=== PATIENT | female | born 1955 | race Caucasian/White ===

== ENCOUNTER → 2022-04-13 15:49 | Outpatient (CLI) | payer MEDICARE, OTHER, SELFPAY ==
--- NOTE | 2022-04-13 15:52 | DI.RAD.S_ITS ---
PROCEDURE: XR CERVICAL SPINE 2V OR 3V INDICATIONS: neck pain TECHNIQUE: 3 view(s) of the cervical spine were acquired. COMPARISON: None. FINDINGS: Bones: No fractures or dislocations to the T1 level. The lateral masses of C1 appear intact on the odontoid view. No suspicious bony lesions. Loss of lordosis which could be related to muscle spasm, rigidity or simply positional. Multilevel disc height loss with endplate sclerosis and spurring, most notably and moderate to severe at the C5-C6 level. Mild multilevel mid and lower cervical spine facet joint arthropathy and uncovertebral hypertrophy. Soft tissues: No prevertebral soft tissue swelling. IMPRESSION: Loss of lordosis and multilevel spondylosis, most notably with moderate to severe disc degeneration at the C5-C6 level. Dictated by: Dimitri PADILLA Interpreted: Fareed Montero MD on 04/13/2022 at 16:19 Transcribed by: BEAR on 04/13/2022 at 16:20 Approved by: Fareed Montero M.D. on 04/20/2022 at 16:16
== END ==
PROVIDERS: PCP Family Medicine; Referring Provider Family Medicine; Visit Provider Family Medicine
DX: M47.812 Spondylosis without myelopathy or radiculopathy, cervical region (principal); M50.322 Other cervical disc degeneration at C5-C6 level; G89.29 Other chronic pain
CPT/HCPCS: 72040

== ENCOUNTER → 2022-06-04 07:14 | Outpatient (CLI) | payer MEDICARE, OTHER, SELFPAY ==
[2022-06-04 08:26] LABS: Add Manual Diff / Slide Review NO; Basophils Absolute Auto 0 /uL (0-100); Basophils Percent Auto 0.6 % (0-2); Eosinophils Absolute Auto 200 /uL (0-450); Eosinophils Percent Auto 4.4 % (2-4); Hematocrit 42.7 % (36-46); Hemoglobin 14.5 g/dL (12.0-16.0); Lymphocytes Absolute Auto 2200 /uL (1100-4500); Mean Corpuscular Hemoglobin 30.2 PG (26-34); Mean Corpuscular Volume 88.6 fL (80-100); Monocytes Absolute Auto 400 /uL (0-900); Monocytes Percent Auto 6.7 % (3-14); Neutrophils Absolute Auto 2600 /uL (1500-7000); Neutrophils Percent Auto 48.3 % (50-75); Platelet Count 183 X10^3/uL (150-400); Red Blood Cell Count 4.82 X10^6/uL (4.0-5.2); Red Cell Distribution Width 13.3 % (11.6-14.8); White Blood Cell Count 5.4 X10^3/uL (4.5-11.0)
[2022-06-04 08:57] LABS: Alanine Aminotransferase 28 IU/L (<35); Albumin 4.2 g/dL (3.5-5.0); Albumin Globulin Ratio 1.9 (1.0-2.8); Alkaline Phosphatase 89 U/L (38-126); Aspartate Aminotransferase 30 IU/L (14-36); BUN Creatinine Ratio 16.7 (6-22); Bilirubin Total 0.6 mg/dL (0.2-1.3); Blood Urea Nitrogen 14 mg/dL (7-17); Calcium 9.8 mg/dL (8.4-10.2); Carbon Dioxide 30 mmol/L (22-32); Chloride 106 mmol/L (98-107); Cholesterol 226 mg/dL (140-199); Estimated Glomerular Filt Rate > 60 mL/min (>60); Globulin 2.2 g/dL (1.7-4.1); Glucose 85 mg/dL (80-110); HDL Cholesterol 69 mg/dL (40-60); HEMOLYSIS < 15 (0-50); LDL Cholesterol Calculated 134 mg/dL (<100); Potassium 4.6 mmol/L (3.4-5.1); Sodium 141 mmol/L (137-145); Total Protein 6.4 g/dL (6.3-8.2); Triglycerides 113 mg/dL (35-150)
[2022-06-04 09:05] LABS: Vitamin D 25 Hydroxy (D3) 66.5 ng/mL (30.0-100.0)
[2022-06-04 09:52] LABS: Hep C Virus Ab w/Reflex Quant NEGATIVE s/c (NEGATIVE)
[2022-06-04 10:10] LABS: Hemoglobin A1C% w Est Avg Glu 5.3 % (4.0-6.0)
== END ==
PROVIDERS: Family Provider Family Medicine; PCP Family Medicine; Referring Provider Family Medicine; Visit Provider Family Medicine
DX: Z11.59 Encounter for screening for other viral diseases (principal); Z00.00 Encounter for general adult medical examination without abnormal findings
CPT/HCPCS: 36415; 80053; 80061; 82306; 83036; 85025; 86803

== ENCOUNTER → 2022-07-07 11:06 | Outpatient (CLI) | payer MEDICARE, OTHER, SELFPAY | PROVIDERS: Family Provider Family Medicine; PCP Family Medicine; Referring Provider Family Medicine; Visit Provider Family Medicine | DX: Z13.820 Encounter for screening for osteoporosis (principal); M85.88 Other specified disorders of bone density and structure, other site; Z78.0 Asymptomatic menopausal state | CPT/HCPCS: 77080 ==

== ENCOUNTER → 2022-07-15 14:08 | Outpatient (CLI) | payer MEDICARE, OTHER, SELFPAY ==
--- NOTE | 2022-07-15 14:09 | DI.MG.S_ITS ---
BILATERAL DIGITAL SCREENING MAMMOGRAM 3D/2D WITH CAD: 07/15/2022 CLINICAL: Routine screening. Family history of breast cancer. Comparison is made to exam dated: 07/09/2020 mammogram - outside location. Both breasts are heterogeneously dense, which may obscure small masses (category c / 51-75% glandular tissue). Current study was also evaluated with a Computer Aided Detection (CAD) system. No significant masses, calcifications, or other findings are seen in either breast. There has been no significant interval change. IMPRESSION: NEGATIVE There is no mammographic evidence of malignancy. A 1 year screening mammogram is recommended. Based on the Tyrer Cuzick model (a risk assessment model) the patient's lifetime risk is 8.6% and her 10 year risk is 4.5%. According to the ACR, ACS, and NCCN guidelines, an annual breast MRI exam along with mammogram is recommended if the patient's lifetime risk is 20% or greater. This exam was interpreted at Station ID: [id number]. NOTE: For mammograms, a report in lay terms will be sent to the patient. Approximately 15% of breast malignancies will not be visualized mammographically. In the management of a palpable breast mass, a negative mammogram must not discourage biopsy of a clinically suspicious lesion. Electronically Signed By: Fareed Montero M.D., jr/flynn:07/15/2022 14:48:49 letter sent: Normal Exam ACR BI-RADS Category 1: Negative [id number]
== END ==
PROVIDERS: Family Provider Family Medicine; PCP Family Medicine; Referring Provider Family Medicine; Visit Provider Family Medicine
DX: Z12.31 Encounter for screening mammogram for malignant neoplasm of breast (principal); Z80.3 Family history of malignant neoplasm of breast
CPT/HCPCS: 77063; 77067

== ENCOUNTER 2022-08-27 15:15 | Outpatient (RCR) | payer MEDICARE, OTHER, SELFPAY ==
--- NOTE | 2022-04-23 16:24 | PT.OIE ---
Current Diagnoses Other chronic pain (04/23/22) Cervicalgia (04/23/22) Muscle weakness (generalized) (04/23/22) Past Medical History (Last Updated 04/13/22 @ 15:36 by Carloz Kelley DO) Allergic rhinitis Chronic neck pain Visit Care Team Role Provider Type Carloz Kelley DO Attending Provider Physician Family Provider Primary Care Provider Referring Provider Specialty: Family Practice Address: [address] [place] [address], [id number] Phone: Fax: Email: [email or web address] Physical Therapy Initial Evaluation PT-OP-A Visit Information Start: 04/22/22 18:26 Freq: Status: Active Protocol: Document 04/23/22 12:46 LRN (Rec: 04/23/22 16:21 LRN [id number]) Out-Patient Physical Therapy Visit Information Visit Information Visit Type Initial Evaluation Visit Start Time 13:00 Visit Stop Time 13:55 Total Visit Minutes 55 Visit Number 1 Evaluation Information Evaluation Date 04/23/22 Precautions Precautions Pt reports chronic neck, back, jaw apin and headaches. PT-OP-B Current Condition Start: 04/22/22 18:26 Freq: Status: Active Protocol: Document 04/23/22 12:46 LRN (Rec: 04/23/22 16:21 LRN [id number]) Current Condition History of Current Condition Onset Date 20 yrs ago, worsened in the past few months. Current Complaints L neck/arm discomfort & numbness including L LE, can't sleep on L side History of Current Condition Pt reports she has had neck pain for the past 20 years of insidious onset. States sometimes driving she can't turn her head to the left due to pain. Once in a while worsening of L arm and leg numbness, and can't sleep on L side. Pt states she moved to [place] a year ago and the referring physician thought PT might help. She states that previous doctors told her she had to live with it. Driving is uncomfortable for really long distances, even as passenger. Headaches on L side. Prior Treatments and Tests Physical therapy previously ~ 2015 in [place]. X-ray report indicates: Loss of lordosis and multilevel spondylosis, most notably with moderate to severe disc degeneration at the C5-C6 level. Next MD visit 05/24/22. Pt given pills (meloxicam), but she doesn't like because they make her sleepy and then she doesn't function well the next day. Future Testing and Treatments Planned None Developmental History Developmental History Moved to [place] a year ago with spouse and dog. PMH: Back pain, was told due to disc problem. Jaw pain - wears mouthguard (pt feels not helpful). Treatment Goals Patient/Caregiver Goals Pt goal is to be able to sleep on L side for 1-2 hours without pain, buckle bra reaching behind back without pain, turning to look to the left for driving. Prior Functional Status Baseline Function- ADL's Independent Baseline Function- Mobility Independent Baseline Function- Other 6 months ago could don bra from behind without pain. Current Functional Impairments (Reported) Functional Limitations- ADL's Sleeps on the L side for 1-2 hrs. Functional Limitations- Work/School Retired from various jobs and being a homemaker. Functional Limitations- Recreation/ Sews and walks her dog daily. Hobbies Has 60 lbs lab. Personal Factors Other Personal Factors That May Effect Chronic L neck/shoulder pain Therapy/Recovery with headaches. PT-OP-C Subjective Start: 04/22/22 18:26 Freq: Status: Active Protocol: Document 04/23/22 12:46 LRN (Rec: 04/23/22 16:21 LRN [id number]) Patient Questionnaires Neck Disability Index NDI Score 12 Neck Disability Index Impairment 20 to 39% Impaired (Score 10- 19) Quick Dash- Upper Extremity Quick Dash UE Score 31.81 Quick Dash UE Impairment 20 to 39% Impaired (Score 20- 39) OP-PT Pain Assessment Pain Assessment Grid Paper Pain Assessment Grid Completed Yes Location Neck Pain Location Details L lateral neck Intensity 4 Scale Used Numeric (0 - 10) Description Aching,Dull Frequency Constant Other Pain Aggravating Factors turning head, lying on it, reading in bed. Pain Alleviating Factors Heat Other Pain Alleviating Factors Meloxicam, PT-OP-E Functional Tests Start: 04/22/22 18:26 Freq: Status: Active Protocol: Document 04/23/22 12:46 LRN (Rec: 04/23/22 16:21 LRN [id number]) Functional Tests Apley's Scratch Test Action 1- Left Posterior Acromion Action 1- Right Posterior scapular region to spine Action 2- Left C7 Action 2- Right T3 Action 3- Left L5 Action 3- Right T7 PT-OP-H Neuro Start: 04/22/22 18:26 Freq: Status: Active Protocol: Document 04/23/22 12:46 LRN (Rec: 04/23/22 16:21 LRN [id number]) Sensation Evaluation Gross Sensation Gross Sensation Left UE Impaired,Head Impaired Sensation Description Tingling Deep Tendon Reflex & Clonus Assessment Deep Tendon Reflex Right Brachioradialis Deep Tendon Reflex 2+ Normal Left Brachioradialis Deep Tendon Reflex 3+ Normal But Brisk Bilateral Tricep Deep Tendon Reflex 3+ Normal But Brisk Bilateral Bicep Deep Tendon Reflex 3+ Normal But Brisk PT-OP-J Posture/Palpation/Skin Start: 04/22/22 18:26 Freq: Status: Active Protocol: Document 04/23/22 12:46 LRN (Rec: 04/23/22 16:21 LRN [id number]) Posture Evaluation Position Standing Head/C-Spine Posture Excess Extension,Forward Head T-Spine Posture Increased Kyphosis L-Spine Posture Increased Lordosis Shoulder Posture (R) Elevated Scapula Posture (L) Elevated Arm Posture (L) Internally Rotated,(R) Internally Rotated Weight Distribution Balanced Palpation Assessment Location Upper back Palpation Location L Upper back Palpation Findings Tenderness Posterior neck Palpation Location L Posterior and lateral neck Palpation Findings Tenderness PT-OP-K Range of Motion Start: 04/22/22 18:26 Freq: Status: Active Protocol: Document 04/23/22 12:46 LRN (Rec: 04/23/22 16:21 LRN [id number]) Cervical Spine Range of Motion Cervical Spine Active Degrees Testing Position Sitting Flexion 40 Extension 32 Rotation Left 25 Rotation Right 50 Lateral Flexion Left 18 Lateral Flexion Right 15 ROM Limitations Pain Shoulder Goniometric Range of Motion Shoulder Right Passive Shoulder ROM WFL Yes Testing Position Supine Flexion 170 Abduction 180 External Rotation at 90 degrees 90 Abduction Internal Rotation 85 Internal Rotation Behind Back (text) T7 Left Passive Shoulder ROM WFL No Testing Position Supine Flexion 140 Abduction 90 External Rotation at 90 degrees 55 Abduction Internal Rotation 72 Internal Rotation Behind Back (text) L5 PT-OP-L Special Tests Start: 04/22/22 18:26 Freq: Status: Active Protocol: Document 04/23/22 12:46 LRN (Rec: 04/23/22 16:21 LRN [id number]) Special Tests Cervical Spine Special Tests Upper Limb Tension Test Test Results + for ulnar, median, and radial nerve of L UE. Vertebral Artery Test Results -, but L rot very limited mobility Spurling's Test Test Results - bilaterally Traction Test Results - Foraminal Compression Test Results - PT-OP-M Strength Start: 04/22/22 18:26 Freq: Status: Active Protocol: Document 04/23/22 12:46 LRN (Rec: 04/23/22 16:21 LR [id number]) Cervical Spine Strength Cervical Spine Manual Muscle Testing Testing Position Supine Flexion (C1-2) 5 Normal Extension 5 Normal Rotation Left 3+ Fair+ Rotation Right 4 Good Lateral Flexion Left (C3) 5 Normal Lateral Flexion Right (C3) 5 Normal Shoulder Strength Shoulder Manual Muscle Testing Right Flexion 5 Normal Abduction (C5) 5 Normal External Rotation 5 Normal Internal Rotation 5 Normal Left Flexion 3- Fair- Abduction (C5) 3- Fair- External Rotation 3- Fair- Internal Rotation 4 Good Hand Filler Block Inserter Remover/Pinch Strength Hand Dominance Hand Dominance Right PT-OP-Q Treatments Start: 04/22/22 18:26 Freq: Status: Active Protocol: Document 04/23/22 12:46 LRN (Rec: 04/23/22 16:21 [facility] [id number]) Therapeutic Exercises Sitting Exercises C. Rot stretch Sitting Exercise Name Active C. Rot stretch Reps/Minutes 5 SH x 3 L UT stretch Sitting Exercise Name L UT stretch, sitting on L hand Side left Reps/Minutes 5-10 SH x 3 Comments cuing for proper postioning for stretch Self-Care/Home Management Treatment Education Other Education Discussed results of evaluation, goals, and plan of care (POC). Pt agreeable to goals and POC. Activities Self-Care/Home Management Activities I/S pt HEP: L UT stretch and active C. L rot stretch. PT-OP-T Assessment and Plan Start: 04/22/22 18:26 Freq: Status: Active Protocol: Document 04/23/22 12:46 LRN (Rec: 04/23/22 16:21 [facility] [id number]) Physical Therapy Assessment Rehab Potential Rehabilitation Potential Good Evaluation Complexity Number of Personal Factors/Comorbidities 1-2 Number of Body Systems Impaired 4 or More Clinical Presentation at Evaluation Evolving Impairments Impairments Activity Tolerance,Functional Activities,Pain,Posture,ROM, Strength Goals Four Impairment L shoulder weakness Impairment L shoulder strength: Flex, AB , ER is 3-/5 (R is 5/5) UE QuickDASH score is 31.81 ( 20-39% impaired) Short Term Goal (STG) Improve L shoulder flex, AB, ER strength to no less than 3+ /5. STG Duration 06/07/22 Intermediate Goal (LTG) Improve L shoulder strength to improve function per UE QuickDASH score 1-19 (1-19% impaired). LTG Duration 07/22/22 Three Impairment Decreased L shoulder mobility Impairment Shoulder AROM (in deg's): Flex 140 L, 180 R; AB 90 L, 180 R; ER 55 L, 90 R; IR 72 L, 85 R. Behind back: L5 left, T7 right. Short Term Goal (STG) Pt will be educated in sleep positions and will improve sleep quality on the L side for 1-2 hours without pain. STG Duration 06/07/22 Intermediate Goal (LTG) Improve L shoulder AROM with pt able to buckle bra reaching behind back without pain. LTG Duration 07/22/22 Two Impairment Decreased neck mobility. Impairment Cervical AROM (in deg's): Rot is 25 L, 50 R; SB is 18 L, 15 R. Short Term Goal (STG) Pt educated in proper head/ neck posturing in standing, sitting and with reading. STG Duration 05/14/22 Intermediate Goal (LTG) Improve L Cervical rotation AROM with pt able to turn to look left comfortably for driving. LTG Duration 07/22/22 One Impairment Pt is not currently on a self care HEP. Short Term Goal (STG) Pt will be educated in sleep positions and use of modalities for pain management . STG Duration 04/30/22 Intermediate Goal (LTG) Pt will be independent with a self care HEP of left neck/ shoulder/UE exercises. LTG Duration 07/22/22 Assessment Summary Assessment Pt presents with soft tissue dysfunction of the left neck and shoulder muscles limiting mobility due to pain; therefore assessment of cervical mechanical dysfunction was deferred until greater soft tissue mobility can be achieved. The pt shows much soft tissue tightness that may be a cause of her tingling sensation in the head and L UE. The pt is not currently participating in a self care HEP; therefore education in home ex's and self care of proper posturing, positional posturing and correct body mechanics to minimize L shoulder/neck pain. It is expected that the pt's rehabilitation may be extended due to the chronic nature of her pain. The pt will benefit from skilled physical therapy to work towards achieving the above stated goals. Physical Therapy Plan Frequency and Duration Frequency of Treatment 2x/Week Plan of Care Start Date 04/23/22 Plan of Care End Date 07/22/22 Therapeutic Interventions Therapeutic Interventions Home Exercise Program,Joint Mobilizations,Manual Therapy, Neuromuscular Re-education, Patient/Caregiver Education, Self-Care/Home Management,Soft Tissue Mobilization,Taping, Therapeutic Activities, Therapeutic Exercises Modalities Cold Pack/Ice Massage,Electric Stimulation,Hot Packs, Ultrasound Next Visit Focus/Plan Next Note Type Treatment Note Next Visit Plan Assess cervical joint mechanics when soft tissue mobility improved. End modalities to decrease soft tissue dysfunction (MH/ IFES). Education: best sleep position in L sidelie to minimize pain , proper head/neck posturing in standing, sitting and with reading STM/MFR to head, L neck, shoulder. Stretch: neck, L shoulder, scapula, UE neural. Stabilization/ther ex: neck, L shoulder, scapula.
--- NOTE | 2022-04-29 16:12 | PT.OTN ---
Current Diagnoses Other chronic pain (04/29/22) Cervicalgia (04/29/22) Muscle weakness (generalized) (04/29/22) Physical Therapy Treatment Note PT-OP-A Visit Information Start: 04/22/22 18:26 Freq: Status: Active Protocol: Document 04/29/22 13:03 LRN (Rec: 04/29/22 13:47 LRN [id number]) Out-Patient Physical Therapy Visit Information Visit Information Visit Type Treatment Note Visit Start Time 13:03 Visit Stop Time 13:45 Total Visit Minutes 42 Visit Number 2 Evaluation Information Evaluation Date 04/23/22 Precautions Precautions Pt reports chronic neck, back, jaw apin and headaches. PT-OP-B Current Condition Start: 04/22/22 18:26 Freq: Status: Active Protocol: Document 04/23/22 12:46 LRN (Rec: 04/23/22 16:21 LRN [id number]) Current Condition History of Current Condition Onset Date 20 yrs ago, worsened in the past few months. Current Complaints L neck/arm discomfort & numbness including L LE, can't sleep on L side History of Current Condition Pt reports she has had neck pain for the past 20 years of insidious onset. States sometimes driving she can't turn her head to the left due to pain. Once in a while worsening of L arm and leg numbness, and can't sleep on L side. Pt states she moved to [place] a year ago and the referring physician thought PT might help. She states that previous doctors told her she had to live with it. Driving is uncomfortable for really long distances, even as passenger. Headaches on L side. Prior Treatments and Tests Physical therapy previously ~ 2015 in [place]. X-ray report indicates: Loss of lordosis and multilevel spondylosis, most notably with moderate to severe disc degeneration at the C5-C6 level. Next MD visit 05/24/22. Pt given pills (meloxicam), but she doesn't like because they make her sleepy and then she doesn't function well the next day. Future Testing and Treatments Planned None Developmental History Developmental History Moved to [place] a year ago with spouse and dog. PMH: Back pain, was told due to disc problem. Jaw pain - wears mouthguard (pt feels not helpful). Treatment Goals Patient/Caregiver Goals Pt goal is to be able to sleep on L side for 1-2 hours without pain, buckle bra reaching behind back without pain, turning to look to the left for driving. Prior Functional Status Baseline Function- ADL's Independent Baseline Function- Mobility Independent Baseline Function- Other 6 months ago could don bra from behind without pain. Current Functional Impairments (Reported) Functional Limitations- ADL's Sleeps on the L side for 1-2 hrs. Functional Limitations- Work/School Retired from various jobs and being a homemaker. Functional Limitations- Recreation/ Sews and walks her dog daily. Hobbies Has 60 lbs lab. Personal Factors Other Personal Factors That May Effect Chronic L neck/shoulder pain Therapy/Recovery with headaches. PT-OP-C Subjective Start: 04/22/22 18:26 Freq: Status: Active Protocol: Document 04/29/22 13:03 LRN (Rec: 04/29/22 13:47 LRN [id number]) OP-PT Subjective Patient Comments Patient Comments No changes. States this week has been horrible due to dealing with spouse home and doing a lot of driving and stress from unknown and dad. PT-OP-E Functional Tests Start: 04/22/22 18:26 Freq: Status: Active Protocol: Document 04/23/22 12:46 LRN (Rec: 04/23/22 16:21 LRN [id number]) Functional Tests Apley's Scratch Test Action 1- Left Posterior Acromion Action 1- Right Posterior scapular region to spine Action 2- Left C7 Action 2- Right T3 Action 3- Left L5 Action 3- Right T7 PT-OP-H Neuro Start: 04/22/22 18:26 Freq: Status: Active Protocol: Document 04/23/22 12:46 LRN (Rec: 04/23/22 16:21 LRN [id number]) Sensation Evaluation Gross Sensation Gross Sensation Left UE Impaired,Head Impaired Sensation Description Tingling Deep Tendon Reflex & Clonus Assessment Deep Tendon Reflex Right Brachioradialis Deep Tendon Reflex 2+ Normal Left Brachioradialis Deep Tendon Reflex 3+ Normal But Brisk Bilateral Tricep Deep Tendon Reflex 3+ Normal But Brisk Bilateral Bicep Deep Tendon Reflex 3+ Normal But Brisk PT-OP-J Posture/Palpation/Skin Start: 04/22/22 18:26 Freq: Status: Active Protocol: Document 04/23/22 12:46 LRN (Rec: 04/23/22 16:21 LRN [id number]) Posture Evaluation Position Standing Head/C-Spine Posture Excess Extension,Forward Head T-Spine Posture Increased Kyphosis L-Spine Posture Increased Lordosis Shoulder Posture (R) Elevated Scapula Posture (L) Elevated Arm Posture (L) Internally Rotated,(R) Internally Rotated Weight Distribution Balanced Palpation Assessment Location Upper back Palpation Location L Upper back Palpation Findings Tenderness Posterior neck Palpation Location L Posterior and lateral neck Palpation Findings Tenderness PT-OP-K Range of Motion Start: 04/22/22 18:26 Freq: Status: Active Protocol: Document 04/23/22 12:46 LRN (Rec: 04/23/22 16:21 LRN [id number]) Cervical Spine Range of Motion Cervical Spine Active Degrees Testing Position Sitting Flexion 40 Extension 32 Rotation Left 25 Rotation Right 50 Lateral Flexion Left 18 Lateral Flexion Right 15 ROM Limitations Pain Shoulder Goniometric Range of Motion Shoulder Right Passive Shoulder ROM WFL Yes Testing Position Supine Flexion 170 Abduction 180 External Rotation at 90 degrees 90 Abduction Internal Rotation 85 Internal Rotation Behind Back (text) T7 Left Passive Shoulder ROM WFL No Testing Position Supine Flexion 140 Abduction 90 External Rotation at 90 degrees 55 Abduction Internal Rotation 72 Internal Rotation Behind Back (text) L5 PT-OP-L Special Tests Start: 04/22/22 18:26 Freq: Status: Active Protocol: Document 04/23/22 12:46 LRN (Rec: 04/23/22 16:21 LRN [id number]) Special Tests Cervical Spine Special Tests Upper Limb Tension Test Test Results + for ulnar, median, and radial nerve of L UE. Vertebral Artery Test Results -, but L rot very limited mobility Spurling's Test Test Results - bilaterally Traction Test Results - Foraminal Compression Test Results - PT-OP-M Strength Start: 04/22/22 18:26 Freq: Status: Active Protocol: Document 04/23/22 12:46 LRN (Rec: 04/23/22 16:21 LRN [id number]) Cervical Spine Strength Cervical Spine Manual Muscle Testing Testing Position Supine Flexion (C1-2) 5 Normal Extension 5 Normal Rotation Left 3+ Fair+ Rotation Right 4 Good Lateral Flexion Left (C3) 5 Normal Lateral Flexion Right (C3) 5 Normal Shoulder Strength Shoulder Manual Muscle Testing Right Flexion 5 Normal Abduction (C5) 5 Normal External Rotation 5 Normal Internal Rotation 5 Normal Left Flexion 3- Fair- Abduction (C5) 3- Fair- External Rotation 3- Fair- Internal Rotation 4 Good Hand Planning Aide/Pinch Strength Hand Dominance Hand Dominance Right PT-OP-Q Treatments Start: 04/22/22 18:26 Freq: Status: Active Protocol: Document 04/29/22 13:03 LRN (Rec: 04/29/22 13:47 [facility] [id number]) Therapeutic Exercises Supine Exercises Ulnar n stretch Supine Exercise Name L>R Ulnar n stretch with arm 90 deg's AB f/b forearm sup/ pron Side bilateral Reps/Minutes 10x each Comments Extra time to determine max tolerated stretch Sitting Exercises C. Rot stretch Sitting Exercise Name Active C. L Rot stretch Side left Reps/Minutes 10 SH x 10 L UT stretch Sitting Exercise Name L UT stretch, sitting on L hand Side bilateral Reps/Minutes 5-10 SH x 3 Comments cuing for proper postioning for stretch Standing Exercises L Median n stretch Standing Exercise Name L>R Median n stretch: Sitting with arm supported in front, lift hand/wrist Side bilateral Reps/Minutes 10-20 SH x 10 Comments Much extra time to determine best position and for trng of proper ex. L Radial stretch Standing Exercise Name L>R Radial n stretch: shoulder depression Side bilateral Reps/Minutes 10x Comments Extra time to determine max tolerated stretch Self-Care/Home Management Treatment Activities Self-Care/Home Management Activities Issued & reviewed HEP: Neck C . rot and UT stretch and UE neual glides: Standing Radial , Supine Medial and sitting/ standing Medial n stretches. PT-OP-T Assessment and Plan Start: 04/22/22 18:26 Freq: Status: Active Protocol: Document 04/29/22 13:03 LRN (Rec: 04/29/22 13:47 [facility] [id number]) Physical Therapy Assessment Goals Four Impairment L shoulder weakness Impairment L shoulder strength: Flex, AB , ER is 3-/5 (R is 5/5) UE QuickDASH score is 31.81 ( 20-39% impaired) Short Term Goal (STG) Improve L shoulder flex, AB, ER strength to no less than 3+ /5. STG Duration 06/07/22 Acquisition Cost Estimator Goal (LTG) Improve L shoulder strength to improve function per UE QuickDASH score 1-19 (1-19% impaired). LTG Duration 07/22/22 Three Impairment Decreased L shoulder mobility Impairment Shoulder AROM (in deg's): Flex 140 L, 180 R; AB 90 L, 180 R; ER 55 L, 90 R; IR 72 L, 85 R. Behind back: L5 left, T7 right. Short Term Goal (STG) Pt will be educated in sleep positions and will improve sleep quality on the L side for 1-2 hours without pain. STG Duration 06/07/22 Acquisition Cost Estimator Goal (LTG) Improve L shoulder AROM with pt able to buckle bra reaching behind back without pain. LTG Duration 07/22/22 Two Impairment Decreased neck mobility. Impairment Cervical AROM (in deg's): Rot is 25 L, 50 R; SB is 18 L, 15 R. Short Term Goal (STG) Pt educated in proper head/ neck posturing in standing, sitting and with reading. STG Duration 05/14/22 Acquisition Cost Estimator Goal (LTG) Improve L Cervical rotation AROM with pt able to turn to look left comfortably for driving. 04/29/22: HEP: C. rot stretch . LTG Duration 07/22/22 progressed 04/29/22 One Impairment Pt is not currently on a self care HEP. Short Term Goal (STG) Pt will be educated in sleep positions and use of modalities for pain management . STG Duration 04/30/22 Snf Goal (LTG) Pt will be independent with a self care HEP of left neck/ shoulder/UE exercises. 04/29/22: HEP: C. rot & UT stretch, UE neural stretches ( radial, ulnar & median nerves) LTG Duration 07/22/22 progressed 04/29/22 Progress Towards Goals Progress Comments Progressed HEP for C. rot and UE neural mobility. Assessment Summary Assessment Pt is very restricted in L UE neural mobility and neck mobility. She is only able to tolerate start position for ulnar (arm 90 deg's AB/neutral palm, with extra stretch through forearm sup/pron), and radial n (scapular depression ). Median n stretch not tolerated in standing start position with h and on wall, tolerated better with arm resting on surface for passive wrist ext stretch using opp hand. Physical Therapy Plan Frequency and Duration Frequency of Treatment 2x/Week Plan of Care Start Date 04/23/22 Plan of Care End Date 07/22/22 Next Visit Focus/Plan Next Note Type Treatment Note Next Visit Plan Assess cervical joint mechanics when soft tissue mobility improved. Try modalities to decrease soft tissue dysfunction (MH/ IFES). POC: Education: best sleep position in L sidelie to minimize pain , proper head/neck posturing in standing, sitting and with reading STM/MFR to head, L neck, shoulder. Stretch: L shoulder, scapula (monitor cervical & UE neural stretch). Stabilization/ther ex: neck, L shoulder, scapula.
--- NOTE | 2022-05-03 15:42 | PT.OTN ---
Current Diagnoses Other chronic pain (05/03/22) Cervicalgia (05/03/22) Muscle weakness (generalized) (05/03/22) Physical Therapy Treatment Note PT-OP-A Visit Information Start: 04/22/22 18:26 Freq: Status: Active Protocol: Document 05/03/22 09:48 LRN (Rec: 05/03/22 10:34 LRN [id number]) Out-Patient Physical Therapy Visit Information Visit Information Visit Type Treatment Note Visit Start Time 09:48 Visit Stop Time 10:35 Total Visit Minutes 47 Visit Number 3 Evaluation Information Evaluation Date 04/23/22 Precautions Precautions Pt reports chronic neck, back, jaw apin and headaches. PT-OP-B Current Condition Start: 04/22/22 18:26 Freq: Status: Active Protocol: Document 04/23/22 12:46 LRN (Rec: 04/23/22 16:21 LRN [id number]) Current Condition History of Current Condition Onset Date 20 yrs ago, worsened in the past few months. Current Complaints L neck/arm discomfort & numbness including L LE, can't sleep on L side History of Current Condition Pt reports she has had neck pain for the past 20 years of insidious onset. States sometimes driving she can't turn her head to the left due to pain. Once in a while worsening of L arm and leg numbness, and can't sleep on L side. Pt states she moved to [place] a year ago and the referring physician thought PT might help. She states that previous doctors told her she had to live with it. Driving is uncomfortable for really long distances, even as passenger. Headaches on L side. Prior Treatments and Tests Physical therapy previously ~ 2015 in [place]. X-ray report indicates: Loss of lordosis and multilevel spondylosis, most notably with moderate to severe disc degeneration at the C5-C6 level. Next MD visit 05/24/22. Pt given pills (meloxicam), but she doesn't like because they make her sleepy and then she doesn't function well the next day. Future Testing and Treatments Planned None Developmental History Developmental History Moved to [place] a year ago with spouse and dog. PMH: Back pain, was told due to disc problem. Jaw pain - wears mouthguard (pt feels not helpful). Treatment Goals Patient/Caregiver Goals Pt goal is to be able to sleep on L side for 1-2 hours without pain, buckle bra reaching behind back without pain, turning to look to the left for driving. Prior Functional Status Baseline Function- ADL's Independent Baseline Function- Mobility Independent Baseline Function- Other 6 months ago could don bra from behind without pain. Current Functional Impairments (Reported) Functional Limitations- ADL's Sleeps on the L side for 1-2 hrs. Functional Limitations- Work/School Retired from various jobs and being a homemaker. Functional Limitations- Recreation/ Sews and walks her dog daily. Hobbies Has 60 lbs lab. Personal Factors Other Personal Factors That May Effect Chronic L neck/shoulder pain Therapy/Recovery with headaches. PT-OP-C Subjective Start: 04/22/22 18:26 Freq: Status: Active Protocol: Document 05/03/22 09:48 LRN (Rec: 05/03/22 10:34 LRN [id number]) OP-PT Subjective Patient Comments Patient Comments Pt states her prior PT was in Mar 2018 at [facility] Therapy service for 1 month. States she hasn't done the new ex's, only the sit UT stretch. PT-OP-E Functional Tests Start: 04/22/22 18:26 Freq: Status: Active Protocol: Document 04/23/22 12:46 LRN (Rec: 04/23/22 16:21 LRN [id number]) Functional Tests Apley's Scratch Test Action 1- Left Posterior Acromion Action 1- Right Posterior scapular region to spine Action 2- Left C7 Action 2- Right T3 Action 3- Left L5 Action 3- Right T7 PT-OP-H Neuro Start: 04/22/22 18:26 Freq: Status: Active Protocol: Document 04/23/22 12:46 LRN (Rec: 04/23/22 16:21 LRN [id number]) Sensation Evaluation Gross Sensation Gross Sensation Left UE Impaired,Head Impaired Sensation Description Tingling Deep Tendon Reflex & Clonus Assessment Deep Tendon Reflex Right Brachioradialis Deep Tendon Reflex 2+ Normal Left Brachioradialis Deep Tendon Reflex 3+ Normal But Brisk Bilateral Tricep Deep Tendon Reflex 3+ Normal But Brisk Bilateral Bicep Deep Tendon Reflex 3+ Normal But Brisk PT-OP-J Posture/Palpation/Skin Start: 04/22/22 18:26 Freq: Status: Active Protocol: Document 04/23/22 12:46 LRN (Rec: 04/23/22 16:21 LRN [id number]) Posture Evaluation Position Standing Head/C-Spine Posture Excess Extension,Forward Head T-Spine Posture Increased Kyphosis L-Spine Posture Increased Lordosis Shoulder Posture (R) Elevated Scapula Posture (L) Elevated Arm Posture (L) Internally Rotated,(R) Internally Rotated Weight Distribution Balanced Palpation Assessment Location Upper back Palpation Location L Upper back Palpation Findings Tenderness Posterior neck Palpation Location L Posterior and lateral neck Palpation Findings Tenderness PT-OP-K Range of Motion Start: 04/22/22 18:26 Freq: Status: Active Protocol: Document 04/23/22 12:46 LRN (Rec: 04/23/22 16:21 LRN [id number]) Cervical Spine Range of Motion Cervical Spine Active Degrees Testing Position Sitting Flexion 40 Extension 32 Rotation Left 25 Rotation Right 50 Lateral Flexion Left 18 Lateral Flexion Right 15 ROM Limitations Pain Shoulder Goniometric Range of Motion Shoulder Right Passive Shoulder ROM WFL Yes Testing Position Supine Flexion 170 Abduction 180 External Rotation at 90 degrees 90 Abduction Internal Rotation 85 Internal Rotation Behind Back (text) T7 Left Passive Shoulder ROM WFL No Testing Position Supine Flexion 140 Abduction 90 External Rotation at 90 degrees 55 Abduction Internal Rotation 72 Internal Rotation Behind Back (text) L5 PT-OP-L Special Tests Start: 04/22/22 18:26 Freq: Status: Active Protocol: Document 04/23/22 12:46 LRN (Rec: 04/23/22 16:21 LRN [id number]) Special Tests Cervical Spine Special Tests Upper Limb Tension Test Test Results + for ulnar, median, and radial nerve of L UE. Vertebral Artery Test Results -, but L rot very limited mobility Spurling's Test Test Results - bilaterally Traction Test Results - Foraminal Compression Test Results - PT-OP-M Strength Start: 04/22/22 18:26 Freq: Status: Active Protocol: Document 04/23/22 12:46 LRN (Rec: 04/23/22 16:21 LRN [id number]) Cervical Spine Strength Cervical Spine Manual Muscle Testing Testing Position Supine Flexion (C1-2) 5 Normal Extension 5 Normal Rotation Left 3+ Fair+ Rotation Right 4 Good Lateral Flexion Left (C3) 5 Normal Lateral Flexion Right (C3) 5 Normal Shoulder Strength Shoulder Manual Muscle Testing Right Flexion 5 Normal Abduction (C5) 5 Normal External Rotation 5 Normal Internal Rotation 5 Normal Left Flexion 3- Fair- Abduction (C5) 3- Fair- External Rotation 3- Fair- Internal Rotation 4 Good Hand 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 Ulnar n stretch Supine Exercise Name L>R Ulnar n stretch with arm 90 deg's AB f/b forearm sup/ pron Side bilateral Reps/Minutes 10x each Comments Extra time to determine max tolerated stretch Sitting Exercises C. Rot stretch Sitting Exercise Name Active C. L Rot stretch Side left Reps/Minutes 10 SH x 10 L UT stretch Sitting Exercise Name L UT stretch, sitting on L hand Side bilateral Reps/Minutes 5-10 SH x 5-8 Comments cuing for proper postioning for stretch Standing Exercises L Radial stretch Standing Exercise Name Reviewed w/handouts Side left Self-Care/Home Management Treatment Education Patient Education Posture Other Education Pt wanted PT to be aware of prior PT establishment that she attended in 2018, therefore discussed her prior PT. Discussed and educated pt regarding pillows and posturing for sleep (on side). Pt educated in proper head/ neck posturing in standing, sitting and with reading. PT-OP-R Modalities Start: 04/22/22 18:26 Freq: Status: Active Protocol: Document 05/03/22 09:48 LRN (Rec: 05/03/22 10:34 [facility] [id number]) Electric Stimulation Electric Stimulation Interferential Current (IFC) Body Location Neck (neck/UT) Duration (Minutes) 10 Intensity 15>14 Target/Sweep Sweep Patient Position Hooklying Combined With Heat/Cold Hot Pack Comments Legs on bolster. PT-OP-T Assessment and Plan Start: 04/22/22 18:26 Freq: Status: Active Protocol: Document 05/03/22 09:48 LRN (Rec: 05/03/22 10:34 [facility] [id number]) Physical Therapy Assessment Goals Four Impairment L shoulder weakness Impairment L shoulder strength: Flex, AB , ER is 3-/5 (R is 5/5) UE QuickDASH score is 31.81 ( 20-39% impaired) Short Term Goal (STG) Improve L shoulder flex, AB, ER strength to no less than 3+ /5. STG Duration 06/07/22 Radio Assembler Goal (LTG) Improve L shoulder strength to improve function per UE QuickDASH score 1-19 (1-19% impaired). LTG Duration 07/22/22 Three Impairment Decreased L shoulder mobility Impairment Shoulder AROM (in deg's): Flex 140 L, 180 R; AB 90 L, 180 R; ER 55 L, 90 R; IR 72 L, 85 R. Behind back: L5 left, T7 right. Short Term Goal (STG) Pt will be educated in sleep positions and will improve sleep quality on the L side for 1-2 hours without pain. STG Duration 06/07/22 Radio Assembler Goal (LTG) Improve L shoulder AROM with pt able to buckle bra reaching behind back without pain. LTG Duration 07/22/22 Two Impairment Decreased neck mobility. Impairment Cervical AROM (in deg's): Rot is 25 L, 50 R; SB is 18 L, 15 R. Short Term Goal (STG) Pt educated in proper head/ neck posturing in standing, sitting and with reading. STG Duration 05/14/22 (04/02/22: met goal) Radio Assembler Goal (LTG) Improve L Cervical rotation AROM with pt able to turn to look left comfortably for driving. 04/29/22: HEP: C. rot stretch . LTG Duration 07/22/22 progressed 04/29/22 One Impairment Pt is not currently on a self care HEP. Short Term Goal (STG) Pt will be educated in sleep positions and use of modalities for pain management . STG Duration 04/30/22 Radio Assembler Goal (LTG) Pt will be independent with a self care HEP of left neck/ shoulder/UE exercises. 04/29/22: HEP: C. rot & UT stretch, UE neural stretches ( radial, ulnar & median nerves) LTG Duration 07/22/22 progressed 04/29/22 Assessment Summary Assessment + response to EStim with reduction of L neck pain from 11/03 to 09/03. Pt not familiar with UE neural stretches; therefore further review needed. Pt was very receptive to recommendations to nighttime positioning and posture education. Physical Therapy Plan Frequency and Duration Frequency of Treatment 2x/Week Plan of Care Start Date 04/23/22 Plan of Care End Date 07/22/22 Next Visit Focus/Plan Next Note Type Treatment Note Next Visit Plan Assess cervical joint mechanics when soft tissue mobility improved. Assess long-term response to MH/IFES. Discuss/educate for positioning while reading POC: STM/MFR to head, L neck, shoulder. Stretch: L shoulder, scapula (monitor cervical & UE neural stretch). Stabilization/ther ex: neck, L shoulder, scapula.
--- NOTE | 2022-05-06 16:29 | PT.OTN ---
Current Diagnoses Other chronic pain (05/06/22) Cervicalgia (05/06/22) Muscle weakness (generalized) (05/06/22) Physical Therapy Treatment Note PT-OP-A Visit Information Start: 04/22/22 18:26 Freq: Status: Active Protocol: Document 05/06/22 12:34 LRN (Rec: 05/06/22 13:50 LRN [id number]) Out-Patient Physical Therapy Visit Information Visit Information Visit Type Treatment Note Visit Start Time 13:06 Visit Stop Time 13:51 Total Visit Minutes 45 Visit Number 4 Evaluation Information Evaluation Date 04/23/22 Precautions Precautions Pt reports chronic neck, back, jaw apin and headaches. PT-OP-B Current Condition Start: 04/22/22 18:26 Freq: Status: Active Protocol: Document 04/23/22 12:46 LRN (Rec: 04/23/22 16:21 LRN [id number]) Current Condition History of Current Condition Onset Date 20 yrs ago, worsened in the past few months. Current Complaints L neck/arm discomfort & numbness including L LE, can't sleep on L side History of Current Condition Pt reports she has had neck pain for the past 20 years of insidious onset. States sometimes driving she can't turn her head to the left due to pain. Once in a while worsening of L arm and leg numbness, and can't sleep on L side. Pt states she moved to [place] a year ago and the referring physician thought PT might help. She states that previous doctors told her she had to live with it. Driving is uncomfortable for really long distances, even as passenger. Headaches on L side. Prior Treatments and Tests Physical therapy previously ~ 2015 in [place]. X-ray report indicates: Loss of lordosis and multilevel spondylosis, most notably with moderate to severe disc degeneration at the C5-C6 level. Next MD visit 05/24/22. Pt given pills (meloxicam), but she doesn't like because they make her sleepy and then she doesn't function well the next day. Future Testing and Treatments Planned None Developmental History Developmental History Moved to [place] a year ago with spouse and dog. PMH: Back pain, was told due to disc problem. Jaw pain - wears mouthguard (pt feels not helpful). Treatment Goals Patient/Caregiver Goals Pt goal is to be able to sleep on L side for 1-2 hours without pain, buckle bra reaching behind back without pain, turning to look to the left for driving. Prior Functional Status Baseline Function- ADL's Independent Baseline Function- Mobility Independent Baseline Function- Other 6 months ago could don bra from behind without pain. Current Functional Impairments (Reported) Functional Limitations- ADL's Sleeps on the L side for 1-2 hrs. Functional Limitations- Work/School Retired from various jobs and being a homemaker. Functional Limitations- Recreation/ Sews and walks her dog daily. Hobbies Has 60 lbs lab. Personal Factors Other Personal Factors That May Effect Chronic L neck/shoulder pain Therapy/Recovery with headaches. PT-OP-C Subjective Start: 04/22/22 18:26 Freq: Status: Active Protocol: Document 05/06/22 12:34 LRN (Rec: 05/06/22 13:50 LRN [id number]) OP-PT Subjective Patient Comments Patient Comments States she was better after last treatment and was able to put coat on from R to L ( usually does it L to R). Pain rated as 5/10. Tried to support head properly in sidelie and has been working on her posture in sitting. PT-OP-E Functional Tests Start: 04/22/22 18:26 Freq: Status: Active Protocol: Document 04/23/22 12:46 LRN (Rec: 04/23/22 16:21 LRN [id number]) Functional Tests Apley's Scratch Test Action 1- Left Posterior Acromion Action 1- Right Posterior scapular region to spine Action 2- Left C7 Action 2- Right T3 Action 3- Left L5 Action 3- Right T7 PT-OP-H Neuro Start: 04/22/22 18:26 Freq: Status: Active Protocol: Document 04/23/22 12:46 LRN (Rec: 04/23/22 16:21 LRN [id number]) Sensation Evaluation Gross Sensation Gross Sensation Left UE Impaired,Head Impaired Sensation Description Tingling Deep Tendon Reflex & Clonus Assessment Deep Tendon Reflex Right Brachioradialis Deep Tendon Reflex 2+ Normal Left Brachioradialis Deep Tendon Reflex 3+ Normal But Brisk Bilateral Tricep Deep Tendon Reflex 3+ Normal But Brisk Bilateral Bicep Deep Tendon Reflex 3+ Normal But Brisk PT-OP-J Posture/Palpation/Skin Start: 04/22/22 18:26 Freq: Status: Active Protocol: Document 04/23/22 12:46 LRN (Rec: 04/23/22 16:21 LRN [id number]) Posture Evaluation Position Standing Head/C-Spine Posture Excess Extension,Forward Head T-Spine Posture Increased Kyphosis L-Spine Posture Increased Lordosis Shoulder Posture (R) Elevated Scapula Posture (L) Elevated Arm Posture (L) Internally Rotated,(R) Internally Rotated Weight Distribution Balanced Palpation Assessment Location Upper back Palpation Location L Upper back Palpation Findings Tenderness Posterior neck Palpation Location L Posterior and lateral neck Palpation Findings Tenderness PT-OP-K Range of Motion Start: 04/22/22 18:26 Freq: Status: Active Protocol: Document 04/23/22 12:46 LRN (Rec: 04/23/22 16:21 LRN [id number]) Cervical Spine Range of Motion Cervical Spine Active Degrees Testing Position Sitting Flexion 40 Extension 32 Rotation Left 25 Rotation Right 50 Lateral Flexion Left 18 Lateral Flexion Right 15 ROM Limitations Pain Shoulder Goniometric Range of Motion Shoulder Right Passive Shoulder ROM WFL Yes Testing Position Supine Flexion 170 Abduction 180 External Rotation at 90 degrees 90 Abduction Internal Rotation 85 Internal Rotation Behind Back (text) T7 Left Passive Shoulder ROM WFL No Testing Position Supine Flexion 140 Abduction 90 External Rotation at 90 degrees 55 Abduction Internal Rotation 72 Internal Rotation Behind Back (text) L5 PT-OP-L Special Tests Start: 04/22/22 18:26 Freq: Status: Active Protocol: Document 04/23/22 12:46 LRN (Rec: 04/23/22 16:21 LRN [id number]) Special Tests Cervical Spine Special Tests Upper Limb Tension Test Test Results + for ulnar, median, and radial nerve of L UE. Vertebral Artery Test Results -, but L rot very limited mobility Spurling's Test Test Results - bilaterally Traction Test Results - Foraminal Compression Test Results - PT-OP-M Strength Start: 04/22/22 18:26 Freq: Status: Active Protocol: Document 04/23/22 12:46 LRN (Rec: 04/23/22 16:21 LRN [id number]) Cervical Spine Strength Cervical Spine Manual Muscle Testing Testing Position Supine Flexion (C1-2) 5 Normal Extension 5 Normal Rotation Left 3+ Fair+ Rotation Right 4 Good Lateral Flexion Left (C3) 5 Normal Lateral Flexion Right (C3) 5 Normal Shoulder Strength Shoulder Manual Muscle Testing Right Flexion 5 Normal Abduction (C5) 5 Normal External Rotation 5 Normal Internal Rotation 5 Normal Left Flexion 3- Fair- Abduction (C5) 3- Fair- External Rotation 3- Fair- Internal Rotation 4 Good Hand Proof Load Mechanic/Pinch Strength Hand Dominance Hand Dominance Right PT-OP-Q Treatments Start: 04/22/22 18:26 Freq: Status: Active Protocol: Document 05/06/22 12:34 LRN (Rec: 05/06/22 13:50 LRN [id number]) Therapeutic Exercises Supine Exercises Ulnar n stretch Supine Exercise Name L>R Ulnar n stretch with arm 70 deg's AB f/b wrist ext arm in neutral Side bilateral Reps/Minutes 10 SH x 10 wrist ext Comments Extra time to determine max tolerated stretch Sitting Exercises C. Rot stretch Sitting Exercise Name Active C. L Rot stretch Side left Reps/Minutes 10 SH x 10 L UT stretch Sitting Exercise Name L UT stretch, sitting on L hand Side bilateral Reps/Minutes 5-10 SH x 5-8 Comments cuing for proper postioning for stretch Standing Exercises L Median n stretch Standing Exercise Name L>R Median n stretch Side bilateral Reps/Minutes 10 SH x 10 of elbow flexion Comments Much extra time to determine best position and for trng of proper ex. L Radial stretch Standing Exercise Name L>R Radial n stretch: shdr depression, fingers only able to point bkwds. Side bilateral Reps/Minutes 10 SH x 10 of wrist flexion Comments Extra time to determine max tolerated stretch Manual Therapy Treatment Joint Mobilizations C3-C6 Joint C3-C4, C4-C5, C5-C6. Direction Gapping of Facet joints Grade II Body Position Supine Reps/Duration 8 Self-Care/Home Management Treatment Education Patient Education Posture Other Education Reviewed postioning for nighttime sleep for proper head on neck position. Reviewed pillows with hole in the middle and showed pt online what to look for. PT-OP-R Modalities Start: 04/22/22 18:26 Freq: Status: Active Protocol: Document 05/06/22 12:34 LRN (Rec: 05/06/22 13:50 LRN [id number]) Electric Stimulation Electric Stimulation Interferential Current (IFC) Body Location Neck (L UT>lat shoulder, Infras>Pec) Duration (Minutes) 10 Intensity 14 Target/Sweep Sweep Patient Position Hooklying Combined With Heat/Cold Hot Pack Comments Legs on bolster. PT-OP-T Assessment and Plan Start: 04/22/22 18:26 Freq: Status: Active Protocol: Document 05/06/22 12:34 LRN (Rec: 05/06/22 13:50 LRN [id number]) Physical Therapy Assessment Goals Four Impairment L shoulder weakness Impairment L shoulder strength: Flex, AB , ER is 3-/5 (R is 5/5) UE QuickDASH score is 31.81 ( 20-39% impaired) Short Term Goal (STG) Improve L shoulder flex, AB, ER strength to no less than 3+ /5. STG Duration 06/07/22 Retirement Goal (LTG) Improve L shoulder strength to improve function per UE QuickDASH score 1-19 (1-19% impaired). LTG Duration 07/22/22 Three Impairment Decreased L shoulder mobility Impairment Shoulder AROM (in deg's): Flex 140 L, 180 R; AB 90 L, 180 R; ER 55 L, 90 R; IR 72 L, 85 R. Behind back: L5 left, T7 right. Short Term Goal (STG) Pt will be educated in sleep positions and will improve sleep quality on the L side for 1-2 hours without pain. 05/03: I/S pt in best practice for side sleeping and head/neck posturing. STG Duration 06/07/22 (partially met 05/06) Retirement Goal (LTG) Improve L shoulder AROM with pt able to buckle bra reaching behind back without pain. LTG Duration 07/22/22 Two Impairment Decreased neck mobility. Impairment Cervical AROM (in deg's): Rot is 25 L, 50 R; SB is 18 L, 15 R. Short Term Goal (STG) Pt educated in proper head/ neck posturing in standing, sitting and with reading. 05/06/22 STG Duration 05/14/22 (05/03/22: MET GOAL) Licensed Pesticide Applicator Goal (LTG) Improve L Cervical rotation AROM with pt able to turn to look left comfortably for driving. 04/29/22: HEP: C. rot stretch . LTG Duration 07/22/22 progressed 04/29/22 One Impairment Pt is not currently on a self care HEP. Short Term Goal (STG) Pt will be educated in sleep positions and use of modalities for pain management . 05/03 & 04/17: Educated pt in best Sleep positioning. STG Duration 04/30/22 (05/06/22: Partially met goal) Licensed Pesticide Applicator Goal (LTG) Pt will be independent with a self care HEP of left neck/ shoulder/UE exercises. 04/29/22: HEP: C. rot & UT stretch, UE neural stretches ( radial, ulnar & median nerves) LTG Duration 07/22/22 progressed 04/29/22 Progress Towards Goals Progress Comments Partially met STG #1 & #3. Assessment Summary Assessment Pt now able to tolerate median n stretch in standing position. Pt able don coat from R to L arm for first time . Pt has improved understanding of best positioning at nighttime after education. With JMT, pt has stiffness on L side as expected. Physical Therapy Plan Frequency and Duration Frequency of Treatment 2x/Week Plan of Care Start Date 04/23/22 Plan of Care End Date 07/22/22 Next Visit Focus/Plan Next Note Type Treatment Note Next Visit Plan Discuss use of modalities for pain control at nighttime for sleep. Assess long-term response to MH/IFES. Discuss/educate for positioning while reading POC: STM/MFR to head, L neck, shoulder. Stretch: L shoulder, scapula (monitor cervical & UE neural stretch). Stabilization/ther ex: neck, L shoulder, scapula.
--- NOTE | 2022-05-11 13:43 | PT.OTN ---
Current Diagnoses Other chronic pain (05/11/22) Cervicalgia (05/11/22) Muscle weakness (generalized) (05/11/22) Physical Therapy Treatment Note PT-OP-A Visit Information Start: 04/22/22 18:26 Freq: Status: Active Protocol: Document 05/11/22 12:52 TS (Rec: 05/11/22 14:07 TS [id number]) Out-Patient Physical Therapy Visit Information Visit Information Visit Type Treatment Note Visit Note SPTA Humberto lead treatment under the super vision and direction of SHAG TRUCK DRIVER Angelica. Visit Start Time 13:03 Visit Stop Time 13:43 Total Visit Minutes 40 Visit Number 5 Number of SHAG TRUCK DRIVER Visits 1 PT-OP-B Current Condition Start: 04/22/22 18:26 Freq: Status: Active Protocol: Document 04/23/22 12:46 LRN (Rec: 04/23/22 16:21 LRN [id number]) Current Condition History of Current Condition Onset Date 20 yrs ago, worsened in the past few months. Current Complaints L neck/arm discomfort & numbness including L LE, can't sleep on L side History of Current Condition Pt reports she has had neck pain for the past 20 years of insidious onset. States sometimes driving she can't turn her head to the left due to pain. Once in a while worsening of L arm and leg numbness, and can't sleep on L side. Pt states she moved to [place] a year ago and the referring physician thought PT might help. She states that previous doctors told her she had to live with it. Driving is uncomfortable for really long distances, even as passenger. Headaches on L side. Prior Treatments and Tests Physical therapy previously ~ 2015 in [place]. X-ray report indicates: Loss of lordosis and multilevel spondylosis, most notably with moderate to severe disc degeneration at the C5-C6 level. Next MD visit 05/24/22. Pt given pills (meloxicam), but she doesn't like because they make her sleepy and then she doesn't function well the next day. Future Testing and Treatments Planned None Developmental History Developmental History Moved to [place] a year ago with spouse and dog. PMH: Back pain, was told due to disc problem. Jaw pain - wears mouthguard (pt feels not helpful). Treatment Goals Patient/Caregiver Goals Pt goal is to be able to sleep on L side for 1-2 hours without pain, buckle bra reaching behind back without pain, turning to look to the left for driving. Prior Functional Status Baseline Function- ADL's Independent Baseline Function- Mobility Independent Baseline Function- Other 6 months ago could don bra from behind without pain. Current Functional Impairments (Reported) Functional Limitations- ADL's Sleeps on the L side for 1-2 hrs. Functional Limitations- Work/School Retired from various jobs and being a homemaker. Functional Limitations- Recreation/ Sews and walks her dog daily. Hobbies Has 60 lbs lab. Personal Factors Other Personal Factors That May Effect Chronic L neck/shoulder pain Therapy/Recovery with headaches. PT-OP-C Subjective Start: 04/22/22 18:26 Freq: Status: Active Protocol: Document 05/11/22 12:52 TS (Rec: 05/11/22 14:07 TS [id number]) OP-PT Subjective Patient Comments Patient Comments Pt states yesterday she was having a lot of pain and a headache, rates 10/10. She has been compliant with her HEP and feels better today. PT-OP-E Functional Tests Start: 04/22/22 18:26 Freq: Status: Active Protocol: Document 04/23/22 12:46 LRN (Rec: 04/23/22 16:21 LRN [id number]) Functional Tests Apley's Scratch Test Action 1- Left Posterior Acromion Action 1- Right Posterior scapular region to spine Action 2- Left C7 Action 2- Right T3 Action 3- Left L5 Action 3- Right T7 PT-OP-H Neuro Start: 04/22/22 18:26 Freq: Status: Active Protocol: Document 04/23/22 12:46 LRN (Rec: 04/23/22 16:21 LRN [id number]) Sensation Evaluation Gross Sensation Gross Sensation Left UE Impaired,Head Impaired Sensation Description Tingling Deep Tendon Reflex & Clonus Assessment Deep Tendon Reflex Right Brachioradialis Deep Tendon Reflex 2+ Normal Left Brachioradialis Deep Tendon Reflex 3+ Normal But Brisk Bilateral Tricep Deep Tendon Reflex 3+ Normal But Brisk Bilateral Bicep Deep Tendon Reflex 3+ Normal But Brisk PT-OP-J Posture/Palpation/Skin Start: 04/22/22 18:26 Freq: Status: Active Protocol: Document 04/23/22 12:46 LRN (Rec: 04/23/22 16:21 LRN [id number]) Posture Evaluation Position Standing Head/C-Spine Posture Excess Extension,Forward Head T-Spine Posture Increased Kyphosis L-Spine Posture Increased Lordosis Shoulder Posture (R) Elevated Scapula Posture (L) Elevated Arm Posture (L) Internally Rotated,(R) Internally Rotated Weight Distribution Balanced Palpation Assessment Location Upper back Palpation Location L Upper back Palpation Findings Tenderness Posterior neck Palpation Location L Posterior and lateral neck Palpation Findings Tenderness PT-OP-K Range of Motion Start: 04/22/22 18:26 Freq: Status: Active Protocol: Document 04/23/22 12:46 LRN (Rec: 04/23/22 16:21 LRN [id number]) Cervical Spine Range of Motion Cervical Spine Active Degrees Testing Position Sitting Flexion 40 Extension 32 Rotation Left 25 Rotation Right 50 Lateral Flexion Left 18 Lateral Flexion Right 15 ROM Limitations Pain Shoulder Goniometric Range of Motion Shoulder Right Passive Shoulder ROM WFL Yes Testing Position Supine Flexion 170 Abduction 180 External Rotation at 90 degrees 90 Abduction Internal Rotation 85 Internal Rotation Behind Back (text) T7 Left Passive Shoulder ROM WFL No Testing Position Supine Flexion 140 Abduction 90 External Rotation at 90 degrees 55 Abduction Internal Rotation 72 Internal Rotation Behind Back (text) L5 PT-OP-L Special Tests Start: 04/22/22 18:26 Freq: Status: Active Protocol: Document 04/23/22 12:46 LRN (Rec: 04/23/22 16:21 LRN [id number]) Special Tests Cervical Spine Special Tests Upper Limb Tension Test Test Results + for ulnar, median, and radial nerve of L UE. Vertebral Artery Test Results -, but L rot very limited mobility Spurling's Test Test Results - bilaterally Traction Test Results - Foraminal Compression Test Results - PT-OP-M Strength Start: 04/22/22 18:26 Freq: Status: Active Protocol: Document 04/23/22 12:46 LRN (Rec: 04/23/22 16:21 LRN [id number]) Cervical Spine Strength Cervical Spine Manual Muscle Testing Testing Position Supine Flexion (C1-2) 5 Normal Extension 5 Normal Rotation Left 3+ Fair+ Rotation Right 4 Good Lateral Flexion Left (C3) 5 Normal Lateral Flexion Right (C3) 5 Normal Shoulder Strength Shoulder Manual Muscle Testing Right Flexion 5 Normal Abduction (C5) 5 Normal External Rotation 5 Normal Internal Rotation 5 Normal Left Flexion 3- Fair- Abduction (C5) 3- Fair- External Rotation 3- Fair- Internal Rotation 4 Good Hand Client Relationship Consultant/Pinch Strength Hand Dominance Hand Dominance Right PT-OP-Q Treatments Start: 04/22/22 18:26 Freq: Status: Active Protocol: Document 05/11/22 12:52 TS (Rec: 05/11/22 14:07 TS [id number]) Therapeutic Exercises Supine Exercises C. Rot Side bilateral Reps/Minutes 1x10 Comments Cues for chin tuck Sitting Exercises Chin Tuck with Scap retraction Sitting Exercise Name Added to HEP Reps/Minutes 1x10 Comments Tactile cues for scap squeeze Standing Exercises L Median n stretch Standing Exercise Name L>R Median n stretch Side bilateral Reps/Minutes 10 SH x 8 of elbow flexion Manual Therapy Treatment Soft Tissue Mobilization Neck Body Location SCM, Occipitals, Levator, UT Mobilization Type Myofascial Release, Oscillations,Sustained Pressure Intensity/Depth Moderate Body Position Supine Comments Pt responded well to manual therapy. Edcuated on self-stm for SCM. TMJ Body Location [place], medial Pterygoid, temporalis, SCM, Suboccipital Mobilization Type Oscillations Intensity/Depth Deep Body Position Hooklying Comments manual and instruction on self appliaction sustained pressure and pincer kneading Self-Care/Home Management Treatment Education Patient Education Posture Other Education Reviewed posture while reading in bed and in chair. Educated her on keeping book eye level , propping up with pillows, etc...and performing chin tucks with scap retraction. PT-OP-R Modalities Start: 04/22/22 18:26 Freq: Status: Active Protocol: Document 05/06/22 12:34 LRN (Rec: 05/06/22 13:50 LRN [id number]) Electric Stimulation Electric Stimulation Interferential Current (IFC) Body Location Neck (L UT>lat shoulder, Infras>Pec) Duration (Minutes) 10 Intensity 14 Target/Sweep Sweep Patient Position Hooklying Combined With Heat/Cold Hot Pack Comments Legs on bolster. PT-OP-T Assessment and Plan Start: 04/22/22 18:26 Freq: Status: Active Protocol: Document 05/11/22 12:52 TS (Rec: 05/11/22 14:07 TS [id number]) Physical Therapy Assessment Goals Four Impairment L shoulder weakness Impairment L shoulder strength: Flex, AB , ER is 3-/5 (R is 5/5) UE QuickDASH score is 31.81 ( 20-39% impaired) Short Term Goal (STG) Improve L shoulder flex, AB, ER strength to no less than 3+ /5. STG Duration 06/07/22 Retirement Goal (LTG) Improve L shoulder strength to improve function per UE QuickDASH score 1-19 (1-19% impaired). LTG Duration 07/22/22 Three Impairment Decreased L shoulder mobility Impairment Shoulder AROM (in deg's): Flex 140 L, 180 R; AB 90 L, 180 R; ER 55 L, 90 R; IR 72 L, 85 R. Behind back: L5 left, T7 right. Short Term Goal (STG) Pt will be educated in sleep positions and will improve sleep quality on the L side for 1-2 hours without pain. 05/03 & 04/17: I/S pt in best practice for side sleeping and head/neck posturing. STG Duration 06/07/22 (partially met 05/06) Retirement Goal (LTG) Improve L shoulder AROM with pt able to buckle bra reaching behind back without pain. LTG Duration 07/22/22 Two Impairment Decreased neck mobility. Impairment Cervical AROM (in deg's): Rot is 25 L, 50 R; SB is 18 L, 15 R. Short Term Goal (STG) Pt educated in proper head/ neck posturing in standing, sitting and with reading. 05/06/22 STG Duration 05/14/22 (05/03/22: MET GOAL) Marketing Project Manager Goal (LTG) Improve L Cervical rotation AROM with pt able to turn to look left comfortably for driving. 04/29/22: HEP: C. rot stretch . LTG Duration 07/22/22 progressed 04/29/22 One Impairment Pt is not currently on a self care HEP. Short Term Goal (STG) Pt will be educated in sleep positions and use of modalities for pain management . 05/03 & 04/17: Educated pt in best Sleep positioning. STG Duration 04/30/22 (05/06/22: Partially met goal) Marketing Project Manager Goal (LTG) Pt will be independent with a self care HEP of left neck/ shoulder/UE exercises. 04/29/22: HEP: C. rot & UT stretch, UE neural stretches ( radial, ulnar & median nerves) LTG Duration 07/22/22 progressed 04/29/22 Assessment Summary Assessment Pt progressed cervical rotation into supine against gravity. She responded well to manual therapy and educated her on self-STM of SCM. Educated pt on proper posture while reading in chair and in bed using pillows, etc. to prop up book to eye height, with chin tucks and scap retraction ex. Pt reported feeling discomfort with E-stim last time and did not perform this treatment. Pt will benefit from continued intervention to improve cervical ROM and posturing. Physical Therapy Plan Frequency and Duration Frequency of Treatment 2x/Week Plan of Care Start Date 04/23/22 Plan of Care End Date 07/22/22 Therapeutic Interventions Therapeutic Interventions Home Exercise Program,Joint Mobilizations,Manual Therapy, Neuromuscular Re-education, Patient/Caregiver Education, Self-Care/Home Management,Soft Tissue Mobilization,Taping, Therapeutic Activities, Therapeutic Exercises Modalities Cold Pack/Ice Massage,Electric Stimulation,Hot Packs, Ultrasound Next Visit Focus/Plan Next Visit Plan Assess carryover of posture with chin tucks and scap retraction, self-stm to SCM. Continue manual therapy for TMJ and neck. Discuss use of modalities for pain control at nighttime for sleep.
--- NOTE | 2022-05-18 13:48 | PT.OTN ---
Current Diagnoses Other chronic pain (05/18/22) Cervicalgia (05/18/22) Muscle weakness (generalized) (05/18/22) Physical Therapy Treatment Note PT-OP-A Visit Information Start: 04/22/22 18:26 Freq: Status: Active Protocol: Document 05/18/22 13:05 TS (Rec: 05/18/22 16:21 TS [id number]) Out-Patient Physical Therapy Visit Information Visit Information Visit Type Treatment Note Visit Note SPTA Humberto lead treatment under the super vision and direction of FOREST RESOURCES PROFESSOR Angelica. Visit Start Time 13:05 Visit Stop Time 13:48 Total Visit Minutes 43 Visit Number 6 Number of FOREST RESOURCES PROFESSOR Visits 2 PT-OP-B Current Condition Start: 04/22/22 18:26 Freq: Status: Active Protocol: Document 04/23/22 12:46 LRN (Rec: 04/23/22 16:21 LRN [id number]) Current Condition History of Current Condition Onset Date 20 yrs ago, worsened in the past few months. Current Complaints L neck/arm discomfort & numbness including L LE, can't sleep on L side History of Current Condition Pt reports she has had neck pain for the past 20 years of insidious onset. States sometimes driving she can't turn her head to the left due to pain. Once in a while worsening of L arm and leg numbness, and can't sleep on L side. Pt states she moved to [place] a year ago and the referring physician thought PT might help. She states that previous doctors told her she had to live with it. Driving is uncomfortable for really long distances, even as passenger. Headaches on L side. Prior Treatments and Tests Physical therapy previously ~ 2015 in [place]. X-ray report indicates: Loss of lordosis and multilevel spondylosis, most notably with moderate to severe disc degeneration at the C5-C6 level. Next MD visit 05/24/22. Pt given pills (meloxicam), but she doesn't like because they make her sleepy and then she doesn't function well the next day. Future Testing and Treatments Planned None Developmental History Developmental History Moved to [place] a year ago with spouse and dog. PMH: Back pain, was told due to disc problem. Jaw pain - wears mouthguard (pt feels not helpful). Treatment Goals Patient/Caregiver Goals Pt goal is to be able to sleep on L side for 1-2 hours without pain, buckle bra reaching behind back without pain, turning to look to the left for driving. Prior Functional Status Baseline Function- ADL's Independent Baseline Function- Mobility Independent Baseline Function- Other 6 months ago could don bra from behind without pain. Current Functional Impairments (Reported) Functional Limitations- ADL's Sleeps on the L side for 1-2 hrs. Functional Limitations- Work/School Retired from various jobs and being a homemaker. Functional Limitations- Recreation/ Sews and walks her dog daily. Hobbies Has 60 lbs lab. Personal Factors Other Personal Factors That May Effect Chronic L neck/shoulder pain Therapy/Recovery with headaches. PT-OP-C Subjective Start: 04/22/22 18:26 Freq: Status: Active Protocol: Document 05/18/22 13:05 TS (Rec: 05/18/22 16:21 TS [id number]) OP-PT Subjective Patient Comments Patient Comments Pt reports as she does her HEP she is seeing improvement in her pain but hasn't been able to much lately due to being not at home. Patient Questionnaires Neck Disability Index NDI Score 10 Neck Disability Index Impairment 20 to 39% Impaired (Score 10- 19) Quick Dash- Upper Extremity Quick Dash UE Score 25 Quick Dash UE Impairment 20 to 39% Impaired (Score 20- 39) PT-OP-E Functional Tests Start: 04/22/22 18:26 Freq: Status: Active Protocol: Document 04/23/22 12:46 LRN (Rec: 04/23/22 16:21 LRN [id number]) Functional Tests Apley's Scratch Test Action 1- Left Posterior Acromion Action 1- Right Posterior scapular region to spine Action 2- Left C7 Action 2- Right T3 Action 3- Left L5 Action 3- Right T7 PT-OP-H Neuro Start: 04/22/22 18:26 Freq: Status: Active Protocol: Document 04/23/22 12:46 LRN (Rec: 04/23/22 16:21 LRN [id number]) Sensation Evaluation Gross Sensation Gross Sensation Left UE Impaired,Head Impaired Sensation Description Tingling Deep Tendon Reflex & Clonus Assessment Deep Tendon Reflex Right Brachioradialis Deep Tendon Reflex 2+ Normal Left Brachioradialis Deep Tendon Reflex 3+ Normal But Brisk Bilateral Tricep Deep Tendon Reflex 3+ Normal But Brisk Bilateral Bicep Deep Tendon Reflex 3+ Normal But Brisk PT-OP-J Posture/Palpation/Skin Start: 04/22/22 18:26 Freq: Status: Active Protocol: Document 04/23/22 12:46 LRN (Rec: 04/23/22 16:21 LRN [id number]) Posture Evaluation Position Standing Head/C-Spine Posture Excess Extension,Forward Head T-Spine Posture Increased Kyphosis L-Spine Posture Increased Lordosis Shoulder Posture (R) Elevated Scapula Posture (L) Elevated Arm Posture (L) Internally Rotated,(R) Internally Rotated Weight Distribution Balanced Palpation Assessment Location Upper back Palpation Location L Upper back Palpation Findings Tenderness Posterior neck Palpation Location L Posterior and lateral neck Palpation Findings Tenderness PT-OP-K Range of Motion Start: 04/22/22 18:26 Freq: Status: Active Protocol: Document 05/18/22 13:05 TS (Rec: 05/18/22 16:21 TS [id number]) Cervical Spine Range of Motion Cervical Spine Active Degrees Testing Position Sitting Rotation Left 25 Rotation Right 45 Lateral Flexion Left 16 Lateral Flexion Right 15 Shoulder Goniometric Range of Motion Shoulder AROM L Testing Position Supine Flexion 139 Abduction 55 External Rotation at 0 degrees Abduction 60 AROM R Testing Position Supine Flexion 180 Abduction 135 External Rotation at 0 degrees Abduction 61 Right Passive Shoulder ROM WFL Yes Testing Position Supine Flexion 170 Abduction 180 External Rotation at 90 degrees 90 Abduction Internal Rotation 85 Internal Rotation Behind Back (text) T7 PT-OP-L Special Tests Start: 04/22/22 18:26 Freq: Status: Active Protocol: Document 04/23/22 12:46 LRN (Rec: 04/23/22 16:21 LRN [id number]) Special Tests Cervical Spine Special Tests Upper Limb Tension Test Test Results + for ulnar, median, and radial nerve of L UE. Vertebral Artery Test Results -, but L rot very limited mobility Spurling's Test Test Results - bilaterally Traction Test Results - Foraminal Compression Test Results - PT-OP-M Strength Start: 04/22/22 18:26 Freq: Status: Active Protocol: Document 04/23/22 12:46 LRN (Rec: 04/23/22 16:21 LRN [id number]) Cervical Spine Strength Cervical Spine Manual Muscle Testing Testing Position Supine Flexion (C1-2) 5 Normal Extension 5 Normal Rotation Left 3+ Fair+ Rotation Right 4 Good Lateral Flexion Left (C3) 5 Normal Lateral Flexion Right (C3) 5 Normal Shoulder Strength Shoulder Manual Muscle Testing Right Flexion 5 Normal Abduction (C5) 5 Normal External Rotation 5 Normal Internal Rotation 5 Normal Left Flexion 3- Fair- Abduction (C5) 3- Fair- External Rotation 3- Fair- Internal Rotation 4 Good Hand Truck Driver Instructor/Pinch Strength Hand Dominance Hand Dominance Right PT-OP-Q Treatments Start: 04/22/22 18:26 Freq: Status: Active Protocol: Document 05/18/22 13:05 TS (Rec: 05/18/22 16:21 TS [id number]) Therapeutic Exercises Supine Exercises C. Rot Side bilateral Reps/Minutes 1x10 Comments Cues for chin tuck Standing Exercises L Median n stretch Standing Exercise Name L Median n stretch Side left Reps/Minutes 10 SH x 10 of elbow flexion Comments Good carryover from previous treatments L Radial stretch Standing Exercise Name L Radial n stretch: shdr depression, fingers only able to point bkwds. Side left Reps/Minutes 10 SH x 10 of wrist flexion Comments Cues for 10SH, flexion fo wrist if comfortable Self-Care/Home Management Treatment Education Other Education Reassesed clinical questionnaires. PT-OP-R Modalities Start: 04/22/22 18:26 Freq: Status: Active Protocol: Document 05/06/22 12:34 LRN (Rec: 05/06/22 13:50 LRN [id number]) Electric Stimulation Electric Stimulation Interferential Current (IFC) Body Location Neck (L UT>lat shoulder, Infras>Pec) Duration (Minutes) 10 Intensity 14 Target/Sweep Sweep Patient Position Hooklying Combined With Heat/Cold Hot Pack Comments Legs on bolster. PT-OP-T Assessment and Plan Start: 04/22/22 18:26 Freq: Status: Active Protocol: Document 05/18/22 13:05 TS (Rec: 05/18/22 16:21 TS [id number]) Physical Therapy Assessment Goals Four Impairment L shoulder weakness Impairment L shoulder strength: Flex, AB , ER is 3-/5 (R is 5/5) UE QuickDASH score is 31.81 ( 20-39% impaired) Short Term Goal (STG) Improve L shoulder flex, AB, ER strength to no less than 3+ /5. STG Duration 06/07/22 Fpc Goal (LTG) Improve L shoulder strength to improve function per UE QuickDASH score 1-19 (1-19% impaired). 05/18/22: Quickdash score: 25% (20-39% impaired), improved from 31.81%. Neck diasbility index: score 10, improved from 12 (20-39% impaired) LTG Duration 07/22/22 Progressin05/18/22 Three Impairment Decreased L shoulder mobility Impairment Shoulder AROM (in deg's): Flex 140 L, 180 R; AB 90 L, 180 R; ER 55 L, 90 R; IR 72 L, 85 R. Behind back: L5 left, T7 right. Short Term Goal (STG) Pt will be educated in sleep positions and will improve sleep quality on the L side for 1-2 hours without pain. 05/03 & 04/17: I/S pt in best practice for side sleeping and head/neck posturing. STG Duration 06/07/22 (partially met 05/06) Rotoprinter Goal (LTG) Improve L shoulder AROM with pt able to buckle bra reaching behind back without pain. 05/18/22: supine: Flex 139 L, 180 R; AB 55 L, 135 R, seated ER L 60 deg R 61 deg. LTG Duration 07/22/22 Two Impairment Decreased neck mobility. Impairment Cervical AROM (in deg's): Rot is 25 L, 50 R; SB is 18 L, 15 R. Short Term Goal (STG) Pt educated in proper head/ neck posturing in standing, sitting and with reading. 05/06/22 05/11/22:Educated pt on proper posture while reading in chair and in bed using pillows , etc. to prop up book to eye height, with chin tucks and scap retraction ex. STG Duration 05/14/22 (05/03/22: MET GOAL) Fpc Goal (LTG) Improve L Cervical rotation AROM with pt able to turn to look left comfortably for driving. 04/29/22: HEP: C. rot stretch . 05/18/22: Rot L 25, R 45; SB is 15 R, 16 L. LTG Duration 07/22/22 progressed 04/29/22 One Impairment Pt is not currently on a self care HEP. Short Term Goal (STG) Pt will be educated in sleep positions and use of modalities for pain management . 05/03 & 04/17: Educated pt in best Sleep positioning. STG Duration 04/30/22 (05/06/22: Partially met goal) Fpc Goal (LTG) Pt will be independent with a self care HEP of left neck/ shoulder/UE exercises. 04/29/22: HEP: C. rot & UT stretch, UE neural stretches ( radial, ulnar & median nerves) LTG Duration 07/22/22 progressed 04/29/22 Assessment Summary Assessment Pt improved quickdash score from 31.31% to 25% but still 20-39% impaired, NDI improved from 12 to 10 (20-39% impaired). Shoulder abd AROM decreased from 90 on L to 55 L and 180 R to 135 R this session. Pt reported tingling and numbness in L hand during ROM measurements, reported some relief with median and radial stretch. Pt will continue to benefit from intervention to improve posture, shoulder and cervical ROM for ADL's. Physical Therapy Plan Frequency and Duration Frequency of Treatment 2x/Week Plan of Care Start Date 04/23/22 Plan of Care End Date 07/22/22 Therapeutic Interventions Therapeutic Interventions Home Exercise Program,Joint Mobilizations,Manual Therapy, Neuromuscular Re-education, Patient/Caregiver Education, Self-Care/Home Management,Soft Tissue Mobilization,Taping, Therapeutic Activities, Therapeutic Exercises Modalities Cold Pack/Ice Massage,Electric Stimulation,Hot Packs, Ultrasound Next Visit Focus/Plan Next Note Type Treatment Note Next Visit Plan Assess carryover of posture with chin tucks and scap retraction, self-stm to SCM. Continue manual therapy for TMJ and neck. Discuss use of modalities for pain control at nighttime for sleep.
--- NOTE | 2022-05-25 18:14 | PT.OTN ---
Current Diagnoses Other chronic pain (05/25/22) Cervicalgia (05/25/22) Muscle weakness (generalized) (05/25/22) Physical Therapy Treatment Note PT-OP-A Visit Information Start: 04/22/22 18:26 Freq: Status: Active Protocol: Document 05/25/22 13:02 LRN (Rec: 05/25/22 13:45 LRN [id number]) Out-Patient Physical Therapy Visit Information Visit Information Visit Type Treatment Note Visit Start Time 13:02 Visit Stop Time 13:44 Total Visit Minutes 42 Visit Number 7 Evaluation Information Evaluation Date 04/23/22 Precautions Precautions Pt reports chronic neck, back, jaw apin and headaches. PT-OP-B Current Condition Start: 04/22/22 18:26 Freq: Status: Active Protocol: Document 04/23/22 12:46 LRN (Rec: 04/23/22 16:21 LRN [id number]) Current Condition History of Current Condition Onset Date 20 yrs ago, worsened in the past few months. Current Complaints L neck/arm discomfort & numbness including L LE, can't sleep on L side History of Current Condition Pt reports she has had neck pain for the past 20 years of insidious onset. States sometimes driving she can't turn her head to the left due to pain. Once in a while worsening of L arm and leg numbness, and can't sleep on L side. Pt states she moved to [place] a year ago and the referring physician thought PT might help. She states that previous doctors told her she had to live with it. Driving is uncomfortable for really long distances, even as passenger. Headaches on L side. Prior Treatments and Tests Physical therapy previously ~ 2015 in [place]. X-ray report indicates: Loss of lordosis and multilevel spondylosis, most notably with moderate to severe disc degeneration at the C5-C6 level. Next MD visit 05/24/22. Pt given pills (meloxicam), but she doesn't like because they make her sleepy and then she doesn't function well the next day. Future Testing and Treatments Planned None Developmental History Developmental History Moved to [place] a year ago with spouse and dog. PMH: Back pain, was told due to disc problem. Jaw pain - wears mouthguard (pt feels not helpful). Treatment Goals Patient/Caregiver Goals Pt goal is to be able to sleep on L side for 1-2 hours without pain, buckle bra reaching behind back without pain, turning to look to the left for driving. Prior Functional Status Baseline Function- ADL's Independent Baseline Function- Mobility Independent Baseline Function- Other 6 months ago could don bra from behind without pain. Current Functional Impairments (Reported) Functional Limitations- ADL's Sleeps on the L side for 1-2 hrs. Functional Limitations- Work/School Retired from various jobs and being a homemaker. Functional Limitations- Recreation/ Sews and walks her dog daily. Hobbies Has 60 lbs lab. Personal Factors Other Personal Factors That May Effect Chronic L neck/shoulder pain Therapy/Recovery with headaches. PT-OP-C Subjective Start: 04/22/22 18:26 Freq: Status: Active Protocol: Document 05/25/22 13:02 LRN (Rec: 05/25/22 13:45 LRN [id number]) OP-PT Subjective Patient Comments Patient Comments No changes, dad last night, so was cleaning out dad 's condo. Went to referring MD yesterday for follow up, and asked her if she needed an MRI. PT-OP-E Functional Tests Start: 04/22/22 18:26 Freq: Status: Active Protocol: Document 04/23/22 12:46 LRN (Rec: 04/23/22 16:21 LRN [id number]) Functional Tests Apley's Scratch Test Action 1- Left Posterior Acromion Action 1- Right Posterior scapular region to spine Action 2- Left C7 Action 2- Right T3 Action 3- Left L5 Action 3- Right T7 PT-OP-H Neuro Start: 04/22/22 18:26 Freq: Status: Active Protocol: Document 04/23/22 12:46 LRN (Rec: 04/23/22 16:21 LRN [id number]) Sensation Evaluation Gross Sensation Gross Sensation Left UE Impaired,Head Impaired Sensation Description Tingling Deep Tendon Reflex & Clonus Assessment Deep Tendon Reflex Right Brachioradialis Deep Tendon Reflex 2+ Normal Left Brachioradialis Deep Tendon Reflex 3+ Normal But Brisk Bilateral Tricep Deep Tendon Reflex 3+ Normal But Brisk Bilateral Bicep Deep Tendon Reflex 3+ Normal But Brisk PT-OP-J Posture/Palpation/Skin Start: 04/22/22 18:26 Freq: Status: Active Protocol: Document 04/23/22 12:46 LRN (Rec: 04/23/22 16:21 LRN [id number]) Posture Evaluation Position Standing Head/C-Spine Posture Excess Extension,Forward Head T-Spine Posture Increased Kyphosis L-Spine Posture Increased Lordosis Shoulder Posture (R) Elevated Scapula Posture (L) Elevated Arm Posture (L) Internally Rotated,(R) Internally Rotated Weight Distribution Balanced Palpation Assessment Location Upper back Palpation Location L Upper back Palpation Findings Tenderness Posterior neck Palpation Location L Posterior and lateral neck Palpation Findings Tenderness PT-OP-K Range of Motion Start: 04/22/22 18:26 Freq: Status: Active Protocol: Document 05/25/22 13:02 LRN (Rec: 05/25/22 13:45 LRN [id number]) Cervical Spine Range of Motion Cervical Spine Active Degrees Testing Position Sitting Rotation Left 32 Rotation Right 49 Lateral Flexion Left 25 Lateral Flexion Right 22 PT-OP-L Special Tests Start: 04/22/22 18:26 Freq: Status: Active Protocol: Document 04/23/22 12:46 LRN (Rec: 04/23/22 16:21 LRN [id number]) Special Tests Cervical Spine Special Tests Upper Limb Tension Test Test Results + for ulnar, median, and radial nerve of L UE. Vertebral Artery Test Results -, but L rot very limited mobility Spurling's Test Test Results - bilaterally Traction Test Results - Foraminal Compression Test Results - PT-OP-M Strength Start: 04/22/22 18:26 Freq: Status: Active Protocol: Document 04/23/22 12:46 LRN (Rec: 04/23/22 16:21 LRN [id number]) Cervical Spine Strength Cervical Spine Manual Muscle Testing Testing Position Supine Flexion (C1-2) 5 Normal Extension 5 Normal Rotation Left 3+ Fair+ Rotation Right 4 Good Lateral Flexion Left (C3) 5 Normal Lateral Flexion Right (C3) 5 Normal Shoulder Strength Shoulder Manual Muscle Testing Right Flexion 5 Normal Abduction (C5) 5 Normal External Rotation 5 Normal Internal Rotation 5 Normal Left Flexion 3- Fair- Abduction (C5) 3- Fair- External Rotation 3- Fair- Internal Rotation 4 Good Hand Radio Message Router/Pinch Strength Hand Dominance Hand Dominance Right PT-OP-Q Treatments Start: 04/22/22 18:26 Freq: Status: Active Protocol: Document 05/25/22 13:02 LRN (Rec: 05/25/22 13:45 [facility] [id number]) Therapeutic Exercises Supine Exercises L Radial n stretch Supine Exercise Name L Radial N. stretch Side left Reps/Minutes 10 SH x 10 of wrist flexion Comments Cues for 10SH, flexion fo wrist if comfortable L Median n stretch Supine Exercise Name L Median n stretch ( R side is normal) Side left Reps/Minutes 10-20 SH x 10 Comments Extra time to determine best position and for trng of proper ex. Ulnar n stretch Supine Exercise Name L>R Ulnar n stretch with arm 70 deg's AB f/b wrist ext arm in neutral Side left Reps/Minutes 10 SH x 10 wrist ext Comments Extra time to determine max tolerated stretch Sidelying Exercises Shoulder ER Sidelying Exercise Name Shoulder ER Side left Reps/Minutes 10x Sitting Exercises Scap retract Sitting Exercise Name Scap retract with chin retract Reps/Minutes 5 SH x 10 C. Rot stretch Sitting Exercise Name C. Rot stretch Side left Reps/Minutes 10SH x 10 L UT stretch Sitting Exercise Name L UT stretch, sitting on L hand Side bilateral Reps/Minutes 5-10 SH x 5-8 Comments cuing for proper postioning for stretch Self-Care/Home Management Treatment Education Patient Education Home Exercise Program Activities Self-Care/Home Management Activities Issued & reviewed HEP: C. SB stretch and C. isometrics for flex/ext/SB. PT-OP-R Modalities Start: 04/22/22 18:26 Freq: Status: Active Protocol: Document 05/06/22 12:34 LRN (Rec: 05/06/22 13:50 [facility] [id number]) Electric Stimulation Electric Stimulation Interferential Current (IFC) Body Location Neck (L UT>lat shoulder, Infras>Pec) Duration (Minutes) 10 Intensity 14 Target/Sweep Sweep Patient Position Hooklying Combined With Heat/Cold Hot Pack Comments Legs on bolster. PT-OP-T Assessment and Plan Start: 04/22/22 18:26 Freq: Status: Active Protocol: Document 05/25/22 13:02 LRN (Rec: 05/25/22 13:45 [facility] [id number]) Physical Therapy Assessment Goals Four Impairment L shoulder weakness Impairment L shoulder strength: Flex, AB , ER is 3-/5 (R is 5/5) UE QuickDASH score is 31.81 ( 20-39% impaired) Short Term Goal (STG) Improve L shoulder flex, AB, ER strength to no less than 3+ /5. STG Duration 06/07/22 Nursing Home Goal (LTG) Improve L shoulder strength to improve function per UE QuickDASH score 1-19 (1-19% impaired). 05/18/22: Quickdash score: 25% (20-39% impaired), improved from 31.81%. Neck diasbility index: score 10, improved from 12 (20-39% impaired) LTG Duration 07/22/22 Progressin05/18/22 Three Impairment Decreased L shoulder mobility Impairment Shoulder AROM (in deg's): Flex 140 L, 180 R; AB 90 L, 180 R; ER 55 L, 90 R; IR 72 L, 85 R. Behind back: L5 left, T7 right. Short Term Goal (STG) Pt will be educated in sleep positions and will improve sleep quality on the L side for 1-2 hours without pain. 05/03 & 04/17: I/S pt in best practice for side sleeping and head/neck posturing. STG Duration 06/07/22 (partially met 05/06) Nursing Home Goal (LTG) Improve L shoulder AROM with pt able to buckle bra reaching behind back without pain. 05/18/22: supine: Flex 139 L, 180 R; AB 55 L, 135 R, seated ER L 60 deg R 61 deg. LTG Duration 07/22/22 Two Impairment Decreased neck mobility. Impairment Cervical AROM (in deg's): Rot is 25 L, 50 R; SB is 18 L, 15 R. Short Term Goal (STG) Pt educated in proper head/ neck posturing in standing, sitting and with reading. 05/06/22 05/11/22:Educated pt on proper posture while reading in chair and in bed using pillows , etc. to prop up book to eye height, with chin tucks and scap retraction ex. STG Duration 05/14/22 (05/03/22 & 05/11/22: MET GOAL) Police Worker Goal (LTG) Improve L Cervical rotation AROM with pt able to turn to look left comfortably for driving. 04/29/22: HEP: C. rot stretch . 05/18/22: Rot L 25, R 45; SB is 15 R, 16 L. LTG Duration 07/22/22 progressed 04/29/22 One Impairment Pt is not currently on a self care HEP. Short Term Goal (STG) Pt will be educated in sleep positions and use of modalities for pain management . 05/03 & 04/17: Educated pt in best Sleep positioning. STG Duration 04/30/22 (05/06/22: Partially met goal) Nursing Home Goal (LTG) Pt will be independent with a self care HEP of left neck/ shoulder/UE exercises. 04/29/22: HEP: C. rot & UT stretch, UE neural stretches ( radial, ulnar & median nerves) LTG Duration 07/22/22 progressed 04/29/22 Assessment Summary Assessment Good carryover of posture with chin tucks and scap retraction ex. UE neural glides appear to be increasing pain in sitting; therefore pt educated to do in supine. Pt needs to cont therapy to improve posture, shoulder and cervical ROM for ADL's. Physical Therapy Plan Frequency and Duration Frequency of Treatment 2x/Week Plan of Care Start Date 04/23/22 Plan of Care End Date 07/22/22 Next Visit Focus/Plan Next Note Type Treatment Note Next Visit Plan Assess self-stm to SCM. Continue manual therapy for TMJ and neck, ?L shoulder. Discuss use of modalities for pain control at nighttime for sleep (STG #1). POC: Monitor for improved sleep quality at nighttime (1- 2 hrs). Stretch: L shoulder, scapula (monitor cervical & UE neural stretch). Stabilization/ther ex: neck, L shoulder, scapula.
--- NOTE | 2022-05-28 09:05 | PT.OTN ---
Current Diagnoses Other chronic pain (05/28/22) Cervicalgia (05/28/22) Muscle weakness (generalized) (05/28/22) Physical Therapy Treatment Note PT-OP-A Visit Information Start: 04/22/22 18:26 Freq: Status: Active Protocol: Document 05/28/22 08:27 TS (Rec: 05/28/22 09:52 TS [id number]) Out-Patient Physical Therapy Visit Information Visit Information Visit Type Treatment Note Visit Note LILY Paul lead treatment, supervised and directed by TEOFILO Dominguez. Visit Start Time 08:25 Visit Stop Time 09:05 Total Visit Minutes 40 Visit Number 8 Number of OXYACETYLENE TORCH OPERATOR Visits 1 PT-OP-B Current Condition Start: 04/22/22 18:26 Freq: Status: Active Protocol: Document 04/23/22 12:46 LRN (Rec: 04/23/22 16:21 LRN [id number]) Current Condition History of Current Condition Onset Date 20 yrs ago, worsened in the past few months. Current Complaints L neck/arm discomfort & numbness including L LE, can't sleep on L side History of Current Condition Pt reports she has had neck pain for the past 20 years of insidious onset. States sometimes driving she can't turn her head to the left due to pain. Once in a while worsening of L arm and leg numbness, and can't sleep on L side. Pt states she moved to [place] a year ago and the referring physician thought PT might help. She states that previous doctors told her she had to live with it. Driving is uncomfortable for really long distances, even as passenger. Headaches on L side. Prior Treatments and Tests Physical therapy previously ~ 2015 in [place]. X-ray report indicates: Loss of lordosis and multilevel spondylosis, most notably with moderate to severe disc degeneration at the C5-C6 level. Next MD visit 05/24/22. Pt given pills (meloxicam), but she doesn't like because they make her sleepy and then she doesn't function well the next day. Future Testing and Treatments Planned None Developmental History Developmental History Moved to [place] a year ago with spouse and dog. PMH: Back pain, was told due to disc problem. Jaw pain - wears mouthguard (pt feels not helpful). Treatment Goals Patient/Caregiver Goals Pt goal is to be able to sleep on L side for 1-2 hours without pain, buckle bra reaching behind back without pain, turning to look to the left for driving. Prior Functional Status Baseline Function- ADL's Independent Baseline Function- Mobility Independent Baseline Function- Other 6 months ago could don bra from behind without pain. Current Functional Impairments (Reported) Functional Limitations- ADL's Sleeps on the L side for 1-2 hrs. Functional Limitations- Work/School Retired from various jobs and being a homemaker. Functional Limitations- Recreation/ Sews and walks her dog daily. Hobbies Has 60 lbs lab. Personal Factors Other Personal Factors That May Effect Chronic L neck/shoulder pain Therapy/Recovery with headaches. PT-OP-C Subjective Start: 04/22/22 18:26 Freq: Status: Active Protocol: Document 05/28/22 08:27 TS (Rec: 05/28/22 09:52 TS [id number]) OP-PT Subjective Patient Comments Patient Comments Pt reports L posterior neck is feeling stiff today, felt sore after least treatment espeicllay the next day. Pt in car a lot lately due to father passing away and having to help clean his apt. Nerve stretches are helping relieve symptoms in L arm. PT-OP-E Functional Tests Start: 04/22/22 18:26 Freq: Status: Active Protocol: Document 04/23/22 12:46 LRN (Rec: 04/23/22 16:21 LRN [id number]) Functional Tests Apley's Scratch Test Action 1- Left Posterior Acromion Action 1- Right Posterior scapular region to spine Action 2- Left C7 Action 2- Right T3 Action 3- Left L5 Action 3- Right T7 PT-OP-H Neuro Start: 04/22/22 18:26 Freq: Status: Active Protocol: Document 04/23/22 12:46 LRN (Rec: 04/23/22 16:21 LRN [id number]) Sensation Evaluation Gross Sensation Gross Sensation Left UE Impaired,Head Impaired Sensation Description Tingling Deep Tendon Reflex & Clonus Assessment Deep Tendon Reflex Right Brachioradialis Deep Tendon Reflex 2+ Normal Left Brachioradialis Deep Tendon Reflex 3+ Normal But Brisk Bilateral Tricep Deep Tendon Reflex 3+ Normal But Brisk Bilateral Bicep Deep Tendon Reflex 3+ Normal But Brisk PT-OP-J Posture/Palpation/Skin Start: 04/22/22 18:26 Freq: Status: Active Protocol: Document 04/23/22 12:46 LRN (Rec: 04/23/22 16:21 LRN [id number]) Posture Evaluation Position Standing Head/C-Spine Posture Excess Extension,Forward Head T-Spine Posture Increased Kyphosis L-Spine Posture Increased Lordosis Shoulder Posture (R) Elevated Scapula Posture (L) Elevated Arm Posture (L) Internally Rotated,(R) Internally Rotated Weight Distribution Balanced Palpation Assessment Location Upper back Palpation Location L Upper back Palpation Findings Tenderness Posterior neck Palpation Location L Posterior and lateral neck Palpation Findings Tenderness PT-OP-K Range of Motion Start: 04/22/22 18:26 Freq: Status: Active Protocol: Document 05/25/22 13:02 LRN (Rec: 05/25/22 13:45 LRN [id number]) Cervical Spine Range of Motion Cervical Spine Active Degrees Testing Position Sitting Rotation Left 32 Rotation Right 49 Lateral Flexion Left 25 Lateral Flexion Right 22 PT-OP-L Special Tests Start: 04/22/22 18:26 Freq: Status: Active Protocol: Document 04/23/22 12:46 LRN (Rec: 04/23/22 16:21 LRN [id number]) Special Tests Cervical Spine Special Tests Upper Limb Tension Test Test Results + for ulnar, median, and radial nerve of L UE. Vertebral Artery Test Results -, but L rot very limited mobility Spurling's Test Test Results - bilaterally Traction Test Results - Foraminal Compression Test Results - PT-OP-M Strength Start: 04/22/22 18:26 Freq: Status: Active Protocol: Document 04/23/22 12:46 LRN (Rec: 04/23/22 16:21 LRN [id number]) Cervical Spine Strength Cervical Spine Manual Muscle Testing Testing Position Supine Flexion (C1-2) 5 Normal Extension 5 Normal Rotation Left 3+ Fair+ Rotation Right 4 Good Lateral Flexion Left (C3) 5 Normal Lateral Flexion Right (C3) 5 Normal Shoulder Strength Shoulder Manual Muscle Testing Right Flexion 5 Normal Abduction (C5) 5 Normal External Rotation 5 Normal Internal Rotation 5 Normal Left Flexion 3- Fair- Abduction (C5) 3- Fair- External Rotation 3- Fair- Internal Rotation 4 Good Hand Youth Minister/Pinch Strength Hand Dominance Hand Dominance Right PT-OP-Q Treatments Start: 04/22/22 18:26 Freq: Status: Active Protocol: Document 05/28/22 08:27 TS (Rec: 05/28/22 09:52 TS [id number]) Therapeutic Exercises Supine Exercises Deep neck flexors Supine Exercise Name Added to HEP Equipment Used Mat table Reps/Minutes 2x10 Comments Cues for chin tuck C. Rot Side bilateral Reps/Minutes 1x10 Comments Cues for chin tuck Sitting Exercises Chin Tuck with Scap retraction Reps/Minutes 2x10 Comments Tactile cues for scap squeeze Manual Therapy Treatment Soft Tissue Mobilization Neck Body Location SCM, Occipitals, Levator, UT Mobilization Type Oscillations,Sustained Pressure Intensity/Depth Moderate Body Position Supine Comments Pt responded well to manual therapy, reports decreased tightness on L posterior neck. Educated on self-stm for SCM. Tight in L UT & L SCM. Self-Care/Home Management Treatment Education Other Education Provided education on self-stm technique on SCM/TMJ for at home. Handout provided for information on book wedge to improve posture during reading /on phone. PT-OP-R Modalities Start: 04/22/22 18:26 Freq: Status: Active Protocol: Document 05/06/22 12:34 LRN (Rec: 05/06/22 13:50 LRN [id number]) Electric Stimulation Electric Stimulation Interferential Current (IFC) Body Location Neck (L UT>lat shoulder, Infras>Pec) Duration (Minutes) 10 Intensity 14 Target/Sweep Sweep Patient Position Hooklying Combined With Heat/Cold Hot Pack Comments Legs on bolster. PT-OP-T Assessment and Plan Start: 04/22/22 18:26 Freq: Status: Active Protocol: Document 05/28/22 08:27 TS (Rec: 05/28/22 09:52 TS [id number]) Physical Therapy Assessment Goals Four Impairment L shoulder weakness Impairment L shoulder strength: Flex, AB , ER is 3-/5 (R is 5/5) UE QuickDASH score is 31.81 ( 20-39% impaired) Short Term Goal (STG) Improve L shoulder flex, AB, ER strength to no less than 3+ /5. STG Duration 06/07/22 Hospice Director Goal (LTG) Improve L shoulder strength to improve function per UE QuickDASH score 1-19 (1-19% impaired). 05/18/22: Quickdash score: 25% (20-39% impaired), improved from 31.81%. Neck diasbility index: score 10, improved from 12 (20-39% impaired) LTG Duration 07/22/22 Progressin05/18/22 Three Impairment Decreased L shoulder mobility Impairment Shoulder AROM (in deg's): Flex 140 L, 180 R; AB 90 L, 180 R; ER 55 L, 90 R; IR 72 L, 85 R. Behind back: L5 left, T7 right. Short Term Goal (STG) Pt will be educated in sleep positions and will improve sleep quality on the L side for 1-2 hours without pain. 05/03 & 04/17: I/S pt in best practice for side sleeping and head/neck posturing. STG Duration 06/07/22 (partially met 05/06) Hospice Director Goal (LTG) Improve L shoulder AROM with pt able to buckle bra reaching behind back without pain. 05/18/22: supine: Flex 139 L, 180 R; AB 55 L, 135 R, seated ER L 60 deg R 61 deg. LTG Duration 07/22/22 Two Impairment Decreased neck mobility. Impairment Cervical AROM (in deg's): Rot is 25 L, 50 R; SB is 18 L, 15 R. Short Term Goal (STG) Pt educated in proper head/ neck posturing in standing, sitting and with reading. 05/06/22 05/11/22:Educated pt on proper posture while reading in chair and in bed using pillows , etc. to prop up book to eye height, with chin tucks and scap retraction ex. STG Duration 05/14/22 (05/03/22 & 05/11/22: MET GOAL) Hospice Director Goal (LTG) Improve L Cervical rotation AROM with pt able to turn to look left comfortably for driving. 04/29/22: HEP: C. rot stretch . 05/18/22: Rot L 25, R 45; SB is 15 R, 16 L. LTG Duration 07/22/22 progressed 04/29/22 One Impairment Pt is not currently on a self care HEP. Short Term Goal (STG) Pt will be educated in sleep positions and use of modalities for pain management . 05/03 & 04/17: Educated pt in best Sleep positioning. STG Duration 04/30/22 (05/06/22: Partially met goal) Alf Goal (LTG) Pt will be independent with a self care HEP of left neck/ shoulder/UE exercises. 04/29/22: HEP: C. rot & UT stretch, UE neural stretches ( radial, ulnar & median nerves) 05/28/22:Deep neck flexors lift LTG Duration 07/22/22 progressed 05/28/22 Assessment Summary Assessment Educated pt on self-stm for SCM and TMJ for home and provided handout for book wedge to prop up books while at home. Pt responded well to STM of posterior neck and L SCM, reporting decreased tightness. Pt will benefit from continued intervention to reduce pain symptoms in neck and improve posture during ADLs. Physical Therapy Plan Frequency and Duration Frequency of Treatment 2x/Week Plan of Care Start Date 04/23/22 Plan of Care End Date 07/22/22 Therapeutic Interventions Therapeutic Interventions Home Exercise Program,Joint Mobilizations,Manual Therapy, Neuromuscular Re-education, Patient/Caregiver Education, Self-Care/Home Management,Soft Tissue Mobilization,Taping, Therapeutic Activities, Therapeutic Exercises Modalities Cold Pack/Ice Massage,Electric Stimulation,Hot Packs, Ultrasound Next Visit Focus/Plan Next Note Type Treatment Note Next Visit Plan Continue to assess self-stm for TMJ and SCM, pt has not been peforming. Continue manual therapy fo relief of pain symptoms, discuss nighttime modalities for pain control. POC: Monitor for improved sleep quality at nighttime (1- 2 hrs). Stretch: L shoulder, scapula (monitor cervical & UE neural stretch). Stabilization/ther ex: neck, L shoulder, scapula. [ End ]
--- NOTE | 2022-05-28 09:05 | PT.OTN ---
Current Diagnoses Other chronic pain (05/28/22) Cervicalgia (05/28/22) Muscle weakness (generalized) (05/28/22) Physical Therapy Treatment Note PT-OP-A Visit Information Start: 04/22/22 18:26 Freq: Status: Active Protocol: Document 05/28/22 08:27 TS (Rec: 05/28/22 09:52 TS [id number]) Out-Patient Physical Therapy Visit Information Visit Information Visit Type Treatment Note Visit Note LILY Paul lead treatment, supervised and directed by TEOFILO Dominguez. Visit Start Time 08:25 Visit Stop Time 09:05 Total Visit Minutes 40 Visit Number 8 Number of OFFICE ASSISTANT Visits 1 PT-OP-B Current Condition Start: 04/22/22 18:26 Freq: Status: Active Protocol: Document 04/23/22 12:46 LRN (Rec: 04/23/22 16:21 LRN [id number]) Current Condition History of Current Condition Onset Date 20 yrs ago, worsened in the past few months. Current Complaints L neck/arm discomfort & numbness including L LE, can't sleep on L side History of Current Condition Pt reports she has had neck pain for the past 20 years of insidious onset. States sometimes driving she can't turn her head to the left due to pain. Once in a while worsening of L arm and leg numbness, and can't sleep on L side. Pt states she moved to [place] a year ago and the referring physician thought PT might help. She states that previous doctors told her she had to live with it. Driving is uncomfortable for really long distances, even as passenger. Headaches on L side. Prior Treatments and Tests Physical therapy previously ~ 2015 in [place]. X-ray report indicates: Loss of lordosis and multilevel spondylosis, most notably with moderate to severe disc degeneration at the C5-C6 level. Next MD visit 05/24/22. Pt given pills (meloxicam), but she doesn't like because they make her sleepy and then she doesn't function well the next day. Future Testing and Treatments Planned None Developmental History Developmental History Moved to [place] a year ago with spouse and dog. PMH: Back pain, was told due to disc problem. Jaw pain - wears mouthguard (pt feels not helpful). Treatment Goals Patient/Caregiver Goals Pt goal is to be able to sleep on L side for 1-2 hours without pain, buckle bra reaching behind back without pain, turning to look to the left for driving. Prior Functional Status Baseline Function- ADL's Independent Baseline Function- Mobility Independent Baseline Function- Other 6 months ago could don bra from behind without pain. Current Functional Impairments (Reported) Functional Limitations- ADL's Sleeps on the L side for 1-2 hrs. Functional Limitations- Work/School Retired from various jobs and being a homemaker. Functional Limitations- Recreation/ Sews and walks her dog daily. Hobbies Has 60 lbs lab. Personal Factors Other Personal Factors That May Effect Chronic L neck/shoulder pain Therapy/Recovery with headaches. PT-OP-C Subjective Start: 04/22/22 18:26 Freq: Status: Active Protocol: Document 05/28/22 08:27 TS (Rec: 05/28/22 09:52 TS [id number]) OP-PT Subjective Patient Comments Patient Comments Pt reports L posterior neck is feeling stiff today, felt sore after least treatment espeicllay the next day. Pt in car a lot lately due to father passing away and having to help clean his apt. Nerve stretches are helping relieve symptoms in L arm. PT-OP-E Functional Tests Start: 04/22/22 18:26 Freq: Status: Active Protocol: Document 04/23/22 12:46 LRN (Rec: 04/23/22 16:21 LRN [id number]) Functional Tests Apley's Scratch Test Action 1- Left Posterior Acromion Action 1- Right Posterior scapular region to spine Action 2- Left C7 Action 2- Right T3 Action 3- Left L5 Action 3- Right T7 PT-OP-H Neuro Start: 04/22/22 18:26 Freq: Status: Active Protocol: Document 04/23/22 12:46 LRN (Rec: 04/23/22 16:21 LRN [id number]) Sensation Evaluation Gross Sensation Gross Sensation Left UE Impaired,Head Impaired Sensation Description Tingling Deep Tendon Reflex & Clonus Assessment Deep Tendon Reflex Right Brachioradialis Deep Tendon Reflex 2+ Normal Left Brachioradialis Deep Tendon Reflex 3+ Normal But Brisk Bilateral Tricep Deep Tendon Reflex 3+ Normal But Brisk Bilateral Bicep Deep Tendon Reflex 3+ Normal But Brisk PT-OP-J Posture/Palpation/Skin Start: 04/22/22 18:26 Freq: Status: Active Protocol: Document 04/23/22 12:46 LRN (Rec: 04/23/22 16:21 LRN [id number]) Posture Evaluation Position Standing Head/C-Spine Posture Excess Extension,Forward Head T-Spine Posture Increased Kyphosis L-Spine Posture Increased Lordosis Shoulder Posture (R) Elevated Scapula Posture (L) Elevated Arm Posture (L) Internally Rotated,(R) Internally Rotated Weight Distribution Balanced Palpation Assessment Location Upper back Palpation Location L Upper back Palpation Findings Tenderness Posterior neck Palpation Location L Posterior and lateral neck Palpation Findings Tenderness PT-OP-K Range of Motion Start: 04/22/22 18:26 Freq: Status: Active Protocol: Document 05/25/22 13:02 LRN (Rec: 05/25/22 13:45 LRN [id number]) Cervical Spine Range of Motion Cervical Spine Active Degrees Testing Position Sitting Rotation Left 32 Rotation Right 49 Lateral Flexion Left 25 Lateral Flexion Right 22 PT-OP-L Special Tests Start: 04/22/22 18:26 Freq: Status: Active Protocol: Document 04/23/22 12:46 LRN (Rec: 04/23/22 16:21 LRN [id number]) Special Tests Cervical Spine Special Tests Upper Limb Tension Test Test Results + for ulnar, median, and radial nerve of L UE. Vertebral Artery Test Results -, but L rot very limited mobility Spurling's Test Test Results - bilaterally Traction Test Results - Foraminal Compression Test Results - PT-OP-M Strength Start: 04/22/22 18:26 Freq: Status: Active Protocol: Document 04/23/22 12:46 LRN (Rec: 04/23/22 16:21 LRN [id number]) Cervical Spine Strength Cervical Spine Manual Muscle Testing Testing Position Supine Flexion (C1-2) 5 Normal Extension 5 Normal Rotation Left 3+ Fair+ Rotation Right 4 Good Lateral Flexion Left (C3) 5 Normal Lateral Flexion Right (C3) 5 Normal Shoulder Strength Shoulder Manual Muscle Testing Right Flexion 5 Normal Abduction (C5) 5 Normal External Rotation 5 Normal Internal Rotation 5 Normal Left Flexion 3- Fair- Abduction (C5) 3- Fair- External Rotation 3- Fair- Internal Rotation 4 Good Hand Canvas Cutter/Pinch Strength Hand Dominance Hand Dominance Right PT-OP-Q Treatments Start: 04/22/22 18:26 Freq: Status: Active Protocol: Document 05/28/22 08:27 TS (Rec: 05/28/22 09:52 TS [id number]) Therapeutic Exercises Supine Exercises Deep neck flexors Supine Exercise Name Added to HEP Equipment Used Mat table Reps/Minutes 2x10 Comments Cues for chin tuck C. Rot Side bilateral Reps/Minutes 1x10 Comments Cues for chin tuck Sitting Exercises Chin Tuck with Scap retraction Reps/Minutes 2x10 Comments Tactile cues for scap squeeze Manual Therapy Treatment Soft Tissue Mobilization Neck Body Location SCM, Occipitals, Levator, UT Mobilization Type Oscillations,Sustained Pressure Intensity/Depth Moderate Body Position Supine Comments Pt responded well to manual therapy, reports decreased tightness on L posterior neck. Educated on self-stm for SCM. Tight in L UT & L SCM. Self-Care/Home Management Treatment Education Other Education Provided education on self-stm technique on SCM/TMJ for at home. Handout provided for information on book wedge to improve posture during reading /on phone. PT-OP-R Modalities Start: 04/22/22 18:26 Freq: Status: Active Protocol: Document 05/06/22 12:34 LRN (Rec: 05/06/22 13:50 LRN [id number]) Electric Stimulation Electric Stimulation Interferential Current (IFC) Body Location Neck (L UT>lat shoulder, Infras>Pec) Duration (Minutes) 10 Intensity 14 Target/Sweep Sweep Patient Position Hooklying Combined With Heat/Cold Hot Pack Comments Legs on bolster. PT-OP-T Assessment and Plan Start: 04/22/22 18:26 Freq: Status: Active Protocol: Document 05/28/22 08:27 TS (Rec: 05/28/22 09:52 TS [id number]) Physical Therapy Assessment Goals Four Impairment L shoulder weakness Impairment L shoulder strength: Flex, AB , ER is 3-/5 (R is 5/5) UE QuickDASH score is 31.81 ( 20-39% impaired) Short Term Goal (STG) Improve L shoulder flex, AB, ER strength to no less than 3+ /5. STG Duration 06/07/22 Auto Damage Adjuster Goal (LTG) Improve L shoulder strength to improve function per UE QuickDASH score 1-19 (1-19% impaired). 05/18/22: Quickdash score: 25% (20-39% impaired), improved from 31.81%. Neck diasbility index: score 10, improved from 12 (20-39% impaired) LTG Duration 07/22/22 Progressin05/18/22 Three Impairment Decreased L shoulder mobility Impairment Shoulder AROM (in deg's): Flex 140 L, 180 R; AB 90 L, 180 R; ER 55 L, 90 R; IR 72 L, 85 R. Behind back: L5 left, T7 right. Short Term Goal (STG) Pt will be educated in sleep positions and will improve sleep quality on the L side for 1-2 hours without pain. 05/03 & 04/17: I/S pt in best practice for side sleeping and head/neck posturing. STG Duration 06/07/22 (partially met 05/06) Auto Damage Adjuster Goal (LTG) Improve L shoulder AROM with pt able to buckle bra reaching behind back without pain. 05/18/22: supine: Flex 139 L, 180 R; AB 55 L, 135 R, seated ER L 60 deg R 61 deg. LTG Duration 07/22/22 Two Impairment Decreased neck mobility. Impairment Cervical AROM (in deg's): Rot is 25 L, 50 R; SB is 18 L, 15 R. Short Term Goal (STG) Pt educated in proper head/ neck posturing in standing, sitting and with reading. 05/06/22 05/11/22:Educated pt on proper posture while reading in chair and in bed using pillows , etc. to prop up book to eye height, with chin tucks and scap retraction ex. STG Duration 05/14/22 (05/03/22 & 05/11/22: MET GOAL) Auto Damage Adjuster Goal (LTG) Improve L Cervical rotation AROM with pt able to turn to look left comfortably for driving. 04/29/22: HEP: C. rot stretch . 05/18/22: Rot L 25, R 45; SB is 15 R, 16 L. LTG Duration 07/22/22 progressed 04/29/22 One Impairment Pt is not currently on a self care HEP. Short Term Goal (STG) Pt will be educated in sleep positions and use of modalities for pain management . 05/03 & 04/17: Educated pt in best Sleep positioning. STG Duration 04/30/22 (05/06/22: Partially met goal) Intermediate Goal (LTG) Pt will be independent with a self care HEP of left neck/ shoulder/UE exercises. 04/29/22: HEP: C. rot & UT stretch, UE neural stretches ( radial, ulnar & median nerves) LTG Duration 07/22/22 progressed 04/29/22 Assessment Summary Assessment Educated pt on self-stm for SCM and TMJ for home and provided handout for book wedge to prop up books while at home. Pt responded well to STM of posterior neck and L SCM, reporting decreased tightness. Pt will benefit from continued intervention to reduce pain symptoms in neck and improve posture during ADLs. Physical Therapy Plan Frequency and Duration Frequency of Treatment 2x/Week Plan of Care Start Date 04/23/22 Plan of Care End Date 07/22/22 Therapeutic Interventions Therapeutic Interventions Home Exercise Program,Joint Mobilizations,Manual Therapy, Neuromuscular Re-education, Patient/Caregiver Education, Self-Care/Home Management,Soft Tissue Mobilization,Taping, Therapeutic Activities, Therapeutic Exercises Modalities Cold Pack/Ice Massage,Electric Stimulation,Hot Packs, Ultrasound Next Visit Focus/Plan Next Note Type Treatment Note Next Visit Plan Continue to assess self-stm for TMJ and SCM, pt has not been peforming. Continue manual therapy fo relief of pain symptoms, discuss nighttime modalities for pain control. POC: Monitor for improved sleep quality at nighttime (1- 2 hrs). Stretch: L shoulder, scapula (monitor cervical & UE neural stretch). Stabilization/ther ex: neck, L shoulder, scapula. [ End ]
--- NOTE | 2022-05-31 09:05 | PT.OTN ---
Current Diagnoses Other chronic pain (05/31/22) Cervicalgia (05/31/22) Muscle weakness (generalized) (05/31/22) Physical Therapy Treatment Note PT-OP-A Visit Information Start: 04/22/22 18:26 Freq: Status: Active Protocol: Document 05/31/22 08:18 LRN (Rec: 05/31/22 09:03 LRN [id number]) Out-Patient Physical Therapy Visit Information Visit Information Visit Type Treatment Note Visit Start Time 08:18 Visit Stop Time 08:57 Total Visit Minutes 42 Visit Number 9 Evaluation Information Evaluation Date 04/23/22 Precautions Precautions Pt reports chronic neck, back, jaw pain and headaches. PT-OP-B Current Condition Start: 04/22/22 18:26 Freq: Status: Active Protocol: Document 04/23/22 12:46 LRN (Rec: 04/23/22 16:21 LRN [id number]) Current Condition History of Current Condition Onset Date 20 yrs ago, worsened in the past few months. Current Complaints L neck/arm discomfort & numbness including L LE, can't sleep on L side History of Current Condition Pt reports she has had neck pain for the past 20 years of insidious onset. States sometimes driving she can't turn her head to the left due to pain. Once in a while worsening of L arm and leg numbness, and can't sleep on L side. Pt states she moved to [place] a year ago and the referring physician thought PT might help. She states that previous doctors told her she had to live with it. Driving is uncomfortable for really long distances, even as passenger. Headaches on L side. Prior Treatments and Tests Physical therapy previously ~ 2015 in [place]. X-ray report indicates: Loss of lordosis and multilevel spondylosis, most notably with moderate to severe disc degeneration at the C5-C6 level. Next MD visit 05/24/22. Pt given pills (meloxicam), but she doesn't like because they make her sleepy and then she doesn't function well the next day. Future Testing and Treatments Planned None Developmental History Developmental History Moved to [place] a year ago with spouse and dog. PMH: Back pain, was told due to disc problem. Jaw pain - wears mouthguard (pt feels not helpful). Treatment Goals Patient/Caregiver Goals Pt goal is to be able to sleep on L side for 1-2 hours without pain, buckle bra reaching behind back without pain, turning to look to the left for driving. Prior Functional Status Baseline Function- ADL's Independent Baseline Function- Mobility Independent Baseline Function- Other 6 months ago could don bra from behind without pain. Current Functional Impairments (Reported) Functional Limitations- ADL's Sleeps on the L side for 1-2 hrs. Functional Limitations- Work/School Retired from various jobs and being a homemaker. Functional Limitations- Recreation/ Sews and walks her dog daily. Hobbies Has 60 lbs lab. Personal Factors Other Personal Factors That May Effect Chronic L neck/shoulder pain Therapy/Recovery with headaches. PT-OP-C Subjective Start: 04/22/22 18:26 Freq: Status: Active Protocol: Document 05/31/22 08:18 LRN (Rec: 05/31/22 09:03 LRN [id number]) OP-PT Subjective Patient Comments Patient Comments States her neck hurts more than her back. Neck pain rated 1-2/10, R LBP is 6-7/10 (usually on L side), but has been on/off for a couple weeks . States she did use heat to her neck and it did help. PT-OP-E Functional Tests Start: 04/22/22 18:26 Freq: Status: Active Protocol: Document 04/23/22 12:46 LRN (Rec: 04/23/22 16:21 LRN [id number]) Functional Tests Apley's Scratch Test Action 1- Left Posterior Acromion Action 1- Right Posterior scapular region to spine Action 2- Left C7 Action 2- Right T3 Action 3- Left L5 Action 3- Right T7 PT-OP-H Neuro Start: 04/22/22 18:26 Freq: Status: Active Protocol: Document 04/23/22 12:46 LRN (Rec: 04/23/22 16:21 LRN [id number]) Sensation Evaluation Gross Sensation Gross Sensation Left UE Impaired,Head Impaired Sensation Description Tingling Deep Tendon Reflex & Clonus Assessment Deep Tendon Reflex Right Brachioradialis Deep Tendon Reflex 2+ Normal Left Brachioradialis Deep Tendon Reflex 3+ Normal But Brisk Bilateral Tricep Deep Tendon Reflex 3+ Normal But Brisk Bilateral Bicep Deep Tendon Reflex 3+ Normal But Brisk PT-OP-J Posture/Palpation/Skin Start: 04/22/22 18:26 Freq: Status: Active Protocol: Document 04/23/22 12:46 LRN (Rec: 04/23/22 16:21 LRN [id number]) Posture Evaluation Position Standing Head/C-Spine Posture Excess Extension,Forward Head T-Spine Posture Increased Kyphosis L-Spine Posture Increased Lordosis Shoulder Posture (R) Elevated Scapula Posture (L) Elevated Arm Posture (L) Internally Rotated,(R) Internally Rotated Weight Distribution Balanced Palpation Assessment Location Upper back Palpation Location L Upper back Palpation Findings Tenderness Posterior neck Palpation Location L Posterior and lateral neck Palpation Findings Tenderness PT-OP-K Range of Motion Start: 04/22/22 18:26 Freq: Status: Active Protocol: Document 05/25/22 13:02 LRN (Rec: 05/25/22 13:45 LRN [id number]) Cervical Spine Range of Motion Cervical Spine Active Degrees Testing Position Sitting Rotation Left 32 Rotation Right 49 Lateral Flexion Left 25 Lateral Flexion Right 22 PT-OP-L Special Tests Start: 04/22/22 18:26 Freq: Status: Active Protocol: Document 04/23/22 12:46 LRN (Rec: 04/23/22 16:21 LRN [id number]) Special Tests Cervical Spine Special Tests Upper Limb Tension Test Test Results + for ulnar, median, and radial nerve of L UE. Vertebral Artery Test Results -, but L rot very limited mobility Spurling's Test Test Results - bilaterally Traction Test Results - Foraminal Compression Test Results - PT-OP-M Strength Start: 04/22/22 18:26 Freq: Status: Active Protocol: Document 04/23/22 12:46 LRN (Rec: 04/23/22 16:21 LRN [id number]) Cervical Spine Strength Cervical Spine Manual Muscle Testing Testing Position Supine Flexion (C1-2) 5 Normal Extension 5 Normal Rotation Left 3+ Fair+ Rotation Right 4 Good Lateral Flexion Left (C3) 5 Normal Lateral Flexion Right (C3) 5 Normal Shoulder Strength Shoulder Manual Muscle Testing Right Flexion 5 Normal Abduction (C5) 5 Normal External Rotation 5 Normal Internal Rotation 5 Normal Left Flexion 3- Fair- Abduction (C5) 3- Fair- External Rotation 3- Fair- Internal Rotation 4 Good Hand Medical Case Manager/Pinch Strength Hand Dominance Hand Dominance Right PT-OP-Q Treatments Start: 04/22/22 18:26 Freq: Status: Active Protocol: Document 05/31/22 08:18 LRN (Rec: 05/31/22 09:03 LRN [id number]) Therapeutic Exercises Supine Exercises ER @ 80 deg's AB Supine Exercise Name Flore[employer] wipe @ 80 deg's AB Side left Reps/Minutes 10 x 2 ER @ 45 deg's AB Supine Exercise Name [facility] Wipe Side left Reps/Minutes 10 x 2 Deep neck flexors Supine Exercise Name Deep Neck Flexors (HEP) - Juan & gravity resisted juan Equipment Used Mat table Reps/Minutes 10x and 5SH x 5, respectively. Comments Cues for elongation with chin tuck L Radial n stretch Supine Exercise Name L Radial N. stretch - done in standing Side left Reps/Minutes 10 SH x 10 of wrist flexion Comments Cues for 10SH, flexion fo wrist if comfortable C. Rot Side bilateral Reps/Minutes 10 SH x 10 Comments Cues for chin tuck L Median n stretch Supine Exercise Name L Median n stretch arm 85 deg' s AB, elbow flex/ext wrist slight ext Side left Reps/Minutes 10-20 SH x 10 Comments Extra time to determine best position and for trng of proper ex. Ulnar n stretch Supine Exercise Name L>R Ulnar n stretch with arm 70 deg's AB f/b wrist ext arm moving sup Side left Reps/Minutes 10 SH x 10 wrist ext Comments Extra time to determine max tolerated stretch Sidelying Exercises Shoulder ER Sidelying Exercise Name Shoulder ER Side left Reps/Minutes 10x 1 Comments c/o increased pain in arm. Sitting Exercises Self massage Sitting Exercise Name Self massage to SCM & TMJ bilaterally Side bilateral Reps/Minutes 8' L UT stretch Sitting Exercise Name Done in STANDING Side bilateral Reps/Minutes 5-10 SH x 5-8 Comments cuing for proper postioning for stretch Self-Care/Home Management Treatment Education Patient Education Home Exercise Program,Pain Management Other Education Reviewed education on self-stm technique on SCM/TMJ for at home. Educated and discussed proper nighttime modalities for pain control. Activities Self-Care/Home Management Activities Issued & reviewed HEP: Shoulder ER/IR in sidelie, supine (arm in 45 & 80 deg's AB). PT-OP-R Modalities Start: 04/22/22 18:26 Freq: Status: Active Protocol: Document 05/06/22 12:34 LRN (Rec: 05/06/22 13:50 LRN [id number]) Electric Stimulation Electric Stimulation Interferential Current (IFC) Body Location Neck (L UT>lat shoulder, Infras>Pec) Duration (Minutes) 10 Intensity 14 Target/Sweep Sweep Patient Position Hooklying Combined With Heat/Cold Hot Pack Comments Legs on bolster. PT-OP-T Assessment and Plan Start: 04/22/22 18:26 Freq: Status: Active Protocol: Document 05/31/22 08:18 LRN (Rec: 05/31/22 09:03 LRN [id number]) Physical Therapy Assessment Goals Four Impairment L shoulder weakness Impairment L shoulder strength: Flex, AB , ER is 3-/5 (R is 5/5) UE QuickDASH score is 31.81 ( 20-39% impaired) Short Term Goal (STG) Improve L shoulder flex, AB, ER strength to no less than 3+ /5. STG Duration 06/07/22 Fashion Buyer Goal (LTG) Improve L shoulder strength to improve function per UE QuickDASH score 1-19 (1-19% impaired). 05/18/22: Quickdash score: 25% (20-39% impaired), improved from 31.81%. Neck diasbility index: score 10, improved from 12 (20-39% impaired) LTG Duration 07/22/22 Progressin05/18/22 Three Impairment Decreased L shoulder mobility Impairment Shoulder AROM (in deg's): Flex 140 L, 180 R; AB 90 L, 180 R; ER 55 L, 90 R; IR 72 L, 85 R. Behind back: L5 left, T7 right. Short Term Goal (STG) Pt will be educated in sleep positions and will improve sleep quality on the L side for 1-2 hours without pain. 05/03 & 04/17: I/S pt in best practice for side sleeping and head/neck posturing. STG Duration 06/07/22 (partially met 05/06) Fashion Buyer Goal (LTG) Improve L shoulder AROM with pt able to buckle bra reaching behind back without pain. 05/18/22: supine: Flex 139 L, 180 R; AB 55 L, 135 R, seated ER L 60 deg R 61 deg. LTG Duration 07/22/22 Two Impairment Decreased neck mobility. Impairment Cervical AROM (in deg's): Rot is 25 L, 50 R; SB is 18 L, 15 R. Short Term Goal (STG) Pt educated in proper head/ neck posturing in standing, sitting and with reading. 05/06/22 05/11/22:Educated pt on proper posture while reading in chair and in bed using pillows , etc. to prop up book to eye height, with chin tucks and scap retraction ex. STG Duration 05/14/22 (05/03/22 & 05/11/22: MET GOAL) Fashion Buyer Goal (LTG) Improve L Cervical rotation AROM with pt able to turn to look left comfortably for driving. 04/29/22: HEP: C. rot stretch . 05/18/22: Rot L 25, R 45; SB is 15 R, 16 L. LTG Duration 07/22/22 progressed 04/29/22 One Impairment Pt is not currently on a self care HEP. Short Term Goal (STG) Pt will be educated in sleep positions and use of modalities for pain management . 05/03 & 04/17: Educated pt in best Sleep positioning. 05/31/22: Educated and discussed proper nighttime modalities for pain control. STG Duration 04/30/22 (05/31/22: MET GOAL) [facility]ci Goal (LTG) Pt will be independent with a self care HEP of left neck/ shoulder/UE exercises. 04/29/22: HEP: C. rot & UT stretch, UE neural stretches ( radial, ulnar & median nerves) 05/28/22:Deep neck flexors lift LTG Duration 07/22/22 progressed 05/28/22 Progress Towards Goals Progress Comments MET STG#1. Progressed HEP> Assessment Summary Assessment Pt not doing self massage of SCM, TMJ, therefore pt needs encouragement to be consistent with self care. Pt LBP appears to be acute in nature since it is off/on. Low tolerance to ex of L shoulder and pt may be overstretching on neural stretches. Physical Therapy Plan Frequency and Duration Frequency of Treatment 2x/Week Plan of Care Start Date 04/23/22 Plan of Care End Date 07/22/22 Next Visit Focus/Plan Next Note Type Progress Note Next Visit Plan Pt not consistent with self massage; therefore monitor pt doing self-stm for TMJ and SCM . POC: Increase focus on strengthening/stabilization, but continue manual therapy for relief of neck/LB pain symptoms. Monitor for improved sleep quality at nighttime (1-2 hrs). Ther ex: neck, L shoulder, scapula stabilization. Stretch as needed: L shoulder , scapula (monitor cervical & UE neural stretch). [ End ]
--- NOTE | 2022-05-31 17:38 | PT.OTN ---
Current Diagnoses Other chronic pain (05/31/22) Cervicalgia (05/31/22) Muscle weakness (generalized) (05/31/22) Physical Therapy Treatment Note PT-OP-A Visit Information Start: 04/22/22 18:26 Freq: Status: Active Protocol: Document 05/31/22 08:18 LRN (Rec: 05/31/22 09:03 LRN [id number]) Out-Patient Physical Therapy Visit Information Visit Information Visit Type Treatment Note Visit Start Time 08:18 Visit Stop Time 08:57 Total Visit Minutes 42 Visit Number 9 Evaluation Information Evaluation Date 04/23/22 Precautions Precautions Pt reports chronic neck, back, jaw pain and headaches. PT-OP-B Current Condition Start: 04/22/22 18:26 Freq: Status: Active Protocol: Document 04/23/22 12:46 LRN (Rec: 04/23/22 16:21 LRN [id number]) Current Condition History of Current Condition Onset Date 20 yrs ago, worsened in the past few months. Current Complaints L neck/arm discomfort & numbness including L LE, can't sleep on L side History of Current Condition Pt reports she has had neck pain for the past 20 years of insidious onset. States sometimes driving she can't turn her head to the left due to pain. Once in a while worsening of L arm and leg numbness, and can't sleep on L side. Pt states she moved to [place] a year ago and the referring physician thought PT might help. She states that previous doctors told her she had to live with it. Driving is uncomfortable for really long distances, even as passenger. Headaches on L side. Prior Treatments and Tests Physical therapy previously ~ 2015 in [place]. X-ray report indicates: Loss of lordosis and multilevel spondylosis, most notably with moderate to severe disc degeneration at the C5-C6 level. Next MD visit 05/24/22. Pt given pills (meloxicam), but she doesn't like because they make her sleepy and then she doesn't function well the next day. Future Testing and Treatments Planned None Developmental History Developmental History Moved to [place] a year ago with spouse and dog. PMH: Back pain, was told due to disc problem. Jaw pain - wears mouthguard (pt feels not helpful). Treatment Goals Patient/Caregiver Goals Pt goal is to be able to sleep on L side for 1-2 hours without pain, buckle bra reaching behind back without pain, turning to look to the left for driving. Prior Functional Status Baseline Function- ADL's Independent Baseline Function- Mobility Independent Baseline Function- Other 6 months ago could don bra from behind without pain. Current Functional Impairments (Reported) Functional Limitations- ADL's Sleeps on the L side for 1-2 hrs. Functional Limitations- Work/School Retired from various jobs and being a homemaker. Functional Limitations- Recreation/ Sews and walks her dog daily. Hobbies Has 60 lbs lab. Personal Factors Other Personal Factors That May Effect Chronic L neck/shoulder pain Therapy/Recovery with headaches. PT-OP-C Subjective Start: 04/22/22 18:26 Freq: Status: Active Protocol: Document 05/31/22 08:18 LRN (Rec: 05/31/22 09:03 LRN [id number]) OP-PT Subjective Patient Comments Patient Comments States her neck hurts more than her back. Neck pain rated 1-2/10, R LBP is 6-7/10 (usually on L side), but has been on/off for a couple weeks . States she did use heat to her neck and it did help. PT-OP-E Functional Tests Start: 04/22/22 18:26 Freq: Status: Active Protocol: Document 04/23/22 12:46 LRN (Rec: 04/23/22 16:21 LRN [id number]) Functional Tests Apley's Scratch Test Action 1- Left Posterior Acromion Action 1- Right Posterior scapular region to spine Action 2- Left C7 Action 2- Right T3 Action 3- Left L5 Action 3- Right T7 PT-OP-H Neuro Start: 04/22/22 18:26 Freq: Status: Active Protocol: Document 04/23/22 12:46 LRN (Rec: 04/23/22 16:21 LRN [id number]) Sensation Evaluation Gross Sensation Gross Sensation Left UE Impaired,Head Impaired Sensation Description Tingling Deep Tendon Reflex & Clonus Assessment Deep Tendon Reflex Right Brachioradialis Deep Tendon Reflex 2+ Normal Left Brachioradialis Deep Tendon Reflex 3+ Normal But Brisk Bilateral Tricep Deep Tendon Reflex 3+ Normal But Brisk Bilateral Bicep Deep Tendon Reflex 3+ Normal But Brisk PT-OP-J Posture/Palpation/Skin Start: 04/22/22 18:26 Freq: Status: Active Protocol: Document 04/23/22 12:46 LRN (Rec: 04/23/22 16:21 LRN [id number]) Posture Evaluation Position Standing Head/C-Spine Posture Excess Extension,Forward Head T-Spine Posture Increased Kyphosis L-Spine Posture Increased Lordosis Shoulder Posture (R) Elevated Scapula Posture (L) Elevated Arm Posture (L) Internally Rotated,(R) Internally Rotated Weight Distribution Balanced Palpation Assessment Location Upper back Palpation Location L Upper back Palpation Findings Tenderness Posterior neck Palpation Location L Posterior and lateral neck Palpation Findings Tenderness PT-OP-K Range of Motion Start: 04/22/22 18:26 Freq: Status: Active Protocol: Document 05/25/22 13:02 LRN (Rec: 05/25/22 13:45 LRN [id number]) Cervical Spine Range of Motion Cervical Spine Active Degrees Testing Position Sitting Rotation Left 32 Rotation Right 49 Lateral Flexion Left 25 Lateral Flexion Right 22 PT-OP-L Special Tests Start: 04/22/22 18:26 Freq: Status: Active Protocol: Document 04/23/22 12:46 LRN (Rec: 04/23/22 16:21 LRN [id number]) Special Tests Cervical Spine Special Tests Upper Limb Tension Test Test Results + for ulnar, median, and radial nerve of L UE. Vertebral Artery Test Results -, but L rot very limited mobility Spurling's Test Test Results - bilaterally Traction Test Results - Foraminal Compression Test Results - PT-OP-M Strength Start: 04/22/22 18:26 Freq: Status: Active Protocol: Document 04/23/22 12:46 LRN (Rec: 04/23/22 16:21 LRN [id number]) Cervical Spine Strength Cervical Spine Manual Muscle Testing Testing Position Supine Flexion (C1-2) 5 Normal Extension 5 Normal Rotation Left 3+ Fair+ Rotation Right 4 Good Lateral Flexion Left (C3) 5 Normal Lateral Flexion Right (C3) 5 Normal Shoulder Strength Shoulder Manual Muscle Testing Right Flexion 5 Normal Abduction (C5) 5 Normal External Rotation 5 Normal Internal Rotation 5 Normal Left Flexion 3- Fair- Abduction (C5) 3- Fair- External Rotation 3- Fair- Internal Rotation 4 Good Hand [employer]/Pinch Strength Hand Dominance Hand Dominance Right PT-OP-Q Treatments Start: 04/22/22 18:26 Freq: Status: Active Protocol: Document 05/31/22 08:18 LRN (Rec: 05/31/22 09:03 LRN [id number]) Therapeutic Exercises Supine Exercises ER @ 80 deg's AB Supine Exercise Name Florecita wipe @ 80 deg's AB Side left Reps/Minutes 10 x 2 ER @ 45 deg's AB Supine Exercise Name [facility] Wipe Side left Reps/Minutes 10 x 2 Deep neck flexors Supine Exercise Name Deep Neck Flexors (HEP) - Juan & gravity resisted juan Equipment Used Mat table Reps/Minutes 10x and 5SH x 5, respectively. Comments Cues for elongation with chin tuck L Radial n stretch Supine Exercise Name L Radial N. stretch - done in standing Side left Reps/Minutes 10 SH x 10 of wrist flexion Comments Cues for 10SH, flexion fo wrist if comfortable C. Rot Side bilateral Reps/Minutes 10 SH x 10 Comments Cues for chin tuck L Median n stretch Supine Exercise Name L Median n stretch arm 85 deg' s AB, elbow flex/ext wrist slight ext Side left Reps/Minutes 10-20 SH x 10 Comments Extra time to determine best position and for trng of proper ex. Ulnar n stretch Supine Exercise Name L>R Ulnar n stretch with arm 70 deg's AB f/b wrist ext arm moving sup Side left Reps/Minutes 10 SH x 10 wrist ext Comments Extra time to determine max tolerated stretch Sidelying Exercises Shoulder ER Sidelying Exercise Name Shoulder ER Side left Reps/Minutes 10x 1 Comments c/o increased pain in arm. Sitting Exercises Self massage Sitting Exercise Name Self massage to SCM & TMJ bilaterally Side bilateral Reps/Minutes 8' L UT stretch Sitting Exercise Name Done in STANDING Side bilateral Reps/Minutes 5-10 SH x 5-8 Comments cuing for proper postioning for stretch Self-Care/Home Management Treatment Education Patient Education Home Exercise Program,Pain Management Other Education Reviewed education on self-stm technique on SCM/TMJ for at home. Educated and discussed proper nighttime modalities for pain control. Activities Self-Care/Home Management Activities Issued & reviewed HEP: Shoulder ER/IR in sidelie, supine (arm in 45 & 80 deg's AB). PT-OP-R Modalities Start: 04/22/22 18:26 Freq: Status: Active Protocol: Document 05/06/22 12:34 LRN (Rec: 05/06/22 13:50 LRN [id number]) Electric Stimulation Electric Stimulation Interferential Current (IFC) Body Location Neck (L UT>lat shoulder, Infras>Pec) Duration (Minutes) 10 Intensity 14 Target/Sweep Sweep Patient Position Hooklying Combined With Heat/Cold Hot Pack Comments Legs on bolster. PT-OP-T Assessment and Plan Start: 04/22/22 18:26 Freq: Status: Active Protocol: Document 05/31/22 08:18 LRN (Rec: 05/31/22 09:03 [facility] [id number]) Physical Therapy Assessment Rehab Potential Rehabilitation Potential Good Evaluation Complexity Number of Personal Factors/Comorbidities 1-2 Number of Body Systems Impaired 4 or More Clinical Presentation at Evaluation Evolving Impairments Impairments Activity Tolerance,Functional Activities,Pain,Posture,ROM, Strength Goals Four Impairment L shoulder weakness Impairment L shoulder strength: Flex, AB , ER is 3-/5 (R is 5/5) UE QuickDASH score is 31.81 ( 20-39% impaired) Short Term Goal (STG) Improve L shoulder flex, AB, ER strength to no less than 3+ /5. STG Duration 06/07/22 Care Home Goal (LTG) Improve L shoulder strength to improve function per UE QuickDASH score 1-19 (1-19% impaired). 05/18/22: Quickdash score: 25% (20-39% impaired), improved from 31.81%. Neck diasbility index: score 10, improved from 12 (20-39% impaired) LTG Duration 07/22/22 Progressin05/18/22 Three Impairment Decreased L shoulder mobility Impairment Shoulder AROM (in deg's): Flex 140 L, 180 R; AB 90 L, 180 R; ER 55 L, 90 R; IR 72 L, 85 R. Behind back: L5 left, T7 right. Short Term Goal (STG) Pt will be educated in sleep positions and will improve sleep quality on the L side for 1-2 hours without pain. 05/03 & 04/17: I/S pt in best practice for side sleeping and head/neck posturing. STG Duration 06/07/22 (partially met 05/06) [place] Hand Goal (LTG) Improve L shoulder AROM with pt able to buckle bra reaching behind back without pain. 05/18/22: supine: Flex 139 L, 180 R; AB 55 L, 135 R, seated ER L 60 deg R 61 deg. LTG Duration 07/22/22 Two Impairment Decreased neck mobility. Impairment Cervical AROM (in deg's): Rot is 25 L, 50 R; SB is 18 L, 15 R. Short Term Goal (STG) Pt educated in proper head/ neck posturing in standing, sitting and with reading. 05/06/22 05/11/22:Educated pt on proper posture while reading in chair and in bed using pillows , etc. to prop up book to eye height, with chin tucks and scap retraction ex. STG Duration 05/14/22 (05/03/22 & 05/11/22: MET GOAL) [place] Hand Goal (LTG) Improve L Cervical rotation AROM with pt able to turn to look left comfortably for driving. 04/29/22: HEP: C. rot stretch . 05/18/22: Rot L 25, R 45; SB is 15 R, 16 L. LTG Duration 07/22/22 progressed 04/29/22 One Impairment Pt is not currently on a self care HEP. Short Term Goal (STG) Pt will be educated in sleep positions and use of modalities for pain management . 05/03 & 04/17: Educated pt in best Sleep positioning. 05/31/22: Educated and discussed proper nighttime modalities for pain control. STG Duration 04/30/22 (05/31/22: MET GOAL) [place] Hand Goal (LTG) Pt will be independent with a self care HEP of left neck/ shoulder/UE exercises. 04/29/22: HEP: C. rot & UT stretch, UE neural stretches ( radial, ulnar & median nerves) 05/28/22:Deep neck flexors lift LTG Duration 07/22/22 progressed 05/28/22 Progress Towards Goals Progress Comments MET STG#1. Progressed HEP> Assessment Summary Assessment Pt is very slowly improving, as expected, due to the chronic nature of her in her lessening of neck, L shoulder and back pain. She shows improved UE mobility with stretches and is tolerating slowly neck stab exercises. Pt needs review of self massages of SCM, TMJ due to inconsistency with self STM, therefore pt needs encouragement to be consistent . Pt's LBP, as of recent, appears to be acute in nature since it is off/on. Low tolerance to exer's of L shoulder at this time and pt may be overstretching on neural stretches. Physical Therapy Plan Frequency and Duration Frequency of Treatment 2x/Week Plan of Care Start Date 04/23/22 Plan of Care End Date 07/22/22 Therapeutic Interventions Therapeutic Interventions Home Exercise Program,Joint Mobilizations,Manual Therapy, Neuromuscular Re-education, Patient/Caregiver Education, Self-Care/Home Management,Soft Tissue Mobilization,Taping, Therapeutic Activities, Therapeutic Exercises Modalities Cold Pack/Ice Massage,Electric Stimulation,Hot Packs, Ultrasound Next Visit Focus/Plan Next Note Type Progress Note Next Visit Plan Pt not consistent with self massage; therefore monitor pt doing self-stm for TMJ and SCM . POC: Increase focus on strengthening/stabilization, but continue manual therapy for relief of neck/LB pain symptoms. Monitor for improved sleep quality at nighttime (1-2 hrs). Ther ex: neck, L shoulder, scapula stabilization. Stretch as needed: L shoulder , scapula (monitor cervical & UE neural stretch). [ End ]
--- NOTE | 2022-06-03 16:51 | PT.OTN ---
Current Diagnoses Other chronic pain (06/03/22) Cervicalgia (06/03/22) Muscle weakness (generalized) (06/03/22) Physical Therapy Treatment Note PT-OP-A Visit Information Start: 04/22/22 18:26 Freq: Status: Active Protocol: Document 06/03/22 09:06 LRN (Rec: 06/03/22 09:54 LRN [id number]) Out-Patient Physical Therapy Visit Information Visit Information Visit Type Progress Note Visit Start Time 09:06 Visit Stop Time 09:45 Total Visit Minutes 39 Visit Number 10 Evaluation Information Evaluation Date 04/23/22 Precautions Precautions Pt reports chronic neck, back, jaw pain and headaches. PT-OP-B Current Condition Start: 04/22/22 18:26 Freq: Status: Active Protocol: Document 04/23/22 12:46 LRN (Rec: 04/23/22 16:21 LRN [id number]) Current Condition History of Current Condition Onset Date 20 yrs ago, worsened in the past few months. Current Complaints L neck/arm discomfort & numbness including L LE, can't sleep on L side History of Current Condition Pt reports she has had neck pain for the past 20 years of insidious onset. States sometimes driving she can't turn her head to the left due to pain. Once in a while worsening of L arm and leg numbness, and can't sleep on L side. Pt states she moved to [place] a year ago and the referring physician thought PT might help. She states that previous doctors told her she had to live with it. Driving is uncomfortable for really long distances, even as passenger. Headaches on L side. Prior Treatments and Tests Physical therapy previously ~ 2015 in [place]. X-ray report indicates: Loss of lordosis and multilevel spondylosis, most notably with moderate to severe disc degeneration at the C5-C6 level. Next MD visit 05/24/22. Pt given pills (meloxicam), but she doesn't like because they make her sleepy and then she doesn't function well the next day. Future Testing and Treatments Planned None Developmental History Developmental History Moved to [place] a year ago with spouse and dog. PMH: Back pain, was told due to disc problem. Jaw pain - wears mouthguard (pt feels not helpful). Treatment Goals Patient/Caregiver Goals Pt goal is to be able to sleep on L side for 1-2 hours without pain, buckle bra reaching behind back without pain, turning to look to the left for driving. Prior Functional Status Baseline Function- ADL's Independent Baseline Function- Mobility Independent Baseline Function- Other 6 months ago could don bra from behind without pain. Current Functional Impairments (Reported) Functional Limitations- ADL's Sleeps on the L side for 1-2 hrs. Functional Limitations- Work/School Retired from various jobs and being a homemaker. Functional Limitations- Recreation/ Sews and walks her dog daily. Hobbies Has 60 lbs lab. Personal Factors Other Personal Factors That May Effect Chronic L neck/shoulder pain Therapy/Recovery with headaches. PT-OP-C Subjective Start: 04/22/22 18:26 Freq: Status: Active Protocol: Document 06/03/22 09:06 LRN (Rec: 06/03/22 09:54 LRN [id number]) OP-PT Subjective Patient Comments Patient Comments Yesterday had a bad headache and everything hurt. She tried self pressure treatments . States she sat a lot yesterday and woke with a bad LBP. Since head hurt the neck hurt. Tried heat. Pain in head/neck is 2/10. LBP is 2/ 10. Will be gone 06/17/23-07/05/22. Can't sleep on L side due to upper shoulder pain and neck discomfort the neck day. Feels improved because she now knows what she can do when she has pain and stands straighter. Patient Questionnaires Neck Disability Index NDI Score .......... Quick Dash- Upper Extremity Quick Dash UE Score 11.36 Quick Dash UE Impairment 1 to 19% Impaired (Score 1-19) PT-OP-E Functional Tests Start: 04/22/22 18:26 Freq: Status: Active Protocol: Document 06/03/22 09:06 LRN (Rec: 06/03/22 09:54 LRN [id number]) Functional Tests Apley's Scratch Test Action 2- Left T2 Action 2- Right T3 Action 3- Left T9 Action 3- Right T7 PT-OP-H Neuro Start: 04/22/22 18:26 Freq: Status: Active Protocol: Document 04/23/22 12:46 LRN (Rec: 04/23/22 16:21 LRN [id number]) Sensation Evaluation Gross Sensation Gross Sensation Left UE Impaired,Head Impaired Sensation Description Tingling Deep Tendon Reflex & Clonus Assessment Deep Tendon Reflex Right Brachioradialis Deep Tendon Reflex 2+ Normal Left Brachioradialis Deep Tendon Reflex 3+ Normal But Brisk Bilateral Tricep Deep Tendon Reflex 3+ Normal But Brisk Bilateral Bicep Deep Tendon Reflex 3+ Normal But Brisk PT-OP-J Posture/Palpation/Skin Start: 04/22/22 18:26 Freq: Status: Active Protocol: Document 04/23/22 12:46 LRN (Rec: 04/23/22 16:21 [facility] [id number]) Posture Evaluation Position Standing Head/C-Spine Posture Excess Extension,Forward Head T-Spine Posture Increased Kyphosis L-Spine Posture Increased Lordosis Shoulder Posture (R) Elevated Scapula Posture (L) Elevated Arm Posture (L) Internally Rotated,(R) Internally Rotated Weight Distribution Balanced Palpation Assessment Location Upper back Palpation Location L Upper back Palpation Findings Tenderness Posterior neck Palpation Location L Posterior and lateral neck Palpation Findings Tenderness PT-OP-K Range of Motion Start: 04/22/22 18:26 Freq: Status: Active Protocol: Document 06/03/22 09:06 LRN (Rec: 06/03/22 09:54 [facility] [id number]) Cervical Spine Range of Motion Cervical Spine Active Degrees Testing Position Sitting Flexion 45 Extension 32 Rotation Left 30 Rotation Right 64 Lateral Flexion Left 20 Lateral Flexion Right 10 ROM Limitations Soft Tissue Tightness Comments Pt starting position for SB is 5 deg's L Sidebent. Shoulder Goniometric Range of Motion Shoulder AROM L Testing Position Sitting Flexion 157 Abduction 180 External Rotation at 0 degrees Abduction 38 Internal Rotation Behind Back (text) T9 Comments Reaching behind head: T2 AROM R Testing Position Sitting Flexion 148 Abduction 180 External Rotation at 0 degrees Abduction 48 Internal Rotation Behind Back (text) T7 Comments Reaching behind head: T3 PT-OP-L Special Tests Start: 04/22/22 18:26 Freq: Status: Active Protocol: Document 04/23/22 12:46 LRN (Rec: 04/23/22 16:21 [facility] [id number]) Special Tests Cervical Spine Special Tests Upper Limb Tension Test Test Results + for ulnar, median, and radial nerve of L UE. Vertebral Artery Test Results -, but L rot very limited mobility Spurling's Test Test Results - bilaterally Traction Test Results - Foraminal Compression Test Results - PT-OP-M Strength Start: 04/22/22 18:26 Freq: Status: Active Protocol: Document 04/23/22 12:46 LRN (Rec: 04/23/22 16:21 LRN [id number]) Cervical Spine Strength Cervical Spine Manual Muscle Testing Testing Position Supine Flexion (C1-2) 5 Normal Extension 5 Normal Rotation Left 3+ Fair+ Rotation Right 4 Good Lateral Flexion Left (C3) 5 Normal Lateral Flexion Right (C3) 5 Normal Shoulder Strength Shoulder Manual Muscle Testing Right Flexion 5 Normal Abduction (C5) 5 Normal External Rotation 5 Normal Internal Rotation 5 Normal Left Flexion 3- Fair- Abduction (C5) 3- Fair- External Rotation 3- Fair- Internal Rotation 4 Good Hand Network Security Administrator/Pinch Strength Hand Dominance Hand Dominance Right PT-OP-Q Treatments Start: 04/22/22 18:26 Freq: Status: Active Protocol: Document 06/03/22 09:06 LRN (Rec: 06/03/22 09:54 LRN [id number]) Therapeutic Exercises Supine Exercises UE Butterfly stretch (ER) Supine Exercise Name UE Butterfly stretch (ER) Side bilateral Reps/Minutes 2' ER @ 80 deg's AB Supine Exercise Name Windshield wipe @ 80 deg's AB Side left Reps/Minutes 10 x 3 ER @ 45 deg's AB Supine Exercise Name Windshield Wipe Side left Reps/Minutes 10 x 3 Sitting Exercises C. Rot stretch Sitting Exercise Name C. Rot stretch Side left Reps/Minutes 10SH x 6 L UT stretch Sitting Exercise Name Sitting C. Rot Side bilateral Reps/Minutes 5-10 SH x 6 Comments cuing for proper postioning for stretch PT-OP-R Modalities Start: 04/22/22 18:26 Freq: Status: Active Protocol: Document 05/06/22 12:34 LRN (Rec: 05/06/22 13:50 LRN [id number]) Electric Stimulation Electric Stimulation Interferential Current (IFC) Body Location Neck (L UT>lat shoulder, Infras>Pec) Duration (Minutes) 10 Intensity 14 Target/Sweep Sweep Patient Position Hooklying Combined With Heat/Cold Hot Pack Comments Legs on bolster. PT-OP-T Assessment and Plan Start: 04/22/22 18:26 Freq: Status: Active Protocol: Document 06/03/22 09:06 LRN (Rec: 12/08/22 09:54 N [id number]) Physical Therapy Assessment Rehab Potential Rehabilitation Potential Good Evaluation Complexity Number of Personal Factors/Comorbidities 1-2 Number of Body Systems Impaired 4 or More Clinical Presentation at Evaluation Evolving Impairments Impairments Activity Tolerance,Functional Activities,Pain,Posture,ROM, Strength Goals Five Impairment Decreased L shoulder stability [employer] Goal (LTG) Improve L shoulder strength/ stability with pt able to tolerate sleeping on her L side, up to 1-2 hours before waking due to pain. LTG Duration 07/30/22 Four Impairment L shoulder weakness Impairment L shoulder strength: Flex, AB , ER is 3-/5 (R is 5/5) UE QuickDASH score is 31.81 ( 20-39% impaired) Short Term Goal (STG) Improve L shoulder flex, AB, ER strength to no less than 3+ /5. 06/03/22: L shldr Flex, AB 5/ 5, ER 4/5, IR 4+/5. STG Duration 06/07/22 (06/03/22: MET GOAL ) Intermediate Goal (LTG) Improve L shoulder strength to improve function per UE QuickDASH score 1-19 (1-19% impaired). 05/18/22: Quickdash score: 25% (20-39% impaired), improved from 31.81%. Neck diasbility index: score 10, improved from 12 (20-39% impaired) 06/03/22: Quickdash score: 11 .36 (1-19% impaired, score 1- 19). LTG Duration 07/22/22 (06/03/22: MET GOAL) Three Impairment Decreased L shoulder mobility Impairment Shoulder AROM (in deg's): Flex 140 L, 180 R; AB 90 L, 180 R; ER 55 L, 90 R; IR 72 L, 85 R. Behind back: L5 left, T7 right. Short Term Goal (STG) Pt will be educated in sleep positions and will improve sleep quality on the L side for 1-2 hours without pain. 05/03 & 04/17: I/S pt in best practice for side sleeping and head/neck posturing. 06/03/22: NOT able to sleep on L side for any length of time . STG Duration 06/07/22 (partially met 05/06) Intermediate Goal (LTG) Improve L shoulder AROM with pt able to buckle bra reaching behind back without pain. 05/18/22: supine: Flex 139 L, 180 R; AB 55 L, 135 R, seated ER L 60 deg R 61 deg. 06/03/22: sitting: Flex 157 L , 148 R; AB 180 bilaterally. 0 deg's AB: ER 38 L, 48 R. Behind back: T9 L, T7 R. Pt able to buckle bra behind the back, rarely with pain. LTG Duration 07/22/22 (06/03/22: GOAL MET for flex, AB & for the functional movement) Two Impairment Decreased neck mobility. Impairment Cervical AROM (in deg's): Rot is 25 L, 50 R; SB is 18 L, 15 R. Short Term Goal (STG) Pt educated in proper head/ neck posturing in standing, sitting and with reading. 05/06/22 05/11/22:Educated pt on proper posture while reading in chair and in bed using pillows , etc. to prop up book to eye height, with chin tucks and scap retraction ex. STG Duration 05/14/22 (05/03/22 & 05/11/22: MET GOAL) [employer] Goal (LTG) Improve L Cervical rotation AROM with pt able to turn to look left comfortably for driving. 04/29/22: HEP: C. rot stretch . 05/18/22: Rot L 25, R 45; SB is 15 R, 16 L. 06/03/22: Rot L 30, R 64; SB is 20 L, 10 R. Improved C. AROM. Has discomfort in looking L while driving. LTG Duration 07/30/22 Improving 06/03/22. One Impairment Pt is not currently on a self care HEP. Short Term Goal (STG) Pt will be educated in sleep positions and use of modalities for pain management . 05/03 & 04/17: Educated pt in best Sleep positioning. 05/31/22: Educated and discussed proper nighttime modalities for pain control. STG Duration 04/30/22 (05/31/22: MET GOAL) Intermediate Goal (LTG) Pt will be independent with a self care HEP of left neck/ shoulder/UE exercises. 04/29/22: HEP: C. rot & UT stretch, UE neural stretches ( radial, ulnar & median nerves) 05/28/22:Deep neck flexors lift . 06/03/22: AROM L shoulder ER/ IR. LTG Duration 07/30/22 progressed 05/28/22 Progress Towards Goals Progress Comments Goal #4 STG & LTG MET. Assessment Summary Assessment Pt had flare up yesterday, but was able to recover with pain in the L neck/shoulder and LB , rated 2/10. Pt is slowly improving, as expected, due to the chronic nature of her condition. She has improved UE mobility with improved function in dressing ( assessment is needed for supine AROM/PROM of L shoulder ) and it appears she has meet her dressing goal. The pt is progressing on neck stab exercises, and we recently initiated L shoulder stabilizing exercises in painfree range. Although her cervical mobility is limited it has improved since initial visit (see goal #2) The pt will benefit from continued skilled physical therapy to progress L shoulder stabilization and UE strengthening to further improve function and to improve C/S mobility with rotation, and continued progression of her HEP as appropriate. Physical Therapy Plan Frequency and Duration Frequency of Treatment 2x/Week Plan of Care Start Date 06/03/22 Plan of Care End Date 07/30/22 Therapeutic Interventions Therapeutic Interventions Home Exercise Program,Joint Mobilizations,Manual Therapy, Neuromuscular Re-education, Patient/Caregiver Education, Self-Care/Home Management,Soft Tissue Mobilization,Taping, Therapeutic Activities, Therapeutic Exercises Modalities Cold Pack/Ice Massage,Electric Stimulation,Hot Packs, Ultrasound Next Visit Focus/Plan Next Note Type Treatment Note Next Visit Plan Pt not consistent with self massage; therefore monitor pt doing self-stm for TMJ and SCM . POC: Increase focus on strengthening/stabilization L shoulder, but continue manual therapy for relief of neck/LB pain symptoms. Monitor for improved sleep quality at nighttime (1-2 hrs). Ther ex: neck, L shoulder, scapula stabilization. Stretch as needed: L shoulder , scapula (monitor cervical & UE neural stretch). [ End ]
--- NOTE | 2022-06-03 16:53 | PT.OPPOC ---
Physical, Occupational & Speech Therapy At [facility] Current Diagnoses Other chronic pain (06/03/22) Cervicalgia (06/03/22) Muscle weakness (generalized) (06/03/22) Visit Care Team Role Provider Type Carloz Kelley DO Attending Provider Physician Family Provider Primary Care Provider Referring Provider Specialty: Family Practice Address: [address] [place] [address], [address], [facility] Phone: Fax: Email: [email or web address] Plan Of Care PT-OP-T Assessment and Plan Start: 04/22/22 18:26 Freq: Status: Active Protocol: Document 06/03/22 09:06 LRN (Rec: 06/03/22 09:54 LRN [id number]) Physical Therapy Assessment Rehab Potential Rehabilitation Potential Good Evaluation Complexity Number of Personal Factors/Comorbidities 1-2 Number of Body Systems Impaired 4 or More Clinical Presentation at Evaluation Evolving Impairments Impairments Activity Tolerance,Functional Activities,Pain,Posture,ROM, Strength Goals Five Impairment Decreased L shoulder stability [facility] Goal (LTG) Improve L shoulder strength/ stability with pt able to tolerate sleeping on her L side, up to 1-2 hours before waking due to pain. LTG Duration 07/30/22 Four Impairment L shoulder weakness Impairment L shoulder strength: Flex, AB , ER is 3-/5 (R is 5/5) UE QuickDASH score is 31.81 ( 20-39% impaired) Short Term Goal (STG) Improve L shoulder flex, AB, ER strength to no less than 3+ /5. 06/03/22: L shldr Flex, AB 5/ 5, ER 4/5, IR 4+/5. STG Duration 06/07/22 (06/03/22: MET GOAL ) Die Developer Goal (LTG) Improve L shoulder strength to improve function per UE QuickDASH score 1-19 (1-19% impaired). 05/18/22: Quickdash score: 25% (20-39% impaired), improved from 31.81%. Neck diasbility index: score 10, improved from 12 (20-39% impaired) 06/03/22: Quickdash score: 11 .36 (1-19% impaired, score 1- 19). LTG Duration 07/22/22 (06/03/22: MET GOAL) Three Impairment Decreased L shoulder mobility Impairment Shoulder AROM (in deg's): Flex 140 L, 180 R; AB 90 L, 180 R; ER 55 L, 90 R; IR 72 L, 85 R. Behind back: L5 left, T7 right. Short Term Goal (STG) Pt will be educated in sleep positions and will improve sleep quality on the L side for 1-2 hours without pain. 05/03 & 04/17: I/S pt in best practice for side sleeping and head/neck posturing. 06/03/22: NOT able to sleep on L side for any length of time . STG Duration 06/07/22 (partially met 05/06) Die Developer Goal (LTG) Improve L shoulder AROM with pt able to buckle bra reaching behind back without pain. 05/18/22: supine: Flex 139 L, 180 R; AB 55 L, 135 R, seated ER L 60 deg R 61 deg. 06/03/22: sitting: Flex 157 L , 148 R; AB 180 bilaterally. 0 deg's AB: ER 38 L, 48 R. Behind back: T9 L, T7 R. Pt able to buckle bra behind the back, rarely with pain. LTG Duration 07/22/22 (06/03/22: GOAL MET for flex, AB & for the functional movement) Two Impairment Decreased neck mobility. Impairment Cervical AROM (in deg's): Rot is 25 L, 50 R; SB is 18 L, 15 R. Short Term Goal (STG) Pt educated in proper head/ neck posturing in standing, sitting and with reading. 05/06/22 05/11/22:Educated pt on proper posture while reading in chair and in bed using pillows , etc. to prop up book to eye height, with chin tucks and scap retraction ex. STG Duration 05/14/22 (05/03/22 & 05/11/22: MET GOAL) Die Developer Goal (LTG) Improve L Cervical rotation AROM with pt able to turn to look left comfortably for driving. 04/29/22: HEP: C. rot stretch . 05/18/22: Rot L 25, R 45; SB is 15 R, 16 L. 06/03/22: Rot L 30, R 64; SB is 20 L, 10 R. Improved C. AROM. Has discomfort in looking L while driving. LTG Duration 07/30/22 Improving 06/03/22. One Impairment Pt is not currently on a self care HEP. Short Term Goal (STG) Pt will be educated in sleep positions and use of modalities for pain management . 05/03 & 04/17: Educated pt in best Sleep positioning. 05/31/22: Educated and discussed proper nighttime modalities for pain control. STG Duration 04/30/22 (05/31/22: MET GOAL) Die Developer Goal (LTG) Pt will be independent with a self care HEP of left neck/ shoulder/UE exercises. 04/29/22: HEP: C. rot & UT stretch, UE neural stretches ( radial, ulnar & median nerves) 05/28/22:Deep neck flexors lift . 06/03/22: AROM L shoulder ER/ IR. LTG Duration 07/30/22 progressed 05/28/22 Progress Towards Goals Progress Comments Goal #4 STG & LTG MET. Assessment Summary Assessment Pt had flare up yesterday, but was able to recover with pain in the L neck/shoulder and LB , rated 2/10. Pt is slowly improving, as expected, due to the chronic nature of her condition. She has improved UE mobility with improved function in dressing ( assessment is needed for supine AROM/PROM of L shoulder ) and it appears she has meet her dressing goal. The pt is progressing on neck stab exercises, and we recently initiated L shoulder stabilizing exercises in painfree range. Although her cervical mobility is limited it has improved since initial visit (see goal #2) The pt will benefit from continued skilled physical therapy to progress L shoulder stabilization and UE strengthening to further improve function and to improve C/S mobility with rotation, and continued progression of her HEP as appropriate. Physical Therapy Plan Frequency and Duration Frequency of Treatment 2x/Week Plan of Care Start Date 06/03/22 Plan of Care End Date 07/30/22 Therapeutic Interventions Therapeutic Interventions Home Exercise Program,Joint Mobilizations,Manual Therapy, Neuromuscular Re-education, Patient/Caregiver Education, Self-Care/Home Management,Soft Tissue Mobilization,Taping, Therapeutic Activities, Therapeutic Exercises Modalities Cold Pack/Ice Massage,Electric Stimulation,Hot Packs, Ultrasound Next Visit Focus/Plan Next Note Type Treatment Note Next Visit Plan Pt not consistent with self massage; therefore monitor pt doing self-stm for TMJ and SCM . POC: Increase focus on strengthening/stabilization L shoulder, but continue manual therapy for relief of neck/LB pain symptoms. Monitor for improved sleep quality at nighttime (1-2 hrs). Ther ex: neck, L shoulder, scapula stabilization. Stretch as needed: L shoulder , scapula (monitor cervical & UE neural stretch). [ End ] Plan of Care Dates Plan of Care Start Date 06/03/22 Plan of Care End Date 07/30/22 Electronically Signed by: Yasmeen Long, PT 06/03/22 3937 If you are in agreement with this Plan of Care, please return a signed and dated copy. I have reviewed this Plan of Care and certify that the skilled therapy services above are required to meet the patient?s needs. Physician Signature Date Printed Name and Credentials Clinical Instructor Signature Printed Name and Credentials
--- NOTE | 2022-06-03 16:58 | PT.OTN ---
Current Diagnoses Other chronic pain (06/03/22) Cervicalgia (06/03/22) Muscle weakness (generalized) (06/03/22) Physical Therapy Treatment Note PT-OP-A Visit Information Start: 04/22/22 18:26 Freq: Status: Active Protocol: Document 06/03/22 09:06 LRN (Rec: 06/03/22 09:54 LRN [id number]) Out-Patient Physical Therapy Visit Information Visit Information Visit Type Progress Note Visit Start Time 09:06 Visit Stop Time 09:45 Total Visit Minutes 39 Visit Number 10 Evaluation Information Evaluation Date 04/23/22 Precautions Precautions Pt reports chronic neck, back, jaw pain and headaches. PT-OP-B Current Condition Start: 04/22/22 18:26 Freq: Status: Active Protocol: Document 04/23/22 12:46 LRN (Rec: 04/23/22 16:21 LRN [id number]) Current Condition History of Current Condition Onset Date 20 yrs ago, worsened in the past few months. Current Complaints L neck/arm discomfort & numbness including L LE, can't sleep on L side History of Current Condition Pt reports she has had neck pain for the past 20 years of insidious onset. States sometimes driving she can't turn her head to the left due to pain. Once in a while worsening of L arm and leg numbness, and can't sleep on L side. Pt states she moved to [place] a year ago and the referring physician thought PT might help. She states that previous doctors told her she had to live with it. Driving is uncomfortable for really long distances, even as passenger. Headaches on L side. Prior Treatments and Tests Physical therapy previously ~ 2015 in [place]. X-ray report indicates: Loss of lordosis and multilevel spondylosis, most notably with moderate to severe disc degeneration at the C5-C6 level. Next MD visit 05/24/22. Pt given pills (meloxicam), but she doesn't like because they make her sleepy and then she doesn't function well the next day. Future Testing and Treatments Planned None Developmental History Developmental History Moved to [place] a year ago with spouse and dog. PMH: Back pain, was told due to disc problem. Jaw pain - wears mouthguard (pt feels not helpful). Treatment Goals Patient/Caregiver Goals Pt goal is to be able to sleep on L side for 1-2 hours without pain, buckle bra reaching behind back without pain, turning to look to the left for driving. Prior Functional Status Baseline Function- ADL's Independent Baseline Function- Mobility Independent Baseline Function- Other 6 months ago could don bra from behind without pain. Current Functional Impairments (Reported) Functional Limitations- ADL's Sleeps on the L side for 1-2 hrs. Functional Limitations- Work/School Retired from various jobs and being a homemaker. Functional Limitations- Recreation/ Sews and walks her dog daily. Hobbies Has 60 lbs lab. Personal Factors Other Personal Factors That May Effect Chronic L neck/shoulder pain Therapy/Recovery with headaches. PT-OP-C Subjective Start: 04/22/22 18:26 Freq: Status: Active Protocol: Document 06/03/22 09:06 LRN (Rec: 06/03/22 09:54 LRN [id number]) OP-PT Subjective Patient Comments Patient Comments Yesterday had a bad headache and everything hurt. She tried self pressure treatments . States she sat a lot yesterday and woke with a bad LBP. Since head hurt the neck hurt. Tried heat. Pain in head/neck is 2/10. LBP is 2/ 10. Will be gone 06/17/23-07/05/22. Can't sleep on L side due to upper shoulder pain and neck discomfort the neck day. Feels improved because she now knows what she can do when she has pain and stands straighter. Patient Questionnaires Neck Disability Index NDI Score 4 Neck Disability Index Impairment 1 to 19% Impaired (Score 1-9) Quick Dash- Upper Extremity Quick Dash UE Score 11.36 Quick Dash UE Impairment 1 to 19% Impaired (Score 1-19) OP-PT Pain Assessment Pain Assessment Grid Paper Pain Assessment Grid Completed Yes Location Neck Pain Location Details Lateral upper neck/shoulder Intensity 4 Scale Used Numeric (0 - 10) Description Aching,Dull PT-OP-E Functional Tests Start: 04/22/22 18:26 Freq: Status: Active Protocol: Document 06/03/22 09:06 LRN (Rec: 06/03/22 09:54 N [id number]) Functional Tests Maria Mey's Scratch Test Action 2- Left T2 Action 2- Right T3 Action 3- Left T9 Action 3- Right T7 PT-OP-H Neuro Start: 04/22/22 18:26 Freq: Status: Active Protocol: Document 04/23/22 12:46 LRN (Rec: 04/23/22 16:21 LRN [id number]) Sensation Evaluation Gross Sensation Gross Sensation Left UE Impaired,Head Impaired Sensation Description Tingling Deep Tendon Reflex & Clonus Assessment Deep Tendon Reflex Right Brachioradialis Deep Tendon Reflex 2+ Normal Left Brachioradialis Deep Tendon Reflex 3+ Normal But Brisk Bilateral Tricep Deep Tendon Reflex 3+ Normal But Brisk Bilateral Bicep Deep Tendon Reflex 3+ Normal But Brisk PT-OP-J Posture/Palpation/Skin Start: 04/22/22 18:26 Freq: Status: Active Protocol: Document 04/23/22 12:46 LRN (Rec: 04/23/22 16:21 LRN [id number]) Posture Evaluation Position Standing Head/C-Spine Posture Excess Extension,Forward Head T-Spine Posture Increased Kyphosis L-Spine Posture Increased Lordosis Shoulder Posture (R) Elevated Scapula Posture (L) Elevated Arm Posture (L) Internally Rotated,(R) Internally Rotated Weight Distribution Balanced Palpation Assessment Location Upper back Palpation Location L Upper back Palpation Findings Tenderness Posterior neck Palpation Location L Posterior and lateral neck Palpation Findings Tenderness PT-OP-K Range of Motion Start: 04/22/22 18:26 Freq: Status: Active Protocol: Document 06/03/22 09:06 LRN (Rec: 06/03/22 09:54 LRN [id number]) Cervical Spine Range of Motion Cervical Spine Active Degrees Testing Position Sitting Flexion 45 Extension 32 Rotation Left 30 Rotation Right 64 Lateral Flexion Left 20 Lateral Flexion Right 10 ROM Limitations Soft Tissue Tightness Comments Pt starting position for SB is 5 deg's L Sidebent. Shoulder Goniometric Range of Motion Shoulder AROM L Testing Position Sitting Flexion 157 Abduction 180 External Rotation at 0 degrees Abduction 38 Internal Rotation Behind Back (text) T9 Comments Reaching behind head: T2 AROM R Testing Position Sitting Flexion 148 Abduction 180 External Rotation at 0 degrees Abduction 48 Internal Rotation Behind Back (text) T7 Comments Reaching behind head: T3 PT-OP-L Special Tests Start: 04/22/22 18:26 Freq: Status: Active Protocol: Document 04/23/22 12:46 LRN (Rec: 04/23/22 16:21 LRN [id number]) Special Tests Cervical Spine Special Tests Upper Limb Tension Test Test Results + for ulnar, median, and radial nerve of L UE. Vertebral Artery Test Results -, but L rot very limited mobility Spurling's Test Test Results - bilaterally Traction Test Results - Foraminal Compression Test Results - PT-OP-M Strength Start: 04/22/22 18:26 Freq: Status: Active Protocol: Document 04/23/22 12:46 LRN (Rec: 04/23/22 16:21 LRN [id number]) Cervical Spine Strength Cervical Spine Manual Muscle Testing Testing Position Supine Flexion (C1-2) 5 Normal Extension 5 Normal Rotation Left 3+ Fair+ Rotation Right 4 Good Lateral Flexion Left (C3) 5 Normal Lateral Flexion Right (C3) 5 Normal Shoulder Strength Shoulder Manual Muscle Testing Right Flexion 5 Normal Abduction (C5) 5 Normal External Rotation 5 Normal Internal Rotation 5 Normal Left Flexion 3- Fair- Abduction (C5) 3- Fair- External Rotation 3- Fair- Internal Rotation 4 Good Hand Bender Machine Operator/Pinch Strength Hand Dominance Hand Dominance Right PT-OP-Q Treatments Start: 04/22/22 18:26 Freq: Status: Active Protocol: Document 06/03/22 09:06 LRN (Rec: 06/03/22 09:54 LRN [id number]) Therapeutic Exercises Supine Exercises UE Butterfly stretch (ER) Supine Exercise Name UE Butterfly stretch (ER) Side bilateral Reps/Minutes 2' ER @ 80 deg's AB Supine Exercise Name Windshield wipe @ 80 deg's AB Side left Reps/Minutes 10 x 3 ER @ 45 deg's AB Supine Exercise Name [facility] Wipe Side left Reps/Minutes 10 x 3 Sitting Exercises C. Rot stretch Sitting Exercise Name C. Rot stretch Side left Reps/Minutes 10SH x 6 L UT stretch Sitting Exercise Name Sitting C. Rot Side bilateral Reps/Minutes 5-10 SH x 6 Comments cuing for proper postioning for stretch PT-OP-R Modalities Start: 04/22/22 18:26 Freq: Status: Active Protocol: Document 05/06/22 12:34 LRN (Rec: 05/06/22 13:50 LRN [id number]) Electric Stimulation Electric Stimulation Interferential Current (IFC) Body Location Neck (L UT>lat shoulder, Infras>Pec) Duration (Minutes) 10 Intensity 14 Target/Sweep Sweep Patient Position Hooklying Combined With Heat/Cold Hot Pack Comments Legs on bolster. PT-OP-T Assessment and Plan Start: 04/22/22 18:26 Freq: Status: Active Protocol: Document 06/03/22 09:06 LRN (Rec: 06/03/22 09:54 LRN [id number]) Physical Therapy Assessment Rehab Potential Rehabilitation Potential Good Evaluation Complexity Number of Personal Factors/Comorbidities 1-2 Number of Body Systems Impaired 4 or More Clinical Presentation at Evaluation Evolving Impairments Impairments Activity Tolerance,Functional Activities,Pain,Posture,ROM, Strength Goals Five Impairment Decreased L shoulder stability Skilled Nursing Goal (LTG) Improve L shoulder strength/ stability with pt able to tolerate sleeping on her L side, up to 1-2 hours before waking due to pain. LTG Duration 07/30/22 Four Impairment L shoulder weakness Impairment L shoulder strength: Flex, AB , ER is 3-/5 (R is 5/5) UE QuickDASH score is 31.81 ( 20-39% impaired) Short Term Goal (STG) Improve L shoulder flex, AB, ER strength to no less than 3+ /5. 06/03/22: L shldr Flex, AB 5/ 5, ER 4/5, IR 4+/5. STG Duration 06/07/22 (06/03/22: MET GOAL ) Neurocritical Care Physician Goal (LTG) Improve L shoulder strength to improve function per UE QuickDASH score 1-19 (1-19% impaired). 05/18/22: Quickdash score: 25% (20-39% impaired), improved from 31.81%. Neck diasbility index: score 10, improved from 12 (20-39% impaired) 06/03/22: Quickdash score: 11 .36 (1-19% impaired, score 1- 19). LTG Duration 07/22/22 (06/03/22: MET GOAL) Three Impairment Decreased L shoulder mobility Impairment Shoulder AROM (in deg's): Flex 140 L, 180 R; AB 90 L, 180 R; ER 55 L, 90 R; IR 72 L, 85 R. Behind back: L5 left, T7 right. Short Term Goal (STG) Pt will be educated in sleep positions and will improve sleep quality on the L side for 1-2 hours without pain. 05/03 & 04/17: I/S pt in best practice for side sleeping and head/neck posturing. 06/03/22: NOT able to sleep on L side for any length of time . STG Duration 06/07/22 (partially met 05/06) Neurocritical Care Physician Goal (LTG) Improve L shoulder AROM with pt able to buckle bra reaching behind back without pain. 05/18/22: supine: Flex 139 L, 180 R; AB 55 L, 135 R, seated ER L 60 deg R 61 deg. 06/03/22: sitting: Flex 157 L , 148 R; AB 180 bilaterally. 0 deg's AB: ER 38 L, 48 R. Behind back: T9 L, T7 R. Pt able to buckle bra behind the back, rarely with pain. LTG Duration 07/22/22 (06/03/22: GOAL MET for flex, AB & for the functional movement) Two Impairment Decreased neck mobility. Impairment Cervical AROM (in deg's): Rot is 25 L, 50 R; SB is 18 L, 15 R. Short Term Goal (STG) Pt educated in proper head/ neck posturing in standing, sitting and with reading. 05/06/22 05/11/22:Educated pt on proper posture while reading in chair and in bed using pillows , etc. to prop up book to eye height, with chin tucks and scap retraction ex. STG Duration 05/14/22 (05/03/22 & 05/11/22: MET GOAL) Neurocritical Care Physician Goal (LTG) Improve L Cervical rotation AROM with pt able to turn to look left comfortably for driving. 04/29/22: HEP: C. rot stretch . 05/18/22: Rot L 25, R 45; SB is 15 R, 16 L. 06/03/22: Rot L 30, R 64; SB is 20 L, 10 R. Improved C. AROM. Has discomfort in looking L while driving. LTG Duration 07/30/22 Improving 06/03/22. One Impairment Pt is not currently on a self care HEP. Short Term Goal (STG) Pt will be educated in sleep positions and use of modalities for pain management . 05/03 & 04/17: Educated pt in best Sleep positioning. 05/31/22: Educated and discussed proper nighttime modalities for pain control. STG Duration 04/30/22 (05/31/22: MET GOAL) Neurocritical Care Physician Goal (LTG) Pt will be independent with a self care HEP of left neck/ shoulder/UE exercises. 04/29/22: HEP: C. rot & UT stretch, UE neural stretches ( radial, ulnar & median nerves) 05/28/22:Deep neck flexors lift . 06/03/22: AROM L shoulder ER/ IR. LTG Duration 07/30/22 progressed 05/28/22 Progress Towards Goals Progress Comments Goal #4 STG & LTG MET. Assessment Summary Assessment Pt had flare up yesterday, but was able to recover with pain in the L neck/shoulder and LB , rated 2/10. Pt is slowly improving, as expected, due to the chronic nature of her condition. She has improved UE mobility with improved function in dressing ( assessment is needed for supine AROM/PROM of L shoulder ) and it appears she has meet her dressing goal. The pt is progressing on neck stab exercises, and we recently initiated L shoulder stabilizing exercises in painfree range. Although her cervical mobility is limited it has improved since initial visit (see goal #2) The pt will benefit from continued skilled physical therapy to progress L shoulder stabilization and UE strengthening to further improve function and to improve C/S mobility with rotation, and continued progression of her HEP as appropriate. Physical Therapy Plan Frequency and Duration Frequency of Treatment 2x/Week Plan of Care Start Date 06/03/22 Plan of Care End Date 07/30/22 Therapeutic Interventions Therapeutic Interventions Home Exercise Program,Joint Mobilizations,Manual Therapy, Neuromuscular Re-education, Patient/Caregiver Education, Self-Care/Home Management,Soft Tissue Mobilization,Taping, Therapeutic Activities, Therapeutic Exercises Modalities Cold Pack/Ice Massage,Electric Stimulation,Hot Packs, Ultrasound Next Visit Focus/Plan Next Note Type Treatment Note Next Visit Plan Pt not consistent with self massage; therefore monitor pt doing self-stm for TMJ and SCM . POC: Increase focus on strengthening/stabilization L shoulder, but continue manual therapy for relief of neck/LB pain symptoms. Monitor for improved sleep quality at nighttime (1-2 hrs). Ther ex: neck, L shoulder, scapula stabilization. Stretch as needed: L shoulder , scapula (monitor cervical & UE neural stretch). [ End ]
--- NOTE | 2022-06-07 09:01 | PT.OTN ---
Current Diagnoses Other chronic pain (06/07/22) Cervicalgia (06/07/22) Muscle weakness (generalized) (06/07/22) Physical Therapy Treatment Note PT-OP-A Visit Information Start: 04/22/22 18:26 Freq: Status: Active Protocol: Document 06/07/22 08:15 LRN (Rec: 06/07/22 08:59 LRN [id number]) Out-Patient Physical Therapy Visit Information Visit Information Visit Type Treatment Note Visit Start Time 08:15 Visit Stop Time 08:56 Total Visit Minutes 41 Visit Number 11 Evaluation Information Evaluation Date 04/23/22 Precautions Precautions Pt reports chronic neck, back, jaw pain and headaches. PT-OP-B Current Condition Start: 04/22/22 18:26 Freq: Status: Active Protocol: Document 04/23/22 12:46 LRN (Rec: 04/23/22 16:21 LRN [id number]) Current Condition History of Current Condition Onset Date 20 yrs ago, worsened in the past few months. Current Complaints L neck/arm discomfort & numbness including L LE, can't sleep on L side History of Current Condition Pt reports she has had neck pain for the past 20 years of insidious onset. States sometimes driving she can't turn her head to the left due to pain. Once in a while worsening of L arm and leg numbness, and can't sleep on L side. Pt states she moved to [place] a year ago and the referring physician thought PT might help. She states that previous doctors told her she had to live with it. Driving is uncomfortable for really long distances, even as passenger. Headaches on L side. Prior Treatments and Tests Physical therapy previously ~ 2015 in [place]. X-ray report indicates: Loss of lordosis and multilevel spondylosis, most notably with moderate to severe disc degeneration at the C5-C6 level. Next MD visit 05/24/22. Pt given pills (meloxicam), but she doesn't like because they make her sleepy and then she doesn't function well the next day. Future Testing and Treatments Planned None Developmental History Developmental History Moved to [place] a year ago with spouse and dog. PMH: Back pain, was told due to disc problem. Jaw pain - wears mouthguard (pt feels not helpful). Treatment Goals Patient/Caregiver Goals Pt goal is to be able to sleep on L side for 1-2 hours without pain, buckle bra reaching behind back without pain, turning to look to the left for driving. Prior Functional Status Baseline Function- ADL's Independent Baseline Function- Mobility Independent Baseline Function- Other 6 months ago could don bra from behind without pain. Current Functional Impairments (Reported) Functional Limitations- ADL's Sleeps on the L side for 1-2 hrs. Functional Limitations- Work/School Retired from various jobs and being a homemaker. Functional Limitations- Recreation/ Sews and walks her dog daily. Hobbies Has 60 lbs lab. Personal Factors Other Personal Factors That May Effect Chronic L neck/shoulder pain Therapy/Recovery with headaches. PT-OP-C Subjective Start: 04/22/22 18:26 Freq: Status: Active Protocol: Document 06/07/22 08:15 LRN (Rec: 06/07/22 08:59 LRN [id number]) OP-PT Subjective Patient Comments Patient Comments L shoulder is hurting her more after she tried stretching with her hand behind her back. Getting ~5 hrs of sleep a night. L arm has been more sore. PT-OP-E Functional Tests Start: 04/22/22 18:26 Freq: Status: Active Protocol: Document 06/03/22 09:06 LRN (Rec: 06/03/22 09:54 LRN [id number]) Functional Tests Apley's Scratch Test Action 2- Left T2 Action 2- Right T3 Action 3- Left T9 Action 3- Right T7 PT-OP-H Neuro Start: 04/22/22 18:26 Freq: Status: Active Protocol: Document 04/23/22 12:46 LRN (Rec: 04/23/22 16:21 LRN [id number]) Sensation Evaluation Gross Sensation Gross Sensation Left UE Impaired,Head Impaired Sensation Description Tingling Deep Tendon Reflex & Clonus Assessment Deep Tendon Reflex Right Brachioradialis Deep Tendon Reflex 2+ Normal Left Brachioradialis Deep Tendon Reflex 3+ Normal But Brisk Bilateral Tricep Deep Tendon Reflex 3+ Normal But Brisk Bilateral Bicep Deep Tendon Reflex 3+ Normal But Brisk PT-OP-J Posture/Palpation/Skin Start: 04/22/22 18:26 Freq: Status: Active Protocol: Document 04/23/22 12:46 LRN (Rec: 04/23/22 16:21 LRN [id number]) Posture Evaluation Position Standing Head/C-Spine Posture Excess Extension,Forward Head T-Spine Posture Increased Kyphosis L-Spine Posture Increased Lordosis Shoulder Posture (R) Elevated Scapula Posture (L) Elevated Arm Posture (L) Internally Rotated,(R) Internally Rotated Weight Distribution Balanced Palpation Assessment Location Upper back Palpation Location L Upper back Palpation Findings Tenderness Posterior neck Palpation Location L Posterior and lateral neck Palpation Findings Tenderness PT-OP-K Range of Motion Start: 04/22/22 18:26 Freq: Status: Active Protocol: Document 06/03/22 09:06 LRN (Rec: 06/03/22 09:54 LRN [id number]) Cervical Spine Range of Motion Cervical Spine Active Degrees Testing Position Sitting Flexion 45 Extension 32 Rotation Left 30 Rotation Right 64 Lateral Flexion Left 20 Lateral Flexion Right 10 ROM Limitations Soft Tissue Tightness Comments Pt starting position for SB is 5 deg's L Sidebent. Shoulder Goniometric Range of Motion Shoulder AROM L Testing Position Sitting Flexion 157 Abduction 180 External Rotation at 0 degrees Abduction 38 Internal Rotation Behind Back (text) T9 Comments Reaching behind head: T2 AROM R Testing Position Sitting Flexion 148 Abduction 180 External Rotation at 0 degrees Abduction 48 Internal Rotation Behind Back (text) T7 Comments Reaching behind head: T3 PT-OP-L Special Tests Start: 04/22/22 18:26 Freq: Status: Active Protocol: Document 04/23/22 12:46 LRN (Rec: 04/23/22 16:21 LRN [id number]) Special Tests Cervical Spine Special Tests Upper Limb Tension Test Test Results + for ulnar, median, and radial nerve of L UE. Vertebral Artery Test Results -, but L rot very limited mobility Spurling's Test Test Results - bilaterally Traction Test Results - Foraminal Compression Test Results - PT-OP-M Strength Start: 04/22/22 18:26 Freq: Status: Active Protocol: Document 04/23/22 12:46 LRN (Rec: 04/23/22 16:21 LRN [id number]) Cervical Spine Strength Cervical Spine Manual Muscle Testing Testing Position Supine Flexion (C1-2) 5 Normal Extension 5 Normal Rotation Left 3+ Fair+ Rotation Right 4 Good Lateral Flexion Left (C3) 5 Normal Lateral Flexion Right (C3) 5 Normal Shoulder Strength Shoulder Manual Muscle Testing Right Flexion 5 Normal Abduction (C5) 5 Normal External Rotation 5 Normal Internal Rotation 5 Normal Left Flexion 3- Fair- Abduction (C5) 3- Fair- External Rotation 3- Fair- Internal Rotation 4 Good Hand [employer] Prevention Specialist/Pinch Strength Hand Dominance Hand Dominance Right PT-OP-Q Treatments Start: 04/22/22 18:26 Freq: Status: Active Protocol: Document 06/07/22 08:15 LRN (Rec: 06/07/22 08:59 LRN [id number]) Cardio Equipment Recumbent Elliptical (Biodex) Duration (Minutes) 5 Resistance 1 Seat Position 6 Therapeutic Exercises Supine Exercises UE Butterfly stretch (ER) Supine Exercise Name UE Butterfly stretch (ER) Side bilateral Reps/Minutes 2' ER @ 80 deg's AB Supine Exercise Name Windshield wipe @ 80 deg's AB Side left Reps/Minutes 30x ER @ 45 deg's AB Supine Exercise Name Windshield Wipe Side left Reps/Minutes 30x Deep neck flexors Supine Exercise Name Deep Neck Flexors (HEP) - gravity resisted deanna Equipment Used Mat table Reps/Minutes 5SH x 10. Comments Cues for elongation Sidelying Exercises Shoulder ER Sidelying Exercise Name Shoulder ER Side left Reps/Minutes 10x 2 Comments c/o increased pain in arm. Sitting Exercises Self L SCM stretch Sitting Exercise Name Self L SCM stretch: Stretch at attachment at Clavicle Side left Reps/Minutes 6' Comments 8' at mirror to teach location and technique of self Scapula depression Sitting Exercise Name L Scapular depression Side left Reps/Minutes 15x Self massage Sitting Exercise Name Self massage: L neck SCM at occiput, TMJ Side bilateral Equipment Used Miror Reps/Minutes 16' PT-OP-R Modalities Start: 04/22/22 18:26 Freq: Status: Active Protocol: Document 05/06/22 12:34 LRN (Rec: 05/06/22 13:50 LRN [id number]) Electric Stimulation Electric Stimulation Interferential Current (IFC) Body Location Neck (L UT>lat shoulder, Infras>Pec) Duration (Minutes) 10 Intensity 14 Target/Sweep Sweep Patient Position Hooklying Combined With Heat/Cold Hot Pack Comments Legs on bolster. PT-OP-T Assessment and Plan Start: 04/22/22 18:26 Freq: Status: Active Protocol: Document 06/07/22 08:15 LRN (Rec: 06/07/22 08:59 LRN [id number]) Physical Therapy Assessment Goals Five Impairment Decreased L shoulder stability Fdc Goal (LTG) Improve L shoulder strength/ stability with pt able to tolerate sleeping on her L side, up to 1-2 hours before waking due to pain. LTG Duration 07/30/22 Four Impairment L shoulder weakness Impairment L shoulder strength: Flex, AB , ER is 3-/5 (R is 5/5) UE QuickDASH score is 31.81 ( 20-39% impaired) Short Term Goal (STG) Improve L shoulder flex, AB, ER strength to no less than 3+ /5. 06/03/22: L shldr Flex, AB 5/ 5, ER 4/5, IR 4+/5. STG Duration 06/07/22 (06/03/22: MET GOAL ) [place] Goal (LTG) Improve L shoulder strength to improve function per UE QuickDASH score 1-19 (1-19% impaired). 05/18/22: Quickdash score: 25% (20-39% impaired), improved from 31.81%. Neck diasbility index: score 10, improved from 12 (20-39% impaired) 06/03/22: Quickdash score: 11 .36 (1-19% impaired, score 1- 19). LTG Duration 07/22/22 (06/03/22: MET GOAL) Three Impairment Decreased L shoulder mobility Impairment Shoulder AROM (in deg's): Flex 140 L, 180 R; AB 90 L, 180 R; ER 55 L, 90 R; IR 72 L, 85 R. Behind back: L5 left, T7 right. Short Term Goal (STG) Pt will be educated in sleep positions and will improve sleep quality on the L side for 1-2 hours without pain. 05/03 & 04/17: I/S pt in best practice for side sleeping and head/neck posturing. 06/03/22: NOT able to sleep on L side for any length of time . 06/07/22: Pt sleeping ~5 hrs per night. STG Duration 06/07/22 (06/07/22: MET GOAL ) Fdc Goal (LTG) Improve L shoulder AROM with pt able to buckle bra reaching behind back without pain. 05/18/22: supine: Flex 139 L, 180 R; AB 55 L, 135 R, seated ER L 60 deg R 61 deg. 06/03/22: sitting: Flex 157 L , 148 R; AB 180 bilaterally. 0 deg's AB: ER 38 L, 48 R. Behind back: T9 L, T7 R. Pt able to buckle bra behind the back, rarely with pain. LTG Duration 07/22/22 (06/03/22: GOAL MET for flex, AB & for the functional movement) Two Impairment Decreased neck mobility. Impairment Cervical AROM (in deg's): Rot is 25 L, 50 R; SB is 18 L, 15 R. Short Term Goal (STG) Pt educated in proper head/ neck posturing in standing, sitting and with reading. 05/06/22 05/11/22:Educated pt on proper posture while reading in chair and in bed using pillows , etc. to prop up book to eye height, with chin tucks and scap retraction ex. STG Duration 05/14/22 (05/03/22 & 05/11/22: MET GOAL) Fdc Goal (LTG) Improve L Cervical rotation AROM with pt able to turn to look left comfortably for driving. 04/29/22: HEP: C. rot stretch . 05/18/22: Rot L 25, R 45; SB is 15 R, 16 L. 06/03/22: Rot L 30, R 64; SB is 20 L, 10 R. Improved C. AROM. Has discomfort in looking L while driving. LTG Duration 07/30/22 Improving 06/03/22. One Impairment Pt is not currently on a self care HEP. Short Term Goal (STG) Pt will be educated in sleep positions and use of modalities for pain management . 05/03 & 04/17: Educated pt in best Sleep positioning. 05/31/22: Educated and discussed proper nighttime modalities for pain control. STG Duration 04/30/22 (05/31/22: MET GOAL) [place] Goal (LTG) Pt will be independent with a self care HEP of left neck/ shoulder/UE exercises. 04/29/22: HEP: C. rot & UT stretch, UE neural stretches ( radial, ulnar & median nerves) 05/28/22:Deep neck flexors lift . 06/03/22: AROM L shoulder ER/ IR. LTG Duration 07/30/22 progressed 05/28/22 Progress Towards Goals Progress Comments STG #3 MET. Assessment Summary Assessment Pt able to self massage the TMJ & SCM and is doing it when she has discomfort. She has onset of numbness with possible anter scalene stretch when stretching SCM; Thoracic Outlet symptoms. Good tolerance to increase in ex w/ no c/o numbness or tingling in L UE. Physical Therapy Plan Frequency and Duration Frequency of Treatment 2x/Week Plan of Care Start Date 06/03/22 Plan of Care End Date 07/30/22 Next Visit Focus/Plan Next Note Type Treatment Note Next Visit Plan POC: Increase focus on strengthening/stabilization L shoulder, but continue manual therapy for relief of neck/LB pain symptoms. Recheck for Thoracic Outlet. Monitor for improved sleep quality at nighttime (1-2 hrs). Ther ex: neck, L shoulder, scapula stabilization. Stretch as needed: L shoulder , scapula (monitor cervical & UE neural stretch). [ End ]
--- NOTE | 2022-06-11 13:00 | PT.OTN ---
Current Diagnoses Other chronic pain (06/11/22) Cervicalgia (06/11/22) Muscle weakness (generalized) (06/11/22) Physical Therapy Treatment Note PT-OP-A Visit Information Start: 04/22/22 18:26 Freq: Status: Active Protocol: Document 06/11/22 12:16 SP (Rec: 06/11/22 13:52 SP [id number]) Out-Patient Physical Therapy Visit Information Visit Information Visit Type Treatment Note Visit Start Time 12:16 Visit Stop Time 13:00 Total Visit Minutes 44 Visit Number 12 Number of [place] Visits 1 Evaluation Information Evaluation Date 04/23/22 Precautions Precautions Pt reports chronic neck, back, jaw pain and headaches. PT-OP-B Current Condition Start: 04/22/22 18:26 Freq: Status: Active Protocol: Document 04/23/22 12:46 LRN (Rec: 04/23/22 16:21 LRN [id number]) Current Condition History of Current Condition Onset Date 20 yrs ago, worsened in the past few months. Current Complaints L neck/arm discomfort & numbness including L LE, can't sleep on L side History of Current Condition Pt reports she has had neck pain for the past 20 years of insidious onset. States sometimes driving she can't turn her head to the left due to pain. Once in a while worsening of L arm and leg numbness, and can't sleep on L side. Pt states she moved to [place] a year ago and the referring physician thought PT might help. She states that previous doctors told her she had to live with it. Driving is uncomfortable for really long distances, even as passenger. Headaches on L side. Prior Treatments and Tests Physical therapy previously ~ 2015 in [place]. X-ray report indicates: Loss of lordosis and multilevel spondylosis, most notably with moderate to severe disc degeneration at the C5-C6 level. Next MD visit 05/24/22. Pt given pills (meloxicam), but she doesn't like because they make her sleepy and then she doesn't function well the next day. Future Testing and Treatments Planned None Developmental History Developmental History Moved to [place] a year ago with spouse and dog. PMH: Back pain, was told due to disc problem. Jaw pain - wears mouthguard (pt feels not helpful). Treatment Goals Patient/Caregiver Goals Pt goal is to be able to sleep on L side for 1-2 hours without pain, buckle bra reaching behind back without pain, turning to look to the left for driving. Prior Functional Status Baseline Function- ADL's Independent Baseline Function- Mobility Independent Baseline Function- Other 6 months ago could don bra from behind without pain. Current Functional Impairments (Reported) Functional Limitations- ADL's Sleeps on the L side for 1-2 hrs. Functional Limitations- Work/School Retired from various jobs and being a homemaker. Functional Limitations- Recreation/ Sews and walks her dog daily. Hobbies Has 60 lbs lab. Personal Factors Other Personal Factors That May Effect Chronic L neck/shoulder pain Therapy/Recovery with headaches. PT-OP-C Subjective Start: 04/22/22 18:26 Freq: Status: Active Protocol: Document 06/11/22 12:16 SP (Rec: 06/11/22 13:52 SP [id number]) OP-PT Subjective Patient Comments Patient Comments Pt reports stiffness riding in car, does self massage SCM. Pt didn't realize apply CS rotation/ROM seated in car vs just supine. PT-OP-E Functional Tests Start: 04/22/22 18:26 Freq: Status: Active Protocol: Document 06/03/22 09:06 LRN (Rec: 06/03/22 09:54 LRN [id number]) Functional Tests Apley's Scratch Test Action 2- Left T2 Action 2- Right T3 Action 3- Left T9 Action 3- Right T7 PT-OP-H Neuro Start: 04/22/22 18:26 Freq: Status: Active Protocol: Document 04/23/22 12:46 LRN (Rec: 04/23/22 16:21 LRN [id number]) Sensation Evaluation Gross Sensation Gross Sensation Left UE Impaired,Head Impaired Sensation Description Tingling Deep Tendon Reflex & Clonus Assessment Deep Tendon Reflex Right Brachioradialis Deep Tendon Reflex 2+ Normal Left Brachioradialis Deep Tendon Reflex 3+ Normal But Brisk Bilateral Tricep Deep Tendon Reflex 3+ Normal But Brisk Bilateral Bicep Deep Tendon Reflex 3+ Normal But Brisk PT-OP-J Posture/Palpation/Skin Start: 04/22/22 18:26 Freq: Status: Active Protocol: Document 04/23/22 12:46 LRN (Rec: 04/23/22 16:21 LRN [id number]) Posture Evaluation Position Standing Head/C-Spine Posture Excess Extension,Forward Head T-Spine Posture Increased Kyphosis L-Spine Posture Increased Lordosis Shoulder Posture (R) Elevated Scapula Posture (L) Elevated Arm Posture (L) Internally Rotated,(R) Internally Rotated Weight Distribution Balanced Palpation Assessment Location Upper back Palpation Location L Upper back Palpation Findings Tenderness Posterior neck Palpation Location L Posterior and lateral neck Palpation Findings Tenderness PT-OP-K Range of Motion Start: 04/22/22 18:26 Freq: Status: Active Protocol: Document 06/03/22 09:06 LRN (Rec: 06/03/22 09:54 LRN [id number]) Cervical Spine Range of Motion Cervical Spine Active Degrees Testing Position Sitting Flexion 45 Extension 32 Rotation Left 30 Rotation Right 64 Lateral Flexion Left 20 Lateral Flexion Right 10 ROM Limitations Soft Tissue Tightness Comments Pt starting position for SB is 5 deg's L Sidebent. Shoulder Goniometric Range of Motion Shoulder AROM L Testing Position Sitting Flexion 157 Abduction 180 External Rotation at 0 degrees Abduction 38 Internal Rotation Behind Back (text) T9 Comments Reaching behind head: T2 AROM R Testing Position Sitting Flexion 148 Abduction 180 External Rotation at 0 degrees Abduction 48 Internal Rotation Behind Back (text) T7 Comments Reaching behind head: T3 PT-OP-L Special Tests Start: 04/22/22 18:26 Freq: Status: Active Protocol: Document 04/23/22 12:46 LRN (Rec: 04/23/22 16:21 LRN [id number]) Special Tests Cervical Spine Special Tests Upper Limb Tension Test Test Results + for ulnar, median, and radial nerve of L UE. Vertebral Artery Test Results -, but L rot very limited mobility Spurling's Test Test Results - bilaterally Traction Test Results - Foraminal Compression Test Results - PT-OP-M Strength Start: 04/22/22 18:26 Freq: Status: Active Protocol: Document 04/23/22 12:46 LRN (Rec: 04/23/22 16:21 LRN [id number]) Cervical Spine Strength Cervical Spine Manual Muscle Testing Testing Position Supine Flexion (C1-2) 5 Normal Extension 5 Normal Rotation Left 3+ Fair+ Rotation Right 4 Good Lateral Flexion Left (C3) 5 Normal Lateral Flexion Right (C3) 5 Normal Shoulder Strength Shoulder Manual Muscle Testing Right Flexion 5 Normal Abduction (C5) 5 Normal External Rotation 5 Normal Internal Rotation 5 Normal Left Flexion 3- Fair- Abduction (C5) 3- Fair- External Rotation 3- Fair- Internal Rotation 4 Good Hand Hairspring Ii Inspector/Pinch Strength Hand Dominance Hand Dominance Right PT-OP-Q Treatments Start: 04/22/22 18:26 Freq: Status: Active Protocol: Document 06/11/22 12:16 SP (Rec: 06/11/22 13:52 SP [id number]) Therapeutic Exercises Supine Exercises UE Butterfly stretch (ER) Supine Exercise Name UE Butterfly stretch (ER) Side bilateral Reps/Minutes 2' Comments tight initially, improved with reps ER @ 80 deg's AB Supine Exercise Name Windshield wipe @ 80 deg's AB Side left Reps/Minutes 30x Comments tight initially, improved with reps ER @ 45 deg's AB Supine Exercise Name Windshield Wipe Side left Reps/Minutes 30x Comments tight initially, improved with reps C. Rot Supine Exercise Name AROM rotation hold initially then head nods Side bilateral Reps/Minutes 5 rot stretch, 5 reps w/5 head nods Comments Improvement gain ROM supported Sidelying Exercises open book Sidelying Exercise Name in PT post manual: scapulothoracic mobility Side bilateral Resistance AROM Reps/Minutes x8 reps Comments good feedback ROM response, stiff initially, less UT recruitment Sitting Exercises Self massage Sitting Exercise Name L neck SCM mid-occiput, posterior CS ES nods/turns Side bilateral Equipment Used manual SCM, theracane post neck Reps/Minutes 5 min Comments good feedback response L UT stretch Sitting Exercise Name 1. Sitting C. Rot: static stretch 2.head nods up/down Side bilateral Reps/Minutes 5 SH, then 5 nods x 6 Comments cuing for proper postural positioning for stretch Manual Therapy Treatment Soft Tissue Mobilization Neck Body Location B SCM, Occipitals, Levator, UT , temporalis Mobilization Type Oscillations,Sustained Pressure Intensity/Depth Moderate Body Position Supine Comments Pt responded well to manual therapy, pt reports decreased tightness on posterior neck. Educated on self-stm for SCM. PT-OP-R Modalities Start: 04/22/22 18:26 Freq: Status: Active Protocol: Document 05/06/22 12:34 LRN (Rec: 05/06/22 13:50 LRN [id number]) Electric Stimulation Electric Stimulation Interferential Current (IFC) Body Location Neck (L UT>lat shoulder, Infras>Pec) Duration (Minutes) 10 Intensity 14 Target/Sweep Sweep Patient Position Hooklying Combined With Heat/Cold Hot Pack Comments Legs on bolster. PT-OP-T Assessment and Plan Start: 04/22/22 18:26 Freq: Status: Active Protocol: Document 06/11/22 12:16 SP (Rec: 06/11/22 13:52 SP [id number]) Physical Therapy Assessment Goals Five Impairment Decreased L shoulder stability Rn Physician Office Goal (LTG) Improve L shoulder strength/ stability with pt able to tolerate sleeping on her L side, up to 1-2 hours before waking due to pain. 06/11/22: continues have pain laying on left, limits time ( 20min maybe) LTG Duration 07/30/22 progressin06/11/22 Four Impairment L shoulder weakness Impairment L shoulder strength: Flex, AB , ER is 3-/5 (R is 5/5) UE QuickDASH score is 31.81 ( 20-39% impaired) Short Term Goal (STG) Improve L shoulder flex, AB, ER strength to no less than 3+ /5. 06/03/22: L shldr Flex, AB 5/ 5, ER 4/5, IR 4+/5. STG Duration 06/07/22 (06/03/22: MET GOAL ) Jail Goal (LTG) Improve L shoulder strength to improve function per UE QuickDASH score 1-19 (1-19% impaired). 05/18/22: Quickdash score: 25% (20-39% impaired), improved from 31.81%. Neck diasbility index: score 10, improved from 12 (20-39% impaired) 06/03/22: Quickdash score: 11 .36 (1-19% impaired, score 1- 19). LTG Duration 07/22/22 (06/03/22: MET GOAL) Three Impairment Decreased L shoulder mobility Impairment Shoulder AROM (in deg's): Flex 140 L, 180 R; AB 90 L, 180 R; ER 55 L, 90 R; IR 72 L, 85 R. Behind back: L5 left, T7 right. Short Term Goal (STG) Pt will be educated in sleep positions and will improve sleep quality on the L side for 1-2 hours without pain. 05/03 & 04/17: I/S pt in best practice for side sleeping and head/neck posturing. 06/03/22: NOT able to sleep on L side for any length of time . 06/07/22: Pt sleeping ~5 hrs per night. STG Duration 06/07/22 (06/07/22: MET GOAL ) Jail Goal (LTG) Improve L shoulder AROM with pt able to buckle bra reaching behind back without pain. 05/18/22: supine: Flex 139 L, 180 R; AB 55 L, 135 R, seated ER L 60 deg R 61 deg. 06/03/22: sitting: Flex 157 L , 148 R; AB 180 bilaterally. 0 deg's AB: ER 38 L, 48 R. Behind back: T9 L, T7 R. Pt able to buckle bra behind the back, rarely with pain. LTG Duration 07/22/22 (06/03/22: GOAL MET for flex, AB & for the functional movement) Two Impairment Decreased neck mobility. Impairment Cervical AROM (in deg's): Rot is 25 L, 50 R; SB is 18 L, 15 R. Short Term Goal (STG) Pt educated in proper head/ neck posturing in standing, sitting and with reading. 05/06/22 05/11/22:Educated pt on proper posture while reading in chair and in bed using pillows , etc. to prop up book to eye height, with chin tucks and scap retraction ex. 06/11/22: pt stated purchased book support and helping in decreased neck pain. STG Duration 05/14/22 (05/03/22 & 05/11/22: MET GOAL) Rn Physician Office Goal (LTG) Improve L Cervical rotation AROM with pt able to turn to look left comfortably for driving. 04/29/22: HEP: C. rot stretch . 05/18/22: Rot L 25, R 45; SB is 15 R, 16 L. 06/03/22: Rot L 30, R 64; SB is 20 L, 10 R. Improved C. AROM. Has discomfort in looking L while driving. 06/11/22: improved ROM L post manal SCM and use theracane posterior neck. LTG Duration 07/30/22 Improving 06/11/22. One Impairment Pt is not currently on a self care HEP. Short Term Goal (STG) Pt will be educated in sleep positions and use of modalities for pain management . 05/03 & 04/17: Educated pt in best Sleep positioning. 05/31/22: Educated and discussed proper nighttime modalities for pain control. STG Duration 04/30/22 (05/31/22: MET GOAL) Rn Physician Office Goal (LTG) Pt will be independent with a self care HEP of left neck/ shoulder/UE exercises. 04/29/22: HEP: C. rot & UT stretch, UE neural stretches ( radial, ulnar & median nerves) 05/28/22:Deep neck flexors lift . 06/03/22: AROM L shoulder ER/ IR. 06/11/22: AROM L>R shld ER 45 deg windshield wipers, abd 80deg stretch/ wipers, ABD hands under head stretch/ elbow press table/ wrist press table with breath painfree. Introduced open book side. LTG Duration 07/30/22 progressed 06/11/22 Assessment Summary Assessment Pt improved response to manual and review instruction on self STMs SCM, posterior neck w/ theracane and CS ROM stretch and active nods/turns. Pt found can apply when on long car rides lately to allow look out windows. Continue strengthening next tx. Physical Therapy Plan Frequency and Duration Frequency of Treatment 2x/Week Plan of Care Start Date 06/03/22 Plan of Care End Date 07/30/22 Therapeutic Interventions Therapeutic Interventions Home Exercise Program,Joint Mobilizations,Manual Therapy, Neuromuscular Re-education, Patient/Caregiver Education, Self-Care/Home Management,Soft Tissue Mobilization,Taping, Therapeutic Activities, Therapeutic Exercises Modalities Cold Pack/Ice Massage,Electric Stimulation,Hot Packs, Ultrasound Next Visit Focus/Plan Next Note Type Treatment Note Next Visit Plan Next: continue CS rotation stretch and head nods ROM, review open book for home HEP. Add shld isometric/TB IR/ ER/ rows. POC: Increase focus on strengthening/stabilization L shoulder, but continue manual therapy for relief of neck/LB pain symptoms. Recheck for Thoracic Outlet. Monitor for improved sleep quality at nighttime (1-2 hrs). Ther ex: neck, L shoulder, scapula stabilization. Stretch as needed: L shoulder , scapula (monitor cervical & UE neural stretch). [ End ]
--- NOTE | 2022-06-14 11:06 | PT.OTN ---
Current Diagnoses Other chronic pain (06/14/22) Cervicalgia (06/14/22) Muscle weakness (generalized) (06/14/22) Physical Therapy Treatment Note PT-OP-A Visit Information Start: 04/22/22 18:26 Freq: Status: Active Protocol: Document 06/14/22 09:05 LRN (Rec: 06/14/22 09:48 LRN [id number]) Out-Patient Physical Therapy Visit Information Visit Information Visit Type Treatment Note Visit Note 3 after PN Visit Start Time 09:05 Visit Stop Time 09:45 Total Visit Minutes 40 Visit Number 13 Evaluation Information Evaluation Date 04/23/22 Precautions Precautions Pt reports chronic neck, back, jaw pain and headaches. PT-OP-B Current Condition Start: 04/22/22 18:26 Freq: Status: Active Protocol: Document 04/23/22 12:46 LRN (Rec: 04/23/22 16:21 LRN [id number]) Current Condition History of Current Condition Onset Date 20 yrs ago, worsened in the past few months. Current Complaints L neck/arm discomfort & numbness including L LE, can't sleep on L side History of Current Condition Pt reports she has had neck pain for the past 20 years of insidious onset. States sometimes driving she can't turn her head to the left due to pain. Once in a while worsening of L arm and leg numbness, and can't sleep on L side. Pt states she moved to [place] a year ago and the referring physician thought PT might help. She states that previous doctors told her she had to live with it. Driving is uncomfortable for really long distances, even as passenger. Headaches on L side. Prior Treatments and Tests Physical therapy previously ~ 2015 in [place]. X-ray report indicates: Loss of lordosis and multilevel spondylosis, most notably with moderate to severe disc degeneration at the C5-C6 level. Next MD visit 05/24/22. Pt given pills (meloxicam), but she doesn't like because they make her sleepy and then she doesn't function well the next day. Future Testing and Treatments Planned None Developmental History Developmental History Moved to [place] a year ago with spouse and dog. PMH: Back pain, was told due to disc problem. Jaw pain - wears mouthguard (pt feels not helpful). Treatment Goals Patient/Caregiver Goals Pt goal is to be able to sleep on L side for 1-2 hours without pain, buckle bra reaching behind back without pain, turning to look to the left for driving. Prior Functional Status Baseline Function- ADL's Independent Baseline Function- Mobility Independent Baseline Function- Other 6 months ago could don bra from behind without pain. Current Functional Impairments (Reported) Functional Limitations- ADL's Sleeps on the L side for 1-2 hrs. Functional Limitations- Work/School Retired from various jobs and being a homemaker. Functional Limitations- Recreation/ Sews and walks her dog daily. Hobbies Has 60 lbs lab. Personal Factors Other Personal Factors That May Effect Chronic L neck/shoulder pain Therapy/Recovery with headaches. PT-OP-C Subjective Start: 04/22/22 18:26 Freq: Status: Active Protocol: Document 06/14/22 09:05 LRN (Rec: 06/14/22 09:48 LRN [id number]) OP-PT Subjective Patient Comments Patient Comments More stiffness today. Maybe the cold weather and a really bad headache a couple days ago . PT-OP-E Functional Tests Start: 04/22/22 18:26 Freq: Status: Active Protocol: Document 06/03/22 09:06 LRN (Rec: 06/03/22 09:54 LRN [id number]) Functional Tests Apley's Scratch Test Action 2- Left T2 Action 2- Right T3 Action 3- Left T9 Action 3- Right T7 PT-OP-H Neuro Start: 04/22/22 18:26 Freq: Status: Active Protocol: Document 04/23/22 12:46 LRN (Rec: 04/23/22 16:21 LRN [id number]) Sensation Evaluation Gross Sensation Gross Sensation Left UE Impaired,Head Impaired Sensation Description Tingling Deep Tendon Reflex & Clonus Assessment Deep Tendon Reflex Right Brachioradialis Deep Tendon Reflex 2+ Normal Left Brachioradialis Deep Tendon Reflex 3+ Normal But Brisk Bilateral Tricep Deep Tendon Reflex 3+ Normal But Brisk Bilateral Bicep Deep Tendon Reflex 3+ Normal But Brisk PT-OP-J Posture/Palpation/Skin Start: 04/22/22 18:26 Freq: Status: Active Protocol: Document 04/23/22 12:46 LRN (Rec: 04/23/22 16:21 LRN [id number]) Posture Evaluation Position Standing Head/C-Spine Posture Excess Extension,Forward Head T-Spine Posture Increased Kyphosis L-Spine Posture Increased Lordosis Shoulder Posture (R) Elevated Scapula Posture (L) Elevated Arm Posture (L) Internally Rotated,(R) Internally Rotated Weight Distribution Balanced Palpation Assessment Location Upper back Palpation Location L Upper back Palpation Findings Tenderness Posterior neck Palpation Location L Posterior and lateral neck Palpation Findings Tenderness PT-OP-K Range of Motion Start: 04/22/22 18:26 Freq: Status: Active Protocol: Document 06/03/22 09:06 LRN (Rec: 06/03/22 09:54 LRN [id number]) Cervical Spine Range of Motion Cervical Spine Active Degrees Testing Position Sitting Flexion 45 Extension 32 Rotation Left 30 Rotation Right 64 Lateral Flexion Left 20 Lateral Flexion Right 10 ROM Limitations Soft Tissue Tightness Comments Pt starting position for SB is 5 deg's L Sidebent. Shoulder Goniometric Range of Motion Shoulder AROM L Testing Position Sitting Flexion 157 Abduction 180 External Rotation at 0 degrees Abduction 38 Internal Rotation Behind Back (text) T9 Comments Reaching behind head: T2 AROM R Testing Position Sitting Flexion 148 Abduction 180 External Rotation at 0 degrees Abduction 48 Internal Rotation Behind Back (text) T7 Comments Reaching behind head: T3 PT-OP-L Special Tests Start: 04/22/22 18:26 Freq: Status: Active Protocol: Document 04/23/22 12:46 LRN (Rec: 04/23/22 16:21 LRN [id number]) Special Tests Cervical Spine Special Tests Upper Limb Tension Test Test Results + for ulnar, median, and radial nerve of L UE. Vertebral Artery Test Results -, but L rot very limited mobility Spurling's Test Test Results - bilaterally Traction Test Results - Foraminal Compression Test Results - PT-OP-M Strength Start: 04/22/22 18:26 Freq: Status: Active Protocol: Document 04/23/22 12:46 LRN (Rec: 04/23/22 16:21 LRN [id number]) Cervical Spine Strength Cervical Spine Manual Muscle Testing Testing Position Supine Flexion (C1-2) 5 Normal Extension 5 Normal Rotation Left 3+ Fair+ Rotation Right 4 Good Lateral Flexion Left (C3) 5 Normal Lateral Flexion Right (C3) 5 Normal Shoulder Strength Shoulder Manual Muscle Testing Right Flexion 5 Normal Abduction (C5) 5 Normal External Rotation 5 Normal Internal Rotation 5 Normal Left Flexion 3- Fair- Abduction (C5) 3- Fair- External Rotation 3- Fair- Internal Rotation 4 Good Hand Pipe [employer]/Pinch Strength Hand Dominance Hand Dominance Right PT-OP-Q Treatments Start: 04/22/22 18:26 Freq: Status: Active Protocol: Document 06/14/22 09:05 LRN (Rec: 06/14/22 09:48 LRN [id number]) Therapeutic Exercises Supine Exercises Scap depression Supine Exercise Name Lat Pull down Side bilateral Reps/Minutes 15x Comments Cuing for scap depression. Sidelying Exercises open book Sidelying Exercise Name Review Open Book Side bilateral Resistance AROM Reps/Minutes 15x bilaterally Comments Cuing and traning needed to count reps for breathwork Manual Therapy Treatment Soft Tissue Mobilization Neck Body Location L>R SCM, Occipitals, Levator, UT, temporalis Mobilization Type Oscillations,Sustained Pressure Intensity/Depth Moderate Body Position Supine Comments Pt responded well to manual therapy, pt reports decreased tightness on posterior neck. Joint Mobilizations C3-C6 Joint Balancing C3-C4, C4-C5, C5-C6. Grade II Body Position Supine Reps/Duration 8 PT-OP-R Modalities Start: 04/22/22 18:26 Freq: Status: Active Protocol: Document 05/06/22 12:34 LRN (Rec: 05/06/22 13:50 LRN [id number]) Electric Stimulation Electric Stimulation Interferential Current (IFC) Body Location Neck (L UT>lat shoulder, Infras>Pec) Duration (Minutes) 10 Intensity 14 Target/Sweep Sweep Patient Position Hooklying Combined With Heat/Cold Hot Pack Comments Legs on bolster. PT-OP-T Assessment and Plan Start: 04/22/22 18:26 Freq: Status: Active Protocol: Document 06/14/22 09:05 LRN (Rec: 06/14/22 09:48 LRN [id number]) Physical Therapy Assessment Goals Five Impairment Decreased L shoulder stability Fertilizing Machine Operator Goal (LTG) Improve L shoulder strength/ stability with pt able to tolerate sleeping on her L side, up to 1-2 hours before waking due to pain. 06/11/22: continues have pain laying on left, limits time ( 20min maybe) LTG Duration 07/30/22 progressin06/11/22 Four Impairment L shoulder weakness Impairment L shoulder strength: Flex, AB , ER is 3-/5 (R is 5/5) UE QuickDASH score is 31.81 ( 20-39% impaired) Short Term Goal (STG) Improve L shoulder flex, AB, ER strength to no less than 3+ /5. 06/03/22: L shldr Flex, AB 5/ 5, ER 4/5, IR 4+/5. STG Duration 06/07/22 (06/03/22: MET GOAL ) Fertilizing Machine Operator Goal (LTG) Improve L shoulder strength to improve function per UE QuickDASH score 1-19 (1-19% impaired). 05/18/22: Quickdash score: 25% (20-39% impaired), improved from 31.81%. Neck diasbility index: score 10, improved from 12 (20-39% impaired) 06/03/22: Quickdash score: 11 .36 (1-19% impaired, score 1- 19). LTG Duration 07/22/22 (06/03/22: MET GOAL) Three Impairment Decreased L shoulder mobility Impairment Shoulder AROM (in deg's): Flex 140 L, 180 R; AB 90 L, 180 R; ER 55 L, 90 R; IR 72 L, 85 R. Behind back: L5 left, T7 right. Short Term Goal (STG) Pt will be educated in sleep positions and will improve sleep quality on the L side for 1-2 hours without pain. 05/03 & 04/17: I/S pt in best practice for side sleeping and head/neck posturing. 06/03/22: NOT able to sleep on L side for any length of time . 06/07/22: Pt sleeping ~5 hrs per night. STG Duration 06/07/22 (06/07/22: MET GOAL ) Fertilizing Machine Operator Goal (LTG) Improve L shoulder AROM with pt able to buckle bra reaching behind back without pain. 05/18/22: supine: Flex 139 L, 180 R; AB 55 L, 135 R, seated ER L 60 deg R 61 deg. 06/03/22: sitting: Flex 157 L , 148 R; AB 180 bilaterally. 0 deg's AB: ER 38 L, 48 R. Behind back: T9 L, T7 R. Pt able to buckle bra behind the back, rarely with pain. ROM goal not met for ER/IR. LTG Duration 07/22/22 (06/03/22: GOAL MET for flex, AB & for the functional movement) Two Impairment Decreased neck mobility. Impairment Cervical AROM (in deg's): Rot is 25 L, 50 R; SB is 18 L, 15 R. Short Term Goal (STG) Pt educated in proper head/ neck posturing in standing, sitting and with reading. 05/06/22 05/11/22:Educated pt on proper posture while reading in chair and in bed using pillows , etc. to prop up book to eye height, with chin tucks and scap retraction ex. 06/11/22: pt stated purchased book support and helping in decreased neck pain. STG Duration 05/14/22 (05/03/22 & 05/11/22: MET GOAL) Alf Goal (LTG) Improve L Cervical rotation AROM with pt able to turn to look left comfortably for driving. 04/29/22: HEP: C. rot stretch . 05/18/22: Rot L 25, R 45; SB is 15 R, 16 L. 06/03/22: Rot L 30, R 64; SB is 20 L, 10 R. Improved C. AROM. Has discomfort in looking L while driving. 06/11/22: improved ROM L post manal SCM and use theracane posterior neck. LTG Duration 07/30/22 Improving 06/11/22. One Impairment Pt is not currently on a self care HEP. Short Term Goal (STG) Pt will be educated in sleep positions and use of modalities for pain management . 05/03 & 04/17: Educated pt in best Sleep positioning. 05/31/22: Educated and discussed proper nighttime modalities for pain control. STG Duration 04/30/22 (05/31/22: MET GOAL) Fertilizing Machine Operator Goal (LTG) Pt will be independent with a self care HEP of left neck/ shoulder/UE exercises. 04/29/22: HEP: C. rot & UT stretch, UE neural stretches ( radial, ulnar & median nerves) 05/28/22:Deep neck flexors lift . 06/03/22: AROM L shoulder ER/ IR. 06/11/22: AROM L>R shld ER 45 deg windshield wipers, abd 80deg stretch/ wipers, ABD hands under head stretch/ elbow press table/ wrist press table with breath painfree. Introduced open book side. LTG Duration 07/30/22 progressed 06/11/22 Assessment Summary Assessment Pt had good reponse to therapy with sensation of improved neck mobility after treatment. Pt has stiffness on L side of neck. Pt appears to have a L arm/body disconnect/ awareness of L UE mobility doesn't feel like my L hand is doing anything during supine lat pull down exercise. Physical Therapy Plan Frequency and Duration Frequency of Treatment 2x/Week Plan of Care Start Date 06/03/22 Plan of Care End Date 07/30/22 Next Visit Focus/Plan Next Note Type Treatment Note Next Visit Plan Next: continue CS L rot stretch, head nods ROM, review open book (on HEP). Add shld isometric/TB IR/ ER/ rows. Recheck for Thoracic Outlet. Monitor for improved sleep quality at nighttime (1-2 hrs) . POC: Increase focus on strengthening/stabilization L shoulder, but continue manual therapy for relief of neck/LB pain symptoms. Ther ex: neck, L shoulder, scapula stabilization. Stretch as needed: L shoulder , scapula (monitor cervical & UE neural stretch). [ End ]
--- NOTE | 2022-06-17 13:18 | PT.OTN ---
Current Diagnoses Other chronic pain (06/17/22) Cervicalgia (06/17/22) Muscle weakness (generalized) (06/17/22) Physical Therapy Treatment Note PT-OP-A Visit Information Start: 04/22/22 18:26 Freq: Status: Active Protocol: Document 06/17/22 09:52 LRN (Rec: 06/17/22 12:41 LRN [id number]) Out-Patient Physical Therapy Visit Information Visit Information Visit Type Treatment Note Visit Start Time 09:52 Visit Stop Time 10:40 Total Visit Minutes 48 Visit Number 14 Evaluation Information Evaluation Date 04/23/22 Precautions Precautions Pt reports chronic neck, back, jaw pain and headaches. PT-OP-B Current Condition Start: 04/22/22 18:26 Freq: Status: Active Protocol: Document 04/23/22 12:46 LRN (Rec: 04/23/22 16:21 LRN [id number]) Current Condition History of Current Condition Onset Date 20 yrs ago, worsened in the past few months. Current Complaints L neck/arm discomfort & numbness including L LE, can't sleep on L side History of Current Condition Pt reports she has had neck pain for the past 20 years of insidious onset. States sometimes driving she can't turn her head to the left due to pain. Once in a while worsening of L arm and leg numbness, and can't sleep on L side. Pt states she moved to [place] a year ago and the referring physician thought PT might help. She states that previous doctors told her she had to live with it. Driving is uncomfortable for really long distances, even as passenger. Headaches on L side. Prior Treatments and Tests Physical therapy previously ~ 2015 in [place]. X-ray report indicates: Loss of lordosis and multilevel spondylosis, most notably with moderate to severe disc degeneration at the C5-C6 level. Next MD visit 05/24/22. Pt given pills (meloxicam), but she doesn't like because they make her sleepy and then she doesn't function well the next day. Future Testing and Treatments Planned None Developmental History Developmental History Moved to [place] a year ago with spouse and dog. PMH: Back pain, was told due to disc problem. Jaw pain - wears mouthguard (pt feels not helpful). Treatment Goals Patient/Caregiver Goals Pt goal is to be able to sleep on L side for 1-2 hours without pain, buckle bra reaching behind back without pain, turning to look to the left for driving. Prior Functional Status Baseline Function- ADL's Independent Baseline Function- Mobility Independent Baseline Function- Other 6 months ago could don bra from behind without pain. Current Functional Impairments (Reported) Functional Limitations- ADL's Sleeps on the L side for 1-2 hrs. Functional Limitations- Work/School Retired from various jobs and being a homemaker. Functional Limitations- Recreation/ Sews and walks her dog daily. Hobbies Has 60 lbs lab. Personal Factors Other Personal Factors That May Effect Chronic L neck/shoulder pain Therapy/Recovery with headaches. PT-OP-C Subjective Start: 04/22/22 18:26 Freq: Status: Active Protocol: Document 06/17/22 09:52 LRN (Rec: 06/17/22 12:41 LRN [id number]) OP-PT Subjective Patient Comments Patient Comments Lot better. Tuesday it her neck hurt so bad, but today she is back to her normal sore . PT-OP-E Functional Tests Start: 04/22/22 18:26 Freq: Status: Active Protocol: Document 06/03/22 09:06 LRN (Rec: 06/03/22 09:54 LRN [id number]) Functional Tests Apley's Scratch Test Action 2- Left T2 Action 2- Right T3 Action 3- Left T9 Action 3- Right T7 PT-OP-H Neuro Start: 04/22/22 18:26 Freq: Status: Active Protocol: Document 04/23/22 12:46 LRN (Rec: 04/23/22 16:21 LRN [id number]) Sensation Evaluation Gross Sensation Gross Sensation Left UE Impaired,Head Impaired Sensation Description Tingling Deep Tendon Reflex & Clonus Assessment Deep Tendon Reflex Right Brachioradialis Deep Tendon Reflex 2+ Normal Left Brachioradialis Deep Tendon Reflex 3+ Normal But Brisk Bilateral Tricep Deep Tendon Reflex 3+ Normal But Brisk Bilateral Bicep Deep Tendon Reflex 3+ Normal But Brisk PT-OP-J Posture/Palpation/Skin Start: 04/22/22 18:26 Freq: Status: Active Protocol: Document 04/23/22 12:46 LRN (Rec: 04/23/22 16:21 LRN [id number]) Posture Evaluation Position Standing Head/C-Spine Posture Excess Extension,Forward Head T-Spine Posture Increased Kyphosis L-Spine Posture Increased Lordosis Shoulder Posture (R) Elevated Scapula Posture (L) Elevated Arm Posture (L) Internally Rotated,(R) Internally Rotated Weight Distribution Balanced Palpation Assessment Location Upper back Palpation Location L Upper back Palpation Findings Tenderness Posterior neck Palpation Location L Posterior and lateral neck Palpation Findings Tenderness PT-OP-K Range of Motion Start: 04/22/22 18:26 Freq: Status: Active Protocol: Document 06/03/22 09:06 LRN (Rec: 06/03/22 09:54 LRN [id number]) Cervical Spine Range of Motion Cervical Spine Active Degrees Testing Position Sitting Flexion 45 Extension 32 Rotation Left 30 Rotation Right 64 Lateral Flexion Left 20 Lateral Flexion Right 10 ROM Limitations Soft Tissue Tightness Comments Pt starting position for SB is 5 deg's L Sidebent. Shoulder Goniometric Range of Motion Shoulder AROM L Testing Position Sitting Flexion 157 Abduction 180 External Rotation at 0 degrees Abduction 38 Internal Rotation Behind Back (text) T9 Comments Reaching behind head: T2 AROM R Testing Position Sitting Flexion 148 Abduction 180 External Rotation at 0 degrees Abduction 48 Internal Rotation Behind Back (text) T7 Comments Reaching behind head: T3 PT-OP-L Special Tests Start: 04/22/22 18:26 Freq: Status: Active Protocol: Document 04/23/22 12:46 LRN (Rec: 04/23/22 16:21 LRN [id number]) Special Tests Cervical Spine Special Tests Upper Limb Tension Test Test Results + for ulnar, median, and radial nerve of L UE. Vertebral Artery Test Results -, but L rot very limited mobility Spurling's Test Test Results - bilaterally Traction Test Results - Foraminal Compression Test Results - PT-OP-M Strength Start: 04/22/22 18:26 Freq: Status: Active Protocol: Document 04/23/22 12:46 LRN (Rec: 04/23/22 16:21 LRN [id number]) Cervical Spine Strength Cervical Spine Manual Muscle Testing Testing Position Supine Flexion (C1-2) 5 Normal Extension 5 Normal Rotation Left 3+ Fair+ Rotation Right 4 Good Lateral Flexion Left (C3) 5 Normal Lateral Flexion Right (C3) 5 Normal Shoulder Strength Shoulder Manual Muscle Testing Right Flexion 5 Normal Abduction (C5) 5 Normal External Rotation 5 Normal Internal Rotation 5 Normal Left Flexion 3- Fair- Abduction (C5) 3- Fair- External Rotation 3- Fair- Internal Rotation 4 Good Hand Portable Router Operator/Pinch Strength Hand Dominance Hand Dominance Right PT-OP-Q Treatments Start: 04/22/22 18:26 Freq: Status: Active Protocol: Document 06/17/22 09:52 LRN (Rec: 06/17/22 12:41 LRN [id number]) Therapeutic Exercises Supine Exercises Full body rot stretch Supine Exercise Name Head L rot/knees R rot Reps/Minutes 4' C. Rot Supine Exercise Name AROM rotation hold stretch and C/R stretch Side bilateral Reps/Minutes 10 rot stretch, 10 reps w/5 head nods and C/R 10x Comments Cuing to keep chin tucked Sitting Exercises Scapula depression Sitting Exercise Name L Scapular depression Side left Reps/Minutes 10 SH x 15 Self massage Sitting Exercise Name L neck SCM mid-occiput, posterior CS ES nods/turns Side bilateral Equipment Used manual SCM, theracane post neck Reps/Minutes 5 min Comments good feedback response Chin Tuck with Scap retraction Sitting Exercise Name Chin tuck w/scap retract Side bilateral Reps/Minutes 10 SH x 10 Comments Tactile cues for scap squeeze C. Rot stretch Sitting Exercise Name C. Rot stretch, L> R Side bilateral Reps/Minutes 10SH x 6 L UT stretch Sitting Exercise Name 1. Sitting C. Rot: static stretch 2.head nods up/down Side bilateral Reps/Minutes 10 SH, then 5 nods x 10 Comments cuing for proper postural positioning for stretch Manual Therapy Treatment Soft Tissue Mobilization Neck Body Location L>R SCM, Occipitals, Levator, UT, temporalis Mobilization Type Sustained Pressure Intensity/Depth Moderate Body Position Supine Comments Pt reported decreased tightness s/p STM. Joint Mobilizations C3-C6 Joint Balancing C3-C4, C4-C5. Grade II Body Position Supine Reps/Duration 8 PT-OP-R Modalities Start: 04/22/22 18:26 Freq: Status: Active Protocol: Document 05/06/22 12:34 LRN (Rec: 05/06/22 13:50 LRN [id number]) Electric Stimulation Electric Stimulation Interferential Current (IFC) Body Location Neck (L UT>lat shoulder, Infras>Pec) Duration (Minutes) 10 Intensity 14 Target/Sweep Sweep Patient Position Hooklying Combined With Heat/Cold Hot Pack Comments Legs on bolster. PT-OP-T Assessment and Plan Start: 04/22/22 18:26 Freq: Status: Active Protocol: Document 06/17/22 09:52 LRN (Rec: 06/17/22 12:41 LRN [id number]) Physical Therapy Assessment Goals Five Impairment Decreased L shoulder stability Detention Goal (LTG) Improve L shoulder strength/ stability with pt able to tolerate sleeping on her L side, up to 1-2 hours before waking due to pain. 06/11/22: continues have pain laying on left, limits time ( 20min maybe) LTG Duration 07/30/22 progressin06/11/22 Four Impairment L shoulder weakness Impairment L shoulder strength: Flex, AB , ER is 3-/5 (R is 5/5) UE QuickDASH score is 31.81 ( 20-39% impaired) Short Term Goal (STG) Improve L shoulder flex, AB, ER strength to no less than 3+ /5. 06/03/22: L shldr Flex, AB 5/ 5, ER 4/5, IR 4+/5. STG Duration 06/07/22 (06/03/22: MET GOAL ) Detention Goal (LTG) Improve L shoulder strength to improve function per UE QuickDASH score 1-19 (1-19% impaired). 05/18/22: Quickdash score: 25% (20-39% impaired), improved from 31.81%. Neck diasbility index: score 10, improved from 12 (20-39% impaired) 06/03/22: Quickdash score: 11 .36 (1-19% impaired, score 1- 19). LTG Duration 07/22/22 (06/03/22: MET GOAL) Three Impairment Decreased L shoulder mobility Impairment Shoulder AROM (in deg's): Flex 140 L, 180 R; AB 90 L, 180 R; ER 55 L, 90 R; IR 72 L, 85 R. Behind back: L5 left, T7 right. Short Term Goal (STG) Pt will be educated in sleep positions and will improve sleep quality on the L side for 1-2 hours without pain. 05/03 & 04/17: I/S pt in best practice for side sleeping and head/neck posturing. 06/03/22: NOT able to sleep on L side for any length of time . 06/07/22: Pt sleeping ~5 hrs per night. STG Duration 06/07/22 (06/07/22: MET GOAL ) Detention Goal (LTG) Improve L shoulder AROM with pt able to buckle bra reaching behind back without pain. 05/18/22: supine: Flex 139 L, 180 R; AB 55 L, 135 R, seated ER L 60 deg R 61 deg. 06/03/22: sitting: Flex 157 L , 148 R; AB 180 bilaterally. 0 deg's AB: ER 38 L, 48 R. Behind back: T9 L, T7 R. Pt able to buckle bra behind the back, rarely with pain. ROM goal not met for ER/IR. LTG Duration 07/22/22 (06/03/22: GOAL MET for flex, AB & for the functional movement) Two Impairment Decreased neck mobility. Impairment Cervical AROM (in deg's): Rot is 25 L, 50 R; SB is 18 L, 15 R. Short Term Goal (STG) Pt educated in proper head/ neck posturing in standing, sitting and with reading. 05/06/22 05/11/22:Educated pt on proper posture while reading in chair and in bed using pillows , etc. to prop up book to eye height, with chin tucks and scap retraction ex. 06/11/22: pt stated purchased book support and helping in decreased neck pain. STG Duration 05/14/22 (05/03/22 & 05/11/22: MET GOAL) Emergency Medicine Physician Assistant Goal (LTG) Improve L Cervical rotation AROM with pt able to turn to look left comfortably for driving. 04/29/22: HEP: C. rot stretch . 05/18/22: Rot L 25, R 45; SB is 15 R, 16 L. 06/03/22: Rot L 30, R 64; SB is 20 L, 10 R. Improved C. AROM. Has discomfort in looking L while driving. 06/11/22: improved ROM L post manal SCM and use theracane posterior neck. LTG Duration 07/30/22 Improving 06/11/22. One Impairment Pt is not currently on a self care HEP. Short Term Goal (STG) Pt will be educated in sleep positions and use of modalities for pain management . 05/03 & 04/17: Educated pt in best Sleep positioning. 05/31/22: Educated and discussed proper nighttime modalities for pain control. STG Duration 04/30/22 (05/31/22: MET GOAL) Detention Goal (LTG) Pt will be independent with a self care HEP of left neck/ shoulder/UE exercises. 04/29/22: HEP: C. rot & UT stretch, UE neural stretches ( radial, ulnar & median nerves) 05/28/22:Deep neck flexors lift . 06/03/22: AROM L shoulder ER/ IR. 06/11/22: AROM L>R shld ER 45 deg windshield wipers, abd 80deg stretch/ wipers, ABD hands under head stretch/ elbow press table/ wrist press table with breath painfree. Introduced open book side. LTG Duration 07/30/22 progressed 06/11/22 Assessment Summary Assessment Pt needed v cuing during review of C/S L rot stretch & head nods ROMh, further review would be appropriate. Pt responds well to manual therapy with reduction of pain . Stiffness present with Cervical L rot and R SB. Physical Therapy Plan Frequency and Duration Frequency of Treatment 2x/Week Plan of Care Start Date 06/03/22 Plan of Care End Date 07/30/22 Next Visit Focus/Plan Next Note Type Treatment Note Next Visit Plan Next: review open book (on HEP), continue CS L rot stretch, head nods ROM. Recheck for Thoracic Outlet. Add shld isometric/TB IR/ ER/ rows. Monitor for improved sleep quality at nighttime (1- 2 hrs). POC: Increase focus on L shoulder strengthening/ stabilization, but continue manual therapy for relief of neck/LB pain symptoms. Ther ex: neck, L shoulder, scapula stabilization. Stretch as needed: L shoulder , scapula (monitor cervical & UE neural stretch). [ End ]
--- NOTE | 2022-06-17 13:20 | PT.OTN ---
Current Diagnoses Other chronic pain (06/17/22) Cervicalgia (06/17/22) Muscle weakness (generalized) (06/17/22) Physical Therapy Treatment Note PT-OP-A Visit Information Start: 04/22/22 18:26 Freq: Status: Active Protocol: Document 06/17/22 09:52 LRN (Rec: 06/17/22 12:41 LRN [id number]) Out-Patient Physical Therapy Visit Information Visit Information Visit Type Treatment Note Visit Start Time 09:52 Visit Stop Time 10:40 Total Visit Minutes 48 Visit Number 14 Evaluation Information Evaluation Date 04/23/22 Precautions Precautions Pt reports chronic neck, back, jaw pain and headaches. PT-OP-B Current Condition Start: 04/22/22 18:26 Freq: Status: Active Protocol: Document 04/23/22 12:46 LRN (Rec: 04/23/22 16:21 LRN [id number]) Current Condition History of Current Condition Onset Date 20 yrs ago, worsened in the past few months. Current Complaints L neck/arm discomfort & numbness including L LE, can't sleep on L side History of Current Condition Pt reports she has had neck pain for the past 20 years of insidious onset. States sometimes driving she can't turn her head to the left due to pain. Once in a while worsening of L arm and leg numbness, and can't sleep on L side. Pt states she moved to [place] a year ago and the referring physician thought PT might help. She states that previous doctors told her she had to live with it. Driving is uncomfortable for really long distances, even as passenger. Headaches on L side. Prior Treatments and Tests Physical therapy previously ~ 2015 in [place]. X-ray report indicates: Loss of lordosis and multilevel spondylosis, most notably with moderate to severe disc degeneration at the C5-C6 level. Next MD visit 05/24/22. Pt given pills (meloxicam), but she doesn't like because they make her sleepy and then she doesn't function well the next day. Future Testing and Treatments Planned None Developmental History Developmental History Moved to [place] a year ago with spouse and dog. PMH: Back pain, was told due to disc problem. Jaw pain - wears mouthguard (pt feels not helpful). Treatment Goals Patient/Caregiver Goals Pt goal is to be able to sleep on L side for 1-2 hours without pain, buckle bra reaching behind back without pain, turning to look to the left for driving. Prior Functional Status Baseline Function- ADL's Independent Baseline Function- Mobility Independent Baseline Function- Other 6 months ago could don bra from behind without pain. Current Functional Impairments (Reported) Functional Limitations- ADL's Sleeps on the L side for 1-2 hrs. Functional Limitations- Work/School Retired from various jobs and being a homemaker. Functional Limitations- Recreation/ Sews and walks her dog daily. Hobbies Has 60 lbs lab. Personal Factors Other Personal Factors That May Effect Chronic L neck/shoulder pain Therapy/Recovery with headaches. PT-OP-C Subjective Start: 04/22/22 18:26 Freq: Status: Active Protocol: Document 06/17/22 09:52 LRN (Rec: 06/17/22 12:41 LRN [id number]) OP-PT Subjective Patient Comments Patient Comments Lot better. Tuesday it her neck hurt so bad, but today she is back to her normal sore . PT-OP-E Functional Tests Start: 04/22/22 18:26 Freq: Status: Active Protocol: Document 06/03/22 09:06 LRN (Rec: 06/03/22 09:54 LRN [id number]) Functional Tests Apley's Scratch Test Action 2- Left T2 Action 2- Right T3 Action 3- Left T9 Action 3- Right T7 PT-OP-H Neuro Start: 04/22/22 18:26 Freq: Status: Active Protocol: Document 04/23/22 12:46 LRN (Rec: 04/23/22 16:21 LRN [id number]) Sensation Evaluation Gross Sensation Gross Sensation Left UE Impaired,Head Impaired Sensation Description Tingling Deep Tendon Reflex & Clonus Assessment Deep Tendon Reflex Right Brachioradialis Deep Tendon Reflex 2+ Normal Left Brachioradialis Deep Tendon Reflex 3+ Normal But Brisk Bilateral Tricep Deep Tendon Reflex 3+ Normal But Brisk Bilateral Bicep Deep Tendon Reflex 3+ Normal But Brisk PT-OP-J Posture/Palpation/Skin Start: 04/22/22 18:26 Freq: Status: Active Protocol: Document 04/23/22 12:46 LRN (Rec: 04/23/22 16:21 LRN [id number]) Posture Evaluation Position Standing Head/C-Spine Posture Excess Extension,Forward Head T-Spine Posture Increased Kyphosis L-Spine Posture Increased Lordosis Shoulder Posture (R) Elevated Scapula Posture (L) Elevated Arm Posture (L) Internally Rotated,(R) Internally Rotated Weight Distribution Balanced Palpation Assessment Location Upper back Palpation Location L Upper back Palpation Findings Tenderness Posterior neck Palpation Location L Posterior and lateral neck Palpation Findings Tenderness PT-OP-K Range of Motion Start: 04/22/22 18:26 Freq: Status: Active Protocol: Document 06/03/22 09:06 LRN (Rec: 06/03/22 09:54 LRN [id number]) Cervical Spine Range of Motion Cervical Spine Active Degrees Testing Position Sitting Flexion 45 Extension 32 Rotation Left 30 Rotation Right 64 Lateral Flexion Left 20 Lateral Flexion Right 10 ROM Limitations Soft Tissue Tightness Comments Pt starting position for SB is 5 deg's L Sidebent. Shoulder Goniometric Range of Motion Shoulder AROM L Testing Position Sitting Flexion 157 Abduction 180 External Rotation at 0 degrees Abduction 38 Internal Rotation Behind Back (text) T9 Comments Reaching behind head: T2 AROM R Testing Position Sitting Flexion 148 Abduction 180 External Rotation at 0 degrees Abduction 48 Internal Rotation Behind Back (text) T7 Comments Reaching behind head: T3 PT-OP-L Special Tests Start: 04/22/22 18:26 Freq: Status: Active Protocol: Document 04/23/22 12:46 LRN (Rec: 04/23/22 16:21 LRN [id number]) Special Tests Cervical Spine Special Tests Upper Limb Tension Test Test Results + for ulnar, median, and radial nerve of L UE. Vertebral Artery Test Results -, but L rot very limited mobility Spurling's Test Test Results - bilaterally Traction Test Results - Foraminal Compression Test Results - PT-OP-M Strength Start: 04/22/22 18:26 Freq: Status: Active Protocol: Document 04/23/22 12:46 LRN (Rec: 04/23/22 16:21 LRN [id number]) Cervical Spine Strength Cervical Spine Manual Muscle Testing Testing Position Supine Flexion (C1-2) 5 Normal Extension 5 Normal Rotation Left 3+ Fair+ Rotation Right 4 Good Lateral Flexion Left (C3) 5 Normal Lateral Flexion Right (C3) 5 Normal Shoulder Strength Shoulder Manual Muscle Testing Right Flexion 5 Normal Abduction (C5) 5 Normal External Rotation 5 Normal Internal Rotation 5 Normal Left Flexion 3- Fair- Abduction (C5) 3- Fair- External Rotation 3- Fair- Internal Rotation 4 Good Hand Straw Hat Brim Cutter Operator/Pinch Strength Hand Dominance Hand Dominance Right PT-OP-Q Treatments Start: 04/22/22 18:26 Freq: Status: Active Protocol: Document 06/17/22 09:52 LRN (Rec: 06/17/22 12:41 LRN [id number]) Therapeutic Exercises Supine Exercises Full body rot stretch Supine Exercise Name Head L rot/knees R rot Reps/Minutes 4' C. Rot Supine Exercise Name AROM rotation hold stretch and C/R stretch Side bilateral Reps/Minutes 10 rot stretch, 10 reps w/5 head nods and C/R 10x Comments Cuing to keep chin tucked Sitting Exercises Scapula depression Sitting Exercise Name L Scapular depression Side left Reps/Minutes 10 SH x 15 Self massage Sitting Exercise Name L neck SCM mid-occiput, posterior CS ES nods/turns Side bilateral Equipment Used manual SCM, theracane post neck Reps/Minutes 5 min Comments good feedback response Chin Tuck with Scap retraction Sitting Exercise Name Chin tuck w/scap retract Side bilateral Reps/Minutes 10 SH x 10 Comments Tactile cues for scap squeeze C. Rot stretch Sitting Exercise Name C. Rot stretch, L> R Side bilateral Reps/Minutes 10SH x 6 L UT stretch Sitting Exercise Name 1. Sitting C. Rot: static stretch 2.head nods up/down Side bilateral Reps/Minutes 10 SH, then 5 nods x 10 Comments cuing for proper postural positioning for stretch Manual Therapy Treatment Soft Tissue Mobilization Neck Body Location L>R SCM, Occipitals, Levator, UT, temporalis Mobilization Type Sustained Pressure Intensity/Depth Moderate Body Position Supine Comments Pt reported decreased tightness s/p STM. Joint Mobilizations C3-C6 Joint Balancing C3-C4, C4-C5. Grade II Body Position Supine Reps/Duration 8 Self-Care/Home Management Treatment Education Patient Education Home Exercise Program Activities Self-Care/Home Management Activities Issued & reviewed HEP: Active & body wgt resisted Scapular depression. PT-OP-R Modalities Start: 04/22/22 18:26 Freq: Status: Active Protocol: Document 05/06/22 12:34 LRN (Rec: 05/06/22 13:50 LRN [id number]) Electric Stimulation Electric Stimulation Interferential Current (IFC) Body Location Neck (L UT>lat shoulder, Infras>Pec) Duration (Minutes) 10 Intensity 14 Target/Sweep Sweep Patient Position Hooklying Combined With Heat/Cold Hot Pack Comments Legs on bolster. PT-OP-T Assessment and Plan Start: 04/22/22 18:26 Freq: Status: Active Protocol: Document 06/17/22 09:52 LRN (Rec: 06/17/22 12:41 LRN [id number]) Physical Therapy Assessment Goals Five Impairment Decreased L shoulder stability Sales Representative Supervisor Goal (LTG) Improve L shoulder strength/ stability with pt able to tolerate sleeping on her L side, up to 1-2 hours before waking due to pain. 06/11/22: continues have pain laying on left, limits time ( 20min maybe) LTG Duration 07/30/22 progressin06/11/22 Four Impairment L shoulder weakness Impairment L shoulder strength: Flex, AB , ER is 3-/5 (R is 5/5) UE QuickDASH score is 31.81 ( 20-39% impaired) Short Term Goal (STG) Improve L shoulder flex, AB, ER strength to no less than 3+ /5. 06/03/22: L shldr Flex, AB 5/ 5, ER 4/5, IR 4+/5. STG Duration 06/07/22 (06/03/22: MET GOAL ) Sales Representative Supervisor Goal (LTG) Improve L shoulder strength to improve function per UE QuickDASH score 1-19 (1-19% impaired). 05/18/22: Quickdash score: 25% (20-39% impaired), improved from 31.81%. Neck diasbility index: score 10, improved from 12 (20-39% impaired) 06/03/22: Quickdash score: 11 .36 (1-19% impaired, score 1- 19). LTG Duration 07/22/22 (06/03/22: MET GOAL) Three Impairment Decreased L shoulder mobility Impairment Shoulder AROM (in deg's): Flex 140 L, 180 R; AB 90 L, 180 R; ER 55 L, 90 R; IR 72 L, 85 R. Behind back: L5 left, T7 right. Short Term Goal (STG) Pt will be educated in sleep positions and will improve sleep quality on the L side for 1-2 hours without pain. 05/03 & 04/17: I/S pt in best practice for side sleeping and head/neck posturing. 06/03/22: NOT able to sleep on L side for any length of time . 06/07/22: Pt sleeping ~5 hrs per night. STG Duration 06/07/22 (06/07/22: MET GOAL ) Sales Representative Supervisor Goal (LTG) Improve L shoulder AROM with pt able to buckle bra reaching behind back without pain. 05/18/22: supine: Flex 139 L, 180 R; AB 55 L, 135 R, seated ER L 60 deg R 61 deg. 06/03/22: sitting: Flex 157 L , 148 R; AB 180 bilaterally. 0 deg's AB: ER 38 L, 48 R. Behind back: T9 L, T7 R. Pt able to buckle bra behind the back, rarely with pain. ROM goal not met for ER/IR. LTG Duration 07/22/22 (06/03/22: GOAL MET for flex, AB & for the functional movement) Two Impairment Decreased neck mobility. Impairment Cervical AROM (in deg's): Rot is 25 L, 50 R; SB is 18 L, 15 R. Short Term Goal (STG) Pt educated in proper head/ neck posturing in standing, sitting and with reading. 05/06/22 05/11/22:Educated pt on proper posture while reading in chair and in bed using pillows , etc. to prop up book to eye height, with chin tucks and scap retraction ex. 06/11/22: pt stated purchased book support and helping in decreased neck pain. STG Duration 05/14/22 (05/03/22 & 05/11/22: MET GOAL) Senior Care Goal (LTG) Improve L Cervical rotation AROM with pt able to turn to look left comfortably for driving. 04/29/22: HEP: C. rot stretch . 05/18/22: Rot L 25, R 45; SB is 15 R, 16 L. 06/03/22: Rot L 30, R 64; SB is 20 L, 10 R. Improved C. AROM. Has discomfort in looking L while driving. 06/11/22: improved ROM L post manal SCM and use theracane posterior neck. LTG Duration 07/30/22 Improving 06/11/22. One Impairment Pt is not currently on a self care HEP. Short Term Goal (STG) Pt will be educated in sleep positions and use of modalities for pain management . 05/03 & 04/17: Educated pt in best Sleep positioning. 05/31/22: Educated and discussed proper nighttime modalities for pain control. STG Duration 04/30/22 (05/31/22: MET GOAL) Senior Care Goal (LTG) Pt will be independent with a self care HEP of left neck/ shoulder/UE exercises. 04/29/22: HEP: C. rot & UT stretch, UE neural stretches ( radial, ulnar & median nerves) 05/28/22:Deep neck flexors lift . 06/03/22: AROM L shoulder ER/ IR. 06/11/22: AROM L>R shld ER 45 deg windshield wipers, abd 80deg stretch/ wipers, ABD hands under head stretch/ elbow press table/ wrist press table with breath painfree. Introduced open book side. LTG Duration 07/30/22 progressed 06/11/22 Assessment Summary Assessment Pt needed v cuing during review of C/S L rot stretch & head nods ROMh, further review would be appropriate. Pt responds well to manual therapy with reduction of pain . Stiffness present with Cervical L rot and R SB. Physical Therapy Plan Frequency and Duration Frequency of Treatment 2x/Week Plan of Care Start Date 06/03/22 Plan of Care End Date 07/30/22 Next Visit Focus/Plan Next Note Type Treatment Note Next Visit Plan Next: review open book (on HEP), continue CS L rot stretch, head nods ROM. Recheck for Thoracic Outlet. Add shld isometric/TB IR/ ER/ rows. Monitor for improved sleep quality at nighttime (1- 2 hrs). POC: Increase focus on L shoulder strengthening/ stabilization, but continue manual therapy for relief of neck/LB pain symptoms. Ther ex: neck, L shoulder, scapula stabilization. Stretch as needed: L shoulder , scapula (monitor cervical & UE neural stretch). [ End ]
--- NOTE | 2022-07-05 09:48 | PT.OTN ---
Current Diagnoses Other chronic pain (07/05/22) Cervicalgia (07/05/22) Muscle weakness (generalized) (07/05/22) Physical Therapy Treatment Note PT-OP-A Visit Information Start: 04/22/22 18:26 Freq: Status: Active Protocol: Document 07/05/22 09:04 LRN (Rec: 07/05/22 09:46 LRN [id number]) Out-Patient Physical Therapy Visit Information Visit Information Visit Type Treatment Note Visit Start Time 09:04 Visit Stop Time 09:44 Total Visit Minutes 40 Visit Number 15 Evaluation Information Evaluation Date 04/23/22 Precautions Precautions Pt reports chronic neck, back, jaw pain and headaches. PT-OP-B Current Condition Start: 04/22/22 18:26 Freq: Status: Active Protocol: Document 04/23/22 12:46 LRN (Rec: 04/23/22 16:21 LRN [id number]) Current Condition History of Current Condition Onset Date 20 yrs ago, worsened in the past few months. Current Complaints L neck/arm discomfort & numbness including L LE, can't sleep on L side History of Current Condition Pt reports she has had neck pain for the past 20 years of insidious onset. States sometimes driving she can't turn her head to the left due to pain. Once in a while worsening of L arm and leg numbness, and can't sleep on L side. Pt states she moved to [place] a year ago and the referring physician thought PT might help. She states that previous doctors told her she had to live with it. Driving is uncomfortable for really long distances, even as passenger. Headaches on L side. Prior Treatments and Tests Physical therapy previously ~ 2015 in [place]. X-ray report indicates: Loss of lordosis and multilevel spondylosis, most notably with moderate to severe disc degeneration at the C5-C6 level. Next MD visit 05/24/22. Pt given pills (meloxicam), but she doesn't like because they make her sleepy and then she doesn't function well the next day. Future Testing and Treatments Planned None Developmental History Developmental History Moved to [place] a year ago with spouse and dog. PMH: Back pain, was told due to disc problem. Jaw pain - wears mouthguard (pt feels not helpful). Treatment Goals Patient/Caregiver Goals Pt goal is to be able to sleep on L side for 1-2 hours without pain, buckle bra reaching behind back without pain, turning to look to the left for driving. Prior Functional Status Baseline Function- ADL's Independent Baseline Function- Mobility Independent Baseline Function- Other 6 months ago could don bra from behind without pain. Current Functional Impairments (Reported) Functional Limitations- ADL's Sleeps on the L side for 1-2 hrs. Functional Limitations- Work/School Retired from various jobs and being a homemaker. Functional Limitations- Recreation/ Sews and walks her dog daily. Hobbies Has 60 lbs lab. Personal Factors Other Personal Factors That May Effect Chronic L neck/shoulder pain Therapy/Recovery with headaches. PT-OP-C Subjective Start: 04/22/22 18:26 Freq: Status: Active Protocol: Document 07/05/22 09:04 LRN (Rec: 07/05/22 09:46 LRN [id number]) OP-PT Subjective Patient Comments Patient Comments Able to sleep on L side for little bits of time (up to 4 hours) for a week. PT-OP-E Functional Tests Start: 04/22/22 18:26 Freq: Status: Active Protocol: Document 06/03/22 09:06 LRN (Rec: 06/03/22 09:54 LRN [id number]) Functional Tests Apley's Scratch Test Action 2- Left T2 Action 2- Right T3 Action 3- Left T9 Action 3- Right T7 PT-OP-H Neuro Start: 04/22/22 18:26 Freq: Status: Active Protocol: Document 04/23/22 12:46 LRN (Rec: 04/23/22 16:21 LRN [id number]) Sensation Evaluation Gross Sensation Gross Sensation Left UE Impaired,Head Impaired Sensation Description Tingling Deep Tendon Reflex & Clonus Assessment Deep Tendon Reflex Right Brachioradialis Deep Tendon Reflex 2+ Normal Left Brachioradialis Deep Tendon Reflex 3+ Normal But Brisk Bilateral Tricep Deep Tendon Reflex 3+ Normal But Brisk Bilateral Bicep Deep Tendon Reflex 3+ Normal But Brisk PT-OP-J Posture/Palpation/Skin Start: 04/22/22 18:26 Freq: Status: Active Protocol: Document 04/23/22 12:46 LRN (Rec: 04/23/22 16:21 LRN [id number]) Posture Evaluation Position Standing Head/C-Spine Posture Excess Extension,Forward Head T-Spine Posture Increased Kyphosis L-Spine Posture Increased Lordosis Shoulder Posture (R) Elevated Scapula Posture (L) Elevated Arm Posture (L) Internally Rotated,(R) Internally Rotated Weight Distribution Balanced Palpation Assessment Location Upper back Palpation Location L Upper back Palpation Findings Tenderness Posterior neck Palpation Location L Posterior and lateral neck Palpation Findings Tenderness PT-OP-K Range of Motion Start: 04/22/22 18:26 Freq: Status: Active Protocol: Document 06/03/22 09:06 LRN (Rec: 06/03/22 09:54 LRN [id number]) Cervical Spine Range of Motion Cervical Spine Active Degrees Testing Position Sitting Flexion 45 Extension 32 Rotation Left 30 Rotation Right 64 Lateral Flexion Left 20 Lateral Flexion Right 10 ROM Limitations Soft Tissue Tightness Comments Pt starting position for SB is 5 deg's L Sidebent. Shoulder Goniometric Range of Motion Shoulder AROM L Testing Position Sitting Flexion 157 Abduction 180 External Rotation at 0 degrees Abduction 38 Internal Rotation Behind Back (text) T9 Comments Reaching behind head: T2 AROM R Testing Position Sitting Flexion 148 Abduction 180 External Rotation at 0 degrees Abduction 48 Internal Rotation Behind Back (text) T7 Comments Reaching behind head: T3 PT-OP-L Special Tests Start: 04/22/22 18:26 Freq: Status: Active Protocol: Document 07/05/22 09:04 LRN (Rec: 07/05/22 09:46 LRN [id number]) Special Tests Cervical Spine Special Tests Thoracic Outlet Test Results - L side PT-OP-M Strength Start: 04/22/22 18:26 Freq: Status: Active Protocol: Document 04/23/22 12:46 LRN (Rec: 04/23/22 16:21 LRN [id number]) Cervical Spine Strength Cervical Spine Manual Muscle Testing Testing Position Supine Flexion (C1-2) 5 Normal Extension 5 Normal Rotation Left 3+ Fair+ Rotation Right 4 Good Lateral Flexion Left (C3) 5 Normal Lateral Flexion Right (C3) 5 Normal Shoulder Strength Shoulder Manual Muscle Testing Right Flexion 5 Normal Abduction (C5) 5 Normal External Rotation 5 Normal Internal Rotation 5 Normal Left Flexion 3- Fair- Abduction (C5) 3- Fair- External Rotation 3- Fair- Internal Rotation 4 Good Hand Audiology Assistant/Pinch Strength Hand Dominance Hand Dominance Right PT-OP-Q Treatments Start: 04/22/22 18:26 Freq: Status: Active Protocol: Document 07/05/22 09:04 LRN (Rec: 07/05/22 09:46 LRN [id number]) Therapeutic Exercises Supine Exercises Shldr ER Supine Exercise Name Neck Elongation w/Juan Shldr ER at different angles Side bilateral Equipment Used Belt: -30, -20, -10, 0, 5, 10, 30 deg's ER Reps/Minutes 10SH x 5 for 1st 2 angles, then 5SH x 5 for the rest Comments Cuing to keep L side in ER for strengthening. Open Book Stretch Supine Exercise Name Open book stretch (head rotL>R ) Side bilateral Reps/Minutes 3' Full body rot stretch Supine Exercise Name Head L rot/knees R rot Equipment Used 10 SH Reps/Minutes 4' Manual Therapy Treatment Soft Tissue Mobilization Neck Body Location L>R SCM, Occipitals, Levator, UT, temporalis Mobilization Type Sustained Pressure Intensity/Depth Moderate Body Position Supine Comments C/R stretch. Pt reported decreased tightness s/p STM. Self-Care/Home Management Treatment Education Patient Education Home Exercise Program Activities Self-Care/Home Management Activities I/S pt to do Juan L shoulder ER strengthening with belt at home. Pic h/o not available. PT-OP-R Modalities Start: 04/22/22 18:26 Freq: Status: Active Protocol: Document 05/06/22 12:34 LRN (Rec: 05/06/22 13:50 [facility] [id number]) Electric Stimulation Electric Stimulation Interferential Current (IFC) Body Location Neck (L UT>lat shoulder, Infras>Pec) Duration (Minutes) 10 Intensity 14 Target/Sweep Sweep Patient Position Hooklying Combined With Heat/Cold Hot Pack Comments Legs on bolster. PT-OP-T Assessment and Plan Start: 04/22/22 18:26 Freq: Status: Active Protocol: Document 07/05/22 09:04 LRN (Rec: 07/05/22 09:46 N [id number]) Physical Therapy Assessment Goals Five Impairment Decreased L shoulder stability Detention Goal (LTG) Improve L shoulder strength/ stability with pt able to tolerate sleeping on her L side, up to 1-2 hours before waking due to pain. 06/11/22: continues have pain laying on left, limits time ( 20min maybe) LTG Duration 07/30/22 progressin06/11/22 Four Impairment L shoulder weakness Impairment L shoulder strength: Flex, AB , ER is 3-/5 (R is 5/5) UE QuickDASH score is 31.81 ( 20-39% impaired) Short Term Goal (STG) Improve L shoulder flex, AB, ER strength to no less than 3+ /5. 06/03/22: L shldr Flex, AB 5/ 5, ER 4/5, IR 4+/5. STG Duration 06/07/22 (06/03/22: MET GOAL ) Detention Goal (LTG) Improve L shoulder strength to improve function per UE QuickDASH score 1-19 (1-19% impaired). 05/18/22: Quickdash score: 25% (20-39% impaired), improved from 31.81%. Neck diasbility index: score 10, improved from 12 (20-39% impaired) 06/03/22: Quickdash score: 11 .36 (1-19% impaired, score 1- 19). LTG Duration 07/22/22 (06/03/22: MET GOAL) Three Impairment Decreased L shoulder mobility Impairment Shoulder AROM (in deg's): Flex 140 L, 180 R; AB 90 L, 180 R; ER 55 L, 90 R; IR 72 L, 85 R. Behind back: L5 left, T7 right. Short Term Goal (STG) Pt will be educated in sleep positions and will improve sleep quality on the L side for 1-2 hours without pain. 05/03 & 04/17: I/S pt in best practice for side sleeping and head/neck posturing. 06/03/22: NOT able to sleep on L side for any length of time . 06/07/22: Pt sleeping ~5 hrs per night. STG Duration 06/07/22 (06/07/22: MET GOAL ) Detention Goal (LTG) Improve L shoulder AROM with pt able to buckle bra reaching behind back without pain. 05/18/22: supine: Flex 139 L, 180 R; AB 55 L, 135 R, seated ER L 60 deg R 61 deg. 06/03/22: sitting: Flex 157 L , 148 R; AB 180 bilaterally. 0 deg's AB: ER 38 L, 48 R. Behind back: T9 L, T7 R. Pt able to buckle bra behind the back, rarely with pain. ROM goal not met for ER/IR. LTG Duration 07/22/22 (06/03/22: GOAL MET for flex, AB & for the functional movement) Two Impairment Decreased neck mobility. Impairment Cervical AROM (in deg's): Rot is 25 L, 50 R; SB is 18 L, 15 R. Short Term Goal (STG) Pt educated in proper head/ neck posturing in standing, sitting and with reading. 05/06/22 05/11/22:Educated pt on proper posture while reading in chair and in bed using pillows , etc. to prop up book to eye height, with chin tucks and scap retraction ex. 06/11/22: pt stated purchased book support and helping in decreased neck pain. STG Duration 05/14/22 (05/03/22 & 05/11/22: MET GOAL) Detention Goal (LTG) Improve L Cervical rotation AROM with pt able to turn to look left comfortably for driving. 04/29/22: HEP: C. rot stretch . 05/18/22: Rot L 25, R 45; SB is 15 R, 16 L. 06/03/22: Rot L 30, R 64; SB is 20 L, 10 R. Improved C. AROM. Has discomfort in looking L while driving. 06/11/22: improved ROM L post manal SCM and use theracane posterior neck. LTG Duration 07/30/22 Improving 06/11/22. One Impairment Pt is not currently on a self care HEP. Short Term Goal (STG) Pt will be educated in sleep positions and use of modalities for pain management . 05/03 & 04/17: Educated pt in best Sleep positioning. 05/31/22: Educated and discussed proper nighttime modalities for pain control. STG Duration 04/30/22 (05/31/22: MET GOAL) Electromagnet Crane Operator Goal (LTG) Pt will be independent with a self care HEP of left neck/ shoulder/UE exercises. 04/29/22: HEP: C. rot & UT stretch, UE neural stretches ( radial, ulnar & median nerves) 05/28/22:Deep neck flexors lift . 06/03/22: AROM L shoulder ER/ IR. 06/11/22: AROM L>R shld ER 45 deg windshield wipers, abd 80deg stretch/ wipers, ABD hands under head stretch/ elbow press table/ wrist press table with breath painfree. Introduced open book side. 07/05/22: I/S pt in Juan shoulder ER ex in multiple angles of ER. LTG Duration 07/30/22 progressed 07/05/22 Assessment Summary Assessment Negative Thoracic Outlet of LUE. Pt has good recall of open book ex with arm horiz AB in alignment with head/neck. Improved Neck mobility for L rot with greater ease in stretching and retaining range after stretch (equal to R rot ). Good tolerance to Juan ER holds w/neck elongation. Physical Therapy Plan Frequency and Duration Frequency of Treatment 2x/Week Plan of Care Start Date 06/03/22 Plan of Care End Date 07/30/22 Next Visit Focus/Plan Next Note Type Treatment Note Next Visit Plan Next: review head nods ROM, continue CS L rot stretch. Review shld isometric ER, add shldr/scap strengthening stab ex's: TB IR/ ER/ rows. Monitor for improved sleep quality at nighttime (1-2 hrs) . POC: Increase focus on L shoulder strengthening/ stabilization, but continue manual therapy for relief of neck/LB pain symptoms. Ther ex: neck, L shoulder, scapula stabilization. Stretch as needed: L shoulder , scapula (monitor cervical & UE neural stretch). [ End ]
--- NOTE | 2022-07-08 18:08 | PT.OTN ---
Current Diagnoses Other chronic pain (07/08/22) Cervicalgia (07/08/22) Muscle weakness (generalized) (07/08/22) Physical Therapy Treatment Note PT-OP-A Visit Information Start: 04/22/22 18:26 Freq: Status: Active Protocol: Document 07/08/22 09:02 LRN (Rec: 07/08/22 09:47 LRN [id number]) Out-Patient Physical Therapy Visit Information Visit Information Visit Type Treatment Note Visit Start Time 09:02 Visit Stop Time 09:41 Total Visit Minutes 39 Visit Number 16 Evaluation Information Evaluation Date 04/23/22 Precautions Precautions Pt reports chronic neck, back, jaw pain and headaches. PT-OP-B Current Condition Start: 04/22/22 18:26 Freq: Status: Active Protocol: Document 04/23/22 12:46 LRN (Rec: 04/23/22 16:21 LRN [id number]) Current Condition History of Current Condition Onset Date 20 yrs ago, worsened in the past few months. Current Complaints L neck/arm discomfort & numbness including L LE, can't sleep on L side History of Current Condition Pt reports she has had neck pain for the past 20 years of insidious onset. States sometimes driving she can't turn her head to the left due to pain. Once in a while worsening of L arm and leg numbness, and can't sleep on L side. Pt states she moved to [place] a year ago and the referring physician thought PT might help. She states that previous doctors told her she had to live with it. Driving is uncomfortable for really long distances, even as passenger. Headaches on L side. Prior Treatments and Tests Physical therapy previously ~ 2015 in [place]. X-ray report indicates: Loss of lordosis and multilevel spondylosis, most notably with moderate to severe disc degeneration at the C5-C6 level. Next MD visit 05/24/22. Pt given pills (meloxicam), but she doesn't like because they make her sleepy and then she doesn't function well the next day. Future Testing and Treatments Planned None Developmental History Developmental History Moved to [place] a year ago with spouse and dog. PMH: Back pain, was told due to disc problem. Jaw pain - wears mouthguard (pt feels not helpful). Treatment Goals Patient/Caregiver Goals Pt goal is to be able to sleep on L side for 1-2 hours without pain, buckle bra reaching behind back without pain, turning to look to the left for driving. Prior Functional Status Baseline Function- ADL's Independent Baseline Function- Mobility Independent Baseline Function- Other 6 months ago could don bra from behind without pain. Current Functional Impairments (Reported) Functional Limitations- ADL's Sleeps on the L side for 1-2 hrs. Functional Limitations- Work/School Retired from various jobs and being a homemaker. Functional Limitations- Recreation/ Sews and walks her dog daily. Hobbies Has 60 lbs lab. Personal Factors Other Personal Factors That May Effect Chronic L neck/shoulder pain Therapy/Recovery with headaches. PT-OP-C Subjective Start: 04/22/22 18:26 Freq: Status: Active Protocol: Document 07/08/22 09:02 LRN (Rec: 07/08/22 09:47 LRN [id number]) OP-PT Subjective Patient Comments Patient Comments States she has found her self sleeping on the L side without back pain this morning. Has in past had back pain when waking on L side. PT-OP-E Functional Tests Start: 04/22/22 18:26 Freq: Status: Active Protocol: Document 06/03/22 09:06 LRN (Rec: 06/03/22 09:54 LRN [id number]) Functional Tests Apley's Scratch Test Action 2- Left T2 Action 2- Right T3 Action 3- Left T9 Action 3- Right T7 PT-OP-H Neuro Start: 04/22/22 18:26 Freq: Status: Active Protocol: Document 04/23/22 12:46 LRN (Rec: 04/23/22 16:21 LRN [id number]) Sensation Evaluation Gross Sensation Gross Sensation Left UE Impaired,Head Impaired Sensation Description Tingling Deep Tendon Reflex & Clonus Assessment Deep Tendon Reflex Right Brachioradialis Deep Tendon Reflex 2+ Normal Left Brachioradialis Deep Tendon Reflex 3+ Normal But Brisk Bilateral Tricep Deep Tendon Reflex 3+ Normal But Brisk Bilateral Bicep Deep Tendon Reflex 3+ Normal But Brisk PT-OP-J Posture/Palpation/Skin Start: 04/22/22 18:26 Freq: Status: Active Protocol: Document 04/23/22 12:46 LRN (Rec: 04/23/22 16:21 LRN [id number]) Posture Evaluation Position Standing Head/C-Spine Posture Excess Extension,Forward Head T-Spine Posture Increased Kyphosis L-Spine Posture Increased Lordosis Shoulder Posture (R) Elevated Scapula Posture (L) Elevated Arm Posture (L) Internally Rotated,(R) Internally Rotated Weight Distribution Balanced Palpation Assessment Location Upper back Palpation Location L Upper back Palpation Findings Tenderness Posterior neck Palpation Location L Posterior and lateral neck Palpation Findings Tenderness PT-OP-K Range of Motion Start: 04/22/22 18:26 Freq: Status: Active Protocol: Document 06/03/22 09:06 LRN (Rec: 06/03/22 09:54 LR [id number]) Cervical Spine Range of Motion Cervical Spine Active Degrees Testing Position Sitting Flexion 45 Extension 32 Rotation Left 30 Rotation Right 64 Lateral Flexion Left 20 Lateral Flexion Right 10 ROM Limitations Soft Tissue Tightness Comments Pt starting position for SB is 5 deg's L Sidebent. Shoulder Goniometric Range of Motion Shoulder AROM L Testing Position Sitting Flexion 157 Abduction 180 External Rotation at 0 degrees Abduction 38 Internal Rotation Behind Back (text) T9 Comments Reaching behind head: T2 AROM R Testing Position Sitting Flexion 148 Abduction 180 External Rotation at 0 degrees Abduction 48 Internal Rotation Behind Back (text) T7 Comments Reaching behind head: T3 PT-OP-L Special Tests Start: 04/22/22 18:26 Freq: Status: Active Protocol: Document 07/05/22 09:04 LRN (Rec: 07/05/22 09:46 LR [id number]) Special Tests Cervical Spine Special Tests Thoracic Outlet Test Results - L side PT-OP-M Strength Start: 04/22/22 18:26 Freq: Status: Active Protocol: Document 04/23/22 12:46 LRN (Rec: 04/23/22 16:21 LR [id number]) Cervical Spine Strength Cervical Spine Manual Muscle Testing Testing Position Supine Flexion (C1-2) 5 Normal Extension 5 Normal Rotation Left 3+ Fair+ Rotation Right 4 Good Lateral Flexion Left (C3) 5 Normal Lateral Flexion Right (C3) 5 Normal Shoulder Strength Shoulder Manual Muscle Testing Right Flexion 5 Normal Abduction (C5) 5 Normal External Rotation 5 Normal Internal Rotation 5 Normal Left Flexion 3- Fair- Abduction (C5) 3- Fair- External Rotation 3- Fair- Internal Rotation 4 Good Hand Claims Support Specialist/Pinch Strength Hand Dominance Hand Dominance Right PT-OP-Q Treatments Start: 04/22/22 18:26 Freq: Status: Active Protocol: Document 07/08/22 09:02 LRN (Rec: 07/08/22 09:47 LRN [id number]) Therapeutic Exercises Supine Exercises Neck Elongation/Head nods Supine Exercise Name Neck Elongation w/Head Nods Reps/Minutes 10x Shldr ER Supine Exercise Name Neck Elongation w/Juan Shldr ER at different angles Side bilateral Equipment Used Belt: -20, -10, 0, 5, 10, 30, 45 deg's ER Reps/Minutes 10SH x 3 for all angles Comments Cuing to keep L side in ER for strengthening. Sitting Exercises C. Rot w/Thoracic rot Sitting Exercise Name Active C Rot w/ Thoracic rot Side bilateral Reps/Minutes 2x stretch Manual Therapy Treatment Soft Tissue Mobilization Neck Body Location L>R SCM, Occipitals, Levator, UT; & R Lev Scap Mobilization Type Sustained Pressure Intensity/Depth Moderate Body Position Supine Comments C/R stretch into L rot. Passive C. L rot with R arm big circles, & with deep breathing. Joint Mobilizations C3-C6 Joint Balancing C2-C3. Grade II Body Position Supine Reps/Duration 8 PT-OP-R Modalities Start: 04/22/22 18:26 Freq: Status: Active Protocol: Document 05/06/22 12:34 LRN (Rec: 05/06/22 13:50 LRN [id number]) Electric Stimulation Electric Stimulation Interferential Current (IFC) Body Location Neck (L UT>lat shoulder, Infras>Pec) Duration (Minutes) 10 Intensity 14 Target/Sweep Sweep Patient Position Hooklying Combined With Heat/Cold Hot Pack Comments Legs on bolster. PT-OP-T Assessment and Plan Start: 04/22/22 18:26 Freq: Status: Active Protocol: Document 07/08/22 09:02 LRN (Rec: 07/08/22 09:47 LRN [id number]) Physical Therapy Assessment Goals Five Impairment Decreased L shoulder stability Long-Term Goal (LTG) Improve L shoulder strength/ stability with pt able to tolerate sleeping on her L side, up to 1-2 hours before waking due to pain. 06/11/22: continues have pain laying on left, limits time ( 20min maybe). 07/08/22: Thinks sleep on L side for ~30', today for first time woke on L side without pain. LTG Duration 07/30/22 progressin Four Impairment L shoulder weakness Impairment L shoulder strength: Flex, AB , ER is 3-/5 (R is 5/5) UE QuickDASH score is 31.81 ( 20-39% impaired) Short Term Goal (STG) Improve L shoulder flex, AB, ER strength to no less than 3+ /5. 06/03/22: L shldr Flex, AB 5/ 5, ER 4/5, IR 4+/5. STG Duration 06/07/22 (06/03/22: MET GOAL ) Long-Term Goal (LTG) Improve L shoulder strength to improve function per UE QuickDASH score 1-19 (1-19% impaired). 05/18/22: Quickdash score: 25% (20-39% impaired), improved from 31.81%. Neck diasbility index: score 10, improved from 12 (20-39% impaired) 06/03/22: Quickdash score: 11 .36 (1-19% impaired, score 1- 19). LTG Duration 07/22/22 (06/03/22: MET GOAL) Three Impairment Decreased L shoulder mobility Impairment Shoulder AROM (in deg's): Flex 140 L, 180 R; AB 90 L, 180 R; ER 55 L, 90 R; IR 72 L, 85 R. Behind back: L5 left, T7 right. Short Term Goal (STG) Pt will be educated in sleep positions and will improve sleep quality on the L side for 1-2 hours without pain. 05/03 & 04/17: I/S pt in best practice for side sleeping and head/neck posturing. 06/03/22: NOT able to sleep on L side for any length of time . 06/07/22: Pt sleeping ~5 hrs per night. STG Duration 06/07/22 (06/07/22: MET GOAL ) Polysomnography Technologist Goal (LTG) Improve L shoulder AROM with pt able to buckle bra reaching behind back without pain. 05/18/22: supine: Flex 139 L, 180 R; AB 55 L, 135 R, seated ER L 60 deg R 61 deg. 06/03/22: sitting: Flex 157 L , 148 R; AB 180 bilaterally. 0 deg's AB: ER 38 L, 48 R. Behind back: T9 L, T7 R. Pt able to buckle bra behind the back, rarely with pain. ROM goal not met for ER/IR. LTG Duration 07/22/22 (06/03/22: GOAL MET for flex, AB, & for the functional movement) Two Impairment Decreased neck mobility. Impairment Cervical AROM (in deg's): Rot is 25 L, 50 R; SB is 18 L, 15 R. Short Term Goal (STG) Pt educated in proper head/ neck posturing in standing, sitting and with reading. 05/06/22 05/11/22:Educated pt on proper posture while reading in chair and in bed using pillows , etc. to prop up book to eye height, with chin tucks and scap retraction ex. 06/11/22: pt stated purchased book support and helping in decreased neck pain. STG Duration 05/14/22 (05/03/22 & 05/11/22: MET GOAL) Long-Term Goal (LTG) Improve L Cervical rotation AROM with pt able to turn to look left comfortably for driving. 04/29/22: HEP: C. rot stretch . 05/18/22: Rot L 25, R 45; SB is 15 R, 16 L. 06/03/22: Rot L 30, R 64; SB is 20 L, 10 R. Improved C. AROM. Has discomfort in looking L while driving. 06/11/22: improved ROM L post manal SCM and use theracane posterior neck. LTG Duration 07/30/22 Improving 06/11/22. One Impairment Pt is not currently on a self care HEP. Short Term Goal (STG) Pt will be educated in sleep positions and use of modalities for pain management . 05/03 & 04/17: Educated pt in best Sleep positioning. 05/31/22: Educated and discussed proper nighttime modalities for pain control. STG Duration 04/30/22 (05/31/22: MET GOAL) Polysomnography Technologist Goal (LTG) Pt will be independent with a self care HEP of left neck/ shoulder/UE exercises. 04/29/22: HEP: C. rot & UT stretch, UE neural stretches ( radial, ulnar & median nerves) 05/28/22:Deep neck flexors lift . 06/03/22: AROM L shoulder ER/ IR. 06/11/22: AROM L>R shld ER 45 deg windshield wipers, abd 80deg stretch/ wipers, ABD hands under head stretch/ elbow press table/ wrist press table with breath painfree. Introduced open book side. 07/05/22: I/S pt in Juan shoulder ER ex in multiple angles of ER. LTG Duration 07/30/22 progressed 07/05/22 Progress Towards Goals Progress Comments Increased time able to sleep on L side. No back pain today waking on L side. Assessment Summary Assessment Pt sleeping longer on L side with 1x without onset of back pain. Pt C. L rot improves after manual therapy. Decreased thoracic L rotation limits ability to look behind. GOAL MET for flex, AB, not IR/behind back & head) Physical Therapy Plan Frequency and Duration Frequency of Treatment 2x/Week Plan of Care Start Date 06/03/22 Plan of Care End Date 07/30/22 Next Visit Focus/Plan Next Note Type Treatment Note Next Visit Plan Next: Add thoracic L rot & continue C/S L rot stretch. Review shld isometric ER, Add shldr/scap strengthening stab ex's: TB IR/ ER/ rows. Monitor for improved sleep quality at nighttime (1-2 hrs) . POC: Increase focus on C/S & T/S L rot; L shoulder strengthening/stabilization, but continue manual therapy for relief of neck/LB pain symptoms. Ther ex: neck, L shoulder, scapula stabilization. Stretch as needed: L shoulder , scapula (monitor cervical & UE neural stretch). [ End ]
--- NOTE | 2022-07-13 12:24 | PT.OTN ---
Current Diagnoses Other chronic pain (07/13/22) Cervicalgia (07/13/22) Muscle weakness (generalized) (07/13/22) Physical Therapy Treatment Note PT-OP-A Visit Information Start: 04/22/22 18:26 Freq: Status: Active Protocol: Document 07/13/22 11:29 LRN (Rec: 07/13/22 12:20 LRN [id number]) Out-Patient Physical Therapy Visit Information Visit Information Visit Type Treatment Note Visit Note 7 after PN Visit Start Time 11:29 Visit Stop Time 12:07 Total Visit Minutes 38 Visit Number 17 total, 09/12 Evaluation Information Evaluation Date 04/23/22 Precautions Precautions Pt reports chronic neck, back, jaw pain and headaches. PT-OP-B Current Condition Start: 04/22/22 18:26 Freq: Status: Active Protocol: Document 04/23/22 12:46 LRN (Rec: 04/23/22 16:21 LRN [id number]) Current Condition History of Current Condition Onset Date 20 yrs ago, worsened in the past few months. Current Complaints L neck/arm discomfort & numbness including L LE, can't sleep on L side History of Current Condition Pt reports she has had neck pain for the past 20 years of insidious onset. States sometimes driving she can't turn her head to the left due to pain. Once in a while worsening of L arm and leg numbness, and can't sleep on L side. Pt states she moved to [place] a year ago and the referring physician thought PT might help. She states that previous doctors told her she had to live with it. Driving is uncomfortable for really long distances, even as passenger. Headaches on L side. Prior Treatments and Tests Physical therapy previously ~ 2015 in [place]. X-ray report indicates: Loss of lordosis and multilevel spondylosis, most notably with moderate to severe disc degeneration at the C5-C6 level. Next MD visit 05/24/22. Pt given pills (meloxicam), but she doesn't like because they make her sleepy and then she doesn't function well the next day. Future Testing and Treatments Planned None Developmental History Developmental History Moved to [place] a year ago with spouse and dog. PMH: Back pain, was told due to disc problem. Jaw pain - wears mouthguard (pt feels not helpful). Treatment Goals Patient/Caregiver Goals Pt goal is to be able to sleep on L side for 1-2 hours without pain, buckle bra reaching behind back without pain, turning to look to the left for driving. Prior Functional Status Baseline Function- ADL's Independent Baseline Function- Mobility Independent Baseline Function- Other 6 months ago could don bra from behind without pain. Current Functional Impairments (Reported) Functional Limitations- ADL's Sleeps on the L side for 1-2 hrs. Functional Limitations- Work/School Retired from various jobs and being a homemaker. Functional Limitations- Recreation/ Sews and walks her dog daily. Hobbies Has 60 lbs lab. Personal Factors Other Personal Factors That May Effect Chronic L neck/shoulder pain Therapy/Recovery with headaches. PT-OP-C Subjective Start: 04/22/22 18:26 Freq: Status: Active Protocol: Document 07/13/22 11:29 LRN (Rec: 07/13/22 12:20 LRN [id number]) OP-PT Subjective Patient Comments Patient Comments States she is doing good, didn 't get much seep- brooklynn dog got sick. PT-OP-E Functional Tests Start: 04/22/22 18:26 Freq: Status: Active Protocol: Document 06/03/22 09:06 LRN (Rec: 06/03/22 09:54 LRN [id number]) Functional Tests Apley's Scratch Test Action 2- Left T2 Action 2- Right T3 Action 3- Left T9 Action 3- Right T7 PT-OP-H Neuro Start: 04/22/22 18:26 Freq: Status: Active Protocol: Document 04/23/22 12:46 LRN (Rec: 04/23/22 16:21 LRN [id number]) Sensation Evaluation Gross Sensation Gross Sensation Left UE Impaired,Head Impaired Sensation Description Tingling Deep Tendon Reflex & Clonus Assessment Deep Tendon Reflex Right Brachioradialis Deep Tendon Reflex 2+ Normal Left Brachioradialis Deep Tendon Reflex 3+ Normal But Brisk Bilateral Tricep Deep Tendon Reflex 3+ Normal But Brisk Bilateral Bicep Deep Tendon Reflex 3+ Normal But Brisk PT-OP-J Posture/Palpation/Skin Start: 04/22/22 18:26 Freq: Status: Active Protocol: Document 04/23/22 12:46 LRN (Rec: 04/23/22 16:21 LRN [id number]) Posture Evaluation Position Standing Head/C-Spine Posture Excess Extension,Forward Head T-Spine Posture Increased Kyphosis L-Spine Posture Increased Lordosis Shoulder Posture (R) Elevated Scapula Posture (L) Elevated Arm Posture (L) Internally Rotated,(R) Internally Rotated Weight Distribution Balanced Palpation Assessment Location Upper back Palpation Location L Upper back Palpation Findings Tenderness Posterior neck Palpation Location L Posterior and lateral neck Palpation Findings Tenderness PT-OP-K Range of Motion Start: 04/22/22 18:26 Freq: Status: Active Protocol: Document 06/03/22 09:06 LRN (Rec: 06/03/22 09:54 [facility] [id number]) Cervical Spine Range of Motion Cervical Spine Active Degrees Testing Position Sitting Flexion 45 Extension 32 Rotation Left 30 Rotation Right 64 Lateral Flexion Left 20 Lateral Flexion Right 10 ROM Limitations Soft Tissue Tightness Comments Pt starting position for SB is 5 deg's L Sidebent. Shoulder Goniometric Range of Motion Shoulder AROM L Testing Position Sitting Flexion 157 Abduction 180 External Rotation at 0 degrees Abduction 38 Internal Rotation Behind Back (text) T9 Comments Reaching behind head: T2 AROM R Testing Position Sitting Flexion 148 Abduction 180 External Rotation at 0 degrees Abduction 48 Internal Rotation Behind Back (text) T7 Comments Reaching behind head: T3 PT-OP-L Special Tests Start: 04/22/22 18:26 Freq: Status: Active Protocol: Document 07/05/22 09:04 LRN (Rec: 07/05/22 09:46 LR [id number]) Special Tests Cervical Spine Special Tests Thoracic Outlet Test Results - L side PT-OP-M Strength Start: 04/22/22 18:26 Freq: Status: Active Protocol: Document 04/23/22 12:46 LRN (Rec: 04/23/22 16:21 [facility] [id number]) Cervical Spine Strength Cervical Spine Manual Muscle Testing Testing Position Supine Flexion (C1-2) 5 Normal Extension 5 Normal Rotation Left 3+ Fair+ Rotation Right 4 Good Lateral Flexion Left (C3) 5 Normal Lateral Flexion Right (C3) 5 Normal Shoulder Strength Shoulder Manual Muscle Testing Right Flexion 5 Normal Abduction (C5) 5 Normal External Rotation 5 Normal Internal Rotation 5 Normal Left Flexion 3- Fair- Abduction (C5) 3- Fair- External Rotation 3- Fair- Internal Rotation 4 Good Hand Enrollment Management Director/Pinch Strength Hand Dominance Hand Dominance Right PT-OP-Q Treatments Start: 04/22/22 18:26 Freq: Status: Active Protocol: Document 07/13/22 11:29 LRN (Rec: 07/13/22 12:20 LRN [id number]) Therapeutic Exercises Supine Exercises Neck/Elong w/Alternate arm lifts Supine Exercise Name Neck/Elong w/Alternate arm lifts Reps/Minutes 10x each Comments Extra time taken for awareness of neck elongation. Sidelying Exercises Arm/upper body circles Sidelying Exercise Name Arm/upper body circles, L>R Side bilateral Reps/Minutes 5x each direction open book Sidelying Exercise Name Open Book - increased stretch on C/S & T/S rot Side bilateral Resistance AROM Reps/Minutes 15x bilaterally Comments Cuing and traning needed to count reps for breathwork Sitting Exercises Shldr/upper back stretch Sitting Exercise Name Reaching overhead>palms to ceiling/breath>scap retract/ exhale Side bilateral Reps/Minutes 10x Manual Therapy Treatment Soft Tissue Mobilization Neck Body Location L>R SCM, Occipitals, Levator, UT; & R Lev Scap Mobilization Type Sustained Pressure Intensity/Depth Moderate Body Position Supine Comments C/R stretch into L rot. Passive C. L rot with R arm big circles, & with deep breathing. Joint Mobilizations C3-C6 Joint Balancing C3-C5. Grade II Body Position Supine Reps/Duration 8 Comments initially decreased mob R to L of C3-C5. Self-Care/Home Management Treatment Education Patient Education Home Exercise Program Other Education Quick review of strap pt using for ER juan strengthening exercise, educating in 2-3 different ER holds beyond neutral. Activities Self-Care/Home Management Activities Issued & reviewed HEP: PROM/AROM C. neck rot, sup arm lifts, sidelie arm/body circles, & shoulder & upper body stretch. PT-OP-R Modalities Start: 04/22/22 18:26 Freq: Status: Active Protocol: Document 05/06/22 12:34 LRN (Rec: 05/06/22 13:50 LRN [id number]) Electric Stimulation Electric Stimulation Interferential Current (IFC) Body Location Neck (L UT>lat shoulder, Infras>Pec) Duration (Minutes) 10 Intensity 14 Target/Sweep Sweep Patient Position Hooklying Combined With Heat/Cold Hot Pack Comments Legs on bolster. PT-OP-T Assessment and Plan Start: 04/22/22 18:26 Freq: Status: Active Protocol: Document 07/13/22 11:29 LRN (Rec: 07/13/22 12:20 LRN [id number]) Physical Therapy Assessment Goals Five Impairment Decreased L shoulder stability Half-Way Goal (LTG) Improve L shoulder strength/ stability with pt able to tolerate sleeping on her L side, up to 1-2 hours before waking due to pain. 06/11/22: continues have pain laying on left, limits time ( 20min maybe). 07/08/22: Thinks sleep on L side for ~30', today for first time woke on L side without pain. LTG Duration 07/30/22 progressin Three Impairment Decreased L shoulder mobility Impairment Shoulder AROM (in deg's): Flex 140 L, 180 R; AB 90 L, 180 R; ER 55 L, 90 R; IR 72 L, 85 R. Behind back: L5 left, T7 right. Short Term Goal (STG) Pt will be educated in sleep positions and will improve sleep quality on the L side for 1-2 hours without pain. 05/03 & 04/17: I/S pt in best practice for side sleeping and head/neck posturing. 06/03/22: NOT able to sleep on L side for any length of time . 06/07/22: Pt sleeping ~5 hrs per night. STG Duration 06/07/22 (06/07/22: MET GOAL ) [employer] Executive Goal (LTG) Improve L shoulder AROM with pt able to buckle bra reaching behind back without pain. 05/18/22: supine: Flex 139 L, 180 R; AB 55 L, 135 R, seated ER L 60 deg R 61 deg. 06/03/22: sitting: Flex 157 L , 148 R; AB 180 bilaterally. 0 deg's AB: ER 38 L, 48 R. Behind back: T9 L, T7 R. Pt able to buckle bra behind the back, rarely with pain. ROM goal not met for ER/IR. LTG Duration 07/22/22 (06/03/22: GOAL MET for flex, AB, & for the functional movement) Two Impairment Decreased neck mobility. Impairment Cervical AROM (in deg's): Rot is 25 L, 50 R; SB is 18 L, 15 R. Short Term Goal (STG) Pt educated in proper head/ neck posturing in standing, sitting and with reading. 05/06/22 05/11/22:Educated pt on proper posture while reading in chair and in bed using pillows , etc. to prop up book to eye height, with chin tucks and scap retraction ex. 06/11/22: pt stated purchased book support and helping in decreased neck pain. STG Duration 05/14/22 (05/03/22 & 05/11/22: MET GOAL) Half-Way Goal (LTG) Improve L Cervical rotation AROM with pt able to turn to look left comfortably for driving. 04/29/22: HEP: C. rot stretch . 05/18/22: Rot L 25, R 45; SB is 15 R, 16 L. 06/03/22: Rot L 30, R 64; SB is 20 L, 10 R. Improved C. AROM. Has discomfort in looking L while driving. 06/11/22: improved ROM L post manal SCM and use theracane posterior neck. LTG Duration 07/30/22 Improving 06/11/22. One Impairment Pt is not currently on a self care HEP. Short Term Goal (STG) Pt will be educated in sleep positions and use of modalities for pain management . 05/03 & 04/17: Educated pt in best Sleep positioning. 05/31/22: Educated and discussed proper nighttime modalities for pain control. STG Duration 04/30/22 (05/31/22: MET GOAL) [employer] Executive Goal (LTG) Pt will be independent with a self care HEP of left neck/ shoulder/UE exercises. 04/29/22: HEP: C. rot & UT stretch, UE neural stretches ( radial, ulnar & median nerves) 05/28/22:Deep neck flexors lift . 06/03/22: AROM L shoulder ER/ IR. 06/11/22: AROM L>R shld ER 45 deg windshield wipers, abd 80deg stretch/ wipers, ABD hands under head stretch/ elbow press table/ wrist press table with breath painfree. Introduced open book side. 07/05/22: I/S pt in Juan shoulder ER ex in multiple angles of ER. 07/13/22: HEP: PROM/AROM C. neck rot, sup arm lifts, sidelie arm/body circles, & shoulder & upper body stretch. LTG Duration 07/30/22 progressed 07/05/22 Assessment Summary Assessment Pt much improved ease of mobility with L C/S active/ passive rotation after STM. Addition/review of Open Book stretch and T/S & C/S L rot stretch with good tolerance and increased ease of mobility . Physical Therapy Plan Frequency and Duration Frequency of Treatment 2x/Week Plan of Care Start Date 06/03/22 Plan of Care End Date 07/30/22 Next Visit Focus/Plan Next Note Type Treatment Note Next Visit Plan Next: Review issued HEP: C/S L rot & thoracic/arm rot & shldr/upper back stretch. Review shld isometric ER, Add shldr/scap strengthening stab ex's: TB IR/ ER/ rows. Monitor for improved sleep quality at nighttime (1-2 hrs) . POC: Increase focus on C/S & T/S L rot; L shoulder strengthening/stabilization, but continue manual therapy for relief of neck/LB pain symptoms. Ther ex: neck, L shoulder, scapula stabilization. Stretch as needed: L shoulder , scapula (monitor cervical & UE neural stretch). [ End ]
--- NOTE | 2022-07-20 16:05 | PT.OTN ---
Current Diagnoses Other chronic pain (07/20/22) Cervicalgia (07/20/22) Muscle weakness (generalized) (07/20/22) Physical Therapy Treatment Note PT-OP-A Visit Information Start: 04/22/22 18:26 Freq: Status: Active Protocol: Document 07/20/22 13:00 LRN (Rec: 07/20/22 14:15 LRN [id number]) Out-Patient Physical Therapy Visit Information Visit Information Visit Type Treatment Note Visit Note 8 after PN Visit Start Time 13:00 Visit Stop Time 13:40 Total Visit Minutes 40 Visit Number 18 total, 10/13 Evaluation Information Evaluation Date 04/23/22 Precautions Precautions Pt reports chronic neck, back, jaw pain and headaches. PT-OP-B Current Condition Start: 04/22/22 18:26 Freq: Status: Active Protocol: Document 04/23/22 12:46 LRN (Rec: 04/23/22 16:21 LRN [id number]) Current Condition History of Current Condition Onset Date 20 yrs ago, worsened in the past few months. Current Complaints L neck/arm discomfort & numbness including L LE, can't sleep on L side History of Current Condition Pt reports she has had neck pain for the past 20 years of insidious onset. States sometimes driving she can't turn her head to the left due to pain. Once in a while worsening of L arm and leg numbness, and can't sleep on L side. Pt states she moved to [place] a year ago and the referring physician thought PT might help. She states that previous doctors told her she had to live with it. Driving is uncomfortable for really long distances, even as passenger. Headaches on L side. Prior Treatments and Tests Physical therapy previously ~ 2015 in [place]. X-ray report indicates: Loss of lordosis and multilevel spondylosis, most notably with moderate to severe disc degeneration at the C5-C6 level. Next MD visit 05/24/22. Pt given pills (meloxicam), but she doesn't like because they make her sleepy and then she doesn't function well the next day. Future Testing and Treatments Planned None Developmental History Developmental History Moved to [place] a year ago with spouse and dog. PMH: Back pain, was told due to disc problem. Jaw pain - wears mouthguard (pt feels not helpful). Treatment Goals Patient/Caregiver Goals Pt goal is to be able to sleep on L side for 1-2 hours without pain, buckle bra reaching behind back without pain, turning to look to the left for driving. Prior Functional Status Baseline Function- ADL's Independent Baseline Function- Mobility Independent Baseline Function- Other 6 months ago could don bra from behind without pain. Current Functional Impairments (Reported) Functional Limitations- ADL's Sleeps on the L side for 1-2 hrs. Functional Limitations- Work/School Retired from various jobs and being a homemaker. Functional Limitations- Recreation/ Sews and walks her dog daily. Hobbies Has 60 lbs lab. Personal Factors Other Personal Factors That May Effect Chronic L neck/shoulder pain Therapy/Recovery with headaches. PT-OP-C Subjective Start: 04/22/22 18:26 Freq: Status: Active Protocol: Document 07/20/22 13:00 LRN (Rec: 07/20/22 14:15 LRN [id number]) OP-PT Subjective Patient Comments Patient Comments Pt reports no change. Able to sleep on L side only 1 hr last night due to pain in shoulder. PT-OP-E Functional Tests Start: 04/22/22 18:26 Freq: Status: Active Protocol: Document 06/03/22 09:06 LRN (Rec: 06/03/22 09:54 LRN [id number]) Functional Tests Apley's Scratch Test Action 2- Left T2 Action 2- Right T3 Action 3- Left T9 Action 3- Right T7 PT-OP-H Neuro Start: 04/22/22 18:26 Freq: Status: Active Protocol: Document 04/23/22 12:46 LRN (Rec: 04/23/22 16:21 LRN [id number]) Sensation Evaluation Gross Sensation Gross Sensation Left UE Impaired,Head Impaired Sensation Description Tingling Deep Tendon Reflex & Clonus Assessment Deep Tendon Reflex Right Brachioradialis Deep Tendon Reflex 2+ Normal Left Brachioradialis Deep Tendon Reflex 3+ Normal But Brisk Bilateral Tricep Deep Tendon Reflex 3+ Normal But Brisk Bilateral Bicep Deep Tendon Reflex 3+ Normal But Brisk PT-OP-J Posture/Palpation/Skin Start: 04/22/22 18:26 Freq: Status: Active Protocol: Document 04/23/22 12:46 LRN (Rec: 04/23/22 16:21 LRN [id number]) Posture Evaluation Position Standing Head/C-Spine Posture Excess Extension,Forward Head T-Spine Posture Increased Kyphosis L-Spine Posture Increased Lordosis Shoulder Posture (R) Elevated Scapula Posture (L) Elevated Arm Posture (L) Internally Rotated,(R) Internally Rotated Weight Distribution Balanced Palpation Assessment Location Upper back Palpation Location L Upper back Palpation Findings Tenderness Posterior neck Palpation Location L Posterior and lateral neck Palpation Findings Tenderness PT-OP-K Range of Motion Start: 04/22/22 18:26 Freq: Status: Active Protocol: Document 07/20/22 13:00 LRN (Rec: 07/20/22 14:15 LRN [id number]) Cervical Spine Range of Motion Cervical Spine Active Degrees Testing Position Sitting Rotation Left 35 Rotation Right 42 Lateral Flexion Left 12 Lateral Flexion Right 15 ROM Limitations Pain Comments End of therapy AROM (deg's): Rot: L 52, R 53 PT-OP-L Special Tests Start: 04/22/22 18:26 Freq: Status: Active Protocol: Document 07/05/22 09:04 LRN (Rec: 07/05/22 09:46 LRN [id number]) Special Tests Cervical Spine Special Tests Thoracic Outlet Test Results - L side PT-OP-M Strength Start: 04/22/22 18:26 Freq: Status: Active Protocol: Document 04/23/22 12:46 LRN (Rec: 04/23/22 16:21 LRN [id number]) Cervical Spine Strength Cervical Spine Manual Muscle Testing Testing Position Supine Flexion (C1-2) 5 Normal Extension 5 Normal Rotation Left 3+ Fair+ Rotation Right 4 Good Lateral Flexion Left (C3) 5 Normal Lateral Flexion Right (C3) 5 Normal Shoulder Strength Shoulder Manual Muscle Testing Right Flexion 5 Normal Abduction (C5) 5 Normal External Rotation 5 Normal Internal Rotation 5 Normal Left Flexion 3- Fair- Abduction (C5) 3- Fair- External Rotation 3- Fair- Internal Rotation 4 Good Hand Sugar Reprocess Operator Head/Pinch Strength Hand Dominance Hand Dominance Right PT-OP-Q Treatments Start: 04/22/22 18:26 Freq: Status: Active Protocol: Document 07/20/22 13:00 LRN (Rec: 07/20/22 14:15 LRN [id number]) Therapeutic Exercises Sidelying Exercises Arm/upper body circles Sidelying Exercise Name C/S in L rot wi/Arm/upper body circles, L>R Side bilateral Reps/Minutes 15 x each direction open book Sidelying Exercise Name Open Book - slow stretch on C/ S & T/S rot Side bilateral Resistance AROM Reps/Minutes 10x 2 bilaterally Comments Cuing and training needed to count reps for breathwork Sitting Exercises C. Rot w/Thoracic rot Sitting Exercise Name Active C Rot w/ Thoracic rot Side bilateral Reps/Minutes 2x stretch Comments Cuing for thoracic rot with opp side of rot driving movement. C. Rot stretch Sitting Exercise Name C. Active Rot (occasional R rot) Side left Reps/Minutes 2' Standing Exercises Row Standing Exercise Name ow Side bilateral Comments Cuing to keep L shoulder from elevating. Shoulder ER Standing Exercise Name Shoulder ER strengthening Side left Equipment Used Lev 2 TB Reps/Minutes 30x Shoulder IR Standing Exercise Name Shoulder IR strengthening Side left Equipment Used Lev 2 TB Reps/Minutes 30x Manual Therapy Treatment Manual Techniques MWM of upper T/S rot Type T/S L>R rot with head turn to start Body Location [place] side of rotation driving rot of upper T/S Body Position Sitting Reps/Duration 10x 3 MWM of neck Type C. L rot w/ assist to rot Body Position Sitting Reps/Duration 10x 3 PT-OP-R Modalities Start: 04/22/22 18:26 Freq: Status: Active Protocol: Document 05/06/22 12:34 LRN (Rec: 05/06/22 13:50 LRN [id number]) Electric Stimulation Electric Stimulation Interferential Current (IFC) Body Location Neck (L UT>lat shoulder, Infras>Pec) Duration (Minutes) 10 Intensity 14 Target/Sweep Sweep Patient Position Hooklying Combined With Heat/Cold Hot Pack Comments Legs on bolster. PT-OP-T Assessment and Plan Start: 04/22/22 18:26 Freq: Status: Active Protocol: Document 07/20/22 13:00 LRN (Rec: 07/20/22 14:15 LRN [id number]) Physical Therapy Assessment Goals Five Impairment Decreased L shoulder stability Longterm Goal (LTG) Improve L shoulder strength/ stability with pt able to tolerate sleeping on her L side, up to 1-2 hours before waking due to pain. 06/11/22: continues have pain laying on left, limits time ( 20min maybe). 07/08/22: Thinks sleep on L side for ~30', today for first time woke on L side without pain. 07/20/22: Was only able to sleep on it 1 hour yesterday. LTG Duration 07/30/22 Worse, but still able to lie on it 1 hr: Three Impairment Decreased L shoulder mobility Impairment Shoulder AROM (in deg's): Flex 140 L, 180 R; AB 90 L, 180 R; ER 55 L, 90 R; IR 72 L, 85 R. Behind back: L5 left, T7 right. Short Term Goal (STG) Pt will be educated in sleep positions and will improve sleep quality on the L side for 1-2 hours without pain. 05/03 & 04/17: I/S pt in best practice for side sleeping and head/neck posturing. 06/03/22: NOT able to sleep on L side for any length of time . 06/07/22: Pt sleeping ~5 hrs per night. STG Duration 06/07/22 (06/07/22: MET GOAL ) Longterm Goal (LTG) Improve L shoulder AROM with pt able to buckle bra reaching behind back without pain. 05/18/22: supine: Flex 139 L, 180 R; AB 55 L, 135 R, seated ER L 60 deg R 61 deg. 06/03/22: sitting: Flex 157 L , 148 R; AB 180 bilaterally. 0 deg's AB: ER 38 L, 48 R. Behind back: T9 L, T7 R. Pt able to buckle bra behind the back, rarely with pain. ROM goal not met for ER/IR. LTG Duration 07/22/22 (06/03/22: GOAL MET for flex, AB, & for the functional movement) Two Impairment Decreased neck mobility. Impairment Cervical AROM (in deg's): Rot is 25 L, 50 R; SB is 18 L, 15 R. Short Term Goal (STG) Pt educated in proper head/ neck posturing in standing, sitting and with reading. 05/06/22 05/11/22:Educated pt on proper posture while reading in chair and in bed using pillows , etc. to prop up book to eye height, with chin tucks and scap retraction ex. 06/11/22: pt stated purchased book support and helping in decreased neck pain. STG Duration 05/14/22 (05/03/22 & 05/11/22: MET GOAL) Longterm Goal (LTG) Improve L Cervical rotation AROM with pt able to turn to look left comfortably for driving. 04/29/22: HEP: C. rot stretch . 05/18/22: Rot L 25, R 45; SB is 15 R, 16 L. 06/03/22: Rot L 30, R 64; SB is 20 L, 10 R. Improved C. AROM. Has discomfort in looking L while driving. 06/11/22: improved ROM L post manal SCM and use theracane posterior neck. 07/20/22: C. AROM at start: Rot: L 35, R 42; SB L 12, R 15. C. AROM post therapy: Rot L 52, R 53. LTG Duration 07/30/22 Improving symmetry of mvmt 07/20/22. One Impairment Pt is not currently on a self care HEP. Short Term Goal (STG) Pt will be educated in sleep positions and use of modalities for pain management . 05/03 & 04/17: Educated pt in best Sleep positioning. 05/31/22: Educated and discussed proper nighttime modalities for pain control. STG Duration 04/30/22 (05/31/22: MET GOAL) Wrapper Caser Goal (LTG) Pt will be independent with a self care HEP of left neck/ shoulder/UE exercises. 04/29/22: HEP: C. rot & UT stretch, UE neural stretches ( radial, ulnar & median nerves) 05/28/22:Deep neck flexors lift . 06/03/22: AROM L shoulder ER/ IR. 06/11/22: AROM L>R shld ER 45 deg windshield wipers, abd 80deg stretch/ wipers, ABD hands under head stretch/ elbow press table/ wrist press table with breath painfree. Introduced open book side. 07/05/22: I/S pt in [place] shoulder ER ex in multiple angles of ER. 07/13/22: HEP: PROM/AROM C. neck rot, sup arm lifts, sidelie arm/body circles, & shoulder & upper body stretch. LTG Duration 07/30/22 progressed 07/05/22 Assessment Summary Assessment Pt demonstrates improved C. AROM after stretching. She needed further training for C/ S L rot & thoracic/arm rot & shldr/upper back stretch. Her L shoulder tolerance to sidelying is still improved overall to be able to lie on it for 1 hr before having to move off her shoulder. Further strengthening and stabilizing should be able to improve her sleep tolerance. Pt able to tolerate L shoulder ER/IR/row strengthening with TB today, but her UT's overpower her scap depressors. Physical Therapy Plan Frequency and Duration Frequency of Treatment 2x/Week Plan of Care Start Date 06/03/22 Plan of Care End Date 07/30/22 Next Visit Focus/Plan Next Note Type Treatment Note Next Visit Plan New POC needed in 1-2 visits. Next: Review issued HEP: C/ S L rot & thoracic/arm rot & shldr/upper back stretch. Progress shoulder ER/IR ROM & strength. Add to HEP: shldr/scap strengthening stab ex's w/ focus on scap depression: TB IR/ ER/ rows. Monitor for improved sleep quality at nighttime (1-2 hrs) . POC: Increase focus on C/S & T/S L rot; L shoulder strengthening/stabilization, but continue manual therapy for relief of neck/LB pain symptoms. Ther ex: neck, L shoulder, scapula stabilization. Stretch as needed: L shoulder , scapula (monitor cervical & UE neural stretch). [ End ]
--- NOTE | 2022-07-22 12:24 | PT.OTN ---
Current Diagnoses Other chronic pain (07/22/22) Cervicalgia (07/22/22) Muscle weakness (generalized) (07/22/22) Physical Therapy Treatment Note PT-OP-A Visit Information Start: 04/22/22 18:26 Freq: Status: Active Protocol: Document 07/22/22 11:18 LRN (Rec: 07/22/22 12:22 LRN [id number]) Out-Patient Physical Therapy Visit Information Visit Information Visit Type Treatment Note Visit Note 9 after PN Visit Start Time 11:18 Visit Stop Time 12:08 Total Visit Minutes 50 Visit Number 19 total, 11/12 Evaluation Information Evaluation Date 04/23/22 Precautions Precautions Pt reports chronic neck, back, jaw pain and headaches. PT-OP-B Current Condition Start: 04/22/22 18:26 Freq: Status: Active Protocol: Document 04/23/22 12:46 LRN (Rec: 04/23/22 16:21 LRN [id number]) Current Condition History of Current Condition Onset Date 20 yrs ago, worsened in the past few months. Current Complaints L neck/arm discomfort & numbness including L LE, can't sleep on L side History of Current Condition Pt reports she has had neck pain for the past 20 years of insidious onset. States sometimes driving she can't turn her head to the left due to pain. Once in a while worsening of L arm and leg numbness, and can't sleep on L side. Pt states she moved to [place] a year ago and the referring physician thought PT might help. She states that previous doctors told her she had to live with it. Driving is uncomfortable for really long distances, even as passenger. Headaches on L side. Prior Treatments and Tests Physical therapy previously ~ 2015 in [place]. X-ray report indicates: Loss of lordosis and multilevel spondylosis, most notably with moderate to severe disc degeneration at the C5-C6 level. Next MD visit 05/24/22. Pt given pills (meloxicam), but she doesn't like because they make her sleepy and then she doesn't function well the next day. Future Testing and Treatments Planned None Developmental History Developmental History Moved to [place] a year ago with spouse and dog. PMH: Back pain, was told due to disc problem. Jaw pain - wears mouthguard (pt feels not helpful). Treatment Goals Patient/Caregiver Goals Pt goal is to be able to sleep on L side for 1-2 hours without pain, buckle bra reaching behind back without pain, turning to look to the left for driving. Prior Functional Status Baseline Function- ADL's Independent Baseline Function- Mobility Independent Baseline Function- Other 6 months ago could don bra from behind without pain. Current Functional Impairments (Reported) Functional Limitations- ADL's Sleeps on the L side for 1-2 hrs. Functional Limitations- Work/School Retired from various jobs and being a homemaker. Functional Limitations- Recreation/ Sews and walks her dog daily. Hobbies Has 60 lbs lab. Personal Factors Other Personal Factors That May Effect Chronic L neck/shoulder pain Therapy/Recovery with headaches. PT-OP-C Subjective Start: 04/22/22 18:26 Freq: Status: Active Protocol: Document 07/22/22 11:18 LRN (Rec: 07/22/22 12:22 LRN [id number]) OP-PT Subjective Patient Comments Patient Comments Doing better, felt she kept her neck ROM yesterday, but stiffned with driving with stick shift (using L hand). Pain in L brachium with last few ex's. PT-OP-E Functional Tests Start: 04/22/22 18:26 Freq: Status: Active Protocol: Document 06/03/22 09:06 LRN (Rec: 06/03/22 09:54 LRN [id number]) Functional Tests Apley's Scratch Test Action 2- Left T2 Action 2- Right T3 Action 3- Left T9 Action 3- Right T7 PT-OP-H Neuro Start: 04/22/22 18:26 Freq: Status: Active Protocol: Document 04/23/22 12:46 LRN (Rec: 04/23/22 16:21 LRN [id number]) Sensation Evaluation Gross Sensation Gross Sensation Left UE Impaired,Head Impaired Sensation Description Tingling Deep Tendon Reflex & Clonus Assessment Deep Tendon Reflex Right Brachioradialis Deep Tendon Reflex 2+ Normal Left Brachioradialis Deep Tendon Reflex 3+ Normal But Brisk Bilateral Tricep Deep Tendon Reflex 3+ Normal But Brisk Bilateral Bicep Deep Tendon Reflex 3+ Normal But Brisk PT-OP-J Posture/Palpation/Skin Start: 04/22/22 18:26 Freq: Status: Active Protocol: Document 04/23/22 12:46 LRN (Rec: 04/23/22 16:21 LRN [id number]) Posture Evaluation Position Standing Head/C-Spine Posture Excess Extension,Forward Head T-Spine Posture Increased Kyphosis L-Spine Posture Increased Lordosis Shoulder Posture (R) Elevated Scapula Posture (L) Elevated Arm Posture (L) Internally Rotated,(R) Internally Rotated Weight Distribution Balanced Palpation Assessment Location Upper back Palpation Location L Upper back Palpation Findings Tenderness Posterior neck Palpation Location L Posterior and lateral neck Palpation Findings Tenderness PT-OP-K Range of Motion Start: 04/22/22 18:26 Freq: Status: Active Protocol: Document 07/22/22 11:18 LRN (Rec: 07/22/22 12:22 LRN [id number]) Cervical Spine Range of Motion Cervical Spine Active Degrees Testing Position Sitting Rotation Left 50 Rotation Right 58 Lateral Flexion Left 22 Lateral Flexion Right 28 Comments End of therapy AROM (deg's): Rot: L 50, R 58; SB L 17, R 19. PT-OP-L Special Tests Start: 04/22/22 18:26 Freq: Status: Active Protocol: Document 07/05/22 09:04 LRN (Rec: 07/05/22 09:46 LRN [id number]) Special Tests Cervical Spine Special Tests Thoracic Outlet Test Results - L side PT-OP-M Strength Start: 04/22/22 18:26 Freq: Status: Active Protocol: Document 04/23/22 12:46 LRN (Rec: 04/23/22 16:21 LRN [id number]) Cervical Spine Strength Cervical Spine Manual Muscle Testing Testing Position Supine Flexion (C1-2) 5 Normal Extension 5 Normal Rotation Left 3+ Fair+ Rotation Right 4 Good Lateral Flexion Left (C3) 5 Normal Lateral Flexion Right (C3) 5 Normal Shoulder Strength Shoulder Manual Muscle Testing Right Flexion 5 Normal Abduction (C5) 5 Normal External Rotation 5 Normal Internal Rotation 5 Normal Left Flexion 3- Fair- Abduction (C5) 3- Fair- External Rotation 3- Fair- Internal Rotation 4 Good Hand Lathe Scalper Operator/Pinch Strength Hand Dominance Hand Dominance Right PT-OP-Q Treatments Start: 04/22/22 18:26 Freq: Status: Active Protocol: Document 07/22/22 11:18 LRN (Rec: 07/22/22 12:22 LRN [id number]) Therapeutic Exercises Sitting Exercises Shoulder AD juan Sitting Exercise Name Jacky Horiz shoulder AD position holding Reps/Minutes 10 SH x 3 Comments Cuing to keep elbows/hands together. Shoulder girdle stretch Sitting Exercise Name Posterior capsule type stretch Reps/Minutes 10 SH x 3 C. SB stretch Sitting Exercise Name C. SB Stretch, stretch btn ex' s Reps/Minutes 2' Shldr/upper back stretch Sitting Exercise Name Reaching overhead>palms to ceiling/breath>scap retract/ exhale Side bilateral Reps/Minutes 10x, hold 3 breaths Comments L rot: L arm in dependent position . C. Rot w/Thoracic rot Sitting Exercise Name L > R, Active C Rot w/ Thoracic rot Side bilateral Equipment Used Breathing during holds Reps/Minutes 10x left, 2-3x right stretch Comments Cuing for thoracic rot with opp side of rot driving movement. C. Rot stretch Sitting Exercise Name C. Active Rot (occasional R rot), stretch btn ex's Side left Reps/Minutes 2' Standing Exercises Lat Pull Down Standing Exercise Name Lat Pull down, C. SB/Rot stretch btn bouts Side bilateral Equipment Used Lev 2 TB Reps/Minutes 15x 2 Comments Cuing for L scapular depression/retraction Row Standing Exercise Name Row Side bilateral Comments Cuing to keep L shoulder from elevating. Shoulder ER Standing Exercise Name Shoulder ER strengthening Side left Equipment Used Lev 2 TB Reps/Minutes 30x Comments Cuing to breath, keep L scap in neutral and trunk L SB for neutral Shoulder IR Standing Exercise Name Shoulder IR strengthening Side left Equipment Used Lev 2 TB Reps/Minutes 30x Comments Cuing to breath, keep L scap in neutral and trunk L SB for neutral Other Exercises Hands/knees head lifts Other Exercise Name Leaning over plinth for head flex/ext Reps/Minutes 10x Self-Care/Home Management Treatment Education Patient Education Home Exercise Program Other Education Discussed neutral posturing sitting and with driving. Keeping L knee from flexing in sitting and pt to try flexing R knee to start. Activities Self-Care/Home Management Activities Issued & reviewed HEP: Neck/ thoracic rot/wgt shift looking behind, shoulder girdle stretch and shoulder ADD isometric, 4 pt and head lift. PT-OP-R Modalities Start: 04/22/22 18:26 Freq: Status: Active Protocol: Document 05/06/22 12:34 LRN (Rec: 05/06/22 13:50 LRN [id number]) Electric Stimulation Electric Stimulation Interferential Current (IFC) Body Location Neck (L UT>lat shoulder, Infras>Pec) Duration (Minutes) 10 Intensity 14 Target/Sweep Sweep Patient Position Hooklying Combined With Heat/Cold Hot Pack Comments Legs on bolster. PT-OP-T Assessment and Plan Start: 04/22/22 18:26 Freq: Status: Active Protocol: Document 07/22/22 11:18 LRN (Rec: 07/22/22 12:22 LRN [id number]) Physical Therapy Assessment Goals Five Impairment Decreased L shoulder stability Intelligent Systems Engineer Goal (LTG) Improve L shoulder strength/ stability with pt able to tolerate sleeping on her L side, up to 1-2 hours before waking due to pain. 06/11/22: continues have pain laying on left, limits time ( 20min maybe). 07/08/22: Thinks sleep on L side for ~30', today for first time woke on L side without pain. 07/20/22: Was only able to sleep on it 1 hour yesterday. LTG Duration 07/30/22 Worse, but still able to lie on it 1 hr: Three Impairment Decreased L shoulder mobility Impairment Shoulder AROM (in deg's): Flex 140 L, 180 R; AB 90 L, 180 R; ER 55 L, 90 R; IR 72 L, 85 R. Behind back: L5 left, T7 right. Short Term Goal (STG) Pt will be educated in sleep positions and will improve sleep quality on the L side for 1-2 hours without pain. 05/03 & 04/17: I/S pt in best practice for side sleeping and head/neck posturing. 06/03/22: NOT able to sleep on L side for any length of time . 06/07/22: Pt sleeping ~5 hrs per night. STG Duration 06/07/22 (06/07/22: MET GOAL ) Intelligent Systems Engineer Goal (LTG) Improve L shoulder AROM with pt able to buckle bra reaching behind back without pain. 05/18/22: supine: Flex 139 L, 180 R; AB 55 L, 135 R, seated ER L 60 deg R 61 deg. 06/03/22: sitting: Flex 157 L , 148 R; AB 180 bilaterally. 0 deg's AB: ER 38 L, 48 R. Behind back: T9 L, T7 R. Pt able to buckle bra behind the back, rarely with pain. ROM goal not met for ER/IR. LTG Duration 07/22/22 (06/03/22: GOAL MET for flex, AB, & for the functional movement) Two Impairment Decreased neck mobility. Impairment Cervical AROM (in deg's): Rot is 25 L, 50 R; SB is 18 L, 15 R. Short Term Goal (STG) Pt educated in proper head/ neck posturing in standing, sitting and with reading. 05/06/22 05/11/22:Educated pt on proper posture while reading in chair and in bed using pillows , etc. to prop up book to eye height, with chin tucks and scap retraction ex. 06/11/22: pt stated purchased book support and helping in decreased neck pain. STG Duration 05/14/22 (05/03/22 & 05/11/22: MET GOAL) Long-Term Goal (LTG) Improve L Cervical rotation AROM with pt able to turn to look left comfortably for driving. 04/29/22: HEP: C. rot stretch . 05/18/22: Rot L 25, R 45; SB is 15 R, 16 L. 06/03/22: Rot L 30, R 64; SB is 20 L, 10 R. Improved C. AROM. Has discomfort in looking L while driving. 06/11/22: improved ROM L post manal SCM and use theracane posterior neck. 07/20/22: C. AROM at start: Rot: L 35, R 42; SB L 12, R 15. C. AROM post therapy: Rot L 52, R 53. 07/22/22: C AROM for rot same beginning and end. SB stiffened with exercise. LTG Duration 07/30/22 Improving symmetry of mvmt 07/22/22. One Impairment Pt is not currently on a self care HEP. Short Term Goal (STG) Pt will be educated in sleep positions and use of modalities for pain management . 05/03 & 04/17: Educated pt in best Sleep positioning. 05/31/22: Educated and discussed proper nighttime modalities for pain control. STG Duration 04/30/22 (05/31/22: MET GOAL) Long-Term Goal (LTG) Pt will be independent with a self care HEP of left neck/ shoulder/UE exercises. 04/29/22: HEP: C. rot & UT stretch, UE neural stretches ( radial, ulnar & median nerves) 05/28/22:Deep neck flexors lift . 06/03/22: AROM L shoulder ER/ IR. 06/11/22: AROM L>R shld ER 45 deg windshield wipers, abd 80deg stretch/ wipers, ABD hands under head stretch/ elbow press table/ wrist press table with breath painfree. Introduced open book side. 07/05/22: I/S pt in Juan shoulder ER ex in multiple angles of ER. 07/13/22: HEP: PROM/AROM C. neck rot, sup arm lifts, sidelie arm/body circles, & shoulder & upper body stretch. 07/22/22: HEP: neck/thoracic rot/wgt shift, shldr girdle stretch and juan AD, 4pt ( standing) head lifts. LTG Duration 07/30/22 progressed 07/22/22 Progress Towards Goals Progress Comments Progressed HEP. Assessment Summary Assessment Pt appears knowledgeable in her previously issued HEP and was able to perform properly. Fair tolerance to shoulder ex 's with c/o soreness at L shoulder during and immediately after exercise. Return to baseline with rest. Pt rotational neck mobility remained same but lateral SB stiffened after therapy ex's. PT ecouraged to stretch neck between ex's. Physical Therapy Plan Frequency and Duration Frequency of Treatment 2x/Week Plan of Care Start Date 06/03/22 Plan of Care End Date 07/30/22 Next Visit Focus/Plan Next Note Type Progress Note Next Visit Plan Reassess and update POC. Review issued HEP issued. Progress shoulder ER/IR mobility (goal #3) & strength (goal #5). Add to HEP: shldr/scap strengthening stab ex's w/ focus on L > R scap depression : TB IR/ ER/ rows. Monitor for improved sleep quality at nighttime (1-2 hrs) , and neck mobility (rot & SB) . POC: Increase focus on C/S & T/S L rot (goal #2); L shoulder strengthening/ stabilization, but continue manual therapy for relief of neck/LB pain symptoms. Ther ex: neck, L shoulder, scapula stabilization. Stretch as needed: L shoulder , scapula (monitor cervical & UE neural stretch). [ End ]
--- NOTE | 2022-07-27 17:03 | PT.OTN ---
Current Diagnoses Other chronic pain (07/27/22) Cervicalgia (07/27/22) Muscle weakness (generalized) (07/27/22) Physical Therapy Treatment Note PT-OP-A Visit Information Start: 04/22/22 18:26 Freq: Status: Active Protocol: Document 07/27/22 11:20 LRN (Rec: 07/27/22 12:05 LRN [id number]) Out-Patient Physical Therapy Visit Information Visit Information Visit Type Progress Note Visit Start Time 11:20 Visit Stop Time 12:00 Total Visit Minutes 40 Visit Number 20 total, 12/13 Evaluation Information Evaluation Date 04/23/22 Precautions Precautions Pt reports chronic neck, back, jaw pain and headaches. PT-OP-B Current Condition Start: 04/22/22 18:26 Freq: Status: Active Protocol: Document 04/23/22 12:46 LRN (Rec: 04/23/22 16:21 LRN [id number]) Current Condition History of Current Condition Onset Date 20 yrs ago, worsened in the past few months. Current Complaints L neck/arm discomfort & numbness including L LE, can't sleep on L side History of Current Condition Pt reports she has had neck pain for the past 20 years of insidious onset. States sometimes driving she can't turn her head to the left due to pain. Once in a while worsening of L arm and leg numbness, and can't sleep on L side. Pt states she moved to [place] a year ago and the referring physician thought PT might help. She states that previous doctors told her she had to live with it. Driving is uncomfortable for really long distances, even as passenger. Headaches on L side. Prior Treatments and Tests Physical therapy previously ~ 2015 in [place]. X-ray report indicates: Loss of lordosis and multilevel spondylosis, most notably with moderate to severe disc degeneration at the C5-C6 level. Next MD visit 05/24/22. Pt given pills (meloxicam), but she doesn't like because they make her sleepy and then she doesn't function well the next day. Future Testing and Treatments Planned None Developmental History Developmental History Moved to [place] a year ago with spouse and dog. PMH: Back pain, was told due to disc problem. Jaw pain - wears mouthguard (pt feels not helpful). Treatment Goals Patient/Caregiver Goals Pt goal is to be able to sleep on L side for 1-2 hours without pain, buckle bra reaching behind back without pain, turning to look to the left for driving. Prior Functional Status Baseline Function- ADL's Independent Baseline Function- Mobility Independent Baseline Function- Other 6 months ago could don bra from behind without pain. Current Functional Impairments (Reported) Functional Limitations- ADL's Sleeps on the L side for 1-2 hrs. Functional Limitations- Work/School Retired from various jobs and being a homemaker. Functional Limitations- Recreation/ Sews and walks her dog daily. Hobbies Has 60 lbs lab. Personal Factors Other Personal Factors That May Effect Chronic L neck/shoulder pain Therapy/Recovery with headaches. PT-OP-C Subjective Start: 04/22/22 18:26 Freq: Status: Active Protocol: Document 07/27/22 11:20 LRN (Rec: 07/27/22 12:05 LRN [id number]) OP-PT Subjective Patient Comments Patient Comments States L upper arm sore. States she was doing standing cutting of applicate and her back hurt but did stretches and felt better. PT-OP-E Functional Tests Start: 04/22/22 18:26 Freq: Status: Active Protocol: Document 06/03/22 09:06 LRN (Rec: 06/03/22 09:54 LRN [id number]) Functional Tests Apley's Scratch Test Action 2- Left T2 Action 2- Right T3 Action 3- Left T9 Action 3- Right T7 PT-OP-H Neuro Start: 04/22/22 18:26 Freq: Status: Active Protocol: Document 04/23/22 12:46 LRN (Rec: 04/23/22 16:21 LRN [id number]) Sensation Evaluation Gross Sensation Gross Sensation Left UE Impaired,Head Impaired Sensation Description Tingling Deep Tendon Reflex & Clonus Assessment Deep Tendon Reflex Right Brachioradialis Deep Tendon Reflex 2+ Normal Left Brachioradialis Deep Tendon Reflex 3+ Normal But Brisk Bilateral Tricep Deep Tendon Reflex 3+ Normal But Brisk Bilateral Bicep Deep Tendon Reflex 3+ Normal But Brisk PT-OP-J Posture/Palpation/Skin Start: 04/22/22 18:26 Freq: Status: Active Protocol: Document 04/23/22 12:46 LRN (Rec: 10/28/22 16:21 LRN [id number]) Posture Evaluation Position Standing Head/C-Spine Posture Excess Extension,Forward Head T-Spine Posture Increased Kyphosis L-Spine Posture Increased Lordosis Shoulder Posture (R) Elevated Scapula Posture (L) Elevated Arm Posture (L) Internally Rotated,(R) Internally Rotated Weight Distribution Balanced Palpation Assessment Location Upper back Palpation Location L Upper back Palpation Findings Tenderness Posterior neck Palpation Location L Posterior and lateral neck Palpation Findings Tenderness PT-OP-K Range of Motion Start: 04/22/22 18:26 Freq: Status: Active Protocol: Document 07/27/22 11:20 LRN (Rec: 07/27/22 12:05 LRN [id number]) Cervical Spine Range of Motion Cervical Spine Active Degrees Testing Position Sitting Rotation Left 55 Rotation Right 60 Lateral Flexion Left 20 Lateral Flexion Right 24 Comments ROM taken at end of treatment. PT-OP-L Special Tests Start: 04/22/22 18:26 Freq: Status: Active Protocol: Document 07/05/22 09:04 LRN (Rec: 07/05/22 09:46 LRN [id number]) Special Tests Cervical Spine Special Tests Thoracic Outlet Test Results - L side PT-OP-M Strength Start: 04/22/22 18:26 Freq: Status: Active Protocol: Document 04/23/22 12:46 LRN (Rec: 04/23/22 16:21 LRN [id number]) Cervical Spine Strength Cervical Spine Manual Muscle Testing Testing Position Supine Flexion (C1-2) 5 Normal Extension 5 Normal Rotation Left 3+ Fair+ Rotation Right 4 Good Lateral Flexion Left (C3) 5 Normal Lateral Flexion Right (C3) 5 Normal Shoulder Strength Shoulder Manual Muscle Testing Right Flexion 5 Normal Abduction (C5) 5 Normal External Rotation 5 Normal Internal Rotation 5 Normal Left Flexion 3- Fair- Abduction (C5) 3- Fair- External Rotation 3- Fair- Internal Rotation 4 Good Hand Embroiderer Hand/Pinch Strength Hand Dominance Hand Dominance Right PT-OP-Q Treatments Start: 04/22/22 18:26 Freq: Status: Active Protocol: Document 07/27/22 11:20 LRN (Rec: 07/27/22 12:05 LRN [id number]) Therapeutic Exercises Supine Exercises Full body rot stretch Supine Exercise Name Full body stretch with Neck rot & Knees LTR C. Rot Supine Exercise Name AROM rotation hold stretch and C/R stretch Side bilateral Reps/Minutes 10 rot stretch, 10 reps w/5 head nods and C/R 10x Comments Cuing to keep chin tucked Sidelying Exercises open book Sidelying Exercise Name Open Book - slow stretch on C/ S & T/S rot Side bilateral Resistance AROM Reps/Minutes 10x 2 bilaterally, assist head rot to L. Comments Cuing needed to count reps for breathwork Sitting Exercises C. Rot w/Thoracic rot Sitting Exercise Name L > R, Active C Rot w/ Thoracic rot Side bilateral Equipment Used Breathing during holds Reps/Minutes 2x Comments Cuing for thoracic rot with opp side of rot driving movement. Standing Exercises Scap depression Standing Exercise Name Shoulder drops Equipment Used Lev 2 TB Reps/Minutes 10x Manual Therapy Treatment Soft Tissue Mobilization Neck Body Location L Levator Scap at neck, UT at neck Mobilization Type Sustained Pressure Intensity/Depth Moderate Body Position Supine Comments C/R stretch into L rot. Passive C. L rot with deep breathing and knee rolls to right. Joint Mobilizations C3-C6 Joint C3-C4 Direction Lateral glide Grade I Body Position Supine Manual Techniques MWM of upper T/S rot Type T/S L>R rot with head turn to start Body Location [place] side of rotation driving rot of upper T/S Body Position Sitting Reps/Duration 10x 3 MWM of neck Type C. L rot w/ assist to rot Body Position Sitting Reps/Duration 10x sup, 10x 3 sitting PT-OP-R Modalities Start: 04/22/22 18:26 Freq: Status: Active Protocol: Document 05/06/22 12:34 LRN (Rec: 05/06/22 13:50 LRN [id number]) Electric Stimulation Electric Stimulation Interferential Current (IFC) Body Location Neck (L UT>lat shoulder, Infras>Pec) Duration (Minutes) 10 Intensity 14 Target/Sweep Sweep Patient Position Hooklying Combined With Heat/Cold Hot Pack Comments Legs on bolster. PT-OP-T Assessment and Plan Start: 04/22/22 18:26 Freq: Status: Active Protocol: Document 07/27/22 11:20 LRN (Rec: 07/27/22 12:05 LRN [id number]) Physical Therapy Assessment Rehab Potential Rehabilitation Potential Good Evaluation Complexity Number of Personal Factors/Comorbidities 1-2 Number of Body Systems Impaired 4 or More Clinical Presentation at Evaluation Evolving Impairments Impairments Activity Tolerance,Functional Activities,Pain,Posture,ROM, Strength Goals Five Impairment Decreased L shoulder stability Security Consultant Goal (LTG) Improve L shoulder strength/ stability with pt able to tolerate sleeping on her L side, up to 1-2 hours before waking due to pain. 06/11/22: continues have pain laying on left, limits time ( 20min maybe). 07/08/22: Thinks sleep on L side for ~30', today for first time woke on L side without pain. 07/20/22: Was only able to sleep on it 1 hour yesterday. 07/27/22: Able to sleep, not waking due to pain, but hasn't tried to sleep on L side. LTG Duration 09/10/22 progressing 07/27/22 Four Impairment L shoulder weakness Impairment L shoulder strength: Flex, AB , ER is 3-/5 (R is 5/5) UE QuickDASH score is 31.81 ( 20-39% impaired) Short Term Goal (STG) Improve L shoulder flex, AB, ER strength to no less than 3+ /5. 06/03/22: L shldr Flex, AB 5/ 5, ER 4/5, IR 4+/5. STG Duration 06/07/22 (06/03/22: MET GOAL ) Security Consultant Goal (LTG) Improve L shoulder strength to improve function per UE QuickDASH score 1-19 (1-19% impaired). 05/18/22: Quickdash score: 25% (20-39% impaired), improved from 31.81%. Neck diasbility index: score 10, improved from 12 (20-39% impaired) 06/03/22: Quickdash score: 11 .36 (1-19% impaired, score 1- 19). LTG Duration 07/22/22 (06/03/22: MET GOAL) Three Impairment Decreased L shoulder mobility Impairment Shoulder AROM (in deg's): Flex 140 L, 180 R; AB 90 L, 180 R; ER 55 L, 90 R; IR 72 L, 85 R. Behind back: L5 left, T7 right. Short Term Goal (STG) Pt will be educated in sleep positions and will improve sleep quality on the L side for 1-2 hours without pain. 05/03 & 04/17: I/S pt in best practice for side sleeping and head/neck posturing. 06/03/22: NOT able to sleep on L side for any length of time . 06/07/22: Pt sleeping ~5 hrs per night. STG Duration 06/07/22 (06/07/22: MET GOAL ) Security Consultant Goal (LTG) Improve L shoulder AROM with pt able to buckle bra reaching behind back without pain. 05/18/22: supine: Flex 139 L, 180 R; AB 55 L, 135 R, seated ER L 60 deg R 61 deg. 06/03/22: sitting: Flex 157 L , 148 R; AB 180 bilaterally. 0 deg's AB: ER 38 L, 48 R. Behind back: T9 L, T7 R. Pt able to buckle bra behind the back, rarely with pain. ROM goal not met for ER/IR. LTG Duration 09/10/22 (06/03/22: GOAL MET for flex, AB, & for the functional movement) Two Impairment Decreased neck mobility. Impairment Cervical AROM (in deg's): Rot is 25 L, 50 R; SB is 18 L, 15 R. Short Term Goal (STG) Pt educated in proper head/ neck posturing in standing, sitting and with reading. 05/06/22 05/11/22:Educated pt on proper posture while reading in chair and in bed using pillows , etc. to prop up book to eye height, with chin tucks and scap retraction ex. 06/11/22: pt stated purchased book support and helping in decreased neck pain. STG Duration 05/14/22 (MET GOAL 05/03/22 & 05/11/22) Security Consultant Goal (LTG) Improve L Cervical rotation AROM with pt able to turn to look left comfortably for driving. 04/29/22: HEP: C. rot stretch . 05/18/22: Rot L 25, R 45; SB is 15 R, 16 L. 06/03/22: Rot L 30, R 64; SB is 20 L, 10 R. Improved C. AROM. Has discomfort in looking L while driving. 06/11/22: improved ROM L post manal SCM and use theracane posterior neck. 07/20/22: C. AROM at start: Rot: L 35, R 42; SB L 12, R 15. C. AROM post therapy: Rot L 52, R 53. 07/22/22: C AROM for rot same beginning and end. SB stiffened with exercise. 07/27/22: C. AROM post therapy : Rot: L 55, R 60; SB L 20, R 24. LTG Duration 09/10/22 Improving symmetry of mvmt 07/22/22. One Impairment Pt is not currently on a self care HEP. Short Term Goal (STG) Pt will be educated in sleep positions and use of modalities for pain management . 05/03 & 04/17: Educated pt in best Sleep positioning. 05/31/22: Educated and discussed proper nighttime modalities for pain control. STG Duration 04/30/22 (05/31/22: MET GOAL) Nursing Home Goal (LTG) Pt will be independent with a self care HEP of left neck/ shoulder/UE exercises. 04/29/22: HEP: C. rot & UT stretch, UE neural stretches ( radial, ulnar & median nerves) 05/28/22:Deep neck flexors lift . 06/03/22: AROM L shoulder ER/ IR. 06/11/22: AROM L>R shld ER 45 deg windshield wipers, abd 80deg stretch/ wipers, ABD hands under head stretch/ elbow press table/ wrist press table with breath painfree. Introduced open book side. 07/05/22: I/S pt in Juan shoulder ER ex in multiple angles of ER. 07/13/22: HEP: PROM/AROM C. neck rot, sup arm lifts, sidelie arm/body circles, & shoulder & upper body stretch. 07/22/22: HEP: neck/thoracic rot/wgt shift, shldr girdle stretch and juan AD, 4pt ( standing) head lifts. LTG Duration 09/25/22 progressed 07/22/22 Assessment Summary Assessment Pt needs further therapy to improve L shoulder ER/IR mobility, cervical strength, primarly neck L rot, flex/ext and L scap depression mobility /strength to improve posture. Pt has elevated L shoulder and is mildly forward rolled at rest. The pt has made good progress with therapy and has improved her sleep ability, neck mobility and overall lessening of pain with functional motions. It is expected that the pt will continue to progress with the next 4-8 weeks with PT focusing on improving strength and mobility of the neck and L shoulder, further improving her overall function; therefore I would recommend continuation of therapy to work towards achieving the above stated goals.. Physical Therapy Plan Frequency and Duration Frequency of Treatment 2x/Week Plan of Care Start Date 07/27/22 Plan of Care End Date 09/25/22 Therapeutic Interventions Therapeutic Interventions Home Exercise Program,Joint Mobilizations,Manual Therapy, Neuromuscular Re-education, Patient/Caregiver Education, Self-Care/Home Management,Soft Tissue Mobilization, Therapeutic Exercises Modalities Cold Pack/Ice Massage,Electric Stimulation,Hot Packs, Ultrasound Next Visit Focus/Plan Next Note Type Treatment Note Next Visit Plan Review issued HEP. Progress shoulder ER/IR mobility (goal #3) & strength (goal #5). Add to HEP: shldr/scap strengthening stab ex's w/ focus on L > R scap depression (TB IR/ER/ rows). Monitor for improved sleep quality at nighttime (1-2 hrs) , and neck mobility (rot & SB) . POC: Increase focus on C/S & T/S L rot (goal #2); L shoulder strengthening/ stabilization, but continue manual therapy for relief of neck/LB pain symptoms. Ther ex: neck, L shoulder, scapula stabilization. Stretch as needed: L shoulder , scapula (monitor cervical & UE neural stretch). [ End ]
--- NOTE | 2022-07-29 12:15 | PT.OTN ---
Current Diagnoses Other chronic pain (07/29/22) Cervicalgia (07/29/22) Muscle weakness (generalized) (07/29/22) Physical Therapy Treatment Note PT-OP-A Visit Information Start: 04/22/22 18:26 Freq: Status: Active Protocol: Document 07/29/22 11:24 LRN (Rec: 07/29/22 12:14 LRN [id number]) Out-Patient Physical Therapy Visit Information Visit Information Visit Type Treatment Note Visit Start Time 11:24 Visit Stop Time 12:06 Total Visit Minutes 42 Visit Number 21 total, 01/12 Evaluation Information Evaluation Date 04/23/22 Precautions Precautions Pt reports chronic neck, back, jaw pain and headaches. PT-OP-B Current Condition Start: 04/22/22 18:26 Freq: Status: Active Protocol: Document 04/23/22 12:46 LRN (Rec: 04/23/22 16:21 LRN [id number]) Current Condition History of Current Condition Onset Date 20 yrs ago, worsened in the past few months. Current Complaints L neck/arm discomfort & numbness including L LE, can't sleep on L side History of Current Condition Pt reports she has had neck pain for the past 20 years of insidious onset. States sometimes driving she can't turn her head to the left due to pain. Once in a while worsening of L arm and leg numbness, and can't sleep on L side. Pt states she moved to [place] a year ago and the referring physician thought PT might help. She states that previous doctors told her she had to live with it. Driving is uncomfortable for really long distances, even as passenger. Headaches on L side. Prior Treatments and Tests Physical therapy previously ~ 2015 in [place]. X-ray report indicates: Loss of lordosis and multilevel spondylosis, most notably with moderate to severe disc degeneration at the C5-C6 level. Next MD visit 05/24/22. Pt given pills (meloxicam), but she doesn't like because they make her sleepy and then she doesn't function well the next day. Future Testing and Treatments Planned None Developmental History Developmental History Moved to [place] a year ago with spouse and dog. PMH: Back pain, was told due to disc problem. Jaw pain - wears mouthguard (pt feels not helpful). Treatment Goals Patient/Caregiver Goals Pt goal is to be able to sleep on L side for 1-2 hours without pain, buckle bra reaching behind back without pain, turning to look to the left for driving. Prior Functional Status Baseline Function- ADL's Independent Baseline Function- Mobility Independent Baseline Function- Other 6 months ago could don bra from behind without pain. Current Functional Impairments (Reported) Functional Limitations- ADL's Sleeps on the L side for 1-2 hrs. Functional Limitations- Work/School Retired from various jobs and being a homemaker. Functional Limitations- Recreation/ Sews and walks her dog daily. Hobbies Has 60 lbs lab. Personal Factors Other Personal Factors That May Effect Chronic L neck/shoulder pain Therapy/Recovery with headaches. PT-OP-C Subjective Start: 04/22/22 18:26 Freq: Status: Active Protocol: Document 07/29/22 11:24 LRN (Rec: 07/29/22 12:14 LRN [id number]) OP-PT Subjective Patient Comments Patient Comments Did too much driving and tried keeping R foot back and it caused L shoulder pain, rated 5/10. Pain decreased to 3/10 after treatment. Was able to sleep 1-2 hrs on the L shoulder but was stiff and sore. PT-OP-E Functional Tests Start: 04/22/22 18:26 Freq: Status: Active Protocol: Document 06/03/22 09:06 LRN (Rec: 06/03/22 09:54 LRN [id number]) Functional Tests Apley's Scratch Test Action 2- Left T2 Action 2- Right T3 Action 3- Left T9 Action 3- Right T7 PT-OP-H Neuro Start: 04/22/22 18:26 Freq: Status: Active Protocol: Document 04/23/22 12:46 LRN (Rec: 04/23/22 16:21 LRN [id number]) Sensation Evaluation Gross Sensation Gross Sensation Left UE Impaired,Head Impaired Sensation Description Tingling Deep Tendon Reflex & Clonus Assessment Deep Tendon Reflex Right Brachioradialis Deep Tendon Reflex 2+ Normal Left Brachioradialis Deep Tendon Reflex 3+ Normal But Brisk Bilateral Tricep Deep Tendon Reflex 3+ Normal But Brisk Bilateral Bicep Deep Tendon Reflex 3+ Normal But Brisk PT-OP-J Posture/Palpation/Skin Start: 04/22/22 18:26 Freq: Status: Active Protocol: Document 04/23/22 12:46 LRN (Rec: 04/23/22 16:21 LRN [id number]) Posture Evaluation Position Standing Head/C-Spine Posture Excess Extension,Forward Head T-Spine Posture Increased Kyphosis L-Spine Posture Increased Lordosis Shoulder Posture (R) Elevated Scapula Posture (L) Elevated Arm Posture (L) Internally Rotated,(R) Internally Rotated Weight Distribution Balanced Palpation Assessment Location Upper back Palpation Location L Upper back Palpation Findings Tenderness Posterior neck Palpation Location L Posterior and lateral neck Palpation Findings Tenderness PT-OP-K Range of Motion Start: 04/22/22 18:26 Freq: Status: Active Protocol: Document 07/27/22 11:20 LRN (Rec: 07/27/22 12:05 LRN [id number]) Cervical Spine Range of Motion Cervical Spine Active Degrees Testing Position Sitting Rotation Left 55 Rotation Right 60 Lateral Flexion Left 20 Lateral Flexion Right 24 Comments ROM taken at end of treatment. PT-OP-L Special Tests Start: 04/22/22 18:26 Freq: Status: Active Protocol: Document 07/05/22 09:04 LRN (Rec: 07/05/22 09:46 LRN [id number]) Special Tests Cervical Spine Special Tests Thoracic Outlet Test Results - L side PT-OP-M Strength Start: 04/22/22 18:26 Freq: Status: Active Protocol: Document 04/23/22 12:46 LRN (Rec: 04/23/22 16:21 LRN [id number]) Cervical Spine Strength Cervical Spine Manual Muscle Testing Testing Position Supine Flexion (C1-2) 5 Normal Extension 5 Normal Rotation Left 3+ Fair+ Rotation Right 4 Good Lateral Flexion Left (C3) 5 Normal Lateral Flexion Right (C3) 5 Normal Shoulder Strength Shoulder Manual Muscle Testing Right Flexion 5 Normal Abduction (C5) 5 Normal External Rotation 5 Normal Internal Rotation 5 Normal Left Flexion 3- Fair- Abduction (C5) 3- Fair- External Rotation 3- Fair- Internal Rotation 4 Good Hand Emergency Response Officer/Pinch Strength Hand Dominance Hand Dominance Right PT-OP-Q Treatments Start: 04/22/22 18:26 Freq: Status: Active Protocol: Document 07/29/22 11:24 LRN (Rec: 07/29/22 12:14 LRN [id number]) Cardio Equipment Bicycle (Upright) Duration (Minutes) 5 Resistance 8 Seat Position 5 Therapeutic Exercises Supine Exercises R Arm circles w/neck L rot Supine Exercise Name R arm circles with neck held in L rot Reps/Minutes 15x Hamstring stretch Supine Exercise Name Hamstring stretch Side left Reps/Minutes 30 SH x 2 DKTC Supine Exercise Name DKTC Reps/Minutes 15 SH x 4 Sidelying Exercises open book Sidelying Exercise Name Open Book - slow stretch on C/ S & T/S rot Side bilateral Resistance AROM Reps/Minutes 10x 2 bilaterally, assist head rot to L. Comments Cuing needed to count reps for breathwork Sitting Exercises Shoulder AD juan Sitting Exercise Name Jacky Horiz shoulder AD position holding Reps/Minutes 10 SH x 3 Comments Cuing to keep elbows/hands together. C. SB stretch Sitting Exercise Name C. SB Stretch with shoulder drop, stretch btn ex's Side left Reps/Minutes 2' Shldr/upper back stretch Sitting Exercise Name Reaching overhead>palms to ceiling/breath>scap retract/ exhale Side bilateral Reps/Minutes 10x, hold 3 breaths Comments L rot: L arm in dependent position . C. Rot w/Thoracic rot Sitting Exercise Name L > R, Active C Rot w/ Thoracic rot Side bilateral Equipment Used Breathing during holds Reps/Minutes 2x Comments Cuing for thoracic rot with opp side of rot driving movement. C. Rot stretch Sitting Exercise Name C. Active Rot (occasional R rot), stretch btn ex's Side left Reps/Minutes 2' Standing Exercises Scap depression Standing Exercise Name Shoulder drops Equipment Used Lev 2 TB Reps/Minutes 2-5 SH x 10 Comments Cuing to scap depressors for drop and to UT to relax Lat Pull Down Standing Exercise Name Lat Pull down, C. SB/Rot stretch btn bouts Side bilateral Equipment Used Lev 2 TB Reps/Minutes 15x 2 Comments Cuing for L scapular depression/retraction Shoulder ER Standing Exercise Name Shoulder ER strengthening Side left Equipment Used Lev 2 TB Reps/Minutes 30x Comments Cuing to breath, keep L scap in neutral,trunk L SB for neutral Manual Therapy Treatment Soft Tissue Mobilization Neck Body Location L Levator Scap at neck, UT at neck, interspinous ms on R. Mobilization Type Sustained Pressure Intensity/Depth Moderate Body Position Supine Comments C/R stretch into L rot. Passive C. L rot with deep breathing. Joint Mobilizations C3-C6 Joint C3-C4 Direction L Lateral glide Grade I Body Position Supine Manual Techniques MWM of upper T/S rot Type T/S L>R rot with head turn to start Body Location [place] side of rotation driving rot of upper T/S Body Position Sitting Reps/Duration 10x 3 MWM of neck Type C. L rot w/ assist to rot Body Position Sitting Reps/Duration 10x sup, 10x sitting PT-OP-R Modalities Start: 04/22/22 18:26 Freq: Status: Active Protocol: Document 05/06/22 12:34 LRN (Rec: 05/06/22 13:50 LRN [id number]) Electric Stimulation Electric Stimulation Interferential Current (IFC) Body Location Neck (L UT>lat shoulder, Infras>Pec) Duration (Minutes) 10 Intensity 14 Target/Sweep Sweep Patient Position Hooklying Combined With Heat/Cold Hot Pack Comments Legs on bolster. PT-OP-T Assessment and Plan Start: 04/22/22 18:26 Freq: Status: Active Protocol: Document 07/29/22 11:24 LRN (Rec: 07/29/22 12:14 LRN [id number]) Physical Therapy Assessment Goals Five Impairment Decreased L shoulder stability Usp Goal (LTG) Improve L shoulder strength/ stability with pt able to tolerate sleeping on her L side, up to 1-2 hours before waking due to pain. 06/11/22: continues have pain laying on left, limits time ( 20min maybe). 07/08/22: Thinks sleep on L side for ~30', today for first time woke on L side without pain. 07/20/22: Was only able to sleep on it 1 hour yesterday. 07/27/22: Able to sleep, not waking due to pain, but hasn't tried to sleep on L side. LTG Duration 09/10/22 progressing 07/27/22 Four Impairment L shoulder weakness Impairment L shoulder strength: Flex, AB , ER is 3-/5 (R is 5/5) UE QuickDASH score is 31.81 ( 20-39% impaired) Short Term Goal (STG) Improve L shoulder flex, AB, ER strength to no less than 3+ /5. 06/03/22: L shldr Flex, AB 5/ 5, ER 4/5, IR 4+/5. STG Duration 06/07/22 (06/03/22: MET GOAL ) Surgical Aides Teacher Goal (LTG) Improve L shoulder strength to improve function per UE QuickDASH score 1-19 (1-19% impaired). 05/18/22: Quickdash score: 25% (20-39% impaired), improved from 31.81%. Neck diasbility index: score 10, improved from 12 (20-39% impaired) 06/03/22: Quickdash score: 11 .36 (1-19% impaired, score 1- 19). LTG Duration 07/22/22 (06/03/22: MET GOAL) Three Impairment Decreased L shoulder mobility Impairment Shoulder AROM (in deg's): Flex 140 L, 180 R; AB 90 L, 180 R; ER 55 L, 90 R; IR 72 L, 85 R. Behind back: L5 left, T7 right. Short Term Goal (STG) Pt will be educated in sleep positions and will improve sleep quality on the L side for 1-2 hours without pain. 05/03 & 04/17: I/S pt in best practice for side sleeping and head/neck posturing. 06/03/22: NOT able to sleep on L side for any length of time . 06/07/22: Pt sleeping ~5 hrs per night. STG Duration 06/07/22 (06/07/22: MET GOAL ) Usp Goal (LTG) Improve L shoulder AROM with pt able to buckle bra reaching behind back without pain. 05/18/22: supine: Flex 139 L, 180 R; AB 55 L, 135 R, seated ER L 60 deg R 61 deg. 06/03/22: sitting: Flex 157 L , 148 R; AB 180 bilaterally. 0 deg's AB: ER 38 L, 48 R. Behind back: T9 L, T7 R. Pt able to buckle bra behind the back, rarely with pain. ROM goal not met for ER/IR. LTG Duration 09/10/22 (06/03/22: GOAL MET for flex, AB, & for the functional movement) Two Impairment Decreased neck mobility. Impairment Cervical AROM (in deg's): Rot is 25 L, 50 R; SB is 18 L, 15 R. Short Term Goal (STG) Pt educated in proper head/ neck posturing in standing, sitting and with reading. 05/06/22 05/11/22:Educated pt on proper posture while reading in chair and in bed using pillows , etc. to prop up book to eye height, with chin tucks and scap retraction ex. 06/11/22: pt stated purchased book support and helping in decreased neck pain. STG Duration 05/14/22 (MET GOAL 05/03/22 & 05/11/22) Usp Goal (LTG) Improve L Cervical rotation AROM with pt able to turn to look left comfortably for driving. 04/29/22: HEP: C. rot stretch . 05/18/22: Rot L 25, R 45; SB is 15 R, 16 L. 06/03/22: Rot L 30, R 64; SB is 20 L, 10 R. Improved C. AROM. Has discomfort in looking L while driving. 06/11/22: improved ROM L post manal SCM and use theracane posterior neck. 07/20/22: C. AROM at start: Rot: L 35, R 42; SB L 12, R 15. C. AROM post therapy: Rot L 52, R 53. 07/22/22: C AROM for rot same beginning and end. SB stiffened with exercise. 07/27/22: C. AROM post therapy : Rot: L 55, R 60; SB L 20, R 24. 07/29/22: Able to look L comfortably with driving to [place], but had L neck pain on return. LTG Duration 09/10/22 (07/29/22: 1x MET GOAL). One Impairment Pt is not currently on a self care HEP. Short Term Goal (STG) Pt will be educated in sleep positions and use of modalities for pain management . 05/03 & 04/17: Educated pt in best Sleep positioning. 05/31/22: Educated and discussed proper nighttime modalities for pain control. STG Duration 04/30/22 (05/31/22: MET GOAL) Usp Goal (LTG) Pt will be independent with a self care HEP of left neck/ shoulder/UE exercises. 04/29/22: HEP: C. rot & UT stretch, UE neural stretches ( radial, ulnar & median nerves) 05/28/22:Deep neck flexors lift . 06/03/22: AROM L shoulder ER/ IR. 06/11/22: AROM L>R shld ER 45 deg windshield wipers, abd 80deg stretch/ wipers, ABD hands under head stretch/ elbow press table/ wrist press table with breath painfree. Introduced open book side. 07/05/22: I/S pt in Juan shoulder ER ex in multiple angles of ER. 07/13/22: HEP: PROM/AROM C. neck rot, sup arm lifts, sidelie arm/body circles, & shoulder & upper body stretch. 07/22/22: HEP: neck/thoracic rot/wgt shift, shldr girdle stretch and juan AD, 4pt ( standing) head lifts. LTG Duration 09/25/22 progressed 07/22/22 Assessment Summary Assessment Pt has return of L shoulder pain after prolonged driving ( 2hrs) and stiffness of neck/L shoulder. Her neck regained lost L rot with manual therapy and assisted neck L rot stretching. Her L shoulder ER mobility improved with stretch. L shoulder posture still elevated. Correction needed for HEP's previously issued. Physical Therapy Plan Frequency and Duration Frequency of Treatment 2x/Week Plan of Care Start Date 07/27/22 Plan of Care End Date 09/25/22 Next Visit Focus/Plan Next Note Type Treatment Note Next Visit Plan Monitor for improved sleep quality at nighttime (1-2 hrs) , Progress shoulder ER/IR mobility (goal #3) & strength (goal #5). Add to HEP: shldr/scap strengthening stab ex's w/ focus on L > R scap depression (TB IR/ER/ rows). Monitor neck mobility (rot & SB). POC: Increase focus on C/S & T/S L rot (goal #2); L shoulder strengthening/ stabilization, but continue manual therapy for relief of neck/LB pain symptoms. Ther ex: neck, L shoulder, scapula stabilization. Stretch as needed: L shoulder , scapula (monitor cervical & UE neural stretch). [ End ]
--- NOTE | 2022-08-03 18:13 | PT.OTN ---
Current Diagnoses Other chronic pain (08/03/22) Cervicalgia (08/03/22) Muscle weakness (generalized) (08/03/22) Physical Therapy Treatment Note PT-OP-A Visit Information Start: 04/22/22 18:26 Freq: Status: Active Protocol: Document 08/03/22 09:51 LRN (Rec: 08/03/22 10:34 LRN [id number]) Out-Patient Physical Therapy Visit Information Visit Information Visit Type Treatment Note Visit Start Time 09:51 Visit Stop Time 10:30 Total Visit Minutes 39 Visit Number 22 total, 02/12 Evaluation Information Evaluation Date 04/23/22 Precautions Precautions Pt reports chronic neck, back, jaw pain and headaches. PT-OP-B Current Condition Start: 04/22/22 18:26 Freq: Status: Active Protocol: Document 04/23/22 12:46 LRN (Rec: 04/23/22 16:21 LRN [id number]) Current Condition History of Current Condition Onset Date 20 yrs ago, worsened in the past few months. Current Complaints L neck/arm discomfort & numbness including L LE, can't sleep on L side History of Current Condition Pt reports she has had neck pain for the past 20 years of insidious onset. States sometimes driving she can't turn her head to the left due to pain. Once in a while worsening of L arm and leg numbness, and can't sleep on L side. Pt states she moved to [place] a year ago and the referring physician thought PT might help. She states that previous doctors told her she had to live with it. Driving is uncomfortable for really long distances, even as passenger. Headaches on L side. Prior Treatments and Tests Physical therapy previously ~ 2015 in [place]. X-ray report indicates: Loss of lordosis and multilevel spondylosis, most notably with moderate to severe disc degeneration at the C5-C6 level. Next MD visit 05/24/22. Pt given pills (meloxicam), but she doesn't like because they make her sleepy and then she doesn't function well the next day. Future Testing and Treatments Planned None Developmental History Developmental History Moved to [place] a year ago with spouse and dog. PMH: Back pain, was told due to disc problem. Jaw pain - wears mouthguard (pt feels not helpful). Treatment Goals Patient/Caregiver Goals Pt goal is to be able to sleep on L side for 1-2 hours without pain, buckle bra reaching behind back without pain, turning to look to the left for driving. Prior Functional Status Baseline Function- ADL's Independent Baseline Function- Mobility Independent Baseline Function- Other 6 months ago could don bra from behind without pain. Current Functional Impairments (Reported) Functional Limitations- ADL's Sleeps on the L side for 1-2 hrs. Functional Limitations- Work/School Retired from various jobs and being a homemaker. Functional Limitations- Recreation/ Sews and walks her dog daily. Hobbies Has 60 lbs lab. Personal Factors Other Personal Factors That May Effect Chronic L neck/shoulder pain Therapy/Recovery with headaches. PT-OP-C Subjective Start: 04/22/22 18:26 Freq: Status: Active Protocol: Document 08/03/22 09:51 LRN (Rec: 08/03/22 10:34 LRN [id number]) OP-PT Subjective Patient Comments Patient Comments Sat everything hurt and Tuesday was a good day, nothing hurt. Neck is bothering her currently, hasn't done neck stretches. PT-OP-E Functional Tests Start: 04/22/22 18:26 Freq: Status: Active Protocol: Document 06/03/22 09:06 LRN (Rec: 06/03/22 09:54 LRN [id number]) Functional Tests Apley's Scratch Test Action 2- Left T2 Action 2- Right T3 Action 3- Left T9 Action 3- Right T7 PT-OP-H Neuro Start: 04/22/22 18:26 Freq: Status: Active Protocol: Document 04/23/22 12:46 LRN (Rec: 04/23/22 16:21 LRN [id number]) Sensation Evaluation Gross Sensation Gross Sensation Left UE Impaired,Head Impaired Sensation Description [place] Deep Tendon Reflex & Clonus Assessment Deep Tendon Reflex Right Brachioradialis Deep Tendon Reflex 2+ Normal Left Brachioradialis Deep Tendon Reflex 3+ Normal But Brisk Bilateral Tricep Deep Tendon Reflex 3+ Normal But Brisk Bilateral Bicep Deep Tendon Reflex 3+ Normal But Brisk PT-OP-J Posture/Palpation/Skin Start: 04/22/22 18:26 Freq: Status: Active Protocol: Document 04/23/22 12:46 LRN (Rec: 04/23/22 16:21 LRN [id number]) Posture Evaluation Position Standing Head/C-Spine Posture Excess Extension,Forward Head T-Spine Posture Increased Kyphosis L-Spine Posture Increased Lordosis Shoulder Posture (R) Elevated Scapula Posture (L) Elevated Arm Posture (L) Internally Rotated,(R) Internally Rotated Weight Distribution Balanced Palpation Assessment Location Upper back Palpation Location L Upper back Palpation Findings Tenderness Posterior neck Palpation Location L Posterior and lateral neck Palpation Findings Tenderness PT-OP-K Range of Motion Start: 04/22/22 18:26 Freq: Status: Active Protocol: Document 07/27/22 11:20 LRN (Rec: 07/27/22 12:05 LRN [id number]) Cervical Spine Range of Motion Cervical Spine Active Degrees Testing Position Sitting Rotation Left 55 Rotation Right 60 Lateral Flexion Left 20 Lateral Flexion Right 24 Comments ROM taken at end of treatment. PT-OP-L Special Tests Start: 04/22/22 18:26 Freq: Status: Active Protocol: Document 07/05/22 09:04 LRN (Rec: 07/05/22 09:46 LRN [id number]) Special Tests Cervical Spine Special Tests Thoracic Outlet Test Results - L side PT-OP-M Strength Start: 04/22/22 18:26 Freq: Status: Active Protocol: Document 04/23/22 12:46 LRN (Rec: 04/23/22 16:21 LRN [id number]) Cervical Spine Strength Cervical Spine Manual Muscle Testing Testing Position Supine Flexion (C1-2) 5 Normal Extension 5 Normal Rotation Left 3+ Fair+ Rotation Right 4 Good Lateral Flexion Left (C3) 5 Normal Lateral Flexion Right (C3) 5 Normal Shoulder Strength Shoulder Manual Muscle Testing Right Flexion 5 Normal Abduction (C5) 5 Normal External Rotation 5 Normal Internal Rotation 5 Normal Left Flexion 3- Fair- Abduction (C5) 3- Fair- External Rotation 3- Fair- Internal Rotation 4 Good Hand [employer]/Pinch Strength Hand Dominance Hand Dominance Right PT-OP-Q Treatments Start: 04/22/22 18:26 Freq: Status: Active Protocol: Document 08/03/22 09:51 LRN (Rec: 08/03/22 10:34 LRN [id number]) Cardio Equipment Bicycle (Upright) Duration (Minutes) 6 Resistance 8 Seat Position 5 Therapeutic Exercises Supine Exercises L shoulder ROM Supine Exercise Name AROM/PROM Side left Reps/Minutes 3 C. Rot Supine Exercise Name AROM rotation hold stretch and C/R stretch Side bilateral Reps/Minutes 10 rot stretch, 10 reps w/5 head nods and C/R 10x Comments Cuing to keep chin tucked Standing Exercises L Ulnar n stretch Standing Exercise Name Elbow resting with arm in ~30 deg AB for L Ulnar n stretch Reps/Minutes 10 SH x 10 of elbow flexion Comments Extra time needed. Much phy & v cuing needed to perform correct. Scap depression Standing Exercise Name Shoulder drops Equipment Used Lev 2 TB Reps/Minutes 2-5 SH x 10 Comments Cuing to scap depressors for drop and to UT to relax Lat Pull Down Standing Exercise Name Lat Pull down, C. SB/Rot stretch btn bouts Side bilateral Equipment Used Lev 2 TB Reps/Minutes 15x 2 Comments Cuing for L scapular depression/retraction Row Standing Exercise Name Row Side bilateral Comments Cuing to keep L shoulder from elevating. Shoulder ER Standing Exercise Name Shoulder ER strengthening Side left Equipment Used Lev 2 TB Reps/Minutes 30x Comments Cuing to breath, keep L scap in neutral,trunk L SB for neutral L Median n stretch Standing Exercise Name L Median n stretch arm 85 deg' s AB, elbow flex/ext wrist slight ext Side left Reps/Minutes 10-20 SH x 10 Comments Extra time to determine best position and for trng of proper ex. L Radial stretch Standing Exercise Name L Radial n stretch: shdr depression, fingers only able to point bkwds. Side left Reps/Minutes 10 SH x 10 of wrist flexion Comments Cues for 10SH, flexion fo wrist if comfortable PT-OP-R Modalities Start: 04/22/22 18:26 Freq: Status: Active Protocol: Document 05/06/22 12:34 LRN (Rec: 05/06/22 13:50 LRN [id number]) Electric Stimulation Electric Stimulation Interferential Current (IFC) Body Location Neck (L UT>lat shoulder, Infras>Pec) Duration (Minutes) 10 Intensity 14 Target/Sweep Sweep Patient Position Hooklying Combined With Heat/Cold Hot Pack Comments Legs on bolster. PT-OP-T Assessment and Plan Start: 04/22/22 18:26 Freq: Status: Active Protocol: Document 08/03/22 09:51 LRN (Rec: 08/03/22 10:34 LRN [id number]) Physical Therapy Assessment Goals Five Impairment Decreased L shoulder stability Mcfp Goal (LTG) Improve L shoulder strength/ stability with pt able to tolerate sleeping on her L side, up to 1-2 hours before waking due to pain. 06/11/22: continues have pain laying on left, limits time ( 20min maybe). 07/08/22: Thinks sleep on L side for ~30', today for first time woke on L side without pain. 07/20/22: Was only able to sleep on it 1 hour yesterday. 07/27/22: Able to sleep, not waking due to pain, but hasn't tried to sleep on L side. 08/03/22: Pt able to sleep on L side 1.5 hrs without pain if positioning herself in a good position. LTG Duration 09/10/22 (08/03/22: MET GOAL ) Four Impairment L shoulder weakness Impairment L shoulder strength: Flex, AB , ER is 3-/5 (R is 5/5) UE QuickDASH score is 31.81 ( 20-39% impaired) Short Term Goal (STG) Improve L shoulder flex, AB, ER strength to no less than 3+ /5. 06/03/22: L shldr Flex, AB 5/ 5, ER 4/5, IR 4+/5. STG Duration 06/07/22 (06/03/22: MET GOAL ) Field Technical Support Consultant Goal (LTG) Improve L shoulder strength to improve function per UE QuickDASH score 1-19 (1-19% impaired). 05/18/22: Quickdash score: 25% (20-39% impaired), improved from 31.81%. Neck diasbility index: score 10, improved from 12 (20-39% impaired) 06/03/22: Quickdash score: 11 .36 (1-19% impaired, score 1- 19). LTG Duration 07/22/22 (06/03/22: MET GOAL) Three Impairment Decreased L shoulder mobility Impairment Shoulder AROM (in deg's): Flex 140 L, 180 R; AB 90 L, 180 R; ER 55 L, 90 R; IR 72 L, 85 R. Behind back: L5 left, T7 right. Short Term Goal (STG) Pt will be educated in sleep positions and will improve sleep quality on the L side for 1-2 hours without pain. 05/03 & 04/17: I/S pt in best practice for side sleeping and head/neck posturing. 06/03/22: NOT able to sleep on L side for any length of time . 06/07/22: Pt sleeping ~5 hrs per night. STG Duration 06/07/22 (06/07/22: MET GOAL ) Mcfp Goal (LTG) Improve L shoulder AROM with pt able to buckle bra reaching behind back without pain. 05/18/22: supine: Flex 139 L, 180 R; AB 55 L, 135 R, seated ER L 60 deg R 61 deg. 06/03/22: sitting: Flex 157 L , 148 R; AB 180 bilaterally. 0 deg's AB: ER 38 L, 48 R. Behind back: T9 L, T7 R. Pt able to buckle bra behind the back, rarely with pain. ROM goal not met for ER/IR. LTG Duration 09/10/22 (06/03/22: GOAL MET for flex, AB, & for the functional movement) Two Impairment Decreased neck mobility. Impairment Cervical AROM (in deg's): Rot is 25 L, 50 R; SB is 18 L, 15 R. Short Term Goal (STG) Pt educated in proper head/ neck posturing in standing, sitting and with reading. 05/06/22 05/11/22:Educated pt on proper posture while reading in chair and in bed using pillows , etc. to prop up book to eye height, with chin tucks and scap retraction ex. 06/11/22: pt stated purchased book support and helping in decreased neck pain. STG Duration 05/14/22 (MET GOAL 05/03/22 & 05/11/22) Mcfp Goal (LTG) Improve L Cervical rotation AROM with pt able to turn to look left comfortably for driving. 04/29/22: HEP: C. rot stretch . 05/18/22: Rot L 25, R 45; SB is 15 R, 16 L. 06/03/22: Rot L 30, R 64; SB is 20 L, 10 R. Improved C. AROM. Has discomfort in looking L while driving. 06/11/22: improved ROM L post manal SCM and use theracane posterior neck. 07/20/22: C. AROM at start: Rot: L 35, R 42; SB L 12, R 15. C. AROM post therapy: Rot L 52, R 53. 07/22/22: C AROM for rot same beginning and end. SB stiffened with exercise. 07/27/22: C. AROM post therapy : Rot: L 55, R 60; SB L 20, R 24. 07/29/22: Able to look L comfortably with driving to [place], but had L neck pain on return. LTG Duration 09/10/22 (07/29/22: 1x MET GOAL). One Impairment Pt is not currently on a self care HEP. Short Term Goal (STG) Pt will be educated in sleep positions and use of modalities for pain management . 05/03 & 04/17: Educated pt in best Sleep positioning. 05/31/22: Educated and discussed proper nighttime modalities for pain control. STG Duration 04/30/22 (05/31/22: MET GOAL) Field Technical Support Consultant Goal (LTG) Pt will be independent with a self care HEP of left neck/ shoulder/UE exercises. 04/29/22: HEP: C. rot & UT stretch, UE neural stretches ( radial, ulnar & median nerves) 05/28/22:Deep neck flexors lift . 06/03/22: AROM L shoulder ER/ IR. 06/11/22: AROM L>R shld ER 45 deg windshield wipers, abd 80deg stretch/ wipers, ABD hands under head stretch/ elbow press table/ wrist press table with breath painfree. Introduced open book side. 07/05/22: I/S pt in Juan shoulder ER ex in multiple angles of ER. 07/13/22: HEP: PROM/AROM C. neck rot, sup arm lifts, sidelie arm/body circles, & shoulder & upper body stretch. 07/22/22: HEP: neck/thoracic rot/wgt shift, shldr girdle stretch and juan AD, 4pt ( standing) head lifts. LTG Duration 09/25/22 progressed 07/22/22 Assessment Summary Assessment Sleeping usually 5 hrs on R side. Did sleep on L side for 1.5 hrs and woke 1x with shoulder getting numb but no pain when positioning herself in a good position to sleep. She is having same situation on R side. With start of LE ex on upright bike, pt felt L leg was weak. Physical Therapy Plan Frequency and Duration Frequency of Treatment 2x/Week Plan of Care Start Date 07/27/22 Plan of Care End Date 09/25/22 Next Visit Focus/Plan Next Note Type Progress Note Next Visit Plan Expect DC in 2 visits. Progress shoulder ER/IR mobility (goal #3) & strength (goal #5), and remeasure, MMT. Monitor neck mobility (L rot & SB). POC: Focus on C/S & T/S L rot (goal #2); L shoulder strengthening/stabilization ( shldr/scap strengthening stab ex's w/focus on L > R scap depression (TB IR/ER/ rows)), but continue manual therapy for relief of neck/LB pain symptoms. [ End ]
--- NOTE | 2022-08-06 12:29 | PT.OTN ---
Current Diagnoses Other chronic pain (08/06/22) Cervicalgia (08/06/22) Muscle weakness (generalized) (08/06/22) Physical Therapy Treatment Note PT-OP-A Visit Information Start: 04/22/22 18:26 Freq: Status: Active Protocol: Document 08/06/22 09:04 LRN (Rec: 08/06/22 09:50 LRN [id number]) Out-Patient Physical Therapy Visit Information Visit Information Visit Type Treatment Note Visit Start Time 09:04 Visit Stop Time 09:45 Total Visit Minutes 41 Visit Number 23 total, 03/15 PT-OP-B Current Condition Start: 04/22/22 18:26 Freq: Status: Active Protocol: Document 04/23/22 12:46 LRN (Rec: 04/23/22 16:21 LRN [id number]) Current Condition History of Current Condition Onset Date 20 yrs ago, worsened in the past few months. Current Complaints L neck/arm discomfort & numbness including L LE, can't sleep on L side History of Current Condition Pt reports she has had neck pain for the past 20 years of insidious onset. States sometimes driving she can't turn her head to the left due to pain. Once in a while worsening of L arm and leg numbness, and can't sleep on L side. Pt states she moved to [place] a year ago and the referring physician thought PT might help. She states that previous doctors told her she had to live with it. Driving is uncomfortable for really long distances, even as passenger. Headaches on L side. Prior Treatments and Tests Physical therapy previously ~ 2015 in [place]. X-ray report indicates: Loss of lordosis and multilevel spondylosis, most notably with moderate to severe disc degeneration at the C5-C6 level. Next MD visit 05/24/22. Pt given pills (meloxicam), but she doesn't like because they make her sleepy and then she doesn't function well the next day. Future Testing and Treatments Planned None Developmental History Developmental History Moved to [place] a year ago with spouse and dog. PMH: Back pain, was told due to disc problem. Jaw pain - wears mouthguard (pt feels not helpful). Treatment Goals Patient/Caregiver Goals Pt goal is to be able to sleep on L side for 1-2 hours without pain, buckle bra reaching behind back without pain, turning to look to the left for driving. Prior Functional Status Baseline Function- ADL's Independent Baseline Function- Mobility Independent Baseline Function- Other 6 months ago could don bra from behind without pain. Current Functional Impairments (Reported) Functional Limitations- ADL's Sleeps on the L side for 1-2 hrs. Functional Limitations- Work/School Retired from various jobs and being a homemaker. Functional Limitations- Recreation/ Sews and walks her dog daily. Hobbies Has 60 lbs lab. Personal Factors Other Personal Factors That May Effect Chronic L neck/shoulder pain Therapy/Recovery with headaches. PT-OP-C Subjective Start: 04/22/22 18:26 Freq: Status: Active Protocol: Document 08/06/22 09:04 LRN (Rec: 08/06/22 09:50 LRN [id number]) OP-PT Subjective Patient Comments Patient Comments Sleeping okay, slept on L side and R hand numb. States she slept more than 2 hrs on the L side. PT-OP-E Functional Tests Start: 04/22/22 18:26 Freq: Status: Active Protocol: Document 06/03/22 09:06 LRN (Rec: 06/03/22 09:54 LRN [id number]) Functional Tests Apley's Scratch Test Action 2- Left T2 Action 2- Right T3 Action 3- Left T9 Action 3- Right T7 PT-OP-H Neuro Start: 04/22/22 18:26 Freq: Status: Active Protocol: Document 04/23/22 12:46 LRN (Rec: 04/23/22 16:21 LRN [id number]) Sensation Evaluation Gross Sensation Gross Sensation Left UE Impaired,Head Impaired Sensation Description Tingling Deep Tendon Reflex & Clonus Assessment Deep Tendon Reflex Right Brachioradialis Deep Tendon Reflex 2+ Normal Left Brachioradialis Deep Tendon Reflex 3+ Normal But Brisk Bilateral Tricep Deep Tendon Reflex 3+ Normal But Brisk Bilateral Bicep Deep Tendon Reflex 3+ Normal But Brisk PT-OP-J Posture/Palpation/Skin Start: 04/22/22 18:26 Freq: Status: Active Protocol: Document 04/23/22 12:46 LRN (Rec: 04/23/22 16:21 LRN [id number]) Posture Evaluation Position Standing Head/C-Spine Posture Excess Extension,Forward Head T-Spine Posture Increased Kyphosis L-Spine Posture Increased Lordosis Shoulder Posture (R) Elevated Scapula Posture (L) Elevated Arm Posture (L) Internally Rotated,(R) Internally Rotated Weight Distribution Balanced Palpation Assessment Location Upper back Palpation Location L Upper back Palpation Findings Tenderness Posterior neck Palpation Location L Posterior and lateral neck Palpation Findings Tenderness PT-OP-K Range of Motion Start: 04/22/22 18:26 Freq: Status: Active Protocol: Document 08/06/22 09:04 LRN (Rec: 08/06/22 09:50 LRN [id number]) Cervical Spine Range of Motion Cervical Spine Active Degrees Testing Position Sitting Rotation Left 45 Rotation Right 55 Lateral Flexion Left 13 Lateral Flexion Right 16 Comments ROM taken at end of treatment, no assisted manual stretching prior to measurements taken. Prior measurements after manual stretching: Rot: 55 L, 60 R; Sidebend: 20 L, 24 R. Shoulder Goniometric Range of Motion Shoulder AROM L Shoulder ROM WFL No Testing Position Sitting Internal Rotation Behind Back (text) T10 AROM R Testing Position Sitting Internal Rotation Behind Back (text) T5 Right Passive Shoulder ROM WFL Yes Testing Position Supine External Rotation at 90 degrees 90 Abduction Internal Rotation 85 Comments IR 50 deg's w/shoulder stabilized, 65 deg's w/o stab to shoulder. Left Passive Testing Position Supine External Rotation at 90 degrees 90 Abduction Internal Rotation 70 Comments ROM is w/o shoulder stabilized . PT-OP-L Special Tests Start: 04/22/22 18:26 Freq: Status: Active Protocol: Document 07/05/22 09:04 LRN (Rec: 07/05/22 09:46 LRN [id number]) Special Tests Cervical Spine Special Tests Thoracic Outlet Test Results - L side PT-OP-M Strength Start: 04/22/22 18:26 Freq: Status: Active Protocol: Document 04/23/22 12:46 LRN (Rec: 04/23/22 16:21 LRN [id number]) Cervical Spine Strength Cervical Spine Manual Muscle Testing Testing Position Supine Flexion (C1-2) 5 Normal Extension 5 Normal Rotation Left 3+ Fair+ Rotation Right 4 Good Lateral Flexion Left (C3) 5 Normal Lateral Flexion Right (C3) 5 Normal Shoulder Strength Shoulder Manual Muscle Testing Right Flexion 5 Normal Abduction (C5) 5 Normal External Rotation 5 Normal Internal Rotation 5 Normal Left Flexion 3- Fair- Abduction (C5) 3- Fair- External Rotation 3- Fair- Internal Rotation 4 Good Hand Warp Doffer/Pinch Strength Hand Dominance Hand Dominance Right PT-OP-Q Treatments Start: 04/22/22 18:26 Freq: Status: Active Protocol: Document 08/06/22 09:04 LRN (Rec: 08/06/22 09:50 LRN [id number]) Therapeutic Exercises Supine Exercises L shoulder ROM Supine Exercise Name Focus on L shldr: ER/IR stretch, AROM/PROM Side bilateral C. Rot Supine Exercise Name AROM rotation hold stretch Side bilateral Reps/Minutes 10 rot stretch, 10 reps w/5 head nods and C/R 10x Comments Cuing to self assist stretch with same side hand. Sitting Exercises C. SB stretch Sitting Exercise Name C. SB stretch Side bilateral Comments Cuing to hold 5-10 secs C. Rot stretch Sitting Exercise Name C Rot stretch Side bilateral Comments Extra time taken to deter self assist stretch w/same side hand is best. Standing Exercises Scap depression Standing Exercise Name Shoulder drops Side left Equipment Used Lev 2 TB Reps/Minutes 2-5 SH, 15 x 2 Comments Cuing to scap depressors for drop and to UT to relax Lat Pull Down Standing Exercise Name Lat Pull down, C. SB/Rot stretch btn bouts Side bilateral Equipment Used Lev 2 TB Reps/Minutes 15x 2 Comments Cuing for L scapular depression/retraction Row Standing Exercise Name Row Side bilateral Equipment Used Lev 3 Reps/Minutes 15x Comments Cuing to keep L shoulder from elevating and back from extending. Shoulder ER Standing Exercise Name Shoulder ER strengthening Side left Equipment Used Lev 2 & Lev 3 TB Reps/Minutes 15x each Comments Cuing to breath, keep L scap in neutral,trunk L SB for neutral Shoulder IR Standing Exercise Name Shoulder IR strengthening Side left Equipment Used Lev 2 & Lev 3 TB Reps/Minutes 15x each Comments Cuing to breath, keep L scap in neutral and trunk L SB for neutral PT-OP-R Modalities Start: 04/22/22 18:26 Freq: Status: Active Protocol: Document 05/06/22 12:34 LRN (Rec: 05/06/22 13:50 LRN [id number]) Electric Stimulation Electric Stimulation Interferential Current (IFC) Body Location Neck (L UT>lat shoulder, Infras>Pec) Duration (Minutes) 10 Intensity 14 Target/Sweep Sweep Patient Position Hooklying Combined With Heat/Cold Hot Pack Comments Legs on bolster. PT-OP-T Assessment and Plan Start: 04/22/22 18:26 Freq: Status: Active Protocol: Document 08/06/22 09:04 LRN (Rec: 08/06/22 09:50 LRN [id number]) Physical Therapy Assessment Goals Five Impairment Decreased L shoulder stability Loan Auditor Goal (LTG) Improve L shoulder strength/ stability with pt able to tolerate sleeping on her L side, up to 1-2 hours before waking due to pain. 06/11/22: continues have pain laying on left, limits time ( 20min maybe). 07/08/22: Thinks sleep on L side for ~30', today for first time woke on L side without pain. 07/20/22: Was only able to sleep on it 1 hour yesterday. 07/27/22: Able to sleep, not waking due to pain, but hasn't tried to sleep on L side. 08/03/22: Pt able to sleep on L side 1.5 hrs without pain if positioning herself in a good position. LTG Duration 09/10/22 (08/03/22: MET GOAL ) Four Impairment L shoulder weakness Impairment L shoulder strength: Flex, AB , ER is 3-/5 (R is 5/5) UE QuickDASH score is 31.81 ( 20-39% impaired) Short Term Goal (STG) Improve L shoulder flex, AB, ER strength to no less than 3+ /5. 06/03/22: L shldr Flex, AB 5/ 5, ER 4/5, IR 4+/5. STG Duration 06/07/22 (06/03/22: MET GOAL ) Loan Auditor Goal (LTG) Improve L shoulder strength to improve function per UE QuickDASH score 1-19 (1-19% impaired). 05/18/22: Quickdash score: 25% (20-39% impaired), improved from 31.81%. Neck diasbility index: score 10, improved from 12 (20-39% impaired) 06/03/22: Quickdash score: 11 .36 (1-19% impaired, score 1- 19). LTG Duration 07/22/22 (06/03/22: MET GOAL) Three Impairment Decreased L shoulder mobility Impairment Shoulder AROM (in deg's): Flex 140 L, 180 R; AB 90 L, 180 R; ER 55 L, 90 R; IR 72 L, 85 R. Behind back: L5 left, T7 right. Short Term Goal (STG) Pt will be educated in sleep positions and will improve sleep quality on the L side for 1-2 hours without pain. 05/03 & 04/17: I/S pt in best practice for side sleeping and head/neck posturing. 06/03/22: NOT able to sleep on L side for any length of time . 06/07/22: Pt sleeping ~5 hrs per night. STG Duration 06/07/22 (06/07/22: MET GOAL ) Correction Goal (LTG) Improve L shoulder AROM with pt able to buckle bra reaching behind back without pain. 05/18/22: supine: Flex 139 L, 180 R; AB 55 L, 135 R, seated ER L 60 deg R 61 deg. 06/03/22: sitting: Flex 157 L , 148 R; AB 180 bilaterally. 0 deg's AB: ER 38 L, 48 R. Behind back: T9 L, T7 R. Pt able to buckle bra behind the back, rarely with pain. ROM goal not met for ER/IR. 08/06/22: Supine (deg's): Flex , AB . ER 86 . IR , IR (behind back): LTG Duration 09/10/22 (06/03/22: GOAL MET for flex, AB, & for the functional movement) Two Impairment Decreased neck mobility. Impairment Cervical AROM (in deg's): Rot is 25 L, 50 R; SB is 18 L, 15 R. Short Term Goal (STG) Pt educated in proper head/ neck posturing in standing, sitting and with reading. 05/06/22 05/11/22:Educated pt on proper posture while reading in chair and in bed using pillows , etc. to prop up book to eye height, with chin tucks and scap retraction ex. 06/11/22: pt stated purchased book support and helping in decreased neck pain. STG Duration 05/14/22 (MET GOAL 05/03/22 & 05/11/22) Loan Auditor Goal (LTG) Improve L Cervical rotation AROM with pt able to turn to look left comfortably for driving. 04/29/22: HEP: C. rot stretch . 05/18/22: Rot L 25, R 45; SB is 15 R, 16 L. 06/03/22: Rot L 30, R 64; SB is 20 L, 10 R. Improved C. AROM. Has discomfort in looking L while driving. 06/11/22: improved ROM L post manal SCM and use theracane posterior neck. 07/20/22: C. AROM at start: Rot: L 35, R 42; SB L 12, R 15. C. AROM post therapy: Rot L 52, R 53. 07/22/22: C AROM for rot same beginning and end. SB stiffened with exercise. 07/27/22: C. AROM post therapy : Rot: L 55, R 60; SB L 20, R 24. 07/29/22: Able to look L comfortably with driving to [place], but had L neck pain on return. LTG Duration 09/10/22 (07/29/22: 1x MET GOAL). One Impairment Pt is not currently on a self care HEP. Short Term Goal (STG) Pt will be educated in sleep positions and use of modalities for pain management . 05/03 & 04/17: Educated pt in best Sleep positioning. 05/31/22: Educated and discussed proper nighttime modalities for pain control. STG Duration 04/30/22 (05/31/22: MET GOAL) Correction Goal (LTG) Pt will be independent with a self care HEP of left neck/ shoulder/UE exercises. 04/29/22: HEP: C. rot & UT stretch, UE neural stretches ( radial, ulnar & median nerves) 05/28/22:Deep neck flexors lift . 06/03/22: AROM L shoulder ER/ IR. 06/11/22: AROM L>R shld ER 45 deg windshield wipers, abd 80deg stretch/ wipers, ABD hands under head stretch/ elbow press table/ wrist press table with breath painfree. Introduced open book side. 07/05/22: I/S pt in Juan shoulder ER ex in multiple angles of ER. 07/13/22: HEP: PROM/AROM C. neck rot, sup arm lifts, sidelie arm/body circles, & shoulder & upper body stretch. 07/22/22: HEP: neck/thoracic rot/wgt shift, shldr girdle stretch and juan AD, 4pt ( standing) head lifts. LTG Duration 09/25/22 progressed 07/22/22 Assessment Summary Assessment Pt sleeping is still good. She may be having tingling in RUE with sleeping on the L side due to excessive traction of neck. Pt to monitor and support RUE to decr traction on UE. C. AROM and PROM less mobility than last taken measurements due to no assisted stretching by PT. Strength of R shoulder appears to be improving with pt able to sleep longer the L side before R shoulder begins to become painful (> 2hrs). Physical Therapy Plan Frequency and Duration Frequency of Treatment 2x/Week Plan of Care Start Date 07/27/22 Plan of Care End Date 09/25/22 Next Visit Focus/Plan Next Note Type Progress Note Next Visit Plan Expect DC in 1 or next visit. Progress shoulder ER/IR mobility (goal #3) & strength (goal #5), and remeasure, MMT. Stretch neck mobility (L rot & SB) before taking ROM msmts. POC: Focus on C/S & T/S L rot (goal #2); L shoulder strengthening/stabilization ( shldr/scap strengthening stab ex's w/focus on L > R scap depression (TB IR/ER/ rows)), but continue manual therapy for relief of neck/LB pain symptoms. [ End ]
--- NOTE | 2022-08-10 13:45 | PT.OTN ---
Current Diagnoses Other chronic pain (08/10/22) Cervicalgia (08/10/22) Muscle weakness (generalized) (08/10/22) Physical Therapy Treatment Note PT-OP-A Visit Information Start: 04/22/22 18:26 Freq: Status: Active Protocol: Document 08/10/22 13:04 SP (Rec: 08/10/22 13:48 SP [id number]) Out-Patient Physical Therapy Visit Information Visit Information Visit Type Treatment Note Visit Start Time 13:04 Visit Stop Time 13:45 Total Visit Minutes 41 Visit Number 24 total, 04/14 Number of SCREEN ROOM OPERATOR Visits 1 Evaluation Information Evaluation Date 04/23/22 Precautions Precautions Pt reports chronic neck, back, jaw pain and headaches. PT-OP-B Current Condition Start: 04/22/22 18:26 Freq: Status: Active Protocol: Document 04/23/22 12:46 LRN (Rec: 04/23/22 16:21 LRN [id number]) Current Condition History of Current Condition Onset Date 20 yrs ago, worsened in the past few months. Current Complaints L neck/arm discomfort & numbness including L LE, can't sleep on L side History of Current Condition Pt reports she has had neck pain for the past 20 years of insidious onset. States sometimes driving she can't turn her head to the left due to pain. Once in a while worsening of L arm and leg numbness, and can't sleep on L side. Pt states she moved to [place] a year ago and the referring physician thought PT might help. She states that previous doctors told her she had to live with it. Driving is uncomfortable for really long distances, even as passenger. Headaches on L side. Prior Treatments and Tests Physical therapy previously ~ 2015 in [place]. X-ray report indicates: Loss of lordosis and multilevel spondylosis, most notably with moderate to severe disc degeneration at the C5-C6 level. Next MD visit 05/24/22. Pt given pills (meloxicam), but she doesn't like because they make her sleepy and then she doesn't function well the next day. Future Testing and Treatments Planned None Developmental History Developmental History Moved to [place] a year ago with spouse and dog. PMH: Back pain, was told due to disc problem. Jaw pain - wears mouthguard (pt feels not helpful). Treatment Goals Patient/Caregiver Goals Pt goal is to be able to sleep on L side for 1-2 hours without pain, buckle bra reaching behind back without pain, turning to look to the left for driving. Prior Functional Status Baseline Function- ADL's Independent Baseline Function- Mobility Independent Baseline Function- Other 6 months ago could don bra from behind without pain. Current Functional Impairments (Reported) Functional Limitations- ADL's Sleeps on the L side for 1-2 hrs. Functional Limitations- Work/School Retired from various jobs and being a homemaker. Functional Limitations- Recreation/ Sews and walks her dog daily. Hobbies Has 60 lbs lab. Personal Factors Other Personal Factors That May Effect Chronic L neck/shoulder pain Therapy/Recovery with headaches. PT-OP-C Subjective Start: 04/22/22 18:26 Freq: Status: Active Protocol: Document 08/10/22 13:04 SP (Rec: 08/10/22 13:48 SP [id number]) OP-PT Subjective Patient Comments Patient Comments Pt reports not having any pain and doing better about doing HEP regularly. PT-OP-E Functional Tests Start: 04/22/22 18:26 Freq: Status: Active Protocol: Document 06/03/22 09:06 LRN (Rec: 06/03/22 09:54 LRN [id number]) Functional Tests Apley's Scratch Test Action 2- Left T2 Action 2- Right T3 Action 3- Left T9 Action 3- Right T7 PT-OP-H Neuro Start: 04/22/22 18:26 Freq: Status: Active Protocol: Document 04/23/22 12:46 LRN (Rec: 04/23/22 16:21 LRN [id number]) Sensation Evaluation Gross Sensation Gross Sensation Left UE Impaired,Head Impaired Sensation Description Tingling Deep Tendon Reflex & Clonus Assessment Deep Tendon Reflex Right Brachioradialis Deep Tendon Reflex 2+ Normal Left Brachioradialis Deep Tendon Reflex 3+ Normal But Brisk Bilateral Tricep Deep Tendon Reflex 3+ Normal But Brisk Bilateral Bicep Deep Tendon Reflex 3+ Normal But Brisk PT-OP-J Posture/Palpation/Skin Start: 04/22/22 18:26 Freq: Status: Active Protocol: Document 04/23/22 12:46 LRN (Rec: 04/23/22 16:21 LRN [id number]) Posture Evaluation Position Standing Head/C-Spine Posture Excess Extension,Forward Head T-Spine Posture Increased Kyphosis L-Spine Posture Increased Lordosis Shoulder Posture (R) Elevated Scapula Posture (L) Elevated Arm Posture (L) Internally Rotated,(R) Internally Rotated Weight Distribution Balanced Palpation Assessment Location Upper back Palpation Location L Upper back Palpation Findings Tenderness Posterior neck Palpation Location L Posterior and lateral neck Palpation Findings Tenderness PT-OP-K Range of Motion Start: 04/22/22 18:26 Freq: Status: Active Protocol: Document 08/06/22 09:04 LRN (Rec: 08/06/22 09:50 LRN [id number]) Cervical Spine Range of Motion Cervical Spine Active Degrees Testing Position Sitting Rotation Left 45 Rotation Right 55 Lateral Flexion Left 13 Lateral Flexion Right 16 Comments ROM taken at end of treatment, no assisted manual stretching prior to measurements taken. Prior measurements after manual stretching: Rot: 55 L, 60 R; Sidebend: 20 L, 24 R. Shoulder Goniometric Range of Motion Shoulder AROM L Shoulder ROM WFL No Testing Position Sitting Internal Rotation Behind Back (text) T10 AROM R Testing Position Sitting Internal Rotation Behind Back (text) T5 Right Passive Shoulder ROM WFL Yes Testing Position Supine External Rotation at 90 degrees 90 Abduction Internal Rotation 85 Comments IR 50 deg's w/shoulder stabilized, 65 deg's w/o stab to shoulder. Left Passive Testing Position Supine External Rotation at 90 degrees 90 Abduction Internal Rotation 70 Comments ROM is w/o shoulder stabilized . PT-OP-L Special Tests Start: 04/22/22 18:26 Freq: Status: Active Protocol: Document 07/05/22 09:04 LRN (Rec: 07/05/22 09:46 LRN [id number]) Special Tests Cervical Spine Special Tests Thoracic Outlet Test Results - L side PT-OP-M Strength Start: 04/22/22 18:26 Freq: Status: Active Protocol: Document 04/23/22 12:46 LRN (Rec: 04/23/22 16:21 LRN [id number]) Cervical Spine Strength Cervical Spine Manual Muscle Testing Testing Position Supine Flexion (C1-2) 5 Normal Extension 5 Normal Rotation Left 3+ Fair+ Rotation Right 4 Good Lateral Flexion Left (C3) 5 Normal Lateral Flexion Right (C3) 5 Normal Shoulder Strength Shoulder Manual Muscle Testing Right Flexion 5 Normal Abduction (C5) 5 Normal External Rotation 5 Normal Internal Rotation 5 Normal Left Flexion 3- Fair- Abduction (C5) 3- Fair- External Rotation 3- Fair- Internal Rotation 4 Good Hand Teacher Aide Clerical/Pinch Strength Hand Dominance Hand Dominance Right PT-OP-Q Treatments Start: 04/22/22 18:26 Freq: Status: Active Protocol: Document 08/10/22 13:04 SP (Rec: 08/10/22 13:48 SP [id number]) Therapeutic Exercises Supine Exercises Ulnar n stretch Supine Exercise Name L>R Ulnar n stretch with arm 70 deg's AB f/b wrist ext arm moving sup Side left Resistance standing when needed Reps/Minutes 10 SH x 10 wrist ext Comments good feedback diminishes tngling 5th digit Sitting Exercises C. SB stretch Sitting Exercise Name C. SB stretch- HEP reviewed Side bilateral Comments Cuing to hold 5-10 secs Shldr/upper back stretch Sitting Exercise Name Reaching overhead>palms to ceiling/breath>scap retract/ exhale Side bilateral Reps/Minutes 10x, hold 3 breaths Comments good even UE OH, improved posturing C. Rot w/Thoracic rot Sitting Exercise Name L > R, Active C Rot w/ Thoracic rot Side bilateral Resistance UE support opp side Equipment Used Breathing during holds Reps/Minutes 2x Comments Cuing for thoracic rot with opp side of rot driving movement. C. Rot stretch Sitting Exercise Name C Rot stretch Side bilateral Comments same side RUe assist stretch w /same side hand is best. Standing Exercises L Ulnar n stretch Reps/Minutes x5 reps Comments when needed for diminishing tingling 5th digit Lat Pull Down Standing Exercise Name Lat Pull down, C. SB/Rot stretch btn bouts Side bilateral Equipment Used Lev 2 TB Reps/Minutes 15x 2 Comments Cuing for L scapular depression/retraction eccentric return start Row Standing Exercise Name Row Side bilateral Equipment Used Lev 3 Reps/Minutes 15x Comments Cuing to keep L shoulder from elevating and back from extending. Shoulder ER Standing Exercise Name Shoulder ER strengthening Side left Equipment Used Lev 2 TB Reps/Minutes 15x each Comments Cuing to breath, keep L scap in neutral,trunk L SB for neutral Shoulder IR Standing Exercise Name Shoulder IR strengthening Side left Equipment Used Lev 2 TB Reps/Minutes 15x each Comments Cuing to breath, keep L scap in neutral and trunk L SB for neutral PT-OP-R Modalities Start: 04/22/22 18:26 Freq: Status: Active Protocol: Document 05/06/22 12:34 LRN (Rec: 05/06/22 13:50 LRN [id number]) Electric Stimulation Electric Stimulation Interferential Current (IFC) Body Location Neck (L UT>lat shoulder, Infras>Pec) Duration (Minutes) 10 Intensity 14 Target/Sweep Sweep Patient Position Hooklying Combined With Heat/Cold Hot Pack Comments Legs on bolster. PT-OP-T Assessment and Plan Start: 04/22/22 18:26 Freq: Status: Active Protocol: Document 08/10/22 13:04 SP (Rec: 08/10/22 13:48 SP [id number]) Physical Therapy Assessment Goals Three Impairment Decreased L shoulder mobility Impairment Shoulder AROM (in deg's): Flex 140 L, 180 R; AB 90 L, 180 R; ER 55 L, 90 R; IR 72 L, 85 R. Behind back: L5 left, T7 right. Short Term Goal (STG) Pt will be educated in sleep positions and will improve sleep quality on the L side for 1-2 hours without pain. 05/03 & 04/17: I/S pt in best practice for side sleeping and head/neck posturing. 06/03/22: NOT able to sleep on L side for any length of time . 06/07/22: Pt sleeping ~5 hrs per night. STG Duration 06/07/22 (06/07/22: MET GOAL ) Business Initiatives Manager Goal (LTG) Improve L shoulder AROM with pt able to buckle bra reaching behind back without pain. 05/18/22: supine: Flex 139 L, 180 R; AB 55 L, 135 R, seated ER L 60 deg R 61 deg. 06/03/22: sitting: Flex 157 L , 148 R; AB 180 bilaterally. 0 deg's AB: ER 38 L, 48 R. Behind back: T9 L, T7 R. Pt able to buckle bra behind the back, rarely with pain. ROM goal not met for ER/IR. 08/06/22: Supine (deg's): Flex , AB . ER 86 . IR , IR (behind back): LTG Duration 09/10/22 (06/03/22: GOAL MET for flex, AB, & for the functional movement) Two Impairment Decreased neck mobility. Impairment Cervical AROM (in deg's): Rot is 25 L, 50 R; SB is 18 L, 15 R. Short Term Goal (STG) Pt educated in proper head/ neck posturing in standing, sitting and with reading. 05/06/22 05/11/22:Educated pt on proper posture while reading in chair and in bed using pillows , etc. to prop up book to eye height, with chin tucks and scap retraction ex. 06/11/22: pt stated purchased book support and helping in decreased neck pain. STG Duration 05/14/22 (MET GOAL 05/03/22 & 05/11/22) Business Initiatives Manager Goal (LTG) Improve L Cervical rotation AROM with pt able to turn to look left comfortably for driving. 04/29/22: HEP: C. rot stretch . 05/18/22: Rot L 25, R 45; SB is 15 R, 16 L. 06/03/22: Rot L 30, R 64; SB is 20 L, 10 R. Improved C. AROM. Has discomfort in looking L while driving. 06/11/22: improved ROM L post manal SCM and use theracane posterior neck. 07/20/22: C. AROM at start: Rot: L 35, R 42; SB L 12, R 15. C. AROM post therapy: Rot L 52, R 53. 07/22/22: C AROM for rot same beginning and end. SB stiffened with exercise. 07/27/22: C. AROM post therapy : Rot: L 55, R 60; SB L 20, R 24. 07/29/22: Able to look L comfortably with driving to [place], but had L neck pain on return. LTG Duration 09/10/22 (07/29/22: 1x MET GOAL). One Impairment Pt is not currently on a self care HEP. Short Term Goal (STG) Pt will be educated in sleep positions and use of modalities for pain management . 05/03 & 04/17: Educated pt in best Sleep positioning. 05/31/22: Educated and discussed proper nighttime modalities for pain control. STG Duration 04/30/22 (05/31/22: MET GOAL) Business Initiatives Manager Goal (LTG) Pt will be independent with a self care HEP of left neck/ shoulder/UE exercises. 04/29/22: HEP: C. rot & UT stretch, UE neural stretches ( radial, ulnar & median nerves) 05/28/22:Deep neck flexors lift . 06/03/22: AROM L shoulder ER/ IR. 06/11/22: AROM L>R shld ER 45 deg windshield wipers, abd 80deg stretch/ wipers, ABD hands under head stretch/ elbow press table/ wrist press table with breath painfree. Introduced open book side. 07/05/22: I/S pt in Juan shoulder ER ex in multiple angles of ER. 07/13/22: HEP: PROM/AROM C. neck rot, sup arm lifts, sidelie arm/body circles, & shoulder & upper body stretch. 07/22/22: HEP: neck/thoracic rot/wgt shift, shldr girdle stretch and juan AD, 4pt ( standing) head lifts. 08/10/22: HEP review: seated CS rot/SB stretchs and thoracic rotation stretch, standing resisted pull down/rows, Ulnar nerve glide. LTG Duration 09/25/22 progressed 08/10/22 Assessment Summary Assessment Pt good response to HEP stretching, scap and L shld strengthening, feels more confident in performance and understanding to continue on own. Wants to do HEP on own for next few weeks and check in with PT for follow up to see if need to continue or DC to HEP. During tx little tingling L elbow but post cues for scap retract/depress, ulnar nerve glide and CS stretches tingling goes away. Pt report not having pain anymore and ableto do activies back to normal. PRovided HOs to standing resisted HEP performed today, review has been in PT tx ther ex, carryover at home. Physical Therapy Plan Frequency and Duration Frequency of Treatment 2x/Week Plan of Care Start Date 07/27/22 Plan of Care End Date 09/25/22 Therapeutic Interventions Therapeutic Interventions Home Exercise Program,Joint Mobilizations,Manual Therapy, Neuromuscular Re-education, Patient/Caregiver Education, Self-Care/Home Management,Soft Tissue Mobilization, Therapeutic Exercises Modalities Cold Pack/Ice Massage,Electric Stimulation,Hot Packs, Ultrasound Next Visit Focus/Plan Next Note Type Discharge Summary Next Visit Plan Expect DC next visit. Recheck HEP remeasure & MMT. Reassess HEP goal #1. Stretch neck mobility (L rot & SB) before taking ROM msmts. POC: L shoulder strengthening/stabilization ( shldr/scap strengthening stab ex's w/focus on L > R scap depression (TB IR/ER/ rows)), but continue manual therapy for relief of neck/LB pain symptoms. [ End ]
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
== END 2022-08-30 08:48 | disposition home or self-care (01) ==
LOC: PHYS 15:15
PROVIDERS: Family Provider Family Medicine; PCP Family Medicine; Referring Provider Family Medicine; Visit Provider Family Medicine
DX: M54.2 Cervicalgia (principal); G89.29 Other chronic pain; M62.81 Muscle weakness (generalized)
CPT/HCPCS: 95851; 97014; 97110; 97140; 97162; 97535; G0283

== ENCOUNTER → 2023-06-10 09:38 | Outpatient (CLI) | payer MEDICARE, OTHER, SELFPAY ==
[2023-06-10 11:32] LABS: Alanine Aminotransferase 40 IU/L (<35); Albumin 4.1 g/dL (3.5-5.0); Albumin Globulin Ratio 1.6 (1.0-2.8); Alkaline Phosphatase 88 U/L (38-126); Aspartate Aminotransferase 34 IU/L (14-36); BUN Creatinine Ratio 21.1 (6-22); Bilirubin Total 0.9 mg/dL (0.2-1.3); Blood Urea Nitrogen 15 mg/dL (7-17); Calcium 9.9 mg/dL (8.4-10.2); Carbon Dioxide 26 mmol/L (22-32); Chloride 104 mmol/L (98-107); Cholesterol 236 mg/dL (140-199); Estimated Glomerular Filt Rate > 60 mL/min (>60); Globulin 2.5 g/dL (1.7-4.1); Glucose 83 mg/dL (80-110); HDL Cholesterol 66 mg/dL (40-60); HEMOLYSIS 21 (0-50); LDL Cholesterol Calculated 138 mg/dL (<100); Potassium 4.6 mmol/L (3.4-5.1); Sodium 138 mmol/L (137-145); Total Protein 6.6 g/dL (6.3-8.2); Triglycerides 159 mg/dL (35-150)
[2023-06-13 13:25] LABS: Fecal Immunochemical Test Negative (Negative)
== END ==
PROVIDERS: Family Provider Family Medicine; PCP Family Medicine; Referring Provider Family Medicine; Visit Provider Family Medicine
DX: Z00.00 Encounter for general adult medical examination without abnormal findings (principal); Z12.11 Encounter for screening for malignant neoplasm of colon
CPT/HCPCS: 36415; 80053; 80061; 82274

== ENCOUNTER → 2023-07-18 15:01 | Outpatient (CLI) | payer MEDICARE, OTHER, SELFPAY ==
--- NOTE | 2023-07-18 15:02 | DI.MG.S_ITS ---
BILATERAL DIGITAL SCREENING MAMMOGRAM 3D/2D WITH CAD: 07/18/2023 CLINICAL: Routine screening. Family history of breast cancer. Comparison is made to exams dated: 07/15/2022 mammogram - [facility] and 07/09/2020 mammogram - outside [facility]. Both breasts are heterogeneously dense, which may obscure small masses (category c / 51-75% glandular tissue). Current study was also evaluated with a Computer Aided Detection (CAD) system. No significant masses, calcifications, or other findings are seen in either breast. There has been no significant interval change. IMPRESSION: NEGATIVE There is no mammographic evidence of malignancy. A 1 year screening mammogram is recommended. Based on the Tyrer Cuzick model (a risk assessment model) the patient's lifetime risk is 8.1% and her 10 year risk is 4.5%. According to the ACR, ACS, and NCCN guidelines, an annual breast MRI exam along with mammogram is recommended if the patient's lifetime risk is 20% or greater. This exam was interpreted at Station ID: [id number]. NOTE: For mammograms, a report in lay terms will be sent to the patient. Approximately 15% of breast malignancies will not be visualized mammographically. In the management of a palpable breast mass, a negative mammogram must not discourage biopsy of a clinically suspicious lesion. Electronically Signed By: Belle Lora M.D., PH.D eb/flynn:07/19/2023 23:57:53 letter sent: Normal Exam ACR BI-RADS Category 1: Negative [id number]
== END ==
PROVIDERS: Family Provider Family Medicine; PCP Family Medicine; Referring Provider Family Medicine; Visit Provider Family Medicine
DX: Z12.31 Encounter for screening mammogram for malignant neoplasm of breast (principal); Z80.3 Family history of malignant neoplasm of breast; R92.333 Mammographic heterogeneous density, bilateral breasts
CPT/HCPCS: 77063; 77067

== ENCOUNTER → 2023-09-23 11:07 | Outpatient (CLI) | payer MEDICARE, OTHER, SELFPAY ==
--- NOTE | 2023-09-23 11:08 | DI.MRI.S_ITS ---
PROCEDURE: MR CERVICAL SPINE WO CON INDICATIONS: neck pain TECHNIQUE: Noncontrast sagittal T1 spin echo and T2 fast spin echo, sagittal STIR, foraminal oblique sagittal T2 fast spin echo, and axial gradient echo or T2 fast spin echo through the cervical spine. COMPARISON: None. FINDINGS: Image quality: Excellent. Alignment and Curvature: Mild anterolisthesis of C4 on C5. Mild retrolisthesis of C5 on C6. Bone Marrow: Modic type 1 degenerative endplate changes at C5-C6. Marrow demonstrates normal overall signal. Spinal Cord: Visualized spinal cord has normal size and signal. No cerebellar tonsillar herniation. Paraspinous Soft Tissues: No paravertebral masses. Prevertebral soft tissues are normal in thickness. C2-C3: No central canal stenosis. Mild facet and uncovertebral arthropathy. No significant neural foraminal stenosis. C3-C4: Disc desiccation. No central canal stenosis. No significant neural foraminal stenosis. C4-C5: Disc desiccation height loss. Minimal posterior disc osteophyte complex. No significant central canal stenosis. Facet and uncovertebral arthropathy. Moderate bilateral neural foraminal stenosis. C5-C6: Disc desiccation height loss. Posterior disc osteophyte complex. Moderate central canal stenosis. Facet and uncovertebral arthropathy. Severe right and moderate to severe left neural foraminal stenosis. C6-C7: Disc desiccation height loss. Posterior disc osteophyte complex. Mild central canal stenosis. Facet and uncovertebral arthropathy. Moderate left and mild right neural foraminal stenosis. C7-T1: Disc desiccation and posterior disc osteophyte complex. No central canal or neural foraminal stenosis. IMPRESSION: 1. Multilevel degenerative changes of the cervical spine as described above. 2. There is moderate central canal stenosis at C5-C6. 3. Severe right neural foraminal stenosis at C5-C6 and moderate to severe left neural foraminal stenosis. Dictated by: Allen Abarca M.D. on 09/23/2023 at 15:48 Approved by: Allen Abarca M.D. on 09/23/2023 at 15:51
== END ==
PROVIDERS: Family Provider Family Medicine; PCP Family Medicine; Referring Provider Family Medicine; Visit Provider Family Medicine
DX: M47.812 Spondylosis without myelopathy or radiculopathy, cervical region (principal); M54.2 Cervicalgia; M48.02 Spinal stenosis, cervical region; R20.0 Anesthesia of skin; G89.29 Other chronic pain
CPT/HCPCS: 72141

== ENCOUNTER → 2023-11-28 08:40 | Outpatient (CLI) | payer MEDICARE, OTHER, SELFPAY ==
--- NOTE | 2023-11-28 08:44 | DI.RAD.S_ITS ---
PROCEDURE: XR CERVICAL SPINE 4V OR 5V INDICATIONS: NECK PAIN TECHNIQUE: 5 views of the cervical spine acquired. COMPARISON: [facility], , XR CERVICAL SPINE 2V OR 3V, 04/13/2022, 16:11. FINDINGS: Bones: No fractures or dislocations to the T1 level. Oblique images demonstrate no bony foraminal stenoses. Stable alignment with minimal retrolisthesis of C5 relative to C4 and C6. Moderate multilevel cervical spondylitic changes with degenerative endplate changes, disc space loss, and endplate osteophyte formation. Findings are again most severe at C5-C6. Moderate multilevel facet arthropathy. Oblique views demonstrate mild bilateral neuroforaminal stenosis at C4-5 and C5-6. Soft tissues: No prevertebral soft tissue swelling. IMPRESSION: Cervical spine without acute fracture or traumatic malalignment. Stable appearance of minimal retrolisthesis of C5 relative to both C4 and C6. Moderate multilevel cervical spondylosis and facet arthropathy most severe at C5-6. Dictated by: Amilcar Gastelum M.D. on 11/28/2023 at 10:43 Approved by: Amilcar Gastelum M.D. on 11/28/2023 at 10:46
== END ==
PROVIDERS: Family Provider Family Medicine; PCP Family Medicine; Referring Provider Anesthesiology; Visit Provider Anesthesiology
DX: M47.22 Other spondylosis with radiculopathy, cervical region (principal); M54.2 Cervicalgia; M79.602 Pain in left arm; G89.29 Other chronic pain
CPT/HCPCS: 72050; 99214

== ENCOUNTER 2024-02-15 13:19 | Outpatient (CLI) | payer MEDICARE, OTHER, SELFPAY ==
[2024-02-15] VITALS (9 sets, daily range): BP systolic 117–147; BP diastolic 60–74; PULSE 64–71; RESP 13–22; TEMP 36.1; O2SAT 97–100
--- NOTE | 2024-02-15 14:00 | DI.RAD.S_ITS ---
PROCEDURE: PAIN C/T INTERLAMINAR INJECT INDICATIONS: radiculopathy COMPARISON: None. FINDINGS: Fluoroscopic spot filming was performed to verify placement of spinal needles at the C7-T1 level(s), as labeled on the films. Appropriate location(s) of the needle tip(s) was confirmed by injection of iodinated contrast. IMPRESSION: Contrast a needle placement overlying C7-T1 Dictated by: Cha Ro M.D. on 02/15/2024 at 22:48 Approved by: Cha Ro M.D. on 02/15/2024 at 22:48
[2024-02-15] MEDS: MIDAZOLAM 2 MG/2 ML VIAL 0.5 MG IV (14:02)
[2024-02-15] MEDS: DEXAMETHASONE 10 MG/ML VIAL INJ (14:04)
[2024-02-15] MEDS: iopamidoL 15 ML VIAL 3 ML INJ (14:04)
--- NOTE | 2024-02-15 15:16 | P.PCN_ITS ---
Date/Time/Diagnoses Date of procedure: 02/15/24 Time of procedure: 14:00 Procedure Notes Physician: Be Pabon Total Fluoroscopy time (seconds): 16 Total sedation minutes: 8 Procedure in detail & Post-procedure care: C7-T1 Interlaminar Epidural Steroid Injection Indications: Carole is presenting for treatment of cervical radiculopathy with neck and arm pain. Preoperative diagnosis: Cervical radiculopathy Postoperative diagnosis: Same Focused Examination: Ax3 Mood and affect are normal Vital Signs: VSS ASA: 2 Consent: Risks, benefits and alternatives discussed at a prior clinic visit and the patient voiced understanding at that time. Prior to today's injection, we again went over the risks, benefits and alternatives. Following review of allergies and potential side effects/complications, including, but not necessarily limited to, infection, allergic reaction, local tissue breakdown, stroke, temporary or permanent nerve injury, paralysis, and possible , the patient indicated that they understood and agreed to proceed.? A consent document was signed by the patient, witnessed by a nurse and placed in the patient's chart.? Additionally, other treatment options including medications and physical therapy were reviewed with the patient. All questions were answered. Site was then marked. Anesthesia: After review of previous anesthetic history and IV conscious sedation, the patient was deemed safe to proceed with today's procedure with IV conscious sedation. IV sedation was accomplished with midazolam 0.5 mg administered by the RN after physician order. Sedation was titrated to patient comfort during the course of the procedure. Patient remained responsive to all verbal commands. Position: Prone Monitoring: NIBP, Pulse oximetry, 3 lead EKG Needle used: 18 G 3.5? Tuohy Contrast: Isovue 300-M 2 mL Injectate: Dexamethasone 10 mg followed by Normal Saline 2 mL Technique: The skin was prepped with chloraprep and then draped in a sterile fashion. Time out was performed as per protocol. Oxygen applied via NC. Skin and subcutaneous structures of the needle entry site was then infiltrated with 3 mL of lidocaine 1%. Under AP, lateral and contralateral oblique fluoroscopic control, the Tuohy needle was guided into the C7-T1 epidural space. The space was accessed with loss of resistance technique. Isovue 300-M was then injected and the spread was consistent with the epidural space. There was no evidence for intravascular or intrathecal uptake. After negative aspiration, the above- mentioned injectate was then slowly administered and the needle withdrawn. The patient expressed no unusual discomfort or paresthesias during the injection. Band-Aids applied to injection sites. EBL: less than 1 ml Complications: None Post Procedure: Patient was taken to the recovery and monitored. The patient was provided a Pain Log to continue to record the patient's response to the target- specific procedure prior to the patient's follow-up visit with the referring physician. Patient was stable upon discharge. Detailed post procedure instructions were provided. Patient was asked to call in the event of worsening pain, fever, weakness, numbness or bladder or bowel incontinence.
== END 2024-02-15 14:36 | disposition home or self-care (01) ==
PROVIDERS: Family Provider Family Medicine; PCP Family Medicine; Referring Provider Anesthesiology; Visit Provider Anesthesiology
DX: M54.12 Radiculopathy, cervical region (principal)
CPT/HCPCS: 62321; J1100; J2250

== ENCOUNTER 2024-05-25 12:22 | Emergency (ER) | payer MEDICARE, OTHER, SELFPAY ==
[2024-05-25 12:29] VITALS: BP 140/67; PULSE 73; RESP 16; TEMP 36.9; O2SAT 99; BMI 27.1
--- NOTE | 2024-05-25 12:36 | DI.RAD.S_ITS ---
PROCEDURE: XR WRIST RT MIN 3V INDICATIONS: fall with pain TECHNIQUE: A total of 4 views of the wrist were acquired. COMPARISON: [facility], CR, XR HAND RT MIN 3V, 05/25/2024, 12:46. FINDINGS: Bones: No fractures or dislocations. No suspicious bony lesions. Soft tissues: No suspicious soft tissue calcifications. IMPRESSION: No acute bony abnormality. Mild osteoarthritic change. Dictated by: Chidi Ireland M.D. on 05/25/2024 at 13:34 Approved by: Chidi Ireland M.D. on 05/25/2024 at 13:35
--- NOTE | 2024-05-25 12:36 | DI.RAD.S_ITS ---
PROCEDURE: XR HAND RT MIN 3V INDICATIONS: fall with pain TECHNIQUE: 3 views of the hand(s) acquired. COMPARISON: None. FINDINGS: Bones: No fractures or dislocations. Carpal bones are normally aligned. No suspicious bony lesions. There is moderate degenerative osteoarthritis over the right hand, most pronounced at the distal interphalangeal joints of the 2nd and 3rd digits. Soft tissues: No suspicious soft tissue calcifications. IMPRESSION: No acute bony abnormality. Moderate osteoarthritis, longstanding, most pronounced at the distal 2nd and 3rd digits. Dictated by: Chidi Ireland M.D. on 05/25/2024 at 13:33 Approved by: Chidi Ireland M.D. on 05/25/2024 at 13:34
--- NOTE | 2024-05-25 12:58 | ED_ITS ---
HPI - Extremity Injury (Upper) <Darcie Kaur PA-C - Last Filed: 05/25/24 15:14> General Chief Complaint: Extremity Injury, Upper Stated Complaint: fell on tuesday wrist and face hurt alot still Time Seen by Provider: 05/25/24 12:56 Source: patient Mode of arrival: Ambulatory History of Present Illness HPI narrative: Ms. Moyer is a pleasant 68-year-old female with a past medical history of hyperlipidemia, chronic neck pain with cervical radiculopathy who presents to the emergency department after a fall on 05/22/2024. Patient is accompanied by her son who contributes to the history. Patient states while walking on an uneven sidewalk on 05/22, she accidentally tripped and fell forward. Reports landing with her arms extended above her head hitting her right wrist, face, right knee. Patient denies symptoms preceding the fall. She denies loss of consciousness or nausea or vomiting after the fall. She immediately developed swelling of the right side of the face. She did not seek medical treatment immediately after the fall however now she continues to have right-sided facial pain, swelling, bruising in addition to right wrist pain, right knee abrasion, and right-sided back/ribcage pain. Denies chest pain, abdominal pain, neck pain, difficulty with ambulation or range of movement, visual disturbance, dizziness, shortness of breath, blood thinner use. She is unsure of last Tdap. Related Data Home Medications Medication Instructions Recorded Confirmed ascorbic acid (vitamin C) 1,000 mg 500 mg PO BID 04/13/22 05/25/24 tablet calcium-vitamin D2-iron tablet tab PO 04/13/22 05/25/24 glucosamine-chondroitin 1,500 mg ml PO 04/13/22 05/25/24 -1,200 mg/30 mL oral liquid loratadine 10 mg tablet 10 mg PO DAILY 04/13/22 05/25/24 (Allerclear) msm-aloe bqiw-[id number]-ena oil ea topical 04/13/22 05/25/24 topical gel (Deep Blue Relief topical gel) sjlddqhu-qdf-leflz ac 400 tab PO 04/13/22 05/25/24 mcg-calcium carb 500 mg-vit K1 20 mcg tablet (Women's 50 Plus Multivitamin) omega 5-frl-gnx-fish oil 1,000 mg 1 cap PO DAILY 04/13/22 05/25/24 (120 mg-180 mg) capsule (Fish Oil) turmeric 400 mg capsule mg PO 04/13/22 05/25/24 Previous Rx's Medication Instructions Recorded rosuvastatin 10 mg tablet (Crestor) 10 mg PO DAILY #90 tabs 09/19/23 Allergies Allergy/AdvReac Type Severity Reaction Status Date / Time No Known Drug Allergies Allergy Unverified 05/25/24 12:19 Review of Systems <Darcie Kaur PA-C - Last Filed: 05/25/24 15:14> Review of Systems ROS Unobtainable: All systems reviewed & are unremarkable except as noted in HPI and below Patient History <Darcie Kaur PA-C - Last Filed: 05/25/24 15:14> Medical History Left arm pain Cervical spondylosis Cervical radiculopathy Hyperlipidemia Encounter for annual wellness visit (AWV) in Medicare patient Headache Mumps Measles Chicken pox Allergic rhinitis Chronic neck pain Surgical History Anesthesia History of dilatation and curettage Family History Father Cancer Fall Social History Smoking Status: Never smoker Smoking Status: Never smoker alcohol intake frequency: other Substance Use Type: does not use Exam <Darcie Kaur PA-C - Last Filed: 05/25/24 15:14> Narrative Exam Narrative: GENERAL: 68 year old patient appears stated age. Well-developed patient, in no acute distress. HEAD: Ecchymosis of right side of face starting at the periorbital area and spreading down into the neck. Tenderness to palpation of the right orbital bone and zygomatic arch. Full range of motion of the TMJ. No crepitus. EYES: PERRL. Extraocular motions intact without pain. No scleral icterus. No injection or drainage. ENT: No hemotympanum. Nose without bleeding, purulent drainage or septal hematoma. Throat without erythema, tonsillar hypertrophy or exudate. Airway patent. NECK: Trachea midline. Cervical ROM intact. CARDIOVASCULAR: Regular rate and rhythm. RESPIRATORY: ?Nonlabored respirations. ?Speaking in clear, full sentences. ?Clear to auscultation. Breath sounds equal bilaterally. No wheezes, rales, or rhonchi. ? GASTROINTESTINAL: Abdomen soft, non-tender, nondistended. EXTREMITIES: Superficial abrasion on right knee. Superficial abrasions on bilateral palms. Tenderness to palpation of right 5th metacarpal. No snuffbox tenderness bilaterally. Strong radial pulse bilaterally and brisk cap refill. BACK: Tenderness to palpation of right thoracic back region below scapula. No midline spinal tenderness or step-offs. No bruising. NEURO: AOx3. ?Clear speech. ?Moves all 4 extremities appropriately. SKIN: Bruising right face, abrasions right knee, palms. Initial Vital Signs Initial Vital Signs: Vital Signs Temperature 98.5 F 05/25/24 12:29 Pulse Rate 73 05/25/24 12:29 Respiratory Rate 16 05/25/24 12:29 Blood Pressure 140/67 05/25/24 12:29 Pulse Oximetry 99 05/25/24 12:29 Oxygen Delivery Method Room Air 05/25/24 12:29 <Khari Boyle MD - Last Filed: 05/25/24 20:30> Initial Vital Signs Initial Vital Signs: Vital Signs Temperature 98.5 F 05/25/24 12:29 Pulse Rate 73 05/25/24 12:29 Respiratory Rate 16 05/25/24 12:29 Blood Pressure 140/67 05/25/24 12:29 Pulse Oximetry 99 05/25/24 12:29 Oxygen Delivery Method Room Air 05/25/24 12:29 Course <Darcie Kaur PA-C - Last Filed: 05/25/24 15:14> Orders Ordered: ED Orders 05/25/24 12:36 XR hand RT min 3V Stat XR wrist RT min 3V Stat 05/25/24 13:41 CT facial bones wo con Stat CT head/brain wo con Stat CT thoracic spine wo con Stat XR ribs RT min 3V w CXR1V Stat Discontinued Medications Bacitracin (Bacitracin Oint 0.9 Gm Pckt) 1 applic TOP NOW ONE Stop: 05/25/24 13:49 Last Admin: 05/25/24 14:08 Dose: 1 applic Documented By: NILA Diphtheria/Tetanus/Acell Pertussis (Tet,Diph,Pertuss(Acell),Vac/Pf 0.5 Ml S yringe) 0.5 ml IM .ONCE ONE Stop: 05/25/24 13:49 Last Admin: 05/25/24 14:08 Dose: 0.5 ml Documented By: NILA Vital Signs Vital signs: Vital Signs - 8 hr 05/25/24 15:18 Temperature 98 F Pulse Rate 77 Respiratory Rate 16 Blood Pressure 138/70 Pulse Oximetry 100 Oxygen Delivery Method Room Air <Khari Boyle MD - Last Filed: 05/25/24 20:30> Orders Ordered: ED Orders 05/25/24 12:36 XR hand RT min 3V Stat XR wrist RT min 3V Stat 05/25/24 13:41 CT facial bones wo con Stat CT head/brain wo con Stat CT thoracic spine wo con Stat XR ribs RT min 3V w CXR1V Stat Discontinued Medications Bacitracin (Bacitracin Oint 0.9 Gm Pckt) 1 applic TOP NOW ONE Stop: 05/25/24 13:49 Last Admin: 05/25/24 14:08 Dose: 1 applic Documented By: NILA Diphtheria/Tetanus/Acell Pertussis (Tet,Diph,Pertuss(Acell),Vac/Pf 0.5 Ml Syringe) 0.5 ml IM .ONCE ONE Stop: 05/25/24 13:49 Last Admin: 05/25/24 14:08 Dose: 0.5 ml Documented By: NILA Vital Signs Vital signs: Vital Signs - 8 hr 05/25/24 15:18 Temperature 98 F Pulse Rate 77 Respiratory Rate 16 Blood Pressure 138/70 Pulse Oximetry 100 Oxygen Delivery Method Room Air MDM - Extremity Injury (Upper) <Darcie Kaur PA-C - Last Filed: 05/25/24 15:14> MDM Narrative Medical decision making narrative: 68-year-old female with a past medical history of hyperlipidemia and cervical radiculopathy presents for evaluation after a fall that occurred on 05/22/2024. Differential diagnosis includes but is not limited to orbital fracture, facial fracture, head trauma, thoracic fracture, rib fracture, contusions, wrist fracture, wrist sprain, wrist sprain, etc. On exam patient is in no acute distress, nontoxic-appearing, all vital signs within normal limits. She is ambulatory. She does have pain the right 5th metacarpal, right side of the face, right posterior ribcage/thoracic back region. She is neurovascularly intact and not on blood thinners. No visual disturbance or pain with EOMs. We will update tetanus shot. Apply bacitracin to abrasions. We will obtain head and face imaging, thoracic back imaging, chest x-ray and rib imaging, right wrist and hand imaging. Patient declines pain medication. All imaging results printed and gone over with patient. X-ray hand shows no acute bony abnormality however there is moderate osteoarthritis. Right wrist x- ray shows no acute bony abnormality, mild osteoarthritic change. Face CT negative for displaced facial bone fracture. Postoperative changes of the anterior tarango of both maxillary sinuses. Moderate mucosal thickening is seen within the maxillary sinuses. Head CT negative for acute intracranial hemorrhage, no acute intracranial pathology. Thoracic spine CT is negative for thoracic spine fracture, it does reveal L2-L3 degenerative change. Chest and ribs x-ray negative for displaced fracture or pneumothorax. Recommended rice therapy, right wrist placed in Eyad wrap for comfort, advised ibuprofen/Tylenol if needed for pain. Discussed PCP follow up and strict ER return precautions. Patient verbalized understanding of all information is stable for discharge. Discharge Plan Departure Patient Disposition: Home Clinical Impression: Fall Qualifiers: Encounter type: initial encounter Qualified Code(s): W19.XXXA - Unspecified fall, initial encounter Closed head injury Qualifiers: Encounter type: initial encounter Qualified Code(s): S09.90XA - Unspecified injury of head, initial encounter Contusion of face Qualifiers: Encounter type: initial encounter Qualified Code(s): S00.83XA - Contusion of other part of head, initial encounter Strain of right wrist Qualifiers: Encounter type: initial encounter Qualified Code(s): S66.911A - Strain of unspe cified muscle, fascia and tendon at wrist and hand level, right hand, initial encounter Abrasion of palm Qualifiers: Encounter type: initial encounter Laterality: unspecified laterality Qualified Code(s): S60.519A - Abrasion of unspecified hand, initial encounter Abrasion of knee, right Qualifiers: Encounter type: initial encounter Qualified Code(s): S80.211A - Abrasion, right knee, initial encounter Instructions: DI for Wrist Sprain, DI for Contusion Activity Restrictions/Additional Instructions: Today you were evaluated for injuries after fall. Your head and face CT scans did not reveal any fractures or acute injuries. Your hand and wrist x-rays also did not reveal any acute fractures. The CT scan of the thoracic spine did not reveal any fractures, however there is L2-L3 degenerative changes noted. Please use RICE therapy for your pain in addition to ibuprofen/acetaminophen. Rest the painful area. Ice the area of pain/swelling for at least 15 minutes, 4x a day. Compress the area of swelling using a brace, wrap, or splint if applied. Elevate the painful or swollen extremity by supporting it above the level of the heart with pillows when sitting or laying. Please take Ibuprofen (Motrin/Advil) or Acetaminophen (Tylenol) for pain. These are available over the counter. You may take Ibuprofen 600 mg every 8 hours with food for pain. You may also take Acetaminophen 650 mg every 4-6 hours for pain. Do not exceed 3000 mg of Tylenol a day as this can cause liver damage. Do not drink alcohol with either of these medications. Please follow up with your primary care doctor within the next 2-3 days for ER follow-up. (If you do not have a PCP you can call [phone]. ?to schedule an appointment with an [facility] Primary Care Provider) IF YOU DEVELOP ANY NEW OR WORSENING SYMPTOMS, RETURN TO THE ER! Please read the attached instructions, they highlight more specific treatments and interventions for you at home. Thank you for letting me participate in your care, Darcie Kaur PA-C Prescriptions: No Action rosuvastatin [Crestor] 10 mg tablet 10 mg PO DAILY Qty: 90 3RF turmeric 400 mg capsule PO loratadine [Allerclear] 10 mg tablet 10 mg PO DAILY Deep Blue Relief Gel topical Women's 50 Plus Multivitamin 400 mcg-500 mg calcium-20 mcg tablet PO ascorbic acid (vitamin C) 1,000 mg tablet 500 mg PO BID omega 3-zcn-hwu-fish oil [Fish Oil] 1,000 mg (120 mg-180 mg) capsule 1 cap PO DAILY glucosamine-chondroitin 1,500-1,200 mg/30 mL liquid PO calcium-vitamin D2-iron Tablet PO Referrals: Carloz Kelley DO [Primary Care Provider] - Stand Alone Forms: Patient Portal/API/Survey ED Sign-out <Khari Boyle MD - Last Filed: 05/25/24 20:30> Cosign ED Attending Cosignature Attestation: I was immediately available in the department for consultation. This documentation has been reviewed and I agree with assessment and plan. Supervised by Khari Boyle MD
--- NOTE | 2024-05-25 13:41 | DI.RAD.S_ITS ---
PROCEDURE: XR RIBS RT MIN 3V W CXR 1V INDICATIONS: fall 05/22 R sided posterior rib pain TECHNIQUE: 2 views of the ribs were acquired, along with a single view chest. COMPARISON: None. FINDINGS: Surgical changes and devices: None. Bones and chest wall: No fractures or dislocations. No suspicious bony lesions. Overlying soft tissues appear unremarkable. Lungs and pleura: No pleural effusions or pneumothorax. Lungs appear clear. Mediastinum: Mediastinal contours appear normal. Heart size is normal. IMPRESSION: No displaced rib fracture or pneumothorax. Dictated by: James Manzanares M.D. on 05/25/2024 at 14:48 Approved by: James Manzanares M.D. on 05/25/2024 at 14:55
--- NOTE | 2024-05-25 13:41 | DI.CT.S_ITS ---
PROCEDURE: CT FACIAL BONES WO CON INDICATIONS: fall 05/22 R sided facial trauma TECHNIQUE: Noncontrast 2.5 mm thick axial images acquired from the mandible through the frontal sinuses, with coronal and sagittal reformatting. For radiation dose reduction, the following was used: automated exposure control, adjustment of mA and/or kV according to patient size. COMPARISON: [facility], CT, CT HEAD/BRAIN WO CON, 05/25/2024, 14:00. [facility], CT, CT THORACIC SPINE WO CON, 05/25/2024, 14:00. FINDINGS: Image quality: Excellent. Bones and teeth: Remote postoperative changes can be seen involving the anterior tarango of the maxillary sinuses. No acute fractures are seen. Mild chronic rightward nasal septal deviation is seen. Focal C5-C6 degenerative change is partially seen. Sinuses: Moderate mucosal thickening can be seen within the inferior maxillary sinuses. Scattered mild mucosal thickening is seen elsewhere within the paranasal sinuses. Soft tissues: No edema, masses, or fluid collections. No enlarged lymph nodes. No soft tissue lacerations or debris. Vascular: Visualized vascular structures appear normal in the absence of contrast. Bony vascular foramina and canals are intact. IMPRESSION: Negative for displaced facial bone fracture. Postoperative changes of the anterior tarango of both maxillary sinuses. Moderate mucosal thickening is seen within the maxillary sinuses. Dictated by: Surjit Trinidad M.D. on 05/25/2024 at 13:25 Approved by: Surjit Trinidad M.D. on 05/25/2024 at 13:27
--- NOTE | 2024-05-25 13:41 | DI.CT.S_ITS ---
PROCEDURE: CT HEAD/BRAIN WO CON INDICATIONS: fall 05/22 facial trauma TECHNIQUE: Noncontrast 4.5 mm thick angled axial sections acquired from the foramen magnum to the vertex, with coronal and sagittal reformats. For radiation dose reduction, the following was used: automated exposure control, adjustment of mA and/or kV according to patient size. COMPARISON: [facility], CT, CT FACIAL BONES WO CON, 05/25/2024, 14:00. [facility], CT, CT THORACIC SPINE WO CON, 05/25/2024, 14:00. FINDINGS: Image quality: Mild streak artifact can be seen through the skull base. CSF spaces: Basal cisterns are patent. No extra-axial fluid collections. The ventricles are symmetric in size and shape. Brain: No intracranial bleeds or masses. There is cerebral volume loss for age, with resultant ventricular and sulcal prominence. There are periventricular and deep white matter chronic small vessel ischemic changes. There is intracranial internal carotid artery atherosclerosis. Skull and face: Calvarium and visualized facial bones appear intact, without suspicious lesions. Sinuses: Visualized sinuses and mastoids are clear. IMPRESSION: No acute intracranial hemorrhage is seen. No acute intracranial pathology. Dictated by: Surjit Trinidad M.D. on 05/25/2024 at 13:28 Approved by: Surjit Trinidad M.D. on 05/25/2024 at 13:29
--- NOTE | 2024-05-25 13:41 | DI.CT.S_ITS ---
PROCEDURE: CT THORACIC SPINE WO CON INDICATIONS: fall 05/22 R sided back pain TECHNIQUE: Noncontrast 3 mm thick sections acquired through the region of interest in the thoracic spine. Sagittal and coronal reformats were then constructed. For radiation dose reduction, the following was used: automated exposure control. COMPARISON: None. FINDINGS: Image quality: Excellent. Bones: There is normal overall bony alignment. No acute vertebral body compression fractures. No suspicious sclerotic or lytic bony lesions. Central spinal canal is of normal overall caliber. Focal L2-L3 degenerative change is seen, with moderate disc space narrowing seen on the right, with associated endplate irregularity and sclerosis. Vacuum disc phenomenon is seen at this level. At least moderate bilateral neural foraminal narrowing can be seen at this level. Milder degenerative changes are seen elsewhere. Soft tissues: No paravertebral masses or hematomas. Visualized posteromedial lungs appear clear. IMPRESSION: Negative for thoracic spine fracture. L2-L3 degenerative change noted. Dictated by: Surjit Trinidad M.D. on 05/25/2024 at 13:19 Approved by: Surjit Trinidad M.D. on 05/25/2024 at 13:21
[2024-05-25] MEDS: TET,DIPH,PERTUSS(ACELL),VAC/PF 0.5 ML SYRINGE IM (14:08)
[2024-05-25] MEDS: BACITRACIN OINT 0.9 GM PCKT 1 APPLIC TOP (14:08)
[2024-05-25 15:18] VITALS: BP 138/70; PULSE 77; RESP 16; TEMP 36.6; O2SAT 100
== END 2024-05-25 15:18 | disposition home or self-care (01) ==
PROVIDERS: Emergency Provider Physician Assistant; Family Provider Family Medicine; PCP Family Medicine
DX: S09.90XA Unspecified injury of head, initial encounter (principal); S00.83XA Contusion of other part of head, initial encounter; S66.911A Strain of unspecified muscle, fascia and tendon at wrist and hand level, right hand, initial encounter; S80.211A Abrasion, right knee, initial encounter; S60.511A Abrasion of right hand, initial encounter; W01.0XXA Fall on same level from slipping, tripping and stumbling without subsequent striking against object, initial encounter; Z23 Encounter for immunization
CPT/HCPCS: 70450; 70486; 71101; 72128; 73110; 73130; 90471; 99284; 90715

== ENCOUNTER → 2024-06-07 07:00 | Outpatient (CLI) | payer MEDICARE, OTHER, SELFPAY ==
[2024-06-07 08:50] LABS: Cholesterol 162 mg/dL (140-199); HDL Cholesterol 81 mg/dL (40-60); LDL Cholesterol Calculated 59 mg/dL (<100); Triglycerides 111 mg/dL (35-150)
== END ==
PROVIDERS: Family Provider Family Medicine; PCP Family Medicine; Referring Provider Family Medicine; Visit Provider Family Medicine
DX: E78.5 Hyperlipidemia, unspecified (principal)
CPT/HCPCS: 36415; 80061

== ENCOUNTER → 2024-08-08 12:10 | Outpatient (CLI) | payer MEDICARE, OTHER, SELFPAY ==
--- NOTE | 2024-08-08 12:12 | DI.MG.S_ITS ---
BILATERAL DIGITAL SCREENING MAMMOGRAM 3D/2D WITH CAD: 08/08/2024 CLINICAL: Routine screening. Family history of breast cancer. Comparison is made to exams dated: 07/18/2023 mammogram, 07/15/2022 mammogram - [facility], and 07/09/2020 mammogram - outside location. There are scattered areas of fibroglandular density (category b / 25%-50% glandular tissue). Current study was also evaluated with a Computer Aided Detection (CAD) system. No significant masses, calcifications, or other findings are seen in either breast. There has been no significant interval change. IMPRESSION: NEGATIVE There is no mammographic evidence of malignancy. A 1 year screening mammogram is recommended. Based on the Tyrer Cuzick model (a risk assessment model) the patient's lifetime risk is 4.8% and her 10 year risk is 3.0%. According to the ACR, ACS, and NCCN guidelines, an annual breast MRI exam along with mammogram is recommended if the patient's lifetime risk is 20% or greater. This exam was interpreted at Station ID: [id number]. NOTE: For mammograms, a report in lay terms will be sent to the patient. Approximately 15% of breast malignancies will not be visualized mammographically. In the management of a palpable breast mass, a negative mammogram must not discourage biopsy of a clinically suspicious lesion. Electronically Signed By: Belle Lora M.D., Ph.D. curry/flynn:08/08/2024 13:55:47 letter sent: Normal Exam ACR BI-RADS Category 1: Negative
--- NOTE | 2024-08-08 12:12 | DI.RAD.S_ITS ---
PROCEDURE: XR DEXA AXIAL SKELETON INDICATIONS: Screening for bone density and structure disorders COMPARISON: [facility], , XR DEXA AXIAL SKELETON, 07/07/2022, 11:33. FINDINGS: Lumbar Spine: Bone mineral density 0.815 g/cm2, T score -2.1. Since the most recent prior study, there has been no statistically significant change in bone mineral density. Left Femoral Neck: Bone mineral density is 0.614 g/cm2, T score -2.1. Left Hip: Bone mineral density is 0.756 g/cm2, T score -1.5. Since the most recent prior study, there has been no statistically significant change in bone mineral density. Fracture Risk Calculation (when applicable): 10-year fracture risk of a major osteoporotic fracture 12% and of a hip fracture 2.4%. (T score greater or equal to -1.0 to: NORMAL) (T score from -1.1 to -2.4: OSTEOPENIA) (T score less than or equal to -2.5: OSTEOPOROSIS) IMPRESSION: 1. By WHO criteria, patient has osteopenia. 2. No significant interval change in bone mineral density at the lumbar spine or left hip. Follow-up guidelines as follows: Osteoporosis: Consider a repeat DEXA and Vertebral Fracture Assessment (VFA) exam in 2 years or sooner if medically necessary, to reassess this patient's status. Osteopenia: Consider a repeat DEXA in 2-3 years to reassess this patient's status, or if there is a new clinical indication. Normal: Consider a repeat DEXA in 5 years or sooner, or if there is a new clinical indication. All treatment decisions require clinical judgment and consideration of individual patient factors, including patient preferences, comorbidities, previous drug use, risk factors not captured in the FRAX model (e.g., frailty, falls, vitamin D deficiency, increased bone turnover, interval significant decline in bone density ) and possible under- or over-estimation of fracture risk by FRAX. In addition, the NOF Guide recommends that FDA-approved medical therapies be considered in postmenopausal women and men age >= 50 years with a: * Hip or vertebral (clinical or morphometric) fracture * T-score of <=-2.5 at the spine or hip * Ten-year fracture probability by FRAX of >= 3% for hip fracture or >=20% for major osteoporotic fracture. Approved by: Jesse Oliveira M.D. on 08/08/2024 at 20:37
== END ==
PROVIDERS: Family Provider Family Medicine; PCP Family Medicine; Referring Provider Family Medicine; Visit Provider Family Medicine
DX: Z12.31 Encounter for screening mammogram for malignant neoplasm of breast (principal); Z80.3 Family history of malignant neoplasm of breast; M85.89 Other specified disorders of bone density and structure, multiple sites
CPT/HCPCS: 77063; 77067; 77080

== ENCOUNTER 2024-08-14 08:22 | Outpatient (CLI) | payer MEDICARE, OTHER, SELFPAY ==
[2024-08-14] VITALS (8 sets, daily range): BP systolic 103–137; BP diastolic 54–60; PULSE 69–85; RESP 14–18; TEMP 36.2; O2SAT 97–100
--- NOTE | 2024-08-14 08:23 | DI.RAD.S_ITS ---
PROCEDURE: PAIN C/T INTERLAMINAR INJECT INDICATIONS: C6/7 TL BEBO COMPARISON: [facility], , PAIN C/T INTERLAMINAR INJECT, 02/15/2024, 14:01. FINDINGS/IMPRESSION: Fluoroscopic spot filming was performed to verify placement of spinal needles at the C6-C7 level(s), as labeled on the films. Appropriate location(s) of the needle tip(s) was confirmed by injection of iodinated contrast. Dictated by: Allen Abarca M.D. on 08/14/2024 at 11:16 Approved by: Allen Abarca M.D. on 08/14/2024 at 11:16
[2024-08-14] MEDS: MIDAZOLAM 2 MG/2 ML VIAL IV (09:30)
[2024-08-14] MEDS: iopamidoL 15 ML VIAL 3 ML INJ (09:39)
[2024-08-14] MEDS: DEXAMETHASONE 10 MG/ML VIAL 20 MG INJ (09:40)
[2024-08-14] MEDS: BUPIVACAINE 0.25% (PF) VIAL 2 ML INJ (09:40)
--- NOTE | 2024-08-14 09:59 | P.PCN_ITS ---
Date/Time/Diagnoses Date of procedure: 08/14/24 Time of procedure: 09:59 Pre-procedure diagnosis: 1. CERVICAL STENOSIS, 2. CERVICAL HNP WITH UPPER EXTREMITY RADICULAR FEATURES Post-procedure diagnosis: same Procedure Notes Procedure: 1. FLUORSCOPICALLY GUIDED CONTRAST CONTROLLED INTERLAMINAR EPIDURAL STEROID INJECTION - C6/7 TL BEBO Indications: Carole is referred by Dr. Kelley for treatment of Cervical HNP with Upper Extremity Paresthesias. Physician: Petey Patel Total Fluoroscopy time (seconds): 26 Total sedation minutes: 15 Complications: none Procedure in detail & Post-procedure care: FINDINGS Cervical Stenosis due to disc deterioration and nerve root irritation and nerve root irritation DESCRIPTION OF PROCEDURE Fluoroscopically guided, contrast-controlled C6/7 translaminar epidural steroid injection with conscious sedation. Following review of allergy and review of potential side effects and complications, including, but not necessarily limited to, infection, allergic reaction, local tissue breakdown, temporary as well as permanent nerve injury, stroke, paralysis, and possible , the patient indicated that patient understood and agreed to proceed. An informed consent document was signed by the patient, witnessed by a nurse, and placed in the patient's chart. Additionally, other treatment options including modalities, medications, and physical therapy were reviewed with the patient. After review of previous anaesthesic history and IV conscious sedation the patient was deemed safe to proceed with today?s procedure with IV conscious sedation as ASA class II designation. Safety time-out was performed to confirm patient ID, procedure to be performed and site of procedure. IV sedation was accomplished with a combination of 2mg of Versed administered by the RN after DO order, titrated to patient comfort during the course of the procedure while the patient remained responsive to all verbal commands. In the prone position, following sterile prep and drape of the cervical region, the C6/7 translaminar space was identified fluoroscopically. The skin was anesthetized via a 25-gauge 1.5-inch needle with 1% lidocaine solution. At this point, a 25-gauge, 2.5-inch short bevel spinal needle was atraumatically introduced and advanced under fluoroscopic guidance into epidural space at the C6/7 translaminar space. Depth was confirmed on lateral view. Radiological data, including multiple fluoroscopic views of the cervical spine, reveal a spinal needle at the C6/7 translaminar space. Lateral views then show placement of the needle in the epidural space. Subsequent views show contrast material flowing superiorly and inferiorly in the epidural space. DSA fluoroscopy with live contrast injection, once again, confirmed no vascular or intrathecal uptake. At this point, using loss of resistance technique with saline and air, the epidural space was entered. Following negative aspiration, injection of approximately 1.5 cc of Isovue-200 with live fluoroscopy in the AP view confirmed epidural flow in the epidural space without vascular or intrathecal uptake observed. Subsequently, a test dose of 1 cc of 1% lidocaine solution was injected and patient was observed for two minutes without signs or symptoms of complications, including abdominal pain, shortness of breath, bilateral upper or lower extremity weakness, nausea and vomiting, prior to steroid injection. At this point, 2cc or 20mg of dexamethasone was then injected without incident. The patient tolerated the procedure well without signs or symptoms of compl ications prior to being transferred to the recovery area for further monitoring, The patient was then transferred to the recovery area where they were observed for an appropriate period of time after the injection. The patient reported a VAS score of 6 prior to the procedure and a post-procedure VAS of 0. POST OP INSTRUCTIONS The patient was provided a Pain Log to continue to record their response to the target-specific procedure prior to follow-up visit with the referring provider. Additionally, specific post-injection care instructions and a contact number to our office were provided if concerns arise regarding possible complications associated with the procedure are suspected.
[2024-08-15 13:09] LABS: Fecal Immunochemical Test Negative (Negative)
== END 2024-08-14 10:07 | disposition home or self-care (01) ==
PROVIDERS: Family Provider Family Medicine; PCP Family Medicine; Referring Provider Physical Medicine & Rehabilitation; Visit Provider Physical Medicine & Rehabilitation
DX: M48.02 Spinal stenosis, cervical region (principal); M50.123 Cervical disc disorder at C6-C7 level with radiculopathy; Z12.11 Encounter for screening for malignant neoplasm of colon
CPT/HCPCS: 62321; 82274; 99152; J1100; J2250; J3490

== ENCOUNTER → 2025-03-13 13:48 | Outpatient (CLI) | payer MEDICARE, OTHER, SELFPAY ==
[2025-03-13 14:57] LABS: Appearance Urine UA SL CLOUDY; Bilirubin Urine UA NEGATIVE (NEGATIVE); Color Urine UA YELLOW; Glucose Urine UA NEGATIVE (Negative); Ketones Urine UA NEGATIVE (NEGATIVE); Leukocyte Esterase Urine UA 3+ (NEGATIVE); Nitrite Urine UA NEGATIVE (Negative); Occult Blood Urine UA TRACE-INTACT (Negative); Protein Urine UA NEGATIVE (Negative); Specific Gravity Urine UA <=1.005 (1.000-1.035); Urobilinogen Urine UA 0.2 E.U./dL (0.2)
[2025-03-13 14:59] LABS: pH Urine UA 6.0 (4.5-8.0)
[2025-03-13 15:05] LABS: Culture Indicated Urine Specimen Cultured
[2025-03-13 17:38] LABS: Estradiol, Total 31.2 pg/mL
== END ==
PROVIDERS: Family Provider Family Medicine; PCP Family Medicine; Referring Provider Emergency Medicine; Visit Provider Emergency Medicine
DX: N30.00 Acute cystitis without hematuria (principal); N95.1 Menopausal and female climacteric states
CPT/HCPCS: 36415; 81001; 82670; 87086

== ENCOUNTER 2025-05-28 08:00 | Outpatient (CLI) | payer MEDICARE, OTHER, SELFPAY ==
[2025-05-28] VITALS (12 sets, daily range): BP systolic 103–171; BP diastolic 57–75; PULSE 62–71; RESP 15–35; TEMP 36.6; O2SAT 97–99
[2025-05-28] MEDS: MIDAZOLAM 2 MG/2 ML VIAL IV (09:33)
[2025-05-28] MEDS: BETAMETHASONE 30 MG/5 ML MDV 12 MG INJ (09:39)
[2025-05-28] MEDS: BETAMETHASONE 30 MG/5 ML MDV 6 MG INJ (09:40)
--- NOTE | 2025-05-28 09:56 | P.PCN_ITS ---
Date/Time/Diagnoses Date of procedure: 05/28/25 Time of procedure: 09:56 Pre-procedure diagnosis: 1. FORAMINAL STENOSIS WITH LE SYMPTOMS Post-procedure diagnosis: same Procedure Notes Procedure: 1. FLUOROSCOPICALLY GUIDED CONTRAST CONTROLLED TRANSFORAMINAL EPIDURAL STEROID INJECTION - Left L5/S1 Indications: Carole is referred by Dr. Kelley for treatment of Foraminal Stenosis with Left LE Symptoms Physician: Petey Patel Total Fluoroscopy time (seconds): 18 Total sedation minutes: 16 Complications: none Procedure in detail & Post-procedure care: FINDINGS Foraminal Nerve Root Compression secondary to disc disease and facet hypertrophy DESCRIPTION OF PROCEDURE Following review of allergy and review of potential side effects and complications, including, but not necessarily limited to, infection, allergic reaction, local tissue breakdown, stroke, temporary or permanent nerve injury, paralysis, and possible , the patient indicated that the patient understood and agreed to proceed. An informed consent document was signed by the patient, witnessed by a nurse, and placed in the patient's chart. Additionally, other treatment options including medications, modalities, and physical therapy were reviewed with the patient. After review of previous anaesthesic history and IV conscious sedation the patient was deemed safe to proceed with today?s procedure with IV conscious sedation as ASA class II designation. Safety time-out was performed to confirm patient ID, procedure to be performed and site of procedure. IV sedation was accomplished with a combination of 2mg of Versed was administered by the RN after DO order, titrated to patient comfort during the course of the procedure while the patient remained responsive to all verbal commands In the prone position following sterile prep and drape of the lumbar region, the Left L5/S1 posterior neuroforamen was identified fluoroscopically. The skin was anesthetized via a 25-gauge 1.5-inch needle with 1% lidocaine solution. At this point, a 25-gauge 3.5-inch spinal needle was atraumatically introduced and advanced under fluoroscopic guidance through the posterior Left L5/S1 neuroforamen to approximately the anterior aspect of the canal. Depth was confirmed on lateral view. Following negative aspiration, injection of approximately 1.5 cc of Isovue 200 under live fluoroscopy in the AP view confirm ed excellent flow along the nerve root, into the epidural space without vascular or intrathecal uptake observed Radiological data, including multiple fluoroscopic views of the lumbosacral spine, reveal a spinal needle at the Left L5/S1 posterior neuroforamen. Subsequent views show flow of contrast material flowing superiorly and inferiorly along the nerve root confirming epidural flow. Subsequently, a test dose of 1.5cc of 0.25%marcaine solution was administered and patient was observed for two minutes for signs or symptoms of complications, including abdominal pain, shortness of breath, bilateral upper or lower extremity weakness, nausea and vomiting, prior to steroid injection. At this point, a total of 3cc or 10mg of dexamethasone and 12mg of betamethasone was injected without incident. The procedure tolerated the procedure well without signs or symptoms of complications prior to transfer to the recovery area continued monitoring without incident. The patient was then transferred to the recovery area where they were observed for an appropriate time after the injection. The patient reported a VAS score of 7 prior to the procedure and a post-procedure VAS of 0. POST OP INSTRUCTIONS The patient was provided a Pain Log to continue to record their response to the target-specific procedure prior to follow-up visit with their referring phy sician. Additionally, specific post-injection care instructions and a contact number to our office were provided if concerns arise regarding possible complications associated with the procedure are suspected.
--- NOTE | 2025-05-28 09:56 | P.PCN_ITS ---
Date/Time/Diagnoses Date of procedure: 05/28/25 Time of procedure: 09:56 Pre-procedure diagnosis: 1. FORAMINAL STENOSIS WITH LE SYMPTOMS Post-procedure diagnosis: same Procedure Notes Procedure: 1. FLUOROSCOPICALLY GUIDED CONTRAST CONTROLLED TRANSFORAMINAL EPIDURAL STEROID INJECTION - LEFT L2/3 TFESI Indications: Carole is referred by Dr. Kelley for treatment of Foraminal Stenosis with left LE Symptoms Physician: Petey Patel Total Fluoroscopy time (seconds): 18 Total sedation minutes: 16 Complications: none Procedure in detail & Post-procedure care: FINDINGS Foraminal Nerve Root Compression secondary to disc disease and facet hypertrophy DESCRIPTION OF PROCEDURE Following review of allergy and review of potential side effects and complications, including, but not necessarily limited to, infection, allergic reaction, local tissue breakdown, stroke, temporary or permanent nerve injury, paralysis, and possible , the patient indicated that the patient understood and agreed to proceed. An informed consent document was signed by the patient, witnessed by a nurse, and placed in the patient's chart. Additionally, other treatment options including medications, modalities, and physical therapy were reviewed with the patient. After review of previous anaesthesic history and IV conscious sedation the patient was deemed safe to proceed with today?s procedure with IV conscious sedation as ASA class II designation. Safety time-out was performed to confirm patient ID, procedure to be performed and site of procedure. IV sedation was accomplished with a combination of 2mg of Versed was administered by the RN after DO order, titrated to patient comfort during the course of the procedure while the patient remained responsive to all verbal commands. In the prone position following sterile prep and drape of the lumbar region, the left L2/3 posterior neuroforamen was identified fluoroscopically. The skin was anesthetized via a 25-gauge 1.5-inch needle with 1% lidocaine solution. At this point, a 25-gauge 3.5-inch spinal needle was atraumatically introduced and advanced under fluoroscopic guidance through the posterior left L2/3 neuroforamen to approximately the anterior aspect of the canal. Depth was confirmed on lateral view. Following negative aspiration, injection of approximately 1.5 cc of Isovue 200 under live fluoroscopy in the AP view confir med excellent flow along the nerve root, into the epidural space without vascular or intrathecal uptake observed Radiological data, including multiple fluoroscopic views of the lumbosacral spine, reveal a spinal needle at the left L2/3 posterior neuroforamen. Subsequent views show flow of contrast material flowing superiorly and inferiorly along the nerve root confirming epidural flow. Subsequently, a test dose of 1.5cc of 0.25% marcaine solution was administered and patient was observed for two minutes for signs or symptoms of complications, including abdominal pain, shortness of breath, bilateral upper or lower extremity weakness, nausea and vomiting, prior to steroid injection. At this point, a total of 3cc or 10mg of dexamethasone and 12mg betamethasone was injected without incident. The patient tolerated the procedure well without signs or symptoms of complications prior to transfer to the recovery area continued monitoring without incident. The patient was then transferred to the recovery area where they were observed for an appropriate time after the injection. The patient reported a VAS score of 7 prior to the procedure and a post-procedure VAS of 0. POST OP INSTRUCTIONS The patient was provided a Pain Log to continue to record their response to the target-specific procedure prior to follow-up visit with their referring physicia n. Additionally, specific post-injection care instructions and a contact number to our office were provided if concerns arise regarding possible complications associated with the procedure are suspected.
== END 2025-05-28 10:31 | disposition home or self-care (01) ==
LOC: RAD 08:02
PROVIDERS: Family Provider Family Medicine; PCP Family Medicine; Referring Provider Physical Medicine & Rehabilitation; Visit Provider Physical Medicine & Rehabilitation
DX: M48.061 Spinal stenosis, lumbar region without neurogenic claudication (principal); M48.07 Spinal stenosis, lumbosacral region; M51.16 Intervertebral disc disorders with radiculopathy, lumbar region; M51.17 Intervertebral disc disorders with radiculopathy, lumbosacral region; M47.26 Other spondylosis with radiculopathy, lumbar region; M47.27 Other spondylosis with radiculopathy, lumbosacral region
CPT/HCPCS: 64483; 64484; 99152; J0702; J1100; J2250

== ENCOUNTER → 2025-06-17 07:03 | Outpatient (CLI) | payer MEDICARE, OTHER, SELFPAY ==
[2025-06-17 07:52] LABS: Hematocrit 43.8 % (36-46); Hemoglobin 14.6 g/dL (12.0-16.0); Mean Corpuscular HGB Conc 33.3 % (30-36); Mean Corpuscular Hemoglobin 29.9 PG (26-34); Mean Corpuscular Volume 89.7 fL (80-100); Platelet Count 180 X10^3/uL (150-400)
[2025-06-17 08:20] LABS: Alanine Aminotransferase 23 IU/L (<35); Albumin 4.0 g/dL (3.5-5.0); Albumin Globulin Ratio 1.7 (1.0-2.8); Alkaline Phosphatase 107 U/L (38-126); Blood Urea Nitrogen 12 mg/dL (7-17); Calcium 9.7 mg/dL (8.4-10.2); Carbon Dioxide 26 mmol/L (22-32); Chloride 106 mmol/L (98-107); Cholesterol 149 mg/dL (140-199); Estimated Glomerular Filt Rate > 60 mL/min (>60); Globulin 2.4 g/dL (1.7-4.1); Glucose 88 mg/dL (70-99); HDL Cholesterol 78 mg/dL (40-60); HEMOLYSIS 18 (0-50); Potassium 4.4 mmol/L (3.4-5.1); Sodium 138 mmol/L (137-145); Total Protein 6.4 g/dL (6.3-8.2); Triglycerides 82 mg/dL (35-150)
== END ==
PROVIDERS: PCP Family Medicine; Referring Provider Family Medicine; Visit Provider Family Medicine
DX: Z00.00 Encounter for general adult medical examination without abnormal findings (principal); E78.5 Hyperlipidemia, unspecified
CPT/HCPCS: 36415; 80053; 80061; 85027